=== PATIENT | female | born 1990 | race Caucasian/White ===

== ENCOUNTER 2023-05-23 09:37 | Outpatient (OUT) | payer OTHER, SELFPAY ==
[2023-05-23 10:43] LABS: Basophils Percent Auto 0.4 % (0.2-2.0); Eosinophils Absolute Auto 0.1 10^3/uL (0.0-0.7); Eosinophils Percent Auto 1.8 % (0.9-7.0); Hematocrit 38.7 % (36.0-48.0); Hemoglobin 13.1 g/dL (12.0-16.0); Immature Granulocytes Abs Auto 0.01 10^3/uL (0.00-0.03); Immature Granulocytes Pct Auto 0.1 % (0.0-0.5); Lymphocytes Absolute Auto 1.7 10^3/uL (1.2-3.8); Lymphocytes Percent Auto 25.5 % (20.5-60.0); Mean Corpuscular HGB Conc 33.9 g/dL (29.9-35.2); Mean Corpuscular Hemoglobin 29.6 pg (26.7-34.0); Mean Corpuscular Volume 87.6 fL (81.0-99.0); Mean Platelet Volume 9.3 fL (9.5-13.5); Monocytes Absolute Auto 0.4 10^3/uL (0.3-0.8); Monocytes Percent Auto 6.3 % (1.7-12.0); Neutrophils Absolute Auto 4.5 10^3/uL (1.4-6.5); Neutrophils Percent Auto 65.9 % (43.0-75.0); Platelet Count 283 10^3/uL (150-450); Red Blood Count 4.42 10^6/uL (4.20-5.40); Red Cell Distribution Width 13.4 % (11.0-15.0); White Blood Count 6.8 10^3/uL (4.0-11.0)
[2023-05-23 11:11] LABS: Estimated Average Glucose 97 mg/dL
[2023-05-23 11:22] LABS: Free T4 1.33 ng/dL (0.76-1.46)
[2023-05-23 11:25] LABS: Alanine Aminotransferase 40 U/L (14-59); Albumin Globulin Ratio 1.3; Albumin Level 4.1 g/dL (3.4-5.0); Alkaline Phosphatase 50 U/L (46-116); Anion Gap 11.7; Aspartate Amino Transferase 21 U/L (15-37); BUN Creatinine Ratio 16.5; Bilirubin Total 0.7 mg/dL (0.2-1.0); Calcium 8.5 mg/dL (8.5-10.1); Carbon Dioxide 25.6 mmol/L (21.0-32.0); Chloride 105 mmol/L (98-107); Chol HDL Ratio 3.2; Cholesterol 146 mg/dL (<=200); Estimated GFR (African America >60 (>=60); Estimated GFR (Non-African Ame >60 (>=60); Globulin 3.1 g/dL; Glucose 95 mg/dL (74-106); HDL Cholesterol 45 mg/dL (40-60); LDL Cholesterol Calculated 81.8 mg/dL; Potassium 3.3 mmol/L (3.5-5.1); Sodium 139 mmol/L (136-145); Total Protein 7.2 g/dL (6.4-8.2); Triglycerides 96 mg/dL (<=150); VLDL CHOLESTEROL 19.2 mg/dL
[2023-05-24 08:08] LABS: HIV Ab/p24 Ag Screen Non Reactive (Non Reactive)
[2023-05-24 09:09] LABS: HCV Ab Non Reactive (Non Reactive)
== END 2023-05-23 09:38 | disposition home or self-care (01) ==
PROVIDERS: PCP Nurse Practitioner Primary Care; Visit Provider Nurse Practitioner Primary Care
DX: Z00.00 Encounter for general adult medical examination without abnormal findings (principal); Z11.59 Encounter for screening for other viral diseases; Z13.29 Encounter for screening for other suspected endocrine disorder; Z11.4 Encounter for screening for human immunodeficiency virus [HIV]; Z13.6 Encounter for screening for cardiovascular disorders
CPT/HCPCS: 36415; 80053; 80061; 83036; 84439; 84443; 85025; 86803; 87389

== ENCOUNTER 2023-06-01 21:51 | Outpatient (REF) | payer OTHER, SELFPAY ==
[2023-06-03 15:08] LABS: Candida species Negative (Negative); Gardnerella vaginalis Negative (Negative); Trichomonas vaginalis Negative (Negative)
[2023-06-05 11:12] LABS: Age Gdln ACOG Testing Note (.); HPV Aptima Negative (Negative); IGP, Aptima HPV, rfx 16/18,45 Note (.)
== END 2023-06-01 21:52 | disposition home or self-care (01) ==
LOC: LAB 21:51
PROVIDERS: PCP Nurse Practitioner Primary Care; Visit Provider Nurse Practitioner Primary Care
DX: Z01.419 Encounter for gynecological examination (general) (routine) without abnormal findings (principal)
CPT/HCPCS: 87480; 87491; 87510; 87591; 87624; 87660; G0145

== ENCOUNTER 2023-07-07 11:21 | Outpatient (OUT) | payer OTHER, SELFPAY ==
--- NOTE | 2023-07-07 | XR_ITS ---
The [address] [address] Patient Name: NICK BEAN MRN: [id number] date: 1990 Sex: F Assigned Patient Location: [facility] Current Patient Location: [facility] Accession/Order Number: [id number] Exam Date: 07/07/2023 11:23 Report Date: 07/07/2023 16:21 At the request of: ERINN LEON Procedure: XR ankle LT min 3V EXAM: XR ankle LT min 3V HISTORY: LEFT ANKLE PAIN COMPARISON: None. TECHNIQUE: 3 views left ankle. FINDINGS: Mild diffuse soft tissue edema. No fracture or dislocation. Dorsal calcaneal enthesophyte. XR/XR ankle LT min 3V IMPRESSION: Mild edema left ankle without fracture. Electronically authenticated by: VICKEY IVAN Date: 07/07/2023 16:21
--- NOTE | 2023-07-07 | XR_ITS ---
The [address] [address] Patient Name: NICK BEAN MRN: [id number] date: 1990 Sex: F Assigned Patient Location: [facility] Current Patient Location: [facility] Accession/Order Number: [id number] Exam Date: 07/07/2023 11:17 Report Date: 07/07/2023 16:22 At the request of: ERINN LEON Procedure: XR foot LT min 3V EXAM: XR foot LT min 3V HISTORY: LEFT FOOT PAIN COMPARISON: None. TECHNIQUE: 4 views left foot. FINDINGS: No fracture or dislocation. Diffuse soft tissue edema with swelling most prominent over the dorsal foot. No radiopaque foreign body. Minimal degenerative change of the midfoot and great toe MTP joint. Dorsal calcaneal enthesophyte. XR/XR foot LT min 3V IMPRESSION: Soft tissue changes as noted with no fracture left foot. Electronically authenticated by: VICKEY IVAN Date: 07/07/2023 16:22
== END 2023-07-07 11:22 | disposition home or self-care (01) ==
PROVIDERS: PCP Nurse Practitioner Primary Care; Visit Provider Physician Assistant
DX: M79.672 Pain in left foot (principal); M25.572 Pain in left ankle and joints of left foot
CPT/HCPCS: 73610; 73630

== ENCOUNTER 2023-08-11 13:34 | Outpatient (OUT) | payer OTHER, SELFPAY ==
--- NOTE | 2023-08-11 | XR_ITS ---
The [address] [address] Patient Name: NICK BEAN MRN: [id number] date: 1990 Sex: F Assigned Patient Location: [facility] Current Patient Location: [facility] Accession/Order Number: [id number] Exam Date: 08/11/2023 13:25 Report Date: 08/11/2023 21:38 At the request of: ERINN LEON Procedure: XR foot LT min 3V EXAM: XR foot LT min 3V HISTORY: LEFT FOOT PAIN for the past 2 weeks. COMPARISON: 07/07/2023 TECHNIQUE: 3 views of the left foot were obtained. FINDINGS: There is no evidence of an acute fracture or dislocation. A secondary ossification center is seen along the proximal and medial aspect of the navicular bone. An osteophyte arises from the insertion site of the Achilles tendon. The joint space are otherwise intact. No abnormal soft tissue calcification is identified. Mild soft tissue swelling diffusely about the foot is noted. XR/XR foot LT min 3V IMPRESSION: No acute fracture, dislocation or significant degenerative change. Mild soft tissue swelling is noted. An osteophyte is seen at the insertion site of the Achilles tendon. The overall appearance is unchanged. Electronically authenticated by: DARNELL FLANNERY Date: 08/11/2023 21:38
== END 2023-08-11 13:35 | disposition home or self-care (01) ==
LOC: RAD 13:34
PROVIDERS: PCP Nurse Practitioner Primary Care; Visit Provider Physician Assistant
DX: M79.672 Pain in left foot (principal)
CPT/HCPCS: 73630

== ENCOUNTER 2023-10-05 12:29 | Outpatient (OUT) | payer OTHER, SELFPAY ==
--- NOTE | 2023-10-05 12:32 | MR_ITS ---
The [address] [address] Patient Name: NICK BEAN MRN: [id number] date: 1990 Sex: F Assigned Patient Location: MRI Current Patient Location: MRI Accession/Order Number: [id number] Exam Date: 10/05/2023 12:55 Report Date: 10/05/2023 22:21 At the request of: NON-STAFF PHYSICIAN Procedure: MR ankle LT wo con EXAM: MR ankle LT wo con HISTORY: Burning pain over third and fourth metatarsals COMPARISON: Foot x-rays 08/11/2023 and foot and ankle x-rays 07/07/2023 TECHNIQUE: Multiplanar, multi sequential MRI sequences were performed FINDINGS: No fracture, dislocation, subluxation or osseous lesion. No joint effusion. The visualized articular cartilage exhibits no chondral or osteochondral abnormality. The tarsal tunnel and angela pedis exhibit no edema, hematoma, mass or cyst. The superficial subcutaneous soft tissues are free of edema, hematoma, mass or cyst. Limited evaluation on this study secondary to technique, is a presumed focal split of the peroneus brevis tendon just distal to the lateral malleolus tip (axial 19). Thickening and edema of the tendon beginning approximately 2 cm proximal to the lateral malleolar tip and extending to the peroneal tubercle. Tenosynovial fluid within the peroneus brevis tendon beginning at the myotendinous junction and extending distal to the peroneal tubercle. No avulsion from its insertion. Mild reactive tenosynovial fluid within the peroneus brevis longus tendon sheath. No peroneus longus tendon thickening, tear or edema. The posterior tibial, flexor digitorum longus, flexor hallucis longus and anterior tendons exhibit no thickening, tear, edema or tenosynovial collections. The anterior talofibular, calcaneofibular, posterior talofibular, anterior and posterior inferior tibiofibular, syndesmotic, intermalleolar, deltoid and spring ligamentous complexes exhibit no thickening, tear or edema. The sinus tarsi is fat filled. The interosseous talocalcaneal and cervical ligaments along with the roots of the inferior extensor retinaculum are unremarkable. No thickening or edema of the Achilles tendon. The pre-Achilles bursa, retrocalcaneal bursa and pre-Achilles fat are normal. The plantar aponeurosis exhibits no thickening, tear or edema. No muscle edema, hematoma, atrophy or fatty infiltration. MR/MR ankle LT wo con IMPRESSION: Peroneus brevis tendinopathy and tenosynovitis. Presumed/questionable focal split of the peroneus brevis tendon just distal to the lateral malleolar tip. Mild reactive peroneus longus tenosynovitis Electronically authenticated by: JOEY BAEZA Date: 10/05/2023 22:21
== END 2023-10-05 12:30 | disposition home or self-care (01) ==
LOC: MRI 12:30
PROVIDERS: PCP Nurse Practitioner Primary Care
DX: G57.30 Lesion of lateral popliteal nerve, unspecified lower limb (principal); G57.32 Lesion of lateral popliteal nerve, left lower limb; M79.89 Other specified soft tissue disorders; M67.472 Ganglion, left ankle and foot
CPT/HCPCS: 73721

== ENCOUNTER 2024-03-23 12:21 | Outpatient (OUT) | payer OTHER, SELFPAY ==
[2024-03-23 13:31] LABS: Alanine Aminotransferase 33 U/L (14-59); Albumin Level 3.6 g/dL (3.4-5.0); Alkaline Phosphatase 52 U/L (46-116); Anion Gap 10.1; Aspartate Amino Transferase 21 U/L (15-37); BUN Creatinine Ratio 13.9; Bilirubin Total 0.3 mg/dL (0.2-1.0); Calcium 8.7 mg/dL (8.5-10.1); Carbon Dioxide 28.4 mmol/L (21.0-32.0); Chloride 102 mmol/L (98-107); Estimated GFR (African America >60 (>=60); Estimated GFR (Non-African Ame >60 (>=60); Globulin 3.5 g/dL; Glucose 97 mg/dL (74-106); Potassium 3.5 mmol/L (3.5-5.1); Sodium 137 mmol/L (136-145); Total Protein 7.1 g/dL (6.4-8.2)
== END 2024-03-23 12:22 | disposition home or self-care (01) ==
LOC: LAB 12:24
PROVIDERS: PCP Nurse Practitioner; Visit Provider Nurse Practitioner
DX: E87.6 Hypokalemia (principal)
CPT/HCPCS: 36415; 80053

== ENCOUNTER 2024-04-25 14:49 | Outpatient (OUT) | payer OTHER, SELFPAY ==
[2024-04-25 15:10] LABS: Hematocrit 37.7 % (36.0-48.0); Hemoglobin 12.5 g/dL (12.0-16.0); Mean Corpuscular HGB Conc 33.2 g/dL (29.9-35.2); Mean Corpuscular Hemoglobin 29.9 pg (26.7-34.0); Mean Corpuscular Volume 90.2 fL (81.0-99.0); Mean Platelet Volume 9.4 fL (9.5-13.5); Platelet Count 291 10^3/uL (150-450); Red Blood Count 4.18 10^6/uL (4.20-5.40); Red Cell Distribution Width 12.9 % (11.0-15.0); White Blood Count 9.5 10^3/uL (4.0-11.0)
[2024-04-25 15:59] LABS: TSH W/ REFLEX FT4 1.359 uIU/mL (0.358-3.740)
== END 2024-04-25 14:50 | disposition home or self-care (01) ==
LOC: LAB 14:52
PROVIDERS: PCP Nurse Practitioner; Visit Provider Nurse Practitioner
DX: R53.83 Other fatigue (principal)
CPT/HCPCS: 36415; 82306; 84443; 85027

== ENCOUNTER 2024-06-01 15:48 | Outpatient (RCR) | payer OTHER, SELFPAY | END 2024-06-24 12:48 | disposition home or self-care (01) | LOC: PT 15:48 | PROVIDERS: PCP Student in an Organized Health Care Education/Training Program; Visit Provider Student in an Organized Health Care Education/Training Program | DX: M79.672 Pain in left foot (principal); S46.819D Strain of other muscles, fascia and tendons at shoulder and upper arm level, unspecified arm, subsequent encounter | CPT/HCPCS: 97014; 97110; 97140; 97162 ==

== ENCOUNTER 2024-06-14 08:32 | Outpatient (OUT) | payer OTHER, SELFPAY ==
--- NOTE | 2024-06-14 | XR_ITS ---
The [address] [address] Patient Name: NICK BEAN MRN: [id number] date: 1990 Sex: F Assigned Patient Location: Current Patient Location: Accession/Order Number: [id number] Exam Date: 06/14/2024 08:42 Report Date: 06/15/2024 05:37 At the request of: DARNELL MCKEON Procedure: XR foot LT min 3V PROCEDURE: XR foot LT min 3V, XR ankle LT min 3V HISTORY: LEFT FOOT PAIN COMPARISON: XR left ankle 07/07/2023, XR foot left 08/11/2023 FINDINGS: BONES:Degenerative enthesophyte at Achilles tendon insertion into the calcaneus. No fracture, dislocation, or bone lesion. SOFT TISSUES:No visible soft tissue swelling. EFFUSION:None visible. OTHER: Negative. XR/XR foot LT min 3V IMPRESSION: 1. Stable mild degenerative enthesopathic spurring at Achilles tendon insertion. 2. Otherwise unremarkable ankle and foot. Electronically authenticated by: SAMPSON GUAN Date: 06/15/2024 05:37
--- NOTE | 2024-06-14 | XR_ITS ---
The [address] [address] Patient Name: NICK BEAN MRN: [id number] date: 1990 Sex: F Assigned Patient Location: Current Patient Location: Accession/Order Number: [id number] Exam Date: 06/14/2024 08:44 Report Date: 06/15/2024 05:37 At the request of: DARNELL MCKEON Procedure: XR ankle LT min 3V PROCEDURE: XR foot LT min 3V, XR ankle LT min 3V HISTORY: LEFT FOOT PAIN COMPARISON: XR left ankle 07/07/2023, XR foot left 08/11/2023 FINDINGS: BONES:Degenerative enthesophyte at Achilles tendon insertion into the calcaneus. No fracture, dislocation, or bone lesion. SOFT TISSUES:No visible soft tissue swelling. EFFUSION:None visible. OTHER: Negative. XR/XR ankle LT min 3V IMPRESSION: 1. Stable mild degenerative enthesopathic spurring at Achilles tendon insertion. 2. Otherwise unremarkable ankle and foot. Electronically authenticated by: SAMPSON GUAN Date: 06/15/2024 05:37
--- OUTSIDE RECORDS SUMMARY | 2024-06-14 08:37 | XMS_ITS | CCD ---
Author Organization [facility] Care Team Providers Care Mig Welder Name Role Phone Mikki Brooks Unavailable VijayaAbigail Unavailable VijayaVICTORIA doran Attending Provider Jeromy DPM, Saeid Beth Attending Unavailab le Jeromy DPM, Saeid Beth Attending Unavailab le Jeromy DPM, Saeid Beth Attending Unavailab le Jeromy DPM, Saeid Beth Attending Unavailab le Jeromy DPM, Saeid Beth Attending Unavailab le NON STAFF Primary Care Unavailable Abigail Lilly Attending Unavailable Abigail Lilly M Admitting Unavailable SHAMMO, CAROLINA Primary Care Unavailable SHAMMO, CAROLINA Primary Care Unavailable WALLACE CANAS Attending Unavailable Unavailable Primary Care Provider Unavailjean Black DMD, MD, Karthik Unavailable PROVIDER, UNKNOWN Admitting Unavailable PROVIDER, UNKNOWN Attending Unavailable PROVIDER, UNKNOWN Admitting Unavailable MAK BLACKA Attending Unavailable SOFIA, KARTHIK Admitting Unavailable KARTHIK BLACK Attending Unavailable Allergies Allergy Classification Reported Allergen(s) Allergy Type Date of Onset Reaction(s) Facility (15 sources) Amoxicillin; Translations: [amoxicillin] Drug Allergy 5 hives, Itching, Rash, Other [facility] Repository (13 sources) Ciprofloxacin; Translations: [CIPROFLOXACIN] Drug Allergy 5 Myalgias, Other [employer] Other (1 source) Ciprofloxacin; Translations: [Cipro] Drug Allergy [facility] Repository (1 source) Amoxicillin Drug Allergy 4 [facility] Repository (1 source) Ciprofloxacin Drug Allergy 4 [facility] Repository (1 source) Ciprofloxacin; Translations: [CIPROFLOXACIN HCL] Drug Allergy 2 [facility] Repository Medications Current Medications Medication Drug Class(es) Dates Sig (Normalized) Sig (Original) acetaminophen 325 mg oral tablet (5 sources) Start: 06-07-2024 End: 06-14-2024 take 2 tablets by mouth every four hours as needed for pain acetaminophen (TYLENOL) 325 mg tablet Take 2 Tablets by mouth every 4 hours as needed for Pain for up to 7 days. 56 Tablet 06/07/2024 06/14/2024 Active busPIRone hydrochloride 5 mg oral tablet (12 sources) Start: 12-22-2023 busPIRone (BUSPAR) 5 MG tablet 5 mg. 12/22/2023 Active busPIRone HCl 15 MG Oral for 30 Days Not-Taking/PRN chlorhexidine gluconate 1.2 mg/ml mouthwash (6 sources) Start: 06-07-2024 End: 06-23-2024 chlorhexidine (Peridex) 0.12 % oral solution Swish and spit 15ml twice daily after meals. Rinse for 30 seconds and then gently spit. Do not swallow. 473 mL 06/07/2024 06/23/2024 Active Start: 06-07-2024 15 mL, Swish & Spit, ONCE, 1 dose, On Thu06/07/24 at 1230, Pre-op 1 ml HYDROmorphone hydrochloride 0.2 mg/ml prefilled syringe (2 sources) Opioid Agonist Start: 06-07-2024 End: 06-09-2024 0.2 mg, Intravenous Push, PACU EVERY 15 MIN PRN X 4 DOSES, 4 doses, Starting on Thu06/07/24 at 1220, Until Ivonne 06/09/24 at 1219, Moderate Pain (pain score 4,5,6), PACU Now Start: 06-07-2024 End: 06-08-2024 0.5 mg, Intravenous Push, PA CU EVERY 15 MIN PRN X 4 DOSES, 4 doses, Starting on Thu06/07/24 at 1220, Until 06/08/24 at 2359, Severe Pain (pain score 7,8,9,10), PACU Now hydrOXYzine pamoate 25 mg oral capsule (12 sources) Antihistamine hydrOXYzine pamo ate (VISTARIL) 25 MG capsule 25 mg. Active 3 ml liraglutide 6 mg/ml pen injector (2 sources) GLP-1 Receptor Agonist Victoza 1 8 MG/3ML Subcutaneous for 17 Days Active melatonin 5 mg oral tablet (10 sources) melatonin 5 mg T ABS tablet 5 mg. Active naproxen 375 mg delayed release oral tablet (12 sources) Nonsteroidal Anti-inflammatory Drug naproxen (EC NAPR OSYN) 375 MG tablet Take 500 mg by mouth 2 times daily (with meals). Active Naproxen 500 MG Oral for 30 Days Active nitrofurantoin, macrocrystals 25 mg / nitrofurantoin, monohydrate 75 mg oral capsule (1 source) Nitrofuran Antibacterial Start: 11-12-2023 take 1 capsule by mouth every twelve hours Macrobid 100 MG 1 capsule with food Orally every 12 hrs for 7 day(s) Oct, Active oxyCODONE hydrochloride 5 mg oral tablet (5 sources) Opioid Agonist Start: 06-07-2024 End: 06-10-2024 take 1 tablet by mouth every six hours as needed for pain oxyCODONE 5 MG immediate release tablet Indications: Pain following oral surgery Take 1 Tablet by mouth every 6 hours as needed for Pain for up to 3 days. 12 Tablet 06/07/2024 06/10/2024 Active potassium chloride 20 meq powder for oral solution (2 sources) Potassium Chloride 20 MEQ Oral for 30 Days Active Completed/Discontinued Medications Medication Drug Class(es) Dates Sig (Normalized) Sig (Original) aspirin 325 mg / butalbital 50 mg / caffeine 40 mg oral capsule (2 sources) Platelet Aggregation Inhibitor, Barbiturate, Nonsteroidal Anti-inflammatory Drug, Central Nervous System Stimulant, Methylxanthine Butalbital-Aspiri n-Caffeine 50-325-40 MG Oral for 14 Days Not-Taking/PRN calcium chloride 0.0014 meq/ml / potassium chloride 0.004 meq/ml / sodium chloride 0.103 meq/ml / sodium lactate 0.028 meq/ml injectable solution (2 sources) Start: 06-07-2024 End: 06-07-2024 Intravenous, PRN CONTINUOUS, Starting on Thu06/07/24 at 1306, Until Thu06/07/24 at 1408 Start: 06-07-2024 Intravenous, a t 75 mL/hr, CONTINUOUS, Starting on Thu06/07/24 at 1230, Until Discontinued ceFAZolin 2000 mg injection (1 source) Cephalosporin Antibacterial Start: 06-07-2024 End: 06-07-2024 Intravenous, PRN, Starting on Thu06/07/24 at 1315, Until Thu06/07/24 at 1408 clindamycin 150 mg oral capsule (2 sources) Lincosamide Antibacterial Clindamycin HCl 150 MG Oral for 7 Days Not-Taking/PRN 1 ml dexamethasone phosphate 10 mg/ml injection (1 source) Corticosteroid Start: 06-07-2024 End: 06-07-2024 Intravenous, PRN, Starting on Thu06/07/24 at 1321, Until Thu06/07/24 at 1408, Intra-op 10 ml esmolol hydrochloride 10 mg/ml injection (1 source) beta-Adrenergic Luan Start: 06-07-2024 End: 06-07-2024 Intravenous, PRN, Starting on Thu06/07/24 at 1329, Until Thu06/07/24 at 1408, Intra-op 2 ml fentaNYL 0.05 mg/ml injection (1 source) Opioid Agonist Start: 06-07-2024 End: 06-07-2024 Intravenous, PRN, Starting on Thu06/07/24 at 1308, Until Thu06/07/24 at 1408, Intra-op ibuprofen 200 mg oral capsule (10 sources) Nonsteroidal Anti-inflammatory Drug End: 06-09-2024 take 1 capsule by mouth every six hours Ibuprofen 200 MG CAPS Take 1 Each by mouth every 6 hours. 06/09/2024 Discontinued 1 ml ketorolac tromethamine 30 mg/ml cartridge (1 source) Nonsteroidal Anti-inflammatory Drug, Cyclooxygenase Inhibitor Start: 06-07-2024 End: 06-07-2024 Intravenous Push, PRN, Starting on Thu06/07/24 at 1406, Until Thu06/07/24 at 1411 5 ml lidocaine hydrochloride 20 mg/ml injection (1 source) Antiarrhythmic, Amide Local Anesthetic Start: 06-07-2024 End: 06-07-2024 Intravenous, PRN, Starting on Thu06/07/24 at 1321, Until Thu06/07/24 at 1408, Intra-op midazolam 1 mg/ml injectable solution (1 source) Benzodiazepine Start: 06-07-2024 End: 06-07-2024 Intravenous, PRN, Starting on Thu06/07/24 at 1306, Until Thu06/07/24 at 1408, Intra-op 1 ml naloxone hydrochloride 0.4 mg/ml injection (1 source) Opioid Antagonist Start: 06-07-2024 0.4 mg, Intravenous Push, PRN, Starting on Thu06/07/24 at 1220, Until Discontinued, Respiratory Rate Less Than 8 for adults and less than 12 for Peds or for suspected overdose, PACU Now 2 ml ondansetron 2 mg/ml injection (1 source) Serotonin-3 Receptor Antagonist Start: 06-07-2024 End: 06-07-2024 Intravenous Push, PRN, Starting on Thu06/07/24 at 1340, Until Thu06/07/24 at 1408, Intra-op 100 ml propofol 10 mg/ml injection (1 source) General Anesthetic Start: 06-07-2024 End: 06-07-2024 Intravenous, PRN, Starting on Thu06/07/24 at 1321, Until Thu06/07/24 at 1408 propofol (DIPRIVAN) 10 mg/mL iv bolus from infusion bottle (1 source) Start: 06-07-2024 End: 06-07-2024 IV Bolus, PRN, Starting on Thu06/07/24 at 1345, Until Thu06/07/24 at 1408, Intra-op rocuronium bromide 10 mg/ml injectable solution (1 source) Nondepolarizing Neuromuscular Luan Start: 06-07-2024 End: 06-07-2024 Intravenous Push, PRN, Starting on Thu06/07/24 at 1321, Until Thu06/07/24 at 1408, Intra-op 20 ml sodium chloride 9 mg/ml injection (1 source) Start: 06-07-2024 3 mL, Intravenous Push, PRN, Starting on Thu06/07/24 at 1220, Until Discontinued, For medication administration and blood draw, PACU Now tiZANidine 2 mg oral tablet (2 sources) Central alpha-2 Adrenergic Agonist tiZANidine HCl 2 MG Oral for 14 Days Not-Taking/PRN Problems Active Problems Problem Classification Problem Date Documented Date Episodic/Chronic Conditions associated with dizziness or vertigo (2 sources) Dizziness and giddiness; Translations: [Dizziness] Onset: 12-06-2023 Episodic Disorders of teeth and jaw (14 sources) Dental caries; Translations: [Dental caries, unspecified] Onset: 03-10-2024 Resolved: 06-07-2024 03-10-2024 Episodic Genitourinary symptoms and ill-defined conditions (2 sources) Dysuria; Translations: [Dysuria] Onset: 11-12-2023 Episodic Headache; including migraine (10 sources) Migraine; Translations: [Migraine, unspecified, not intractable, without status migrainosus] Onset: 03-10-2024 03-10-2024 Chronic Other connective tissue disease (1 source) Pain in left foot Episodic Other lower respiratory disease (1 source) Shortness of breath Onset: 12-06-2023 Episodic Other nervous system disorders (1 source) Painful mouth; Translations: [Other acute postprocedural pain] 06-07-2024 Episodic Other nutritional; endocrine; and metabolic disorders (10 sources) Morbid obesity; Translations: [Morbid (severe) obesity due to excess calories] Onset: 11-23-2016 03-10-2024 Chronic Other skin disorders (1 source) Skin problem Onset: 12-31-2023 Episodic Skin and subcutaneous tissue infections (2 sources) Cutaneous abscess, unspecified; Translations: [Cellulitis of chest wall] Onset: 12-31-2023 Episodic Unclassified (1 source) Fever, Abcess Onset: 12-31-2023 Unclassified (1 source) Cold Like Symptoms Onset: 12-06-2023 Viral infection (1 source) Herpesviral vesicular dermatitis; Translations: [Herpesviral vesicular dermatitis] Onset: 12-31-2023 Episodic Past or Other Problems Problem Classification Problem Date Documented Da te Episodic/Chronic Cardiac dysrhythmias (10 sources) Palpitations; Translations: [Palpitations] Onset: 01-08-2017 03-10-2024 Episodic Diabetes or abnormal glucose tolerance complicating ; childbirth; or the puerperium (10 sources) Gestational diabetes mellitus; Translations: [Gestational diabetes mellitus in , controlled by oral hypoglycemic drugs] Onset: 06-08-2019 03-10-2024 Episodic Hypertension complicating ; childbirth and the puerperium (10 sources) -induced hypertension; Translations: [Gestational [-induced] hypertension without significant proteinuria, unspecified trimester] Onset: 02-24-2017 03-10-2024 Episodic Nonspecific chest pain (10 sources) Precordial pain; Translations: [Precordial pain] Onset: 12-10-2016 03-10-2024 Episodic Britta-; endo-; and myocarditis; cardiomyopathy (except that caused by tuberculosis or sexually transmitted disease) (10 sources) Acute myopericarditis; Translations: [Acute pericarditis, unspecified] Onset: 12-10-2016 03-10-2024 Episodic Previous (10 sources) Delivery finding; Translations: [Maternal care for unspecified type scar from previous delivery] Onset: 03-10-2024 03-10-2024 Episodic Residual codes; unclassified (10 sources) Past history of procedure; Translations: [Personal history of other medical treatment] Onset: 05-24-2019 03-10-2024 Episodic Results Test Name Value Interpretation Reference Range Facility Telephone Encounteron 2023 [facility] Authentication Interface Message Text Symptoms - white bumps along the gum line, pt has concerns that she needs a nurse to call and discuss with her Normal [facility] Authentication Interface Message Text Situation: Patient is calling back previously triaged for another issue Background: Patient states she has white bumps along the gum line where the teeth were extracted. Assessment: Pls call pt @ [phone] to discuss AND advise Recommendation: Pls advise Thank you Normal [facility] Anesthesia Postprocedure Tata luationon 06-07-2024 [facility] Authentication Interface Message Text Anesthesia Postoperative Assessment: Vital Signs (most recent): BP 120/82 Pulse 75 Temp 37 ???C (98.6 ???F) (Temporal) Resp 15 LMP 05/16/2024 SpO2 96% Anesthesia Post Evaluation Level of consciousness: awake Post-procedure exam normal. Body temperature, hydration status, PONV and pain evaluated and addressed. Pain management: adequate Hydration status: normal PONV:No nausea/vomiting reported Cardiopulmonary status stable Respiratory status: acceptable Cardiovascular status: acceptable ANESTHESIA NOTABLE EVENTS: No notable events documented. 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 Cardiovascular (+) hypertension, Surgical risk: intermediate; Cardiac condition: no apparent (-) CHF ECG reviewed GI/Hepatic/Renal (+) GERD Heme/Other (-) no DVT, bleeding disorder, anemia and anticoagulation therapy Other ROS: Nick Bean is 34 year old female here for Procedure(s): Extraction of all manibular teeth, alveoplasty Patient Active Problem List: Acute myopericarditis (HCC) [I30.9] Delivery with history of (HCC) [O34.219] Gestational diabetes mellitus (GDM) in third trimester controlled on oral hypoglycemic drug (HCC) [O24.415] Gestational hypertension (HCC) [O13.9] Hx of Doppler echocardiogram [Z92.89] Migraines [G43.909] Morbid obesity (HCC) [E66.01] Palpitations [R00.2] Precordial pain [R07.2] Caries [K02.9] Allergies: -- Amoxicillin -- Hives, Itching, Rash and Other -- Ciprofloxacin -- Myalgias and Other Physical Exam Airway Mallampati: III TM distance: Adequate Micrognathia: Not present Jaw opening: Adequate Neck flexion: Adequate Dental PE (+) intact and chipped teeth Pulmonary - pulmonary exam normal Comment: Chest clear to auscultation bilaterally Cardiovascular - cardiovascular exam normal Comment: RRR with S1S2; no murmurs, gallops, or rubs Neuro - neurological exam normal Comment: Awake, alert, oriented, No motor deficits and sensation grossly intact Plan Anesthesia plan: general; (ETT) Anesthesia risks / alternatives discussed pre-op Questions answered / anesthesia plan accepted Past medical history, surgical history, allergies, and medications reviewed. Pertinent laboratory tests, EKG, imaging, and consults reviewed and I have personally seen and evaluated the patient, repeating witt portions of the history and physical examination. Attestation: Anesthesia options were discussed with the patient and/or legal territory sales representative. The risks, benefits and alternatives were reviewed. Questions regarding anesthesia were answered. Patient and/or legal territory sales representative knows such anesthetics and procedures may be performed by Resident physicians, Certified Anesthesiologist Assistants, or Certified Nurse Anesthetists under the supervision of a physician. The patient /or the patient's legal territory sales representative agree with the plan for anesthesia. MHPATFORM Normal [facility] Anesthesia Transfer Of Careo n 06-07-2024 [facility] Authentication Interface Message Text Patient taken to PACU. Patient was awake, comfortable, and stable on arrival. Anesthesia Transfer of Care Note Past Medical History: No past medical history on file. Sleep Apnea/Positive STOP-BANG: No Problem List: Patient Active Problem List: Acute myopericarditis (HCC) [I30.9] Delivery with history of (HCC) [O34.219] Gestational diabetes mellitus (GDM) in third trimester controlled on oral hypoglycemic drug (HCC) [O24.415] Gestational hypertension (HCC) [O13.9] Hx of Doppler echocardiogram [Z92.89] Migraines [G43.909] Morbid obesity (HCC) [E66.01] Palpitations [R00.2] Precordial pain [R07.2] Past Surgical History: There is no previous surgical history on file. Allergies: Amoxicillin and Ciprofloxacin Basic Operating Room Facts: Surgeon(s): Karthik Black DMD, MD Anesthesiologist: Washington Anderson MD NETWORK SECURITY CONSULTANT: Dariusz Anderson APRN-NETWORK SECURITY CONSULTANT Anesthesia Student: Benton Goddard Extraction of all manibular teeth, alveoplasty (Mouth) Intraoperative Events: No acute event ASA: 3 EBL: Not documented Urine Not documented Lactated Ringers and NaCl 0.9%: Fluid Totals (Filter: LR and NaCl 0.9% Medications Shown) Medication Calculated Total Lactated Ringers 0 mL / 2 bags Cell Saver: Not documented Blood Volume Values: Blood Products None MTP Blood: MTP PRBC: Not documented MTP FFP: Not documented MTP PLT: Not documented MTP Cryo: Not documented MTP Whole Blood: Not documented Current Vasoactive Medications: {Vasoactive Medications: None Lines, Drains, Airways Peripheral IV Access: 06/07/24 1158 20 gauge Posterior;Right Hand (Active) Site Assessment WNL;Dressing intact 06/07/24 1158 Infusion Status Port #1 Positive blood return;Patent 06/07/24 1158 Airway Insertion Details [REMOVED] Advanced Airway: ETT, Oral;Cuffed #7 (Removed) 06/07/24 1324 Pre-Oxygenation/ Induction: Mask Rapid Sequence Induction?: Mask Ventilation: Easy Blade Type: Hyperangulated Blade Size: 3 Visualization: Grade 1 Airway Type: ETT, Oral;Cuffed Airway Size: #7 Post Insertion Assessment: Confirmation: Equal bilateral breath sounds, CO2 confirmed # Attempts >1: Special Equipment: Glidescope Present on Admission?: Previously Removed / Not Present: Removal Reason: Not Removed at Discharge: Removed 06/07/24 1354 Location (cm) 22 06/07/24 1324 Measured from: Lips 06/07/24 1324 Secured via: Taped 06/07/24 1324 Site Assessment WNL 06/07/24 1324 All non-working IVs have been removed: N/A Laboratory Data: CBC (last 3 years, up to 8 values) No lab values to display. BMP (last 3 years, up to 8 values) No lab values to display. Basic Metabolic Panel No lab values to display. No results found for: INR No result for BNP LFT's (last 3 years, up to 8 values) No lab values to display. Arterial Blood Gases None Hand off Completed: Yes 1. The patient was identified. 2. Pertinent medical history was relayed. 3. A brief discussion was had about any pertinent surgical/ procedural issues. 4. Intraoperative/ anesthetic management issue and concerns were discussed. 5. Plans for the early post-operative period relayed. 6. An opportunity for questions and acknowledgment of understanding of the report was received. Dariusz Anderson APRN-JODEE Normal [facility] Blood Attestationon 06-07-20 [facility] Authentication Interface Message Text Blood Attestation: ATTESTATION OF INFORMED CONSENT FOR BLOOD: The transfusion of blood and/or blood components were discussed with the patient and/or legal territory sales representative. The risks, benefits and alternatives were reviewed. Questions regarding blood transfusions were answered. The patient /or the patient's legal territory sales representative agree with the plan for transfusion of blood and/or blood components. [facility] 06-07-2024 [facility] Authentication Interface Message Text [facility] Division of special deputy sheriff [address] [place] [address] [place] [address] OPERATIVE NOTE Name: Nick Bean MR#: [id number] ENC#: Data Unavailable Surgical Case #: Data Unavailable Date of Procedure: 06/07/2024 ? PREOPERATIVE DIAGNOSIS: Caries (Primary Diagnosis) [[id number]] Pain following oral surgery [[id number]] ? POSTOPERATIVE DIAGNOSIS: Caries (Primary Diagnosis) [[id number]] Pain following oral surgery [[id number]] OPERATION: EXTRACTION ERUPTED TOOTH/EXR [D7140] ALVEOPLASTY W/ EXTRACTION [D7310] ? ATTENDING SURGEON: Karthik Black DMD, MD ? FIRST SURGEON: Karthik Black DMD, MD ? SECOND SURGEON: Walt Ortiz DDS ? ANESTHESIA: General anesthesia via oral endotracheal tube intubation supplemented with 1- mL of a 50/50 mixture of 1% lidocaine with 1:100,000 epinephrine and 0.5% Marcaine. ? SPECIMENS: None ? ESTIMATED BLOOD LOSS: 10 mL. ? IV FLUIDS: 700 mL. ? FINDINGS: No significant findings. ? DESCRIPTION OF OPERATION: The patient was taken to the operating room on a cart and transferred onto the operating room table under [employer] power. The patient was then placed in the supine position. A time-out was conducted to confirm correct patient and procedure to be performed. Anesthesia team, Surgical staff and Nursing team all agreed on correct patient and laterality of the procedure. At this time care of the patient was transferred over to the Anesthesia Service for induction of general anesthetic and intubation. The patient was intubated via oral endotracheal tube intubation. The tube was secured and care of the patient was transferred back to the Oral Maxillofacial Surgery service for continuation of the procedure. The patient was then prepped and draped in usual sterile fashion and the oral cavity was suctioned clear and a throat pack was placed deep in theoropharynx. A #15 blade used to make a combined sulcular and midcrestal incision around remaining mandibular teeth. A periosteal elevator used to elevate a full thickness mucoperiosteal flap. A dental elevator used to mobilize teeth #20, 21, 22, 23, 24, 25, 26, 27, 28. They were then extracted with dental forceps. Teeth removed in their entirety. Curettage of extraction sockets performed. Alveoplasty of mandibular right left performed with rongeurs and bone file. Copious irrigation performed of maxilla and mandible. Closure of mucoperiosteal flaps performed with 3-0 chromic gut in running continuous fashion. Sites hemostatic. The oral cavity was suctioned clear and the throat pack was removed. After wound closure was accomplished care of the patient was transferred back to the Anesthesia Service for emergence from the general anesthetic and extubation. The patient was extubated without incidence and transferred back to a cart where he was taken to the Post Anesthesia Care Unit for further monitoring. The patient was stable during the entire procedure. There were no complications. I, Dr. Black, was present for all critical parts of the procedure. ? ? ? Karthik Black DMD, MD Normal [facility] Telephone Encounteron 2023 [facility] Authentication Interface Message Text Situation: Caller states had oral surgery today, had 8 teeth extracted and her bone filed down and states her chin and lower lip are still numb. Background: N/A Assessment: N/A Recommendation: Did discuss that the numbing after tooth extraction can take up to 24 hours to wear off completely. Typically it wears off after a dental procedure after 3 to 5 hours. Caller states some of her numbing has already worn off. Discuss resting and going to sleep and having patience, and to follow up with the Dental Clinic in am, she has the number, caller agreeable and verbalized all understanding. No further questions. Information obtained from, [email or web address]/ Nichole Aguila, MICKIE, RN Normal [facility] URINE HCG-IN OFFICEOrdered B y: William Hooker on 06-07-2024 HCG ( test) Ql (U) Negative Negative [facility] Interpretation and review of laboratory results Normal [facility] Negative Internal Control Negative Negative [facility] Positive Internal Control Positive Positive [facility] PAT Call Historyon [facility] Authentication Interface Message Text Telephone History Nick Bean, [id number] 05/20/2024 Patient was identified by name and date of . Kizzy Maurice RN 34 year old 270 lbs 5' 5 Date of Surgery: 06-07-2024 Surgeon: Karthik Black DMD, MD Type of Surgery: Extraction of all manibular teeth, alveoplasty HISTORY OF PRESENT ILLNESS: PAT telephone evaluation for Extraction of all manibular teeth, alveoplasty STOP-BANG Row Name 05/20/24 1300 History of sleep apnea? No Snoring No Tired/Fatigued Yes Observed Apnea No Pressure: Hypertension No BMI greater than 35 1 Age greater than 50 0 Neck circ greater than 40cm (15.75 ) Unable to Assess Gender male? 0 Score 2 EXERCISE CAPACITY: 4-10 mets ALLERGIES: Amoxicillin and Ciprofloxacin PREVIOUS ANESTHETIC EXPERIENCES AND INTUBATION HISTORY: No previous anesthetic FAMILY HISTORY OF ANESTHETIC COMPLICATIONS: Yes, my sister wakes up 10years in th past, and then takes about 1 hr to fully recover' PAST MEDICAL HISTORY: No past medical history on file. 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 SOCIAL HISTORY: Social History Socioeconomic History Marital status: Unknown Highest education level: 12th grade Tobacco Use Smoking status: Never Smokeless tobacco: Never Vaping Use Vaping status: Every Day Substances: Nicotine, THC Substance and Sexual Activity Alcohol use: Not Currently Drug use: Yes Types: Marijuana/THC Social Determinants of Health Financial Resource Strain: Medium Risk (03/09/2024) Overall Financial Resource Strain (CARDIA) Difficulty of Paying Living Expenses: Somewhat hard Food Insecurity: No Food Insecurity (03/09/2024) Hunger Vital Sign Worried About Running Out of Food in the Last Year: Never true Ran Out of Food in the Last Year: Never true Transportation Needs: No Transportation Needs (03/09/2024) PRAPARE - Transportation Lack of Transportation (Medical): No Lack of Transportation (Non-Medical): No Physical Activity: Sufficiently Active (03/09/2024) Exercise Vital Sign Days of Exercise per Week: 5 days Minutes of Exercise per Session: 60 min Stress: No Stress Concern Present (03/09/2024) [place] [facility] Occupational Health - Occupational Stress Questionnaire Feeling of Stress : Only a little Social Connections: Moderately Isolated (03/09/2024) Social Connection and Isolation Panel [NHANES] Frequency of Communication with Friends and Family: More than three times a week Frequency of Social Gatherings with Friends and Family: Three times a week Attends Sabianist Services: Never Active Member of Clubs or Organizations: No Attends Club or Organization Meetings: Never Marital Status: Intimate Partner Violence: Not At Risk (03/09/2024) Humiliation, Afraid, Rape, and Kick questionnaire Fear of Current or Ex-Partner: No Emotionally Abused: No Physically Abused: No Sexually Abused: No PAIN ASSESSMENT: Severity: 0 Location: N/A LABORATORY DATA: Component 12/06/23 05/17/23 03/17/23 03/17/23 03/17/23 White Blood Cells 7.9 7.5 10.6 -- 8.9 RBC count 4.19 4.30 4.27 -- 4.41 Hemoglobin 12.8 12.6 12.6 Negative 13.1 Hematocrit 37.3 37.8 37.0 -- 38.1 MCV 89 88 87 -- 86 MCH 30.5 29.4 29.5 -- 29.8 MCHC 34.2 33.4 34.1 -- 34.5 RDW 13.7 14.0 14.3 -- 14.5 Platelets 292 322 300 -- 303 MPV 7.2 7.2 7.3 -- 7.3 % neutrophils 75.2 64.3 68.2 -- 69.8 % lymphocytes 18.8 26.2 22.7 -- 22.8 % monocytes 4.6 7.6 7.3 -- 5.7 % eosinophils 1.0 1.5 1.3 -- 1.3 % Basophils 0.4 0.4 0.5 -- 0.4 Neutrophils Absolute (A) 6.0 4.8 7.2 High -- 6.2 Lymphocytes Absolute 1.5 2.0 2.4 -- 2.0 Monocytes Absolute 0.4 0.6 0.8 -- 0.5 Eosinophils Absolute 0.1 0.1 0.1 -- 0.1 Basophils Absolute 0.0 0.0 0.1 -- 0.0 Related to Comprehensive metabolic panel Component 12/06/23 05/17/23 03/17/23 03/17/23 Sodium 136 140 137 137 Potassium, Bld 3.5 3.3 Low 3.2 Low 3.5 Chloride 105 106 106 103 CO2 25 26 22 26 Anion gap 6 8 9 8 BUN 14 12 12 11 Creatinine 0.65 1.08 High 0.76 0.90 Glucose 134 High 91 130 High 98 Calcium 8.6 9.0 9.0 8.9 Total Protein 7.2 (more content not included)... Normal [facility] Progress Noteson 03-10-2024 Lab Courier Authentication Interface Message Text [facility] PATIENT VISIT CHIEF COMPLAINT: Toothache HISTORY OF PRESENT ILLNESS: Patient is a 33yoF with pmhx sig for obesity and severe procedural anxiety who presents to the [facility] clinic as a referral from her general dentist for extraction of all remaining mandibular teeth prior to fabrication of a complete lower denture. She has had waxing and waning pain and swelling associated with her lower teeth over the years and has been on several courses of abx to control the recurrent infections. Patient endorses severe procedural anxiety and knows she will not tolerate the procedure awake. Currently denies fever, chills, n/v, SOB, CP, dysphagia, odynophagia. PAST MEDICAL HISTORY: No past medical history on file. Patient Active Problem List: Acute myopericarditis (HCC) [I30.9] Delivery with history of (HCC) [O34.219] Gestational diabetes mellitus (GDM) in third trimester controlled on oral hypoglycemic drug (HCC) [O24.415] Gestational hypertension (HCC) [O13.9] Hx of Doppler echocardiogram [Z92.89] Migraines [G43.909] Morbid obesity (HCC) [E66.01] Palpitations [R00.2] Precordial pain [R07.2] REVIEW OF SYSTEMS: A 12-point review of systems was completed. Negative unless otherwise stated in HPI. MEDICATIONS: Current Outpatient Medications Medication Sig Dispense Refill busPIRone (BUSPAR) 5 MG tablet 5 mg. hydrOXYzine pamoate (VISTARIL) 25 MG capsule 25 mg. Ibuprofen 200 MG CAPS Take 1 Each by mouth every 6 hours. melatonin 5 mg TABS tablet 5 mg. naproxen (EC NAPROSYN) 375 MG tablet Take 500 mg by mouth 2 times daily (with meals). No current facility-administere d medications for this visit. ALLERGIES: Amoxicillin and Ciprofloxacin SURGICAL HX: No past surgical history on file. SOCIAL HX: Denies CLINICAL EXAMINATION Extraoral examination: No facial asymmetry nor swelling No sign of infection, redness or tenderness to palpation. No appreciable lymphadenopathy No popping, clicking or crepitus of TMJs bilaterally No tenderness to palpation of temporalis and masseter Range of motion within normal limits, LOUIE >30 CN V1, V2, V3, VII intact bilaterally Intraoral examination: Soft tissue pink and moist Oral hygiene good Oral cancer screen - negative findings Edentulous maxilla Remaining mandibular teeth with gross caries and several fractured teeth No vestibular swelling No FOM edema or ecchymosis RADIOGRAPHIC INTERPRETATION: [employer] Film taken on 03/10/2024 Edentulous maxilla Remaining mandibular teeth grossly carious and fractured Condyles seated in fossa bilaterally No bony pathology DIAGNOSIS: Caries ASSESSMENT: 33yoF with pmhx sig for obesity and severe procedural anxiety requiring extraction of all remaining lower teeth and alveoplasty under GA at [facility] in preparation for complete dentures. Patient said she would ideally like to have immediate dentures for time of surgery. I let her know she must have these made by her general dentist prior to the appointment - if she doesn't bring the denture with her, she will not be leaving with any teeth. She voiced understanding and would like to proceed Reviewed procedure and complications associated with extractions ,including treatment options and no treatment. Opportunity given to ask all desired questions. Pertinent and more common complications of extractions discussed with the patient; pain, swelling, bruising, bleeding, infection (that may require further treatment such as hospitalizations), possible permanent numbness of the tongue, gums, teeth, lip, and chin, injury to adjacent structures (tooth, lip, cheek, jaw bone), damage to adjacent teeth, development of permanent TMJ symptoms/dysfunction , jaw fracture at time of surgery or afterwards, decision to leave root tips behind, displacement of tooth (or portion of) into adjacent spaces (such as sinus, floor of mouth, throat) and the development of sinus symptoms. Complications are not limited to the above and may include others that are less common. PLAN: -Extraction of all remaining mandibular teeth and alveoplasty under [facility] at [facility] Karthik Black DMD, MD Normal [facility] Lab Courier Authentication Interface Message Text Normal [facility] CBC AND AUTO DIFFon 12-06-19 24 ABSOLUTE BASOPHIL 0.0 X10E9/L Normal 0.0-0.2 [facility] Comment on above: Performed By: #### C MP, CBCA, , , THYR #### [facility] ([id number]) [address] [place] [address] 39954 ABSOLUTE NEUTROPHIL 6.0 X10E9/L Normal 1.5-6.6 [facility] Comment on above: Performed By: #### C MP, CBCA, , , THYR #### [facility] ([id number]) [address] [place] [address] 06357 Basophils/100 WBC (Bld) 0.4 % Normal [facility] Comment on above: Performed By: #### C MP, CBCA, , , THYR #### [facility] ([id number]) [address] [place] [address] 82826 Eosinophils (Bld) [#/Vol] 0.1 10*3/uL Normal 0.0-0.4 [facility] Comment on above: Performed By: #### C MP, CBCA, , 35011-5, THYR #### [facility] ([id number]) [address] [place] [address] 31591 Eosinophils/100 WBC (Bld) 1.0 % Normal [facility] Comment on above: Performed By: #### C MP, CBCA, , 06221-4, THYR #### [facility] ([id number]) [address] [place] [address] 89483 Erythrocyte distribution width (RBC) [Ratio] 13.7 % Normal 11.5-15.0 [facility] Comment on above: Performed By: #### C MP, CBCA, , , THYR #### [facility] ([id number]) [address] [place] [address] 90730 Hematocrit (Bld) [Volume fraction] 37.3 % Normal 35-47 [facility] Comment on above: Performed By: #### C MP, CBCA, , , THYR #### [facility] ([id number]) [address] [place] [address] 81669 Hemoglobin (Bld) [Mass/Vol] 12.8 g/dL Normal 11.7-15.5 [facility] Comment on above: Performed By: #### C MP, CBCA, , , THYR #### [facility] ([id number]) [address] [place] [address] 77264 Lymphocytes (Bld) [#/Vol] 1.5 10*3/uL Normal 1.0-3.5 [facility] Comment on above: Performed By: #### C MP, CBCA, , , THYR #### [facility] ([id number]) [address] [place] [address] 61411 Lymphocytes/100 WBC (Bld) 18.8 % Normal [facility] Comment on above: Performed By: #### C MP, CBCA, , , THYR #### [facility] ([id number]) [address] [place] [address] 41950 MCH (RBC) [Entitic mass] 30.5 pg Normal 27-34 [facility] Comment on above: Performed By: #### C MP, CBCA, , 24664-4, THYR #### [facility] ([id number]) [address] [place] [address] 48374 MCHC (RBC) [Mass/Vol] 34.2 g/dL Normal 32-36 [facility] Comment on above: Performed By: #### C MP, CBCA, 83905-8, 59145-2, THYR #### [facility] ([id number]) [address] [place] [address] 87513 MCV (RBC) [Entitic vol] 89 fL Normal 80-100 [facility] Comment on above: Performed By: #### C MP, CBCA, , , THYR #### [facility] ([id number]) [address] [place] [address] 59695 Monocytes (Bld) [#/Vol] 0.4 10*3/uL Normal 0-0.9 [facility] Comment on above: Performed By: #### C MP, CBCA, , 67898-7, THYR #### [facility] ([id number]) [address] [place] [address] 14909 Monocytes/100 WBC (Bld) 4.6 % Normal [facility] Comment on above: Performed By: #### C MP, CBCA, , 60386-3, THYR #### [facility] ([id number]) [address] [place] [address] 23913 Neutrophils/100 WBC (Bld) 75.2 % Normal [facility] Comment on above: Performed By: #### C MP, CBCA, , 79660-9, THYR #### [facility] ([id number]) [address] [place] [address] 94292 Platelet mean volume (Bld) [Entitic vol] 7.2 fL Normal 7-12 [facility] Comment on above: Performed By: #### C MP, CBCA, 58009-1, 71116-2, THYR #### [facility] ([id number]) [address] [place] [address] 18822 Platelets (Bld) [#/Vol] 292 10*3/uL Normal 150-450 [facility] Comment on above: Performed By: #### C MP, CBCA, 23752-6, 61462-4, THYR #### [facility] ([id number]) [address] [place] [address] 14239 RBC COUNT 4.19 X10E12/L Normal 3.80-5.20 [facility] Comment on above: Performed By: #### C MP, CBCA, 16492-4, 43687-8, THYR #### [facility] ([id number]) [address] [place] [address] 79998 WBC (Bld) [#/Vol] 7.9 10*3/uL Normal 4.0-11.0 [facility] Comment on above: Performed By: #### C MP, CBCA, 55434-2, 61253-3, THYR #### [facility] ([id number]) [address] [place] [address] 47895 COMPREHENSIVE METABOLIC PANE Balwinder 12-06-2023 Albumin [Mass/Vol] 4.1 g/dL Normal 3.2-5.3 [facility] Comment on above: Performed By: #### C MP, CBCA, 60902-7, 62818-7, THYR #### [facility] ([id number]) [address] [place] [address] 25751 ALP [Catalytic activity/Vol] 49 U/L Normal 39-130 [facility] Comment on above: Performed By: #### C MP, CBCA, 50450-6, 44977-6, THYR #### [facility] ([id number]) [address] [place] [address] 59367 ALT [Catalytic activity/Vol] 27 U/L Normal 0-31 [facility] Comment on above: Performed By: #### C HELADIO, CBCA, 50380-4, 73034-7, THYR #### [facility] ([id number]) [address] [place] [address] 19311 Anion gap [Moles/Vol] 6 mmol/L Normal 5-15 [facility] Comment on above: Performed By: #### C HELADIO, CBCA, , 50819-0, THYR #### [facility] ([id number]) [address] [place] [address] 80324 AST [Catalytic activity/Vol] 28 U/L Normal 0-41 [facility] Comment on above: Performed By: #### C HELADIO, CBCA, , 99436-4, THYR #### [facility] ([id number]) [address] [place] [address] 35036 Bilirubin [Mass/Vol] 0.7 mg/dL Normal 0.3-1.2 [facility] Comment on above: Performed By: #### C HELADIO, CBCA, , 20002-7, THYR #### [facility] ([id number]) [address] [place] [address] 76784 Calcium [Mass/Vol] 8.6 mg/dL Normal 8.5-10.5 [facility] Comment on above: Performed By: #### C HELADIO, CBCA, , 19002-5, THYR #### [facility] ([id number]) [address] [place] [address] 31702 Chloride [Moles/Vol] 105 mmol/L Normal 98-109 [facility] Comment on above: Performed By: #### C HELADIO, CBCA, , 24893-0, THYR #### [facility] ([id number]) [address] [place] [address] 84919 CO2 [Moles/Vol] 25 mmol/L Normal 22-32 [facility] Comment on above: Performed By: #### C HELADIO, ZURI, 23339-9, 92610-3, THYR #### [facility] ([id number]) [address] [place] [address] 09858 Creatinine [Mass/Vol] 0.65 mg/dL Normal 0.40-1.00 [facility] Comment on above: Result Comment: METH OD TRACEABLE TO IDMS STANDARD Performed By: #### C ZURI LEIJA, , , THYR #### [facility] ([id number]) [address] [place] [address] 63935 eGFR (CKD-EPI) NON-RACE DEPENDENT >90 Normal >59 [facility] Comment on above: Result Comment: Reported eGFR is based on the CKD-EPI 2021 equation that does not use a race coefficient. Performed By: #### C HELADIO, ZURI, , , THYR #### [facility] ([id number]) [address] [place] [address] 27044 Glucose [Mass/Vol] 134 mg/dL High 65-99 [facility] Comment on above: Performed By: #### C HELADIO, ZURI, , , THYR #### [facility] ([id number]) [address] [place] [address] 34127 Potassium [Moles/Vol] 3.5 mmol/L Normal 3.5-5.0 [facility] Comment on above: Performed By: #### C HELADIO, ROSANNEA, 23864-8, 78806-2, THYR #### [facility] ([id number]) [address] [place] [address] 14493 Protein [Mass/Vol] 7.2 g/dL Normal 6.0-8.0 [facility] Comment on above: Performed By: #### C MP, CBCA, , 76757-2, THYR #### [facility] ([id number]) [address] [place] [address] 19626 Sodium [Moles/Vol] 136 mmol/L Normal 134-146 [facility] Comment on above: Performed By: #### C MP, CBCA, , , THYR #### [facility] ([id number]) [address] [place] [address] 16863 Urea nitrogen [Mass/Vol] 14 mg/dL Normal 5-23 [facility] Comment on above: Performed By: #### C HELADIO, CBCA, , , THYR #### [facility] ([id number]) [address] [place] [address] 55671 HCG ( test) Ql (U)o n 12-06-2023 Beta HCG ( test) Ql (U) Negative Normal NEG [facility] Comment on above: Performed By: #### 2 106-3 #### [facility] ([id number]) [address] [place] [address] 27247 MAGNESIUMon 12-06-2023 Magnesium [Mass/Vol] 2.2 mg/dL Normal 1.8-2.6 [facility] Comment on above: Performed By: #### C MP, CBCA, , 96686-4, THYR #### [facility] ([id number]) [address] [place] [address] 04853 THYROID PROFILEon 12-06-2023 Free T4 [Mass/Vol] 1.02 ng/dL Normal 0.61-1.60 [facility] Comment on above: Performed By: #### C MP, CBCA, , 93918-4, THYR #### [facility] ([id number]) [address] [place] [address] 09977 TSH 1.19 uIU/mL Normal 0.49-4.67 [facility] Comment on above: Performed By: #### C HELADIO, CBCA, 63498-3, 42618-5, THYR #### [facility] ([id number]) [address] [place] [address] 21634 TROPONIN Ion 12-06-2023 Troponin I.cardiac [Mass/Vol] ng/mL Normal 0.00-0.04 [facility] Comment on above: Performed By: #### C HELADIO, CBCA, 69274-2, 18310-1, THYR #### [facility] ([id number]) [address] [place] [address] 01256 URN MACROSCOPIC NURon 2023 BILIRUBIN [place] Negative Normal NEG [facility] Comment on above: Performed By: #### N UM #### [facility] ([id number]) [address] [place] [address] 10965 BLOOD/HGB [place] Negative Normal NEG [facility] Comment on above: Performed By: #### N UM #### [facility] ([id number]) [address] [place] [address] 62032 GLUCOSE [place] Negative Normal NEG [facility] Comment on above: Performed By: #### N UM #### [facility] ([id number]) [address] [place] [address] [place] [address] KETONES [place]E Negative Normal NEG [facility] Comment on above: Performed By: #### N UM #### [facility] ([id number]) [address] [place] [address] 53607 LEUKOCYTE ESTERASE [place] Negative Normal NEG [facility] Comment on above: Performed By: #### N UM #### [facility] ([id number]) [address] [place] [address] 73200 NITRITE [place] Negative Normal NEG [facility] Comment on above: Performed By: #### N UM #### [facility] ([id number]) [address] [place] [address] 64700 PH [place]E 7.5 Normal 5.0-8.5 [facility] Comment on above: Performed By: #### N UM #### [facility] ([id number]) [address] [place] [address] 47127 PROTEIN [place] Negative Normal NEG [facility] Comment on above: Performed By: #### N UM #### [facility] ([id number]) [address] [place] [address] 97951 SPECIFIC GRAVITY [place]E 1.020 Normal 1.003-1.035 [facility] Comment on above: Performed By: #### N UM #### [facility] ([id number]) [address] [place] [address] 59120 UROBILINOGEN [place] 0.2 eu/dL Normal <1.1 [facility] Comment on above: Performed By: #### N UM #### [facility] ([id number]) [address] [place] [address] 69983 Urinalysis - AUTOMATEDon Appearance (U) clear Float: [place] Other Bilirubin Ql (U) Negative [employer] Other Color (U) yellow [employer] Other Glucose Ql (U) Negative Float: [place] Other Hemoglobin Ql (U) Negative [employer] Other Ketones Ql (U) Negative Float: [place] Other Leukocyte esterase Test strip Ql (U) Negative [employer] Other Nitrite Ql (U) Negative [employer]: [place] Other pH (U) 7.0 [pH] [employer] Other Protein Ql (U) Negative Float: [place] Other Specific gravity (U) [Rel density] 1.025 [employer] Other Urobilinogen (U) [Mass/Vol] 0.2 mg/dL [employer] Other Urinalysis - AUTOMATED [employer] Other Urine Cultureon 11-12-2023 Bacteria identified Cx Nom (U) Reason for Exam Dysuria Urine Reason for Exam: Dysuria : Urine 50,000 colonies/ml mixed bacterial skin contaminants 2 Days PERFORMED BY: [place] [address] PATHOLOGIST TRAFFIC SIGNAL [employer]CH[employer]IC [employer]DER M.D. [facility] Comment on above: Performed By: #### C UU #### [address] Vital Signs Date Time Vital Sign Value Performing Clinician Facility 06-07-2024 15:22-0400 Body temperature 98.01 [degF] Karthik Black DMD, MD Work Phone: [facility] 06-07-2024 15:22-0400 Diastolic blood pressure 68 mm[Hg] Karthik Black DMD, MD Work Phone: [facility] 06-07-2024 15:22-0400 Heart rate 73 /min [facility] DMD, [facility] 06-07-2024 15:22-0400 Respiratory rate 16 /min Karthik Black DMD, MD [facility] 06-07-2024 15:22-0400 SaO2% (BldA) [Mass fraction] 96 % Karthik Black DMD, MD Work Phone: [facility] 06-07-2024 15:22-0400 Systolic blood pressure 126 mm[Hg] Karthik Black DMD, MD Work Phone: [facility] 05-20-2024 12:59-0400 Body height 165.1 cm Kizzy Maurice RN [facility] 05-20-2024 12:59-0400 Body mass index (BMI) [Ratio] 44.93 kg/m2 Kizzy Maurice RN [facility] 05-20-2024 12:59-0400 Body weight 122.47 kg Kizzy Maurice RN [facility] 11-12-2023 18:25-0500 Body height 165.1 cm Abigail Vijaya Other [employer] Other 11-12-2023 18:25-0500 Body mass index (BMI) [Ratio] 44.43 kg/m2 Abigail Vijaya Other [employer] Other 11-12-2023 18:25-0500 Body temperature 98.2 [degF] Abigail Vijaya Other [employer] Other 11-12-2023 18:25-0500 Body weight 121.11 kg Abigail Vijaya Other [employer] Other 11-12-2023 18:25-0500 Respiratory rate 18 /min Abigail Vijaya Other [employer] Other 11-12-2023 18:25-0500 SaO2% (BldA) [Mass fraction] 98 % Abigail Vijaya Other [employer] Other 07-12-2023 13:30-0400 Body height 165.1 cm Mikki Brooks Other [employer] Other 07-12-2023 13:30-0400 Body mass index (BMI) [Ratio] 45.92 kg/m2 Mikki Brooks Other [employer] Other 07-12-2023 13:30-0400 Body temperature 98.6 [degF] Mikki Brooks Other [employer] Other 07-12-2023 13:30-0400 Body weight 125.19 kg Mikki Brooks Other [employer] Other 07-12-2023 13:30-0400 Diastolic blood pressure 85 mm[Hg] Mikki Brooks Other [employer] Other 07-12-2023 13:30-0400 Respiratory rate 18 /min Mikki Brooks Other [employer] Other 07-12-2023 13:30-0400 SaO2% (BldA) [Mass fraction] 99 % Mikki Brooks Other [employer] Other 07-12-2023 13:30-0400 Systolic blood pressure 132 mm[Hg] Mikki Brooks Other [employer] Other Encounters Encounter Date Encounter Type Care Provider Facility Start: 06-07-2024 End: 06-07-2024 Telephone encounter Nichole Aguila RN [facility] Line Comment on above: Advice/health educat ion Start: 06-07-2024 End: 06-07-2024 Anesthesia consultation Washington Anderson MD Work Phone: [facility] Main OR Start: 06-07-2024 End: 06-07-2024 ambulatory KARTHIK BLACK Facility:[facility] Start: 06-07-2024 End: 06-07-2024 Subsequent hospital visit by physician Karthik Black DMD, MD Work Phone: [facility] Main OR Comment on above: Caries (Primary Dx); Pain following oral surgery Start: 05-20-2024 End: 05-20-2024 Nursing evaluation of patient and report Kizzy Maruice RN [facility] Pre-Admission Testing Comment on above: Pre-op evaluation (P rimary Dx) Start: 05-20-2024 End: 05-20-2024 Preprocedural examination done Kizzy Maurice RN [facility] Start: 05-20-2024 ambulatory UNKNOWN PROVIDER Facili ty:[facility] Start: 05-20-2024 Encounter for other preprocedural examination UNKNOWN PROVIDER [facility] Start: 05-09-2024 End: 05-09-2024 Letter encounter Karthik Black DMD, MD Work Phone: [facility] Oral Surgery Start: 04-06-2024 End: 04-06-2024 Letter encounter Karthik Black DMD, MD Work Phone: [facility] Oral Surgery Start: 03-10-2024 End: 03-11-2024 Patient encounter procedure Karthik Black DMD, MD Work Phone: [facility] Oral Surgery Comment on above: Caries (Primary Dx) Start: 03-10-2024 End: 03-11-2024 ambulatory UNKNOWN PROVIDER Facility:[facility] Start: 12-31-2023 End: 12-31-2023 Emergency department patient visit [facility] Start: 12-06-2023 End: 12-06-2023 Emergency department patient visit [facility] Start: 11-23-2023 End: 11-24-2023 ambulatory Saeid Pinzon DPQuinten Facility:[facility] Start: 11-12-2023 End: 11-12-2023 Departed Referred VICTORIA Lilly Work Phone: [facility] [place] Work Phone: Start: 11-12-2023 End: 11-12-2023 ambulatory NON STAFF [employer] Other Start: 11-12-2023 Office outpatient vi sit 15 minutes Abigail Vijaya [facility] Start: 10-22-2023 End: 10-23-2023 ambulatory Saeid Beth Jeromy DPM Facility:[facility] Start: 10-08-2023 ambulatory Saeid costa DPM Facility:[facility] Start: 10-08-2023 End: 10-08-2023 Patient encounter procedure [employer] Abigail Lilly Work Phone: [facility] Work Phone: Start: 09-28-2023 ambulatory Saeid costa DPM Facility:[facility] Start: 09-03-2023 End: 09-04-2023 ambulatory Saeid Kirit Pinzon DPM Facility:[facility] Start: 07-12-2023 End: 07-12-2023 ambulatory Mikki Brooks Other [employer] Other Start: 07-12-2023 Office outpatient ne w 20 minutes Mikki Brooks [facility] Procedures Date Procedure Procedure Detail Performing Clinician Start: 06-07-2024 End: 06-07-2024 EXTRACTION, TOOTH Karthik Black DMD, MD Work Phone: Start: 06-07-2024 Urine test visual color cmprsn meths Karthik Black DMD, MD Work Phone: Start: 03-10-2024 panoramic radiograph ic image Karthik Black DMD, MD Work Phone: Plan of Treatment Date Care Activity Detail Author Start: 2038 Shingles (RZV) Vacci ne (1 of 2) Shingles (RZV) Vaccine (1 of 2) [facility] Start: 05-18-2033 Tetanus vaccination Tetanus (T d or Tdap) Booster [facility] Start: 03-23-2025 Creatinine measurement Basic Metabol ic Panel [facility] Start: 12-06-2024 Creatinine measurement Basic Metabol ic Panel [facility] Start: 07-26-2024 Influenza vaccination Influenza Vacc ine (#1) [facility] Start: 06-14-2024 End: 06-14-2024 Patient encounter procedure [facility] Oral Surgery Start: 06-10-2024 End: 06-10-2024 Patient encounter procedure 06/10/2024 11:20 AM EDT Office Visit [facility] Oral Surgery [address] [place] [id number] Karthik Black DMD, MD [address] [place] [phone] [facility] Oral Surgery Start: 06-07-2024 End: 06-07-2024 Admission to same day surgery center 06/07/2024 2:13 PM EDT - 06/07/2024 3:21 PM EDT Surgery [facility] Ambulatory Surgery [address] [place] [id number] Karthik Black DMD, MD [address] [place] [phone] Extraction of all manibular teeth, alveoplasty [facility] Surgery Comment on above: Extraction of all ma nibular teeth, alveoplasty Start: 06-07-2024 End: 06-07-2024 EXTRACTION, TOOTH EXTRACTION, TOOTH Routine scheduled Caries 06/07/2024 2:13 PM EDT [facility] Start: 06-07-2024 Subsequent hospital visit by physician 06/07/2024 2:13 PM EDT Hospital Encounter [facility] Ambulatory Surgery [address] [place] [id number] Karthik Black DMD, MD [address] [place] [id number] [facility] Ambulatory Surgery Start: 06-07-2024 End: 06-07-2024 EXTRACTION, TOOTH EXTRACTION, TOOTH Routine scheduled Caries 06/07/2024 12:51 PM EDT [facility] Start: 06-03-2024 End: 06-03-2024 Admission to same day surgery center 06/03/2024 10:58 AM EDT - 06/03/2024 12:06 PM EDT Surgery [facility] Ambulatory Surgery [address] [place] [phone] Karthik Black DMD, MD [address] [place] [address] Extraction of all manibular teeth, alveoplasty [facility] Surgery Comment on above: Extraction of all ma nibular teeth, alveoplasty Start: 06-03-2024 End: 06-03-2024 EXTRACTION, TOOTH EXTRACTION, TOOTH Routine scheduled Caries 06/03/2024 10:58 AM EDT [facility] Start: 06-03-2024 Subsequent hospital visit by physician 06/03/2024 10:58 AM EDT Hospital Encounter [facility] Ambulatory Surgery [address] [place] [phone] Karthik Black DMD, MD [address] [place] [id number] [facility] Ambulatory Surgery Start: 05-20-2024 End: 05-20-2024 Nursing evaluation of patient and report 05/20/2024 1:00 PM EDT Nurse Visit [facility] Pre-Admission Testing [address] [place], [place] [id number] Kizzy Maurice RN [address] [place], [place] [id number] [facility] Pre-Admission Testing Start: 11-23-2023 Hemoglobin A1c measurement Hemoglobin A1C [facility] Start: 11-12-2023 Bacteria identified in Urine by Culture [facility] Start: 06-26-2023 COVID-19 Vaccine ( season) COVID-19 Vaccine ( season) [facility] Start: 2015 HPV Vaccine (optiona l start 27-45 years) HPV Vaccine (optional start 27-45 years) [facility] Start: 2009 Screening for malign ant neoplasm of cervix Pap Smear [facility] Start: 2007 Hepatitis A (HAV) Vaccine (optional start 19+ years) Hepatitis A (HAV) Vaccine (optional start 19+ years) [facility] Start: 2007 Hepatitis B vaccination Hepati tis B (HBV) Vaccine (1 of 3 - 19+ 3-dose series) [facility] Start: 2006 Hepatitis C screening Hepatitis C An tibody [facility] Start: 2006 Tetanus + diphtheria + acellular pertussis vaccine (product) Tdap Booster [facility] Start: 1994 Pneumococcal vaccination Pneum ococcal Vaccine(s) (1 of 2 - PCV) [facility] Start: 1988 COVID-19 Vaccine (#1) COVID-19 Vacci ne (#1) [facility] Start: 1988 Glaucoma screening [facility] Start: 1988 Hemoglobin A1c measurement Hemoglobin A1C [facility] Start: 1988 Lipid panel [facility]id Profile [facility] Start: 1988 Urine screening for protein Microalbumin [facility] Start: 1988 Diabetic foot examination Foot Exam [facility] Start: 1988 Hepatitis B vaccination Hepati tis B (HBV) Vaccine (1 of 3 - 3-dose series) [facility] Start: 1988 Screening for malign ant neoplasm of breast Mammography shared decision making (35 through 39 years) [facility] alveoloplasty in conjunction with extractions - four or more teeth or tooth spaces, per quadrant ALVEOPLASTY W/ EXTRACTION Procedures Routine Caries Ordered: 06/07/2024 [facility] Comment on above: Ordered: 06/07/2024 extraction, erupted tooth or exposed root (elevation and/or forceps removal) EXTRACTION ERUPTED TOOTH/EXR Procedures Routine Caries Ordered: 06/07/2024 [facility] Work Phone: Comment on above: Ordered: 06/07/2024 EXTRACTION, TOOTH EXTRACTION, TO OTH Routine scheduled Caries [facility] Immunizations Immunization Date Immunization Notes Care Provider Fa cility 11-26-2023 influenza, injectabl e, quadrivalent, preservative free Karthik Black DMD, MD Work Phone: [facility] 11-26-2023 influenza virus vacc ine, unspecified formulation Karthik Black DMD, MD Work Phone: [facility] 05-23-2023 Hemoglobin A1C Kizzy Maurice RN [facility] 05-18-2023 tetanus toxoid, redu edvin diphtheria toxoid, and acellular pertussis vaccine, adsorbed Karthik Sofia PEREZ MD Work Phone: [facility] Payers Date Payer Category Payer Self-pay 2022 Medicaid [id number] 2022 Unknown 2022 Medicaid [id number] 2. [id number] 1988 Unknown [id number] 2.16. [id number] 1988 Unknown [id number] 2.16. [id number] 1988 Unknown [id number] 2.16. [id number] 1988 Unknown [id number] 2.16. [id number] 1988 Unknown [id number] 2.16. [id number] 1988 Unknown [id number] 2.16.8 [id number] 1988 Unknown [id number] 2.16.8 [id number] 1988 Unknown [id number] 2.16. [id number] 1988 Unknown [id number] 2.16. [id number] 1988 Unknown [id number] 2.16. [id number] Unknown [id number] 2.16.8 [id number] Social History Date Type Detail Facility Unknown if ever smoked [employer] Other Start: 03-09-2024 End: 05-20-2024 Sex Assigned At [facility] Start: 1990 Sex Assigned At Female [facility] consumption unknown [facility] Start: 03-09-2024 End: 05-20-2024 History of Social function [facility] In the past 12 month s has the [employer], gas, oil, or water [employer] threatened to shut off services in your home? No [facility] Within the last year , have you been afraid of your partner or ex-partner? No [facility] Are you now , , , , never or living with a partner? [facility] How hard is it for y ou to pay for the very basics like food, housing, medical care, and heating Somewhat hard [facility] Do you feel stress - tense, restless, nervous, or anxious, or unable to sleep at night because your mind is troubled all the time - these days [OSQ] Only a little [facility] (I/We) worried wheth er (my/our) food would run out before (I/we) got money to buy more. Never true [facility] Start: 03-09-2024 Education 12 [facility] Start: 1988 Sex Assigned At Not on file [facility] Start: 05-20-2024 Tobacco smoking status LAIS Never smoked tobacco [facility] Start: 05-20-2024 Tobacco use and exposure Smokeless tobacco non-user [facility] Start: 05-20-2024 Alcoholic beverage intake Ex-drinker (finding) [facility] Medical Equipment Procedure Code Equipment Code Equipment Original Text Equi pment Identifier Dates Drug [place] [facility] Pentips Plus 32G X 4 MM Clinical Notes 07-12-2023 to 06-09-2024 Telephone Encounter - Dial, 06/09/2024 2:44 PM EDTTelephone Encounter - Dial, 06/09/2024 2:44 PM EDTTelephone Encounter - Dial, 06/09/2024 2:41 PM EDTProcedure Summary Note Date & Type Note Facility 06-09-2024 Telephone encounter Note Symptoms - white bumps along the gum line, pt has concerns that she needs a nurse to call and discuss with her [facility] 06-09-2024 Miscellaneous Notes Symptoms - white bumps along the gum line, pt has concerns that she needs a nurse to call and discuss with her Situation: Patient is calling back previously triaged for another issue Background: Patient states she has white bumps along the gum line where the teeth were extracted. Assessment: Pls call pt @ [phone] to discuss & advise Recommendation: Pls advise Thank you Situation: Caller states had oral surgery today, had 8 teeth extracted and her bone filed down and states her chin and lower lip are still numb. Background: N/A Assessment: N/A Recommendation: Did discuss that the numbing after tooth extraction can take up to 24 hours to wear off completely. Typically it wears off after a dental procedure after 3 to 5 hours. Caller states some of her numbing has already worn off. Discuss resting and going to sleep and having patience, and to follow up with the Dental Clinic in am, she has the number, caller agreeable and verbalized all understanding. No further questions. Information obtained from, [email or web address]-ea-mzl-rid-of-n vscrqcu-idsja-sefipdms-the-den tist/ Nichole Aguila RN, RN documented in this encounter [facility] 06-09-2024 Telephone encounter Note Situation: Patient is calling back previously triaged for another issue Background: Patient states she has white bumps along the gum line where the teeth were extracted. Assessment: Pls call pt @ [phone] to discuss & advise Recommendation: Pls advise Thank you [facility] 06-09-2024 Miscellaneous Notes Situation: Patient is calling back previously triaged for another issue Background: Patient states she has bumps along the gum line where the teeth were extracted Assessment: Pls call pt @ [phone] to discuss & advise Recommendation: Pls advise Thank you Situation: Caller states had oral surgery today, had 8 teeth extracted and her bone filed down and states her chin and lower lip are still numb. Background: N/A Assessment: N/A Recommendation: Did discuss that the numbing after tooth extraction can take up to 24 hours to wear off completely. Typically it wears off after a dental procedure after 3 to 5 hours. Caller states some of her numbing has already worn off. Discuss resting and going to sleep and having patience, and to follow up with the Dental Clinic in am, she has the number, caller agreeable and verbalized all understanding. No further questions. Information obtained from, [email or web address]-al-eni-rid-of-n iqxsynl-cfbna-kujagkab-the-den tist/ Nichole Aguila, RN, RN documented in this encounter [facility] 06-07-2024 Telephone encounter Note Situation: Caller states had oral surgery today, had 8 teeth extracted and her bone filed down and states her chin and lower lip are still numb. Background: N/A Assessment: N/A Recommendation: Did discuss that the numbing after tooth extraction can take up to 24 hours to wear off completely. Typically it wears off after a dental procedure after 3 to 5 hours. Caller states some of her numbing has already worn off. Discuss resting and going to sleep and having patience, and to follow up with the Dental Clinic in am, she has the number, caller agreeable and verbalized all understanding. No further questions. Information obtained from, [email or web address].[email or web address]/ /ydi-ao-men-rid-of-n zcimnsr-ajtdd-qkwyfetg-the-den tist/ Nichole Aguila RN, RN [facility] 06-07-2024 Miscellaneous Notes Situation: Caller states had oral surgery today, had 8 teeth extracted and her bone filed down and states her chin and lower lip are still numb. Background: N/A Assessment: N/A Recommendation: Did discuss that the numbing after tooth extraction can take up to 24 hours to wear off completely. Typically it wears off after a dental procedure after 3 to 5 hours. Caller states some of her numbing has already worn off. Discuss resting and going to sleep and having patience, and to follow up with the Dental Clinic in am, she has the number, caller agreeable and verbalized all understanding. No further questions. Information obtained from, [email or web address]/ /usu-xr-czz-rid-of-n colvnmi-uateo-rsfpyhzk-the-den ismaelt/ Nichole gAuila RN, RN documented in this encounter [facility] 06-07-2024 Note Formatting of this n ote is different from the original. Addendum created 06/07/241530 by Dariusz Anderson APRN-CRNA Flowsheet accepted, Intraprocedure Flowsheets edited [facility] Work Phone: 06-07-2024 Note Addendum created 1530 by Dariusz Anderson APRN-CRNA Flowsheet accepted, Intraprocedure Flowsheets edited [facility] 06-07-2024 Miscellaneous Notes Addendum created 06/07/24 1531 by Dariusz Anderson APRN-CRNA Flowsheet accepted, Intraprocedure Flowsheets edited Patient taken to PACU. Patient was awake, comfortable, and stable on arrival. Anesthesia Transfer of Care Note Past Medical History: No past medical history on file. Sleep Apnea/Positive STOP-BANG: No Problem List: Patient Active Problem List: Acute myopericarditis (HCC) [I30.9] Delivery with history of (HCC) [O34.219] Gestational diabetes mellitus (GDM) in third trimester controlled on oral hypoglycemic drug (HCC) [O24.415] Gestational hypertension (HCC) [O13.9] Hx of Doppler echocardiogram [Z92.89] Migraines [G43.909] Morbid obesity (HCC) [E66.01] Palpitations [R00.2] Precordial pain [R07.2] Past Surgical History: There is no previous surgical history on file. Allergies: Amoxicillin and Ciprofloxacin Basic Operating Room Facts: Surgeon(s): Karthik Black DMD, MD Anesthesiologist: Washington Anderson MD NETWORK SECURITY CONSULTANT: Dariusz Anderson APRN-CRNA Anesthesia Student: Benton Goddard Extraction of all manibular teeth, alveoplasty (Mouth) Intraoperative Events: No acute event ASA: 3 EBL: Not documented Urine Not documented Lactated Ringers and NaCl 0.9%: Fluid Totals (Filter: LR and NaCl 0.9% Medications Shown) Medication Calculated Total Lactated Ringers 0 mL / 2 bags Cell Saver: Not documented Blood Volume Values: Blood Products None MTP Blood: MTP PRBC: Not documented MTP FFP: Not documented MTP PLT: Not documented MTP Cryo: Not documented MTP Whole Blood: Not documented Current Vasoactive Medications: {Vasoactive Medications: None Lines, Drains, Airways Peripheral IV Access: 06/07/24 1158 20 gauge Posterior;Right Hand (Active) Site Assessment WNL;Dressing intact 06/07/24 1158 Infusion Status Port #1 Positive blood return;Patent 06/07/24 1158 Airway Insertion Details [REMOVED] Advanced Airway: ETT, Oral;Cuffed #7 (Removed) 06/07/24 1324 Pre-Oxygenation/ Induction: Mask Rapid Sequence Induction?: Mask Ventilation: Easy Blade Type: Hyperangulated Blade Size: 3 Visualization: Grade 1 Airway Type: ETT, Oral;Cuffed Airway Size: #7 Post Insertion Assessment: Confirmation: Equal bilateral breath sounds, CO2 confirmed # Attempts >1: Special Equipment: Glidescope Present on Admission?: Previously Removed / Not Present: Removal Reason: Not Removed at Discharge: Removed 06/07/24 1354 Location (cm) 22 06/07/24 1324 Measured from: Lips 06/07/24 1324 Secured via: Taped 06/07/24 1324 Site Assessment WNL 06/07/24 1324 All non-working IVs have been removed: N/A Laboratory Data: CBC (last 3 years, up to 8 values) No lab values to display. BMP (last 3 years, up to 8 values) No lab values to display. Basic Metabolic Panel No lab values to display. No results found for: INR No result for BNP LFT's (last 3 years, up to 8 values) No lab values to display. Arterial Blood Gases None Hand off Completed: Yes 1. The patient was identified. 2. Pertinent medical history was relayed. 3. A brief discussion was had about any pertinent surgical/ procedural issues. 4. Intraoperative/ anesthetic management issue and concerns were discussed. 5. Plans for the early post-operative period relayed. 6. An opportunity for questions and acknowledgment of understanding of the report was received. ANDREA Torres documented in this encounter [facility] 06-07-2024 Procedure anesthe catie Narrative Procedure Name Responsible Anesthesiologist Anesthesia Start Time Anesthesia Stop Time Extraction of all manibular teeth, alveoplasty (Mouth) Washington Anderson MD 06/07/24 1306 06/07/24 1408 Events Date Time Event Comment 06/07/2024 1220 1306 An Start Data 1306 An Start 1309 Anesthesia Timeout Member of Anesthesia team and circulating RN verified patient identity, procedure to be performed, and presence of signed surgical consent form prior to induction of anesthesia. 1315 Preinduction Verify The [facility]ia team has reviewed the patient's vital signs immediately prior to induction. ANDREA Torres 1321 An Induction 1324 An Intubation 1328 Throat In 1349 Throat Out 1349 Anesthesia Release 1354 An Extubation Sustained head lift for 5 seconds, extubated awake, pharynx suctioned and clear, patient is maintaining patent airway, and transport to PACU with supplemental O2. 1407 Handoff I completed my SBAR handoff to the receiving nurse in the receiving unit. 1408 AN Stop Meds Name Total Midazolam 1 mg/mL 4 mg fentanyl (SUBLIMAZE) injection 50 mcg/mL 100 mcg Lidocaine (Cardiac) 20 mg/mL IV 100 mg Propofol 10 mg/mL 200 mg Rocuronium 50 mg/5mL 50 mg Dexamethasone (PF) 10 mg/mL 10 mg Cefazolin Sodium-Dextrose 2 g 3,000 mg Esmolol 10 mg/mL 40 mg Ondansetron 4 mg/2mL 4 mg Propofol Bolus 10mg/mL 40 mg Ketorolac 30 mg/mL 30 mg Lactated Ringers 800 mL * Agents Name O2 eN2O Air eSevoflurane N2O iSevoflurane iN2O * Blood No blood administrations on file. Lines, Drains, and Airways Type Details Placement Removal Peripheral IV Line 06/07/24; 1158; 20 gauge; Posterior, Right; Hand 06/07/24 1158 by William Hooker RN Wound 06/07/24; 1335; N/A; Mouth; Surgical - Incision; No dressing needed 06/07/24 1335 by Veronique Medellin RN Advanced Airway 3 (S3); 06/07/24; ; ETT, Oral, Cuffed; #7; Equal bilateral breath sounds, CO2 confirmed; Glidescope; 06/07/24; 1354 06/07/24 1324 by Dariusz Anderson APRN-CRNA 06/07/24 1354 by Dariusz Anderson APRN-CRNA documented in this encounter [id number] Anesthesiology Postoperative evaluation and management note* Anesthesia Postprocedure Evaluation - Washington Anderson MD - 06/07/2024 2:57 PM EDT Anesthesia Postoperative Assessment: Vital Signs (most recent): BP 120/82 Pulse 75 Temp 37 C (98.6 F) (Temporal) Resp 15 LMP 05/16/2024 SpO2 96% Anesthesia Post Evaluation Level of consciousness: awake Post-procedure exam normal. Body temperature, hydration status, PONV and pain evaluated and addressed. Pain management: adequate Hydration status: normal PONV:No nausea/vomiting reported Cardiopulmonary status stable Respiratory status: acceptable Cardiovascular status: acceptable ANESTHESIA NOTABLE EVENTS: No notable events documented. [facility]: [phone]) 456-173708-13-2024 Surgical operation note* Anesthesia Postprocedure Evaluation - Washington Anderson MD - 06/07/2024 2:57 PM EDT Anesthesia Postoperative Assessment: Vital Signs (most recent): BP 120/82 Pulse 75 Temp 37 C (98.6 F) (Temporal) Resp 15 LMP 05/16/2024 SpO2 96% Anesthesia Post Evaluation Level of consciousness: awake Post-procedure exam normal. Body temperature, hydration status, PONV and pain evaluated and addressed. Pain management: adequate Hydration status: normal PONV:No nausea/vomiting reported Cardiopulmonary status stable Respiratory status: acceptable Cardiovascular status: acceptable ANESTHESIA NOTABLE EVENTS: No notable events documented. 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 Cardiovascular (+) hypertension, Surgical risk: intermediate; Cardiac condition: no apparent (-) CHF ECG reviewed GI/Hepatic/Renal (+) GERD Heme/Other (-) no DVT, bleeding disorder, anemia and anticoagulation therapy Other ROS: Nick Bean is 34 year old female here for Procedure(s): Extraction of all manibular teeth, alveoplasty Patient Active Problem List: Acute myopericarditis (HCC) [I30.9] Delivery with history of (HCC) [O34.219] Gestational diabetes mellitus (GDM) in third trimester controlled on oral hypoglycemic drug (HCC) [O24.415] Gestational hypertension (HCC) [O13.9] Hx of Doppler echocardiogram [Z92.89] Migraines [G43.909] Morbid obesity (HCC) [E66.01] Palpitations [R00.2] Precordial pain [R07.2] Caries [K02.9] Allergies: -- Amoxicillin -- Hives, Itching, Rash and Other -- Ciprofloxacin -- Myalgias and Other Physical Exam Airway Mallampati: III TM distance: Adequate Micrognathia: Not present Jaw opening: Adequate Neck flexion: Adequate Dental PE (+) intact and chipped teeth Pulmonary - pulmonary exam normal Comment: Chest clear to auscultation bilaterally Cardiovascular - cardiovascular exam normal Comment: RRR with S1S2; no murmurs, gallops, or rubs Neuro - neurological exam normal Comment: Awake, alert, oriented, No motor deficits and sensation grossly intact Plan Anesthesia plan: general; (ETT) Anesthesia risks / alternatives discussed pre-op Questions answered / anesthesia plan accepted Past medical history, surgical history, allergies, and medications reviewed. Pertinent laboratory tests, EKG, imaging, and consults reviewed and I have personally seen and evaluated the patient, repeating witt portions of the history and physical examination. Attestation: Anesthesia options were discussed with the patient and/or legal territory sales representative. The risks, benefitsand alternatives were reviewed. Questions regarding anesthesia were answered. Patient and/or legal territory sales representative knows such anesthetics and procedures may be performed by Resident physicians, Certified Anesthesiologist Assistants, or Certified Nurse Anesthetists under the supervision of a physician. The patient /or the patient s legal territory sales representative agree with the plan for anesthesia. [employer] documented in this [id number] Anesthesiology Postoperative evaluation and management note* Anesthesia Transfer Of Care - Dariusz Anderson APRN-JODEE - 06/07/2024 2:07 PM EDT Patient taken to PACU. Patient was awake, comfortable, and stable on arrival. Anesthesia Transfer of Care Note Past Medical History: No past medical history on file. Sleep Apnea/Positive STOP-BANG: No Problem List: Patient Active Problem List: Acute myopericarditis (HCC) [I30.9] Delivery with history of (HCC) [O34.219] Gestational diabetes mellitus (GDM) in third trimester controlled on oral hypoglycemic drug (HCC) [O24.415] Gestational hypertension (HCC) [O13.9] Hx of Doppler echocardiogram [Z92.89] Migraines [G43.909] Morbid obesity (HCC) [E66.01] Palpitations [R00.2] Precordial pain [R07.2] Past Surgical History: There is no previous surgical history on file. Allergies: Amoxicillin and Ciprofloxacin Basic Operating Room Facts: Surgeon(s): Karthik Black DMD, MD Anesthesiologist: Washington Anderson MD NETWORK SECURITY CONSULTANT: Dariusz Anderson APRN-JODEE Anesthesia Student: Benton Goddard Extraction of all manibular teeth, alveoplasty (Mouth) Intraoperative Events: No acute event ASA: 3 EBL: Not documented Urine Not documented Lactated Ringers and NaCl 0.9%: Fluid Totals (Filter: LR and NaCl 0.9% Medications Shown) Medication Calculated Total Lactated Ringers 0 mL / 2 bags Cell Saver: Not documented Blood Volume Values: Blood Products None MTP Blood: MTP PRBC: Not documented MTP FFP: Not documented MTP PLT: Not documented MTP Cryo: Not documented MTP Whole Blood: Not documented Current Vasoactive Medications: {Vasoactive Medications: None Lines, Drains, Airways Peripheral IV Access: 06/07/24 1158 20 gauge Posterior;Right Hand (Active) Site Assessment WNL;Dressing intact 06/07/24 1158 Infusion Status Port #1 Positive blood return;Patent 06/07/24 1158 Airway Insertion Details [REMOVED] Advanced Airway: ETT, Oral;Cuffed #7 (Removed) 06/07/24 1324 Pre-Oxygenation/ Induction: Mask Rapid Sequence Induction?: Mask Ventilation: Easy Blade Type: Hyperangulated Blade Size: 3 Visualization: Grade 1 Airway Type: ETT, Oral;Cuffed Airway Size: #7 Post Insertion Assessment: Confirmation: Equal bilateral breath sounds, CO2 confirmed # Attempts >1: Special Equipment: Glidescope Present on Admission?: Previously Removed / Not Present: Removal Reason: Not Removed at Discharge: Removed 06/07/24 1354 Location (cm) 22 06/07/24 1324 Measured from: Lips 06/07/24 1324 Secured via: Taped 06/07/24 1324 Site Assessment WNL 06/07/24 1324 All non-working IVs have been removed: N/A Laboratory Data: CBC (last 3 years, up to 8 values) No lab values to display. BMP (last 3 years, up to 8 values) No lab values to display. Basic Metabolic Panel No lab values to display. No results found for: INR No result for BNP LFT's (last 3 years, up to 8 values) No lab values to display. Arterial Blood Gases None Hand off Completed: Yes 1. The patient was identified. 2. Pertinent medical history was relayed. 3. A brief discussion was had about any pertinent surgical/ procedural issues. 4. Intraoperative/ anesthetic management issue and concerns were discussed. 5. Plans for the early post-operative period relayed. 6. An opportunity for questions and acknowledgment of understanding of the report was received. ANDREA Torres [id number] Surgery Surgical operation note* OP Note - Karthik Black DMD, MD - 06/07/2024 1:28 PM EDT [facility] Division of special deputy sheriff [address] [place] [address] [place] [address] OPERATIVE NOTE Name: Nick Bean MR#: [id number] ENC#: Data Unavailable Surgical Case #: Data Unavailable Date of Procedure: 06/07/2024 ? PREOPERATIVE DIAGNOSIS: Caries (Primary Diagnosis) [[id number]] Pain following oral surgery [[id number]] ? POSTOPERATIVE DIAGNOSIS: Caries (Primary Diagnosis) [[id number]] Pain following oral surgery [[id number]] OPERATION: EXTRACTION ERUPTED TOOTH/EXR [D7140] ALVEOPLASTY W/ EXTRACTION [D7310] ? ATTENDING SURGEON: Karthik Black DMD, MD ? FIRST SURGEON: Karthik Black DMD, MD ? SECOND SURGEON: Walt Ortiz DDS ? ANESTHESIA: General anesthesia via oral endotracheal tube intubation supplemented with 1- mL of a 50/50 mixture of 1% lidocaine with 1:100,000 epinephrine and 0.5% Marcaine. ? SPECIMENS: None ? ESTIMATED BLOOD LOSS: 10 mL. ? IV FLUIDS: 700 mL. ? FINDINGS: No significant findings. ? DESCRIPTION OF OPERATION: The patient was taken to the operating room on a cart and transferred onto the operating room tableunder R[employer] power. The patient was then placed in the supine position. A time-out was conductedto confirm correct patient and procedure to be performed. Anesthesia team, Surgical staff and Nursing team all agreed on correct patient and laterality of the procedure. At this time care of the patient was transferred over to the Anesthesia Service for induction of general anesthetic and intubation. The patient was intubated via oral endotracheal tube intubation. The tube was secured and care ofthe patient was transferred back to the Oral Maxillofacial Surgery service for continuation of the procedure. The patient was then prepped and draped in usual sterile fashion and the oral cavity was suctioned clear and a throat pack was placed deep in the oropharynx. A #15 blade used to make a combined sulcular and midcrestal incision around remaining mandibular teeth. A periosteal elevator used to elevate a full thickness mucoperiosteal flap. A dental elevator used to mobilize teeth #20, 21, 22, 23, 24, 25, 26, 27, 28. They were then extracted with dental forceps. Teeth removed in their entirety. Curettage of extraction sockets performed. Alveoplasty of mandibular right left performed with rongeurs and bone file. Copious irrigation performed of maxilla andmandible. Closure of mucoperiosteal flaps performed with 3-0 chromic gut in running continuous fashion. Sites hemostatic. The oral cavity was suctioned clear and the throat pack was removed. After wound closure was accomplished care of the patient was transferred back to the Anesthesia Service for emergence from the general anesthetic and extubation. The patient was extubated without incidence and transferred back to a cart where he was taken to the Post Anesthesia Care Unit for further monitoring. The patient was stable during the entire procedure. There were no complications. I, Dr. Black, was present for all critical parts of the procedure. ? ? ? Karthik Blcak DMD, MD [id number] Miscellaneous Notes* OP Note - Karthik Black DMD, MD - 06/07/2024 1:28 PM EDT [facility] Division of special deputy sheriff [address] [place] [address] [place] [address] OPERATIVE NOTE Name: Nick Bean MR#: [id number] ENC#: Data Unavailable Surgical Case #: Data Unavailable Date of Procedure: 06/07/2024 ? PREOPERATIVE DIAGNOSIS: Caries (Primary Diagnosis) [[id number]] Pain following oral surgery [[id number]] ? POSTOPERATIVE DIAGNOSIS: Caries (Primary Diagnosis) [[id number]] Pain following oral surgery [[id number]] OPERATION: EXTRACTION ERUPTED TOOTH/EXR [D7140] ALVEOPLASTY W/ EXTRACTION [D7310] ? ATTENDING SURGEON: Karthik Black DMD, MD ? FIRST SURGEON: Karthik Black DMD, MD ? SECOND SURGEON: Walt Ortiz DDS ? ANESTHESIA: General anesthesia via oral endotracheal tube intubation supplemented with 1- mL of a 50/50 mixture of 1% lidocaine with 1:100,000 epinephrine and 0.5% Marcaine. ? SPECIMENS: None ? ESTIMATED BLOOD LOSS: 10 mL. ? IV FLUIDS: 700 mL. ? FINDINGS: No significant findings. ? DESCRIPTION OF OPERATION: The patient was taken to the operating room on a cart and transferred onto the operating room tableunder [employer]parm[employer] power. The patient was then placed in the supine position. A time-out was conductedto confirm correct patient and procedure to be performed. Anesthesia team, Surgical staff and Nursing team all agreed on correct patient and laterality of the procedure. At this time care of the patient was transferred over to the Anesthesia Service for induction of general anesthetic and intubation. The patient was intubated via oral endotracheal tube intubation. The tube was secured and care ofthe patient was transferred back to the Oral Maxillofacial Surgery service for continuation of the procedure. The patient was then prepped and draped in usual sterile fashion and the oral cavity was suctioned clear and a throat pack was placed deep in the oropharynx. A #15 blade used to make a combined sulcular and midcrestal incision around remaining mandibular teeth. A periosteal elevator used to elevate a full thickness mucoperiosteal flap. A dental elevator used to mobilize teeth #20, 21, 22, 23, 24, 25, 26, 27, 28. They were then extracted with dental forceps. Teeth removed in their entirety. Curettage of extraction sockets performed. Alveoplasty of mandibular right left performed with rongeurs and bone file. Copious irrigation performed of maxilla andmandible. Closure of mucoperiosteal flaps performed with 3-0 chromic gut in running continuous fashion. Sites hemostatic. The oral cavity was suctioned clear and the throat pack was removed. After wound closure was accomplished care of the patient was transferred back to the Anesthesia Service for emergence from the general anesthetic and extubation. The patient was extubated without incidence and transferred back to a cart where he was taken to the Post Anesthesia Care Unit for further monitoring. The patient was stable during the entire procedure. There were no complications. I, Dr. Black, was present for all critical parts of the procedure. ? ? ? Karthik Black DMD, MD * Blood Attestation - Washington Anderson MD - 06/07/2024 12:19 PM EDT Blood Attestation: ATTESTATION OF INFORMED CONSENT FOR BLOOD: The transfusion of blood and/or blood components were discussed with the patient and/or legal territory sales representative. The risks, benefits and alternatives were reviewed. Questions regarding blood transfusions were answered. The patient /or the patient s legal territory sales representative agree with the plan for transfusion of blood and/or blood components. documented in this [id number] Hospital Discharge instructions* Discharge Instructions* Rosalba Narayanan RN - 06/07/2024 1:04 PM EDT Images from the original note were not included. Dental extraction Instructions YOUR FOLLOW UP APPOINTMENT IS A TELEHEALTH VISIT. NOT IN PERSON. Biting on Gauze to Control Bleeding Bleeding may occur for some time after you extraction. In most cases this bleeding can be easily controlled by placing a piece of clean gauze DIRECTLY over the empty tooth socket. Then make sure thatyou bite firmly on this gauze for 30 to 60 minutes. Use the gauze we supplied to you in the bag. Wash your hands with soap and water before touching the gauze and placing it in your mouth. Place the used gauze from your mouth in a plastic bag and dispose the bag in a trash container. Make sure to wash your hands again when you are done touching the used gauze and before touching anything else. If a small amount of bleeding continues after 45 minutes then repeat these instructions. Sometimes biting a tea bag may be helpful in controlling minor bleeding. Very light bleeding for 2 days is not uncommon. If heavy bleeding is still persistent during normal clinic hours than call the Clinic where the extraction was done to speak with an oral surgeon. [facility] [phone]. HELPING THE HEALING PROCESS AND STOPPING THE BLEEDING FOR THE NEXT 24 HOURS (1 DAY) AFTER THE EXTRACTION: DO NOT RINSE YOUR MOUTH OR SPIT 2. DO NOT DRINK ANY HOT LIQUIDS SUCH SOUP, COFFEE, TEA, HOT CHOCOLATE AVOID HEAVY LIFTING, BENDING OR OTHER STENUOUS EXERCISES SLEEP WITH 2 PILLOWS OR IN A RECLINER CHAIR. KEEPING HEAD ELEVATED WILL REDUCE SWELLING. SUTURE WILL DISSOLVE IN 7-10 DAYS FOR THE NEXT 72 HOURS (3 DAYS) AFTER THE EXTRACTION: DO NOT SMOKE OR DRINK ALCOHOL DO NOT DRINK OR SUCK FROM A STRAW OR ANYTHING ELSEDO NOT DRINK. Stitches may have been placed to help healing. Your surgeon will advise you if you need to return to have them removed. TOOTH BRUSHING On the day of the extraction it is best to avoid brushing the teeth right next to the extraction site. On the next day you can start brushing ALL your teeth but in a gentle fashion. Remember to not rinse strongly because it may cause you to start bleeding from the extraction site again. SWELLING AND PAIN After the extraction you may feel some pain and experience some swelling. An ice pack of unopened bag of frozen peas of corn applied to the area should keep the swelling down. Put the ice pack on youface for 10 minutes and then leave it off for the next 20 minutes. You can repeat this patter as you feel is necessary for up to 24 hours after the extraction. To avoid injury, make sure that adults or children avoid biting or chewing on their lips of cheeks, which may be numb following an extraction. If your pain or swelling seems to be getting worse or you feel as though something is not right then call your dentist, as directed above. ANTIBIOTICS AND PAIN MEDICATION If antibiotics have been prescribed then you should take them as directed; this includes taking allthe antibiotic (or liquid) pills that were prescribed. If you don't finish them completely a serious infection could result. You may have little of no discomfort after the extraction. If you have minor pain then you may wantto take acetaminophen (Tylenol) or ibuprofen (Motrin). It is very important that before taking any medications that you read and follow the directions and warnings that come with these products so you know whether they are right for you and you situation. If you have any questions on whether these medications are right for you, first talk to your doctor or pharmacist before taking the medication. Your surgeon may have given you a written prescription for pain relief. It is important that if youdecide to take it you read and understand all the precautions, warnings and directions that come with the medication. If you have any questions on whether the medication is right for you, first talk to your doctor or pharmacist before taking the medication. The pain medication prescription that your dentist gave you may contain a narcotic (like codeine). If so, most narcotic pain medications may upset your stomach. If so, then it is best to take them with food. The pain medication prescription that you were given can also make you drowsy or make you act strangely. If so, you should limit or stop activities such as driving a motor vehicle, operate machinery or other activities that require your full attention. EATING AND DRINKING A soft or liquid diet may be best for you after a difficult extraction. For a simpler extraction just make sure you do your chewing with those teeth that are NOT near the extraction site. POSTOPERATIVE INSTRUCTION AFTER SEDATION / GENERAL ANESTHESIA If you had general anesthesia of IV sedation, do not drive or operate machinery for 24 hours. A responsible adult should be with you for the remainder of the day. When starting oral intake, be sure to consume CLEAR LIQUIDS first. Clear liquids consist of water, Sprite, will maisha, Jell-O, and non-pulp containing juices such as cranberry and apple juice. Once tolerating clear-liquids, you may advance your diet. Be sure to follow the specific diet instructions from your doctor according to the type of surgery you have had. It is important that you take any narcotic containing pain medications with food. Patients should not participate in any strenuous activity. Standing and sitting up too quickly following surgery can also result in dizziness and exacerbate these problems. It is also important that patients be supervised for an appropriate amount of time following sedation in order to ensure that they remain safe in the post- operative period. Under NO circumstances should a patient drive the day of surgery or participate in any important decisions. NAUSEA & VOMITING Nausea is not uncommon after surgery. Sometimes pain medications may be the cause. In the event of nausea and/or vomiting following surgery, do not take anything by mouth for at least an hour including the prescribed medicine. You should then sip on Coke, tea, or will maisha. You should sip slowly over a 15- minute period. When the nausea subsides, you can begin taking solid foods and the prescribed medicine. You may take the anti-nausea medication if prescribed. If the above is not helpful, contact your surgeon. Please if you have any questions or concerns please contact us: [facility] . Ask for the resident buyer communications editor (after hours). [employer] Clinic Hours: Mon-Fri 8:30 am to 4:30 pm. PERIOPERATIVE DISCHARGE/HOME-GOING INSTRUCTIONS ANESTHESIA - GENERAL (ADULT) If a problem arises, you may contact your physician by calling [phone] and asking for the resident communications editor for Oral Surgery Service. Special Care Needs: Activity: Rest at home today and tomorrow, then progress to your regular activities as tolerated. Diet: Clear liquids are best tolerated at first. If you are not nauseated, you can progress your diet to solid foods as tolerated. Possible post-operative precautions: Call you doctor or clinic for: 1. Signs of infection such as fever or chills. 2. Severe pain that in not relieved by Tylenol or your pain medicine prescription. 3. You may have a sore throat - it is usually gone in 1 to 2 days. Post-anesthesia safety: Possible side effects include drowsiness, dizziness, or inability to think clearly. For your safety, do not drive, drink alcoholic beverages, take any unprescribed medication or make any important decisions for 24 hours. A responsible adult should be with you for 24 hours. If no urine by 10:00 PM or you become very uncomfortable and can t urinate, call [phone] or cometo the emergency room. The day after surgery, a nurse will call to check on you. However, if there are any questions or concerns, please call us at the number listed in the home going instructions. Falls Prevention Each year, 1 in every 3 adults over the age of 65 are treated for fall-related injuries. The risk of falling increases with each decade of life. The good news is, many falls are preventable. Here are some fall prevention tips: Exercise can increase strength and improve balance, making falls much less likely. For more informati on visit: [email or web address]/ Some medications or combinations of medications can lead to side effects that cause falls. Have a doctor or pharmacist review all medications to help reduce the chance of risky side effects. Poor vision can lead to falls. Have your eyes checked every year. Ensure that your glasses are the correct strength. Eliminate hazards in your home by completing this home safety checklist. Remove things you can trip over from stairs and places you walk Install handrails and lights on all staircases. Remove small throw rugs or use double-sided tape to keep rugs from slipping. Keep items you use often in cabinets you can reach easily without using a step stool. Put grab bars inside and next to the tub or shower and next to your toilet.Use non-slip mats in thebathtub and on shower floors. Improve the lighting in your home. Hang lightweight curtains or shades to reduce glare. Wear shoes both inside and outside the house. Avoid going barefoot or wearing slippers. To lower the risk of hip fractures: Get adequate calcium and vitamin D, from food and/or supplements. Do weight bearing exercise. Get screened for osteoporosis and treated if needed documented in this [id number] NoteSurgical Attestation: I have reviewed the patient's History and Physical Examination. I have personally seen and evaluated the patient, repeating witt portions. There is no significant interval change. Surgery is still indicated. Yes Consent reviewed and signed by patient/family: Yes Operative site verified and marked: Yes Walt Dianabrigido Pedraza DDSThe [place] [id number] Progress note* Blood Attestation - Washington Anderson MD - 06/07/2024 12:19 PM EDT Blood Attestation: ATTESTATION OF INFORMED CONSENT FOR BLOOD: The transfusion of blood and/or blood components were discussed with the patient and/or legal territory sales representative. The risks, benefits and alternatives were reviewed. Questions regarding blood transfusions were answered. The patient /or the patient s legal territory sales representative agree with the plan for transfusion of blood and/or blood components. 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 Cardiovascular (+) hypertension, Surgical risk: intermediate; Cardiac condition: no apparent (-) CHF ECG reviewed GI/Hepatic/Renal (+) GERD Heme/Other (-) no DVT, bleeding disorder, anemia and anticoagulation therapy Other ROS: Nick Bean is 34 year old female here for Procedure(s): Extraction of all manibular teeth, alveoplasty Patient Active Problem List: Acute myopericarditis (HCC) [I30.9] Delivery with history of (HCC) [O34.219] Gestational diabetes mellitus (GDM) in third trimester controlled on oral hypoglycemic drug (HCC) [O24.415] Gestational hypertension (HCC) [O13.9] Hx of Doppler echocardiogram [Z92.89] Migraines [G43.909] Morbid obesity (HCC) [E66.01] Palpitations [R00.2] Precordial pain [R07.2] Caries [K02.9] Allergies: -- Amoxicillin -- Hives, Itching, Rash and Other -- Ciprofloxacin -- Myalgias and Other Physical Exam Airway Mallampati: III TM distance: Adequate Micrognathia: Not present Jaw opening: Adequate Neck flexion: Adequate Dental PE (+) intact and chipped teeth Pulmonary - pulmonary exam normal Comment: Chest clear to auscultation bilaterally Cardiovascular - cardiovascular exam normal Comment: RRR with S1S2; no murmurs, gallops, or rubs Neuro - neurological exam normal Comment: Awake, alert, oriented, No motor deficits and sensation grossly intact Plan Anesthesia plan: general; (ETT) Anesthesia risks / alternatives discussed pre-op Questions answered / anesthesia plan accepted Past medical history, surgical history, allergies, and medications reviewed. Pertinent laboratory tests, EKG, imaging, and consults reviewed and I have personally seen and evaluated the patient, repeating witt portions of the history and physical examination. Attestation: Anesthesia options were discussed with the patient and/or legal territory sales representative. The risks, benefitsand alternatives were reviewed. Questions regarding anesthesia were answered. Patient and/or legal territory sales representative knows such anesthetics and procedures may be performed by Resident physicians, Certified Anesthesiologist Assistants, or Certified Nurse Anesthetists under the supervision of a physician. The patient /or the patient s legal territory sales representative agree with the plan for anesthesia. MHPATFORM [id number] Instructions* Discharge Instructions* Kizzy aMurice RN - 05/20/2024 1:14 PM EDT PATIENT MEDICATION INSTRUCTIONS: On the morning of your surgery, please take only the following medications, with a small sip of water: busPIRone (BUSPAR) 5 MG tablet hydrOXYzine pamoate (VISTARIL) 25 MG capsule Do not take any Aspirin within 7 days of surgery. 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 Post-op Nausea and Vomiting: A risk of anesthesia is nausea and/or vomiting (PONV). Certain patients are at higher risk than others. Talk to your anesthesiologist about the plan to minimize this risk. In general, it is best to start with only ice chips or small sips of water, then progress to clear, non-alcoholic fluids. You do not have to eat if you do not feel like it; fluids are the most important in the first 24 hours after surgery. If you start to eat, try bananas, applesauce, plain toast, saltine crackers, or broth; avoid fried or fatty foods. Make sure to eat something about 15 minutes before taking any pain medications. Seek medical attention for any prolonged PONV and signs of dehydration. INSTRUCTIONS FOR SURGERY * Hospital staff will call you one business day before your surgery to inform you of your surgery arrival time. Please be on time- a late arrival may result in the cancellation or delay of your surgery. * DO NOT smoke after midnight the night before your surgery. * You may have plain water (no additives) up to 2 hours prior to surgery arrival time. Otherwise, no food or any other type of liquids for at least 8 hours prior to surgery arrival time. * If you were specifically directed by your doctor to take certain medication(s) on the day of surgery, you may do so with small sips of water. * DO NOT wear any jewelry including rings, earrings, or mouth, tongue or body piercings. * DO NOT use lotion, cream, deodorant or make-up. * DO NOT bring valuables, credit cards, or large amounts of langley. A small amount of money may be needed for filling prescriptions. * Please bring your photo ID with you on the day of surgery. It will be stored in a secured locker and returned after surgery. * If you are scheduled to go home the same day of surgery, you MUST have a responsible adult to drive you home. A cab, [employer] or other transportation rear load truck driver cannot be responsible for you. A responsible adult should stay with you for 24 hours after surgery. Your surgery will be cancelled if you do not have a ride home. * If you have sleep apnea and are staying overnight in the hospital, please bring your sleep apnea machine and mask. documented in this [id number] Evaluation note* PAT Call History - Kizzy Maurice RN - 05/20/2024 1:01 PM EDT Images from the original note were not included. Telephone History Nick Bean, [id number] 05/20/2024 Patient was identified by name and date of . Kizzy Maurice RN 34 year old 270 lbs 5' 5 Date of Surgery: 06-07-2024 Surgeon: Karthik Black DMD, MD Type of Surgery: Extraction of all manibular teeth, alveoplasty HISTORY OF PRESENT ILLNESS: PAT telephone evaluation for Extraction of all manibular teeth, alveoplasty STOP-BANG Row Name 05/20/24 1300 History of sleep apnea? No Snoring No Tired/Fatigued Yes Observed Apnea No Pressure: Hypertension No BMI greater than 35 1 Age greater than 50 0 Neck circ greater than 40cm (15.75 ) Unable to Assess Gender male? 0 Score 2 EXERCISE CAPACITY: 4-10 mets ALLERGIES: Amoxicillin and Ciprofloxacin PREVIOUS ANESTHETIC EXPERIENCES AND INTUBATION HISTORY: No previous anesthetic FAMILY HISTORY OF ANESTHETIC COMPLICATIONS: Yes, my sister wakes up 10years in th past, and then takes about 1 hr to fully recover' PAST MEDICAL HISTORY: No past medical history on file. 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 SOCIAL HISTORY: Social History Socioeconomic History Marital status: Unknown Highest education level: 12th grade Tobacco Use Smoking status: Never Smokeless tobacco: Never Vaping Use Vaping status: Every Day Substances: Nicotine, THC Substance and Sexual Activity Alcohol use: Not Currently Drug use: Yes Types: Marijuana/THC Social Determinants of Health Financial Resource Strain: Medium Risk (03/09/2024) Overall Financial Resource Strain (CARDIA) Difficulty of Paying Living Expenses: Somewhat hard Food Insecurity: No Food Insecurity (03/09/2024) Hunger Vital Sign Worried About Running Out of Food in the Last Year: Never true Ran Out of Food in the Last Year: Never true Transportation Needs: No Transportation Needs (03/09/2024) PRAPARE - Transportation Lack of Transportation (Medical): No Lack of Transportation (Non-Medical): No Physical Activity: Sufficiently Active (03/09/2024) Exercise Vital Sign Days of Exercise per Week: 5 days Minutes of Exercise per Session: 60 min Stress: No Stress Concern Present (03/09/2024) [place] [employer] - Occupational Stress Questionnaire Feeling of Stress : Only a little Social Connections: Moderately Isolated (03/09/2024) Social Connection and Isolation Panel [NHANES] Frequency of Communication with Friends and Family: More than three times a week Frequency of Social Gatherings with Friends and Family: Three times a week Attends Sabianist Services: Never Active Member of Clubs or Organizations: No Attends Club or Organization Meetings: Never Marital Status: Intimate Partner Violence: Not At Risk (03/09/2024) Humiliation, Afraid, Rape, and Kick questionnaire Fear of Current or Ex-Partner: No Emotionally Abused: No Physically Abused: No Sexually Abused: No PAIN ASSESSMENT: Severity: 0 Location: N/A LABORATORY DATA: Component 12/06/23 05/17/23 03/17/23 03/17/23 03/17/23 White Blood Cells 7.9 7.5 10.6 -- 8.9 RBC count 4.19 4.30 4.27 -- 4.41 Hemoglobin 12.8 12.6 12.6 Negative 13.1 Hematocrit 37.3 37.8 37.0 -- 38.1 MCV 89 88 87 -- 86 MCH 30.5 29.4 29.5 -- 29.8 MCHC 34.2 33.4 34.1 -- 34.5 RDW 13.7 14.0 14.3 -- 14.5 Platelets 292 322 300 -- 303 MPV 7.2 7.2 7.3 -- 7.3 % neutrophils 75.2 64.3 68.2 -- 69.8 % lymphocytes 18.8 26.2 22.7 -- 22.8 % monocytes 4.6 7.6 7.3 -- 5.7 % eosinophils 1.0 1.5 1.3 -- 1.3 % Basophils 0.4 0.4 0.5 -- 0.4 Neutrophils Absolute (A) 6.0 4.8 7.2 High -- 6.2 Lymphocytes Absolute 1.5 2.0 2.4 -- 2.0 Monocytes Absolute 0.4 0.6 0.8 -- 0.5 Eosinophils Absolute 0.1 0.1 0.1 -- 0.1 Basophils Absolute 0.0 0.0 0.1 -- 0.0 Related to Comprehensive metabolic panel Component 12/06/23 05/17/23 03/17/23 03/17/23 Sodium 136 140 137 137 Potassium, Bld 3.5 3.3 Low 3.2 Low 3.5 Chloride 105 106 106 103 CO2 25 26 22 26 Anion gap 6 8 9 8 BUN 14 12 12 11 Creatinine 0.65 1.08 High 0.76 0.90 Glucose 134 High 91 130 High 98 Calcium 8.6 9.0 9.0 8.9 Total Protein 7.2 7.1 -- -- Albumin 4.1 4.5 -- -- Alkaline Phosphatase 49 45 -- -- AST 28 24 -- -- ALT 27 36 High -- -- Total bilirubin 0.7 0.5 -- -- eGFR (CKD-EPI)non-race dependent >90 69 >90 86 TESTS REVIEWED: CXRay: Chest x-ray was last done on 03/17/2023 EKG: Last ECG Date: Not Found unable to pull from care everywhere ECHO: Echocardiogram date: Not Found No results found for this basename: LVEF Stress test date: Last StressTest: none found going back to 06/05/2015 XR CHEST AP OR PA 1 VIEW Order: [id number] Narrative Single view chest History:Dyspnea Difficulty breathing, shortness of breath Comparison: None Findings: Single portable view of the chest. No focal opacity, effusion or pneumothorax. Cardiomediastinal silhouette is within normal limits. Impression: No evidence of acute cardiopulmonary process. CURRENT MEDICATION LIST: Current Outpatient Medications Medication Sig Dispense Refill busPIRone (BUSPAR) 5 MG tablet 5 mg. hydrOXYzine pamoate (VISTARIL) 25 MG capsule 25 mg. Ibuprofen 200 MG CAPS Take 1 Each by mouth every 6 hours. melatonin 5 mg TABS tablet 5 mg. naproxen (EC NAPROSYN) 375 MG tablet Take 500 mg by mouth 2 times daily (with meals). No current facility-administered medications for this visit. CURRENT MEDICATIONS: Aspirin: No NSAIDS: Yes Other Antiplatelet Medication: No Anticoagulants: No Steroids: No PATIENT MEDICATION INSTRUCTIONS: On the morning of your surgery, please take only the following medications, with a small sip of water: busPIRone (BUSPAR) 5 MG tablet hydrOXYzine pamoate (VISTARIL) 25 MG capsule Do not take any Aspirin within 7 days of surgery. 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 Post-op Nausea and Vomiting: A risk of anesthesia is nausea and/or vomiting (PONV). Certain patients are at higher risk than others. Talk to your anesthesiologist about the plan to minimize this risk. In general, it is best to start with only ice chips or small sips of water, then progress to clear, non-alcoholic fluids. You do not have to eat if you do not feel like it; fluids are the most important in the first 24 hours after surgery. If you start to eat, try bananas, applesauce, plain toast, saltine crackers, or broth; avoid fried or fatty foods. Make sure to eat something about 15 minutes before taking any pain medications. Seek medical attention for any prolonged PONV and signs of dehydration. Kizzy Maurice RN Time Spent Performing this Telephone History: 15 mins [id number] Miscellaneous Notes* PAT Call History - Kizzy Maurice RN - 05/20/2024 1:01 PM EDT Images from the original note were not included. Telephone History Nick Bean, [id number] 05/20/2024 Patient was identified by name and date of . Kizzy Maurice RN 34 year old 270 lbs 5' 5 Date of Surgery: 06-07-2024 Surgeon: Karthik Black DMD, MD Type of Surgery: Extraction of all manibular teeth, alveoplasty HISTORY OF PRESENT ILLNESS: PAT telephone evaluation for Extraction of all manibular teeth, alveoplasty STOP-BANG Row Name 05/20/24 1300 History of sleep apnea? No Snoring No Tired/Fatigued Yes Observed Apnea No Pressure: Hypertension No BMI greater than 35 1 Age greater than 50 0 Neck circ greater than 40cm (15.75 ) Unable to Assess Gender male? 0 Score 2 EXERCISE CAPACITY: 4-10 mets ALLERGIES: Amoxicillin and Ciprofloxacin PREVIOUS ANESTHETIC EXPERIENCES AND INTUBATION HISTORY: No previous anesthetic FAMILY HISTORY OF ANESTHETIC COMPLICATIONS: Yes, my sister wakes up 10years in th past, and then takes about 1 hr to fully recover' PAST MEDICAL HISTORY: No past medical history on file. 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 SOCIAL HISTORY: Social History Socioeconomic History Marital status: Unknown Highest education level: 12th grade Tobacco Use Smoking status: Never Smokeless tobacco: Never Vaping Use Vaping status: Every Day Substances: Nicotine, THC Substance and Sexual Activity Alcohol use: Not Currently Drug use: Yes Types: Marijuana/THC Social Determinants of Health Financial Resource Strain: Medium Risk (03/09/2024) Overall Financial Resource Strain (CARDIA) Difficulty of Paying Living Expenses: Somewhat hard Food Insecurity: No Food Insecurity (03/09/2024) Hunger Vital Sign Worried About Running Out of Food in the Last Year: Never true Ran Out of Food in the Last Year: Never true Transportation Needs: No Transportation Needs (03/09/2024) PRAPARE - Transportation Lack of Transportation (Medical): No Lack of Transportation (Non-Medical): No Physical Activity: Sufficiently Active (03/09/2024) Exercise Vital Sign Days of Exercise per Week: 5 days Minutes of Exercise per Session: 60 min Stress: No Stress Concern Present (03/09/2024) [place] [employer] - Occupational Stress Questionnaire Feeling of Stress : Only a little Social Connections: Moderately Isolated (03/09/2024) Social Connection and Isolation Panel [NHANES] Frequency of Communication with Friends and Family: More than three times a week Frequency of Social Gatherings with Friends and Family: Three times a week Attends Sabianist Services: Never Active Member of Clubs or Organizations: No Attends Club or Organization Meetings: Never Marital Status: Intimate Partner Violence: Not At Risk (03/09/2024) Humiliation, Afraid, Rape, and Kick questionnaire Fear of Current or Ex-Partner: No Emotionally Abused: No Physically Abused: No Sexually Abused: No PAIN ASSESSMENT: Severity: 0 Location: N/A LABORATORY DATA: Component 12/06/23 05/17/23 03/17/23 03/17/23 03/17/23 White Blood Cells 7.9 7.5 10.6 -- 8.9 RBC count 4.19 4.30 4.27 -- 4.41 Hemoglobin 12.8 12.6 12.6 Negative 13.1 Hematocrit 37.3 37.8 37.0 -- 38.1 MCV 89 88 87 -- 86 MCH 30.5 29.4 29.5 -- 29.8 MCHC 34.2 33.4 34.1 -- 34.5 RDW 13.7 14.0 14.3 -- 14.5 Platelets 292 322 300 -- 303 MPV 7.2 7.2 7.3 -- 7.3 % neutrophils 75.2 64.3 68.2 -- 69.8 % lymphocytes 18.8 26.2 22.7 -- 22.8 % monocytes 4.6 7.6 7.3 -- 5.7 % eosinophils 1.0 1.5 1.3 -- 1.3 % Basophils 0.4 0.4 0.5 -- 0.4 Neutrophils Absolute (A) 6.0 4.8 7.2 High -- 6.2 Lymphocytes Absolute 1.5 2.0 2.4 -- 2.0 Monocytes Absolute 0.4 0.6 0.8 -- 0.5 Eosinophils Absolute 0.1 0.1 0.1 -- 0.1 Basophils Absolute 0.0 0.0 0.1 -- 0.0 Related to Comprehensive metabolic panel Component 12/06/23 05/17/23 03/17/23 03/17/23 Sodium 136 140 137 137 Potassium, Bld 3.5 3.3 Low 3.2 Low 3.5 Chloride 105 106 106 103 CO2 25 26 22 26 Anion gap 6 8 9 8 BUN 14 12 12 11 Creatinine 0.65 1.08 High 0.76 0.90 Glucose 134 High 91 130 High 98 Calcium 8.6 9.0 9.0 8.9 Total Protein 7.2 7.1 -- -- Albumin 4.1 4.5 -- -- Alkaline Phosphatase 49 45 -- -- AST 28 24 -- -- ALT 27 36 High -- -- Total bilirubin 0.7 0.5 -- -- eGFR (CKD-EPI)non-race dependent >90 69 >90 86 TESTS REVIEWED: CXRay: Chest x-ray was last done on 03/17/2023 EKG: Last ECG Date: Not Found unable to pull from care everywhere ECHO: Echocardiogram date: Not Found No results found for this basename: LVEF Stress test date: Last StressTest: none found going back to 06/05/2015 XR CHEST AP OR PA 1 VIEW Order: [id number] Narrative Single view chest History:Dyspnea Difficulty breathing, shortness of breath Comparison: None Findings: Single portable view of the chest. No focal opacity, effusion or pneumothorax. Cardiomediastinal silhouette is within normal limits. Impression: No evidence of acute cardiopulmonary process. CURRENT MEDICATION LIST: Current Outpatient Medications Medication Sig Dispense Refill busPIRone (BUSPAR) 5 MG tablet 5 mg. hydrOXYzine pamoate (VISTARIL) 25 MG capsule 25 mg. Ibuprofen 200 MG CAPS Take 1 Each by mouth every 6 hours. melatonin 5 mg TABS tablet 5 mg. naproxen (EC NAPROSYN) 375 MG tablet Take 500 mg by mouth 2 times daily (with meals). No current facility-administered medications for this visit. CURRENT MEDICATIONS: Aspirin: No NSAIDS: Yes Other Antiplatelet Medication: No Anticoagulants: No Steroids: No PATIENT MEDICATION INSTRUCTIONS: On the morning of your surgery, please take only the following medications, with a small sip of water: busPIRone (BUSPAR) 5 MG tablet hydrOXYzine pamoate (VISTARIL) 25 MG capsule Do not take any Aspirin within 7 days of surgery. 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 Post-op Nausea and Vomiting: A risk of anesthesia is nausea and/or vomiting (PONV). Certain patients are at higher risk than others. Talk to your anesthesiologist about the plan to minimize this risk. In general, it is best to start with only ice chips or small sips of water, then progress to clear, non-alcoholic fluids. You do not have to eat if you do not feel like it; fluids are the most important in the first 24 hours after surgery. If you start to eat, try bananas, applesauce, plain toast, saltine crackers, or broth; avoid fried or fatty foods. Make sure to eat something about 15 minutes before taking any pain medications. Seek medical attention for any prolonged PONV and signs of dehydration. Kizzy Maurice RN Time Spent Performing this Telephone History: 15 mins documented in this [id number] History of Present illness Narrative* Karthik Black DMD, MD - 03/10/2024 1:[address] [facility] PATIENT VISIT CHIEF COMPLAINT: Toothache HISTORY OF PRESENT ILLNESS: Patient is a 33yoF with pmhx sig for obesity and severe procedural anxiety who presents to the [facility] clinic as a referral from her general dentist for extraction of all remaining mandibular teeth prior to fabrication of a complete lower denture. She has had waxing and waning pain and swelling associated with her lower teeth over the years and has been on several coursesof abx to control the recurrent infections. Patient endorses severe procedural anxiety and knows she will not tolerate the procedure awake. Currently denies fever, chills, n/v, SOB, CP, dysphagia, odynophagia. PAST MEDICAL HISTORY: No past medical history on file. Patient Active Problem List: Acute myopericarditis (HCC) [I30.9] Delivery with history of (HCC) [O34.219] Gestational diabetes mellitus (GDM) in third trimester controlled on oral hypoglycemic drug (HCC) [O24.415] Gestational hypertension (HCC) [O13.9] Hx of Doppler echocardiogram [Z92.89] Migraines [G43.909] Morbid obesity (HCC) [E66.01] Palpitations [R00.2] Precordial pain [R07.2] REVIEW OF SYSTEMS: A 12-point review of systems was completed. Negative unless otherwise stated in HPI. MEDICATIONS: Current Outpatient Medications Medication Sig Dispense Refill busPIRone (BUSPAR) 5 MG tablet 5 mg. hydrOXYzine pamoate (VISTARIL) 25 MG capsule 25 mg. Ibuprofen 200 MG CAPS Take 1 Each by mouth every 6 hours. melatonin 5 mg TABS tablet 5 mg. naproxen (EC NAPROSYN) 375 MG tablet Take 500 mg by mouth 2 times daily (with meals). No current facility-administered medications for this visit. ALLERGIES: Amoxicillin and Ciprofloxacin SURGICAL HX: No past surgical history on file. SOCIAL HX: Denies CLINICAL EXAMINATION Extraoral examination: No facial asymmetry nor swelling No sign of infection, redness or tenderness to palpation. No appreciable lymphadenopathy No popping, clicking or crepitus of TMJs bilaterally No tenderness to palpation of temporalis and masseter Range of motion within normal limits, LOUIE >30 CN V1, V2, V3, VII intact bilaterally Intraoral examination: Soft tissue pink and moist Oral hygiene good Oral cancer screen - negative findings Edentulous maxilla Remaining mandibular teeth with gross caries and several fractured teeth No vestibular swelling No FOM edema or ecchymosis RADIOGRAPHIC INTERPRETATION: [employer] Film taken on 03/10/2024 Edentulous maxilla Remaining mandibular teeth grossly carious and fractured Condyles seated in fossa bilaterally No bony pathology DIAGNOSIS: Caries ASSESSMENT: 33yoF with pmhx sig for obesity and severe procedural anxiety requiring extraction of all remaininglower teeth and alveoplasty under [facility] at [facility] in preparation for complete dentures. Patient said she would ideally like to have immediate dentures for time of surgery. I let her know she must have these made by her general dentist prior to the appointment - if she doesn't bring the denture with her, she will not be leaving with any teeth. She voiced understanding and would like to proceed Reviewed procedure and complications associated with extractions ,including treatment options and no treatment. Opportunity given to ask all desired questions. Pertinent and more common complicationsof extractions discussed with the patient; pain, swelling, bruising, bleeding, infection (that may require further treatment such as hospitalizations), possible permanent numbness of the tongue, gums, teeth, lip, and chin, injury to adjacent structures (tooth, lip, cheek, jaw bone), damage to adjacent teeth, development of permanent TMJ symptoms/dysfunction, jaw fracture at time of surgery or afterwards, decision to leave root tips behind, displacement of tooth (or portion of) into adjacent spaces (such as sinus, floor of mouth, throat) and the development of sinus symptoms. Complications arenot limited to the above and may include others that are less common. PLAN: -Extraction of all remaining mandibular teeth and alveoplasty under GA at [facility] Karthik Black DMD, MD * Maryana Pérez - 03/10/2024 10:25 AM EDT Images from the original note were not included. documented in this [id number] History of Present illness Narrative* Karthik Black DMD, MD - 03/10/2024 1:[address] [facility] PATIENT VISIT CHIEF COMPLAINT: Toothache HISTORY OF PRESENT ILLNESS: Patient is a 33yoF with pmhx sig for obesity and severe procedural anxiety who presents to the [facility] clinic as a referral from her general dentist for extraction of all remaining mandibular teeth prior to fabrication of a complete lower denture. She has had waxing and waning pain and swelling associated with her lower teeth over the years and has been on several coursesof abx to control the recurrent infections. Patient endorses severe procedural anxiety and knows she will not tolerate the procedure awake. Currently denies fever, chills, n/v, SOB, CP, dysphagia, odynophagia. PAST MEDICAL HISTORY: No past medical history on file. Patient Active Problem List: Acute myopericarditis (HCC) [I30.9] Delivery with history of (HCC) [O34.219] Gestational diabetes mellitus (GDM) in third trimester controlled on oral hypoglycemic drug (HCC) [O24.415] Gestational hypertension (HCC) [O13.9] Hx of Doppler echocardiogram [Z92.89] Migraines [G43.909] Morbid obesity (HCC) [E66.01] Palpitations [R00.2] Precordial pain [R07.2] REVIEW OF SYSTEMS: A 12-point review of systems was completed. Negative unless otherwise stated in HPI. MEDICATIONS: Current Outpatient Medications Medication Sig Dispense Refill busPIRone (BUSPAR) 5 MG tablet 5 mg. hydrOXYzine pamoate (VISTARIL) 25 MG capsule 25 mg. Ibuprofen 200 MG CAPS Take 1 Each by mouth every 6 hours. melatonin 5 mg TABS tablet 5 mg. naproxen (EC NAPROSYN) 375 MG tablet Take 500 mg by mouth 2 times daily (with meals). No current facility-administered medications for this visit. ALLERGIES: Amoxicillin and Ciprofloxacin SURGICAL HX: No past surgical history on file. SOCIAL HX: Denies CLINICAL EXAMINATION Extraoral examination: No facial asymmetry nor swelling No sign of infection, redness or tenderness to palpation. No appreciable lymphadenopathy No popping, clicking or crepitus of TMJs bilaterally No tenderness to palpation of temporalis and masseter Range of motion within normal limits, LOUIE >30 CN V1, V2, V3, VII intact bilaterally Intraoral examination: Soft tissue pink and moist Oral hygiene good Oral cancer screen - negative findings Edentulous maxilla Remaining mandibular teeth with gross caries and several fractured teeth No vestibular swelling No FOM edema or ecchymosis RADIOGRAPHIC INTERPRETATION: Panore[employer] Film taken on 03/10/2024 Edentulous maxilla Remaining mandibular teeth grossly carious and fractured Condyles seated in fossa bilaterally No bony pathology DIAGNOSIS: Caries ASSESSMENT: 33yoF with pmhx sig for obesity and severe procedural anxiety requiring extraction of all remaininglower teeth and alveoplasty under GA at [facility] in preparation for complete dentures. Patient said she would ideally like to have immediate dentures for time of surgery. I let her know she must have these made by her general dentist prior to the appointment - if she doesn't bring the denture with her, she will not be leaving with any teeth. She voiced understanding and would like to proceed Reviewed procedure and complications associated with extractions ,including treatment options and no treatment. Opportunity given to ask all desired questions. Pertinent and more common complicationsof extractions discussed with the patient; pain, swelling, bruising, bleeding, infection (that may require further treatment such as hospitalizations), possible permanent numbness of the tongue, gums, teeth, lip, and chin, injury to adjacent structures (tooth, lip, cheek, jaw bone), damage to adjacent teeth, development of permanent TMJ symptoms/dysfunction, jaw fracture at time of surgery or afterwards, decision to leave root tips behind, displacement of tooth (or portion of) into adjacent spaces (such as sinus, floor of mouth, throat) and the development of sinus symptoms. Complications arenot limited to the above and may include others that are less common. PLAN: -Extraction of all remaining mandibular teeth and alveoplasty under GA at [facility] Karthik Black DMD, MD * PérezMaryana william - 03/10/2024 10:25 AM EDT Images from the original note were not included. documented in this [id number] Evaluation note* Encounter Date Diagnosis Assessment Notes Treatment Notes Treatment Clinical Notes Oct, Dysuria (ICD-10 - R30.0) Rest. Drink plenty of fluids. Take the antibiotic Macrobid as directed twice a day for the next 7 days for an acute urinary tract infection. We are sending your urine for culture. If a different antibiotic is needed will be called in at that time. Follow-up with your regular primary care doctor if symptoms persist. Patient is a 33-year-old female who presents to urgent care with complaints of increased urinary frequency, urgency, burning with urination, and incontinence last night. Patient denies any abdominal pain, flank pain, fever, chills, nausea, vomiting. a urine sample was obtained during the visit. Patient is being prescribed macrobid twice a day for seven days for presumed UTI based on symtpoms. Culture is being sent. Patient will be called with results. Patient is to drink plenty of fluids, take the antibiotic macrobid as prescribed and follow up with her PCP is symptoms persist. [employer] Other 12-28-2023 NoteThis is a Telephone Appointment *This visit was conducted by Telephone with real time communicationand interaction. The patient provided written consent for treatment. The patient understands their rights, the HIPAA risks and that they will be charged accordingly for the services rendered. This visit was held via telephone within the [facility] while they were at: At their home in [place]. This telephone visit was conducted due to: Distance/transportation issues. Audio only communication was requested by the patient due to Technical difficulties. Chief Complaint Follow-up MRI and EMG History of Present Illness Patient is a pleasant 33-year-old female who presents for follow-up of left peroneal tendinosis/possible nerve entrapment. She states that she has been in a cam boot since last visit. She feels that this is helping. She feels that the neuritic pain is improved since last visit. She is no longer having burning tingling numbness shooting pain. She still gets pain and soreness on the outside of her foot and ankle. Feels improved in the boot. Has tried walking outside the boot and it is still painful. Would like to discuss further treatment options. Review of Systems Constitutional Head Nose Mouth Throat Cardio/Respiratory Hematologic Chills: No Headache: Yes Shortness of Breath: No History of DVT: No Fever: No Sore Throat: No Chest Pain: No History of Claudication: No Ear Pain: No Palpitation: No History of Aneurysm: No History of Gangrene: No Genitourinary Musculoskeletal Psychiatric Vascular Burning: No Muscle Weakness: No Anxiety: Yes Blood Disorder: No Pain: No Joint Pain: Yes Depression: Yes Numbness: No Gastrointestinal Dermatology Rheumatologic Problems: No Rash: No History of Rheumatic Arthritis: No Pain: No Pruritus: No History of Gout: No History of Lupus: No Physical Exam Vitals & Measurements HT: 165 cm WT: 125.2 kg WT: 125.2 kg (Dosing) BMI: 45.99 General: No audible acute distress. Normal conversant. Alert and oriented x 4. Attentive and appropriate. Asks appropriate questions. No gross deficits in reasoning memory or intellect. Respiratory: No audible labored breathing. No audible wheezing or stridor noted. Additional Vitals No qualifying data available. Assessment/Plan 1. Tear of peroneal tendon of left foot 2. Entrapment neuropathy of superficial peroneal nerve 3. 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 Peroneal tenosynovitis -E/M with of time spent with patient dedicated to discussion of pathogenesis and treatment options for patient's problems including padding, offloading, stretching exercises, protective boot wearing,nerve vitamins, gabapentin, Lyrica, EMG, MRI, diagnostic injections, potential surgical intervention for nerve decompression. MRI reviewed. Discussed longitudinal split tear of the peroneus brevis tendon infra malleolar. Reviewed EMG, no signs of peripheral nerve entrapment, possible early signs of S1 radiculopathy. Her neuritic symptoms are improved. We will continue to monitor her neuritic symptoms and consider diagnostic injection should this worsen again. Recommend activity modification and discussed shoe gear extensively. Discussed diagnostic injection, deferred as her neuritic symptoms are improved Reviewed that the previously noted soft tissue mass is likely tenosynovitis surrounding the peroneal tendons. Discussed conservative or surgical management. Discussed physical therapy. Discussed tentative working diagnosis above. Discussed potential need for surgical decompression of nerve entrapment pending work-up/imaging, discussed potential need for tenosynovectomy and repair of the peroneus brevis tendon. After lengthy discussion today patient would like to proceed with conservative care and attempt camboot immobilization along with physical therapy. Prescription given for physical therapy. We will touch base with patient again in 4 to 6 weeks via telephone or telehealth to see if she is improved. If she is 50% improved or more at next visit we will likely continue conservative care. If worseningor not improved at next visit we will possibly discuss surgical intervention. She lives in [place] and as long as she is not having neuritic symptoms/further concerns for nerve entrapment she could follow-up with myself or Dr. Parviz Lyles for the peroneal tendon tear. Possible ultrasound-guided injection at next visit. Please have ultrasound available and 5 mL of Marcaine at next in person visit. She may need common peroneal nerve injection as well as superficial peroneal nerve injection pending her symptoms No radiographs needed at next visit. Time Spent with the Patient Today's visit was performed via telehealth and utilized an audio only connection. Duration of the visit in conversation with the patient: [6] Problem List/Past Medical History Ongoing Anxiety History of migraine Panic disorder PTSD - (more content not included)...[facility]11-09-2023 NoteChief Complaint New patient left ankle pain and neuritic symptoms, referral from Alisia Gusman Physician ophthalmic medical assistant History of Present Illness Patient presents today complaining of painful left ankle and rearfoot which is aching and throbbingin nature and sometimes stinging and burning in recent months. Patient relates that this is most troublesome in shoe gear wear and when ambulating and weightbearing although sometimes without shoe gear as well. Patient denies recent trauma to the area, but does state a history of ankle sprains in the past. Patient relates that they have tried [id number] pain relievers, padding, and modification of shoe gear as well as modification of activity levels to no avail. Most recently had an inversion type ankle sprain greater than 6 months ago which has resulted in numbness tingling burning pain on the outside of her left ankle which radiates up towards her knee. She has also noticed a ganglion cyst versus soft tissue mass at the top outside of her left foot. She relates this become painfuland feels like it is rubbing on her nerve which causes her pain. She was referred here by the [facility] [place] Alisia Naseem for evaluation of nerve entrapment. She had an EMG performed. Review of Systems Constitutional Head Nose Mouth Throat Cardio/Respiratory Hematologic Chills: No Headache: Yes Shortness of Breath: No History of DVT: No Fever: No Sore Throat: No Chest Pain: No History of Claudication: No Ear Pain: No Palpitation: No History of Aneurysm: No History of Gangrene: No Genitourinary Musculoskeletal Psychiatric Vascular Burning: No Muscle Weakness: No Anxiety: Yes Blood Disorder: No Pain: No Joint Pain: Yes Depression: Yes Numbness: No Gastrointestinal Dermatology Rheumatologic Problems: No Rash: No History of Rheumatic Arthritis: No Pain: No Pruritus: No History of Gout: No History of Lupus: No Physical Exam Vitals & Measurements HR: 76 (Peripheral) BP: 152/97 HT: 165 cm WT: 125.2 kg WT: 125.2 kg (Dosing) BMI: 45.99 Dermatologic: Skin has no open lesions or obvious dermatological findings Negative for overt rashes or irregular pigmented lesions. Skin turgor normal. Neurological: Gross and epicritic sensation intact bilateral. Protective sensation intact as measured with [place] Yady Monofilament Gross motor intact bilateral. Achilles and Patellar reflexes within normal limits 2/4 bilateral, negative babinski, hallux downgoing. Positive Tinel to the left superficial peroneal nerve at the anterior ankle on the left, peroneal nerve at the fibular head. Vascular: Pulses palpable +2/4 Dorsalis Pedis and Posterior Tibial arteries bilateral. Capillary fill time brisk, less than 3 seconds bilateral toes when leg elevated. Negative for significant edema in either lower extremity. Skin temp warm to cool proximal to distal bilateral. Orthopedic: Bony foot structure appears grossly rectus Negative anterior drawer and talar tilt on the left. Pain to palpation lateral ankle gutter and anterior ankle joint on the left. Extrinsic and intrinsic musculature of the foot are grossly normal with strengths of 5/5 all moversof the foot and ankle. Negative pain to passive or active range of motion bilateral and free of overt joint crepitation. Negative pain on tib-fib squeeze test. No pain to palpation left peroneals. No pain to palpation left fifth styloid process. No pain to palpation anterior process calcaneus. No pain to palpation deltoid or the posterior tibial tendon on the left. Otherwise all other joints, ligaments, and tendons bilateral were negative on today's exam. Positive pain to direct palpation of the left dorsal lateral foot mass Mass is nonmobile in nature upon palpation and appears to be firm Positive pain with Range of motion and gait analysis to the area of concern Extrinsic and intrinsic musculature of the foot are grossly normal with strengths of 5/5 all moversof the foot and ankle. Additional Vitals No qualifying data available. Assessment/Plan 1. Entrapment of common peroneal nerve 2. 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 Mass of soft tissue of left lower extremity 4. Ganglion, left ankle and foot -E/M with of time spent with patient dedicated to discussion of pathogenesis and treatment options for patient's problems including padding, offloading, stretching exercises, protective boot wearing,nerve vitamins, gabapentin, Lyrica, EMG, MRI, diagnostic injections, potential surgical intervention for nerve decompression. -Radiographs reviewed as above. Recommend activity modification and discussed shoe gear extensively. Discussed diagnostic injection, deferred until after imaging Reviewed EMG. Discussed S1 radiculopathy. Patient has local symptoms of peripheral nerve entrapmentas well in addition to a soft tissue mass with concern for possible ganglion cyst. (more content not included)...[facility]09-17-2023 Evaluation note* Encounter Date Diagnosis Assessment Notes Treatment Notes Treatment Clinical Notes Jun, Left foot pain (ICD-10 - M79.672) Foot pain home care material was printed Continue home medications as prescribed. Stop wearing the ankle brace and to you follow-up with your patrol man. Call your patrol man tomorrow for an appointment for recheck. Ice and elevate your foot 2-3 times a day. Take your naproxen for pain. No x-rays were done at this visit. The patient had x-rays done by her patrol man 5 days ago. She denies any recent injuries or falls especially since the last x-rays. Patient is instructed to follow-up with her patrol man for evaluation of this foot pain. [employer] Other Evaluation noteNo assessment information available [facility] Work Phone: Evaluation note* Diagnosis Caries- Primary Unspecified dental [facility] Diagnosis Caries- Primary Unspecified dental caries Caries- Primary Unspecified dental caries Caries Unspecified dental caries [facility]* Diagnosis Caries- Primary Unspecified dental caries Pre-op evaluation- Primary Preoperative examination, unspecified Caries Unspecified dental caries [facility]* Diagnosis Caries- Primary Unspecified dental caries Pain following oral surgery Caries Unspecified dental caries [facility] - Reported* Type Description Date Medical History Diabetes Medical History Depression Medical History Anxiety Surgical History C section x2 [employer] Other History general Narrative - Reported* Type Description Date Medical History Diabetes Medical History Depression Medical History Anxiety Surgical History C section x2 Hospitalization History See Above [employer] Other Chief Complaint and Reason for Visit Chief Complaint Abcess Tooth Bottom Right Summary Purpose Family History No Family History Records FoundNo Family History Records FoundNo Family History Records FoundNo Family History Records Found Advance Directives No Advanced Directives Records FoundNo Advanced Directives Records FoundNo Advanced Directives Records FoundNo Advanced Directives Records Found Reason for Referral Specialty Diagnoses / Procedures Referred By Tracie ortega Referred To Contact Diagnoses Caries Procedures ALVEOPLASTY W/ EXTRACTION Karthik Black DMD, MD [facility] [address] [place] [id number] Referral ID Status Reason Start Date Expiration Date V isits Requested Visits Authorized [id number] Pending Review 06/07/2024 06/07/2025 3 3 Specialty Diagnoses / Procedures Referred By Tracie ortega Referred To Contact Diagnoses Caries Procedures EXTRACTION ERUPTED TOOTH/EXR Karthik Black DMD, MD [address] [place] [address] Referral ID Status Reason Start Date Expiration Date V isits Requested Visits Authorized [id number] Pending Review 06/07/2024 06/07/2025 3 3 Specialty Diagnoses / Procedures Referred By Tracie ortega Referred To Contact Oral Surgery Diagnoses Caries Procedures EXTRACTION ERUPTED TOOTH/EXR DEEP ANESTHESIA, 1ST 15 MINS GENERAL ANESTH EA ADDL 15 MIN Karthik Black DMD, MD [address] [place] [address] [facility] [address] [place] [id number] Phone: [phone] Referral ID Status Reason Start Date Expiration Date V isits Requested Visits Authorized [id number] Pending Review 03/10/2024 03/10/2025 1 1 Scheduling Instructions If your in-clinic procedure was not scheduled for you today, please call (option 2) during normal business hours (8 am to 5 pm) on to schedule. Please allow 4 weeks time between the day of your consult to scheduling your procedure to allow the system time to process the order and receive insurance authorization. If your insurance denies all or part of your procedure, you will be contacted with [id number] costs or next steps. All self-pay payments will need to be collected in full prior to having the procedure. Please arrive 30 minutes prior to your procedure. If you are having a local anesthesia procedure: No diet restrictions the day before or day of the procedure. You may take your normal medications as instructed. No covid testing needed. You may drive yourself home afterward. If you are prescribed anxiety reducing medications for the procedure: You also MUST have a screw driver operator/escort >18yrs old present to take you home after. If your provider has proposed an IV sedation procedure: Please refer to the instructions given to you at your consult appointment. You will receive a call from a nurse roughly 1 week prior to your procedure to go over any/all instructions. Question Answer What is the procedure for? Dental Please specify: Extractions, Misc. Procedures Please specify: Routine Extraction Routine Extraction--please list tooth number(s): 20, 21, 22, 23, 24, 25, 26, 27, 28 Please Specify: Alveo W/Ext Alveo w/Ext Tooth-please list tooth number: LR, LL Is Sedation Needed? IV Sedation Desired Length (Minutes): 60 Which area is this procedure for? OR Specialty Diagnoses / Procedures Referred By Tracie ortega Referred To Contact Anesthesiology Diagnoses Caries Karthik Black DMD, MD [address] [place] [address] [facility] PRE ADMISSION TESTING [address] [place] [address] Referral ID Status Reason Start Date Expiration Date V isits Requested Visits Authorized [id number] Authorized 03/10/2024 03/10/2025 1 1 Scheduling Instructions Your surgical team will reach out to you to schedule a pre-admission testing appointment. Question Answer Reason for consult? Recommended PAT Risk Score Additional Source Comments REASON FOR VISIT (unrecogniz ed section and content) Specialty Diagnoses / Procedures Referred By Contac t Referred To Contact Ambulatory Surgery Diagnoses Caries Caries [K02.9] Procedures UNLISTED PROCEDURE, DENTOALVEOLAR STRUCTURES ALVEOLOPLASTY, EACH QUADRANT (SPECIFY) ANESTHESIA, INTRAORAL PROC, W/BX; NOS Extraction of all manibular teeth, alveoplasty Karthik Black DMD, MD [address] [place] [address] [facility] [address] [place] [id number] Phone: [phone] Referral ID Status Reason Start Date Expiration Date Visits Re quested Visits Authorized [id number] 3 3 Reason Onset Date Comments Advice/health education 06/07/2024 Care Teams (unrecognized sec tion and content) Team Status: Inactive Member Role Status Dates Delmis Mccartney APRN Attending Provider Active Start: October 08, 2023 End: October 08, 2023 Team Status: Inactive Member Role Status Dates Abigail Lilly APRN Attending Provider Active S tart: November 12, 2023 End: November 12, 2023 Mig Welder Relationship Specialty Start Date End Date Karthik Black DMD, MD [address] [place] [address] Physician Oral & Maxillofacial Surgery 03/26/24 Mig Welder Relationship Specialty Start Date End Date Karthik Black DMD, MD [address] [place] [address] Physician Oral & Maxillofacial Surgery 03/26/24 Mig Welder Relationship Specialty Start Date End Date Karthik Black DMD, MD [address] [place] [address] Physician Oral & Maxillofacial Surgery 03/26/24 Mig Welder Relationship Specialty Start Date End Date Karthik Black DMD, MD [address] [place] [address] Physician Oral & Maxillofacial Surgery 03/26/24 Mig Welder Relationship Specialty Start Date End Date Karthik Black DMD, MD [address] [place] [address] Physician Oral & Maxillofacial Surgery 03/26/24 Mig Welder Relationship Specialty Start Date End Date Karthik Black DMD, MD [address] [place] [address] Physician Oral & Maxillofacial Surgery 03/26/24 Mig Welder Relationship Specialty Start Date End Date Karthik Black DMD, MD [address] [place] [address] Physician Oral & Maxillofacial Surgery 03/26/24 Mig Welder Relationship Specialty Start Date End Date Karthik Black DMD, MD [address] [place] [id number] Physician Oral & Maxillofacial Surgery 03/26/24 Goals (unrecognized section and content) Goals may be documented in a n alternate section INFORMATION SOURCE (unrecogn ized section and content) DATE CREATED AUTHOR 11/24/2023 [facility] DATE CREATED AUTHOR AUTHOR'S ORGANIZ ATION 12/04/2023 [facility] DATE CREATED AUTHOR AUTHOR'S ORGANIZ ATION 01/02/2024 [facility] DATE CREATED AUTHOR AUTHOR'S ORGANIZ ATION 06/11/2024 [facility] Scheduled Active and Recently Administ ered Medications (unrecognized section and content) Medication Order 06/05/2024 06/06/2024 06/07/2024 chlorhexidine (PERIDEX) 0.12 % oral solution (COMPLETED) 15 mL, Swish & Spit, ONCE, 1 dose, On Thu06/07/24 at 1230, Pre-op 1300 (Given - Provid er: William Hooker RN) Continuous Medication Order 06/05/2024 06/06/2024 06/07/2024 lactated ringers iv infusion Intravenous, at 75 mL/hr, CONTINUOUS, Starting on Thu06/07/24 at 1230, Until Discontinued 1230 (Due) PRN Medication Order 06/05/2024 06/06/2024 06/07/2024 bupivacaine (PF) (MARCAINE) 0.5 % injection (CANCELED) PRN, Starting on Thu06/07/24 at 1328, Until 06/07/24 at 1357, Intra-op 1328 (Given - Provid er: Walt Pedraza, MYNORS - Comment: mouth) chlorhexidine (PERIDEX) 0.12 % oral solution (CANCELED) PRN, Starting on Thu06/07/24 at 1330, Until 06/07/24 at 1357, Intra-op 1330 (Given - Provid er: Walt Pedraza DDS - Comment: 118 ml mixed with 1 l normal saline - irrigation during surgery. Used quantity aproximated.) HYDROmorphone (DILAUDID) 0.2 MG/ML injection 0.2 mg 0.2 mg, Intravenous Push, PACU EVERY 15 MIN PRN X 4 DOSES, 4 doses, Starting on e 06/07/24 at 1220, Until Ivonne 06/09/24 at 1219, Moderate Pain (pain score 4,5,6), PACU Now 1435 (Given - Provid er: Rosalba Bo RN) HYDROmorphone (DILAUDID) 1 mg/mL injection () 0.5 mg, Intravenous Push, PACU EVERY 15 MIN PRN X 4 DOSES, 4 doses, Starting on Thu06/07/24 at 1220, Until Thu06/08/24 at 2359, Severe Pain (pain score 7,8,9,10), PACU Now 1405 (Given - Provid er: Rosalba Bo RN) lidocaine-epinephrine (XYLOCAINE) 1 %[id number] injection SOLN (CANCELED) PRN, Starting on Thu06/07/24 at 1329, Until Thu06/07/24 at 1357, Intra-op 1329 (Given - Provid er: Walt Pedraza, DDS - Comment: mouth) naloxone (NARCAN) 0.4 MG/ML injection 0.4 mg, Intravenous Push, PRN, Starting on Thu06/07/24 at 1220, Until Discontinued, Respiratory Rate Less Than 8 for adults and less than 12 for Peds or for suspected overdose, PACU Now sodium chloride 0.9 % injection 3 mL, Intravenous Push, PRN, Starting on Thu06/07/24 at 1220, Until Discontinued, For medication administration and blood draw, PACU Now FOR RECORDS PERTAINING TO PATIENTS WHO ARE OR HAVE BEEN ENROLLED IN A CHEMICAL DEPENDENCY/SUBSTANCEABUSE PROGRAM, SOME INFORMATION MAY BE OMITTED. This clinical summary was aggregated from multiple sources. Caution should be exercised in using it in the provision of clinical care. This summary normalizes information from multiple sources, and as a consequence, information in this document may materially change the coding, format and clinical context of patient data. In addition, data may be omitted in some cases. CLINICAL DECISIONS SHOULD BE BASED ON THE PRIMARY CLINICAL RECORDS. [email or web address] [email or web address]. provides no warranty or guarantee of the accuracy or completeness of information in this document.
== END 2024-06-14 08:33 | disposition home or self-care (01) ==
LOC: EC 08:32
PROVIDERS: PCP Student in an Organized Health Care Education/Training Program; Visit Provider Podiatrist Foot & Ankle Surgery
DX: M79.672 Pain in left foot (principal); M25.572 Pain in left ankle and joints of left foot
CPT/HCPCS: 73610; 73630

== ENCOUNTER 2024-07-11 10:58 | Outpatient (OUT) | payer OTHER, SELFPAY ==
--- OUTSIDE RECORDS SUMMARY | 2024-07-11 11:18 | XMS_ITS | CCD ---
Author Organization 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 Name Role Phone Mikki Brooks Unavailable VijayaAbigail Unavailable VijayaVICTORIA Attending Provider [phone] Jeromy DPM, Saeid Beth Attending Unavailab le Jeromy DPM, Saeid Beth Attending Unavailab le Jeromy DPM, Saeid Beth Attending Unavailab le Jeromy DPM, Saeid Beth Attending Unavailab le Jeromy DPM, Saeid Beth Attending Unavailab le NON STAFF Primary Care Unavailable Abigail Lilly Attending Unavailable Vijaya, Abigail Shipley Admitting Unavailable SHAMMO, CAROLINA Primary Care Unavailable SHAMMO, CAROLINA Primary Care Unavailable WALLACE CANAS Attending Unavailable Unavailable Primary Care Provider Unavailjean Black DMD, MD, Karthik Unavailable [phone] KARTHIK BLACK Attending Unavailable KARTHIK BLACK Admitting Unavailable PROVIDER, UNKNOWN Attending Unavailable PROVIDER, UNKNOWN Admitting Unavailable PROVIDER, UNKNOWN Admitting Unavailable KARTHIK BLACK Attending Unavailable KARTHIK BLACK Attending Unavailable PROVIDER, UNKNOWN Admitting Unavailable Allergies Allergy Classification Reported Allergen(s) Allergy Type Date of Onset Reaction(s) Facility (18 sources) Amoxicillin; Translations: [amoxicillin] Drug Allergy 5 hives, Itching, Rash, Other [facility] Repository (16 sources) Ciprofloxacin; Translations: [CIPROFLOXACIN] Drug Allergy 5 Myalgias, Other Triptrotting Other (1 source) Ciprofloxacin; Translations: [Cipro] Drug Allergy [facility] Repository (1 source) Amoxicillin Drug Allergy 4 [facility] Repository (1 source) Ciprofloxacin Drug Allergy 4 [facility] Repository (1 source) Ciprofloxacin; Translations: [CIPROFLOXACIN HCL] Drug Allergy 2 [facility] Repository Medications Current Medications Medication Drug Class(es) Dates Sig (Normalized) Sig (Original) Acetaminophen (8 sources) Start: 06-14-2024 Acetaminophen Active MG PO June 14, 2024 12:00am Start: 06-07-2024 End: 06-14-2024 take 2 tablets by mouth every four hours as needed for pain acetaminophen (TYLENOL) 325 mg tablet Take 2 Tablets by mouth every 4 hours as needed for Pain for up to 7 days. 56 Tablet 06/07/2024 06/14/2024 busPIRone (15 sources) Start: 06-14-2024 Buspirone Acti ve MG PO June 14, 2024 12:00am Start: 12-22-2023 busPIRone (BUS PAR) 5 MG tablet 5 mg. 12/22/2023 Active busPIRone HCl 15 MG Oral for 30 Days Not-Taking/PRN chlorhexidine gluconate 1.2 mg/ml mouthwash (9 sources) Start: 06-07-2024 End: 06-23-2024 chlorhexidine (Peridex) 0.12 % oral solution Swish and spit 15ml twice daily after meals. Rinse for 30 seconds and then gently spit. Do not swallow. 473 mL 06/07/2024 Active Start: 06-07-2024 15 mL, Swish & Spit, ONCE, 1 dose, On Thu06/07/24 at 1230, Pre-op clindamycin 300 mg oral capsule (4 sources) Lincosamide Antibacterial Start: 06-14-2024 take 300 mg by mouth every eight hours Clindamycin Hcl Active 300 MG PO Q8H 30 10 June 14, 2024 12:00am Start: 12-30-2023 End: 06-14-2024 Clindamycin Phosphate Discon tinued TOPICAL December 30, 2023 1:00am June 14, 2024 6:00pm Clindamycin HCl 150 MG Oral for 7 Days Not-Taking/PRN fluticasone propionate 0.05 mg/actuat metered dose nasal spray (1 source) Corticosteroid Start: 06-14-2024 take 1 spray(s) nasal route once daily Fluticasone Propionate (Flonase Allergy Relief) 50 mcg/actuation spray,suspension Active 1 SPRAY INTRANASAL Daily June 14, 2024 12:00am administer into each nostril 1 ml HYDROmorphone hydrochloride 0.2 mg/ml prefilled [...] Now hydrOXYzine pamoate 25 mg oral capsule (15 sources) Antihistamine Start: 12-30-2023 Hydroxyzine Pa moate Active MG PO December 30, 2023 1:00am hydrOXYzine pamo ate (VISTARIL) 25 MG capsule 25 mg. Active ketoconazole 20 mg/ml topical cream (1 source) Azole Antifungal Start: 12-30-2023 Ketoconazole Active APPLIC TOPICAL December 30, 2023 1:00am 3 ml liraglutide 6 mg/ml pen injector (2 sources) GLP-1 Receptor Agonist Victoza 1 8 MG/3ML Subcutaneous for 17 Days Active melatonin 5 mg oral tablet (12 sources) melatonin 5 mg T ABS tablet 5 mg. Active naproxen 375 mg delayed release oral tablet (14 sources) Nonsteroidal Anti-inflammatory Drug naproxen (EC NAPROSYN) 375 MG tablet Take [...] Thu06/07/24 at 1315, Until Thu06/07/24 at 1408 1 ml dexamethasone phosphate 10 mg/ml injection [...] at 1308, Until Thu06/07/24 at 1408, Intra-op fluconazole 50 mg oral tablet (1 source) Azole Antifungal Start: 12-30-2023 End: 06-14-2024 Fluconazole Discontinued MG PO December 30, 2023 1:00am June 14, 2024 6:00pm ibuprofen 200 mg oral capsule (10 sources) [...] 12-06-2023 Episodic Disorders of teeth and jaw (16 sources) Dental caries; Translations: [Dental caries, unspecified] Onset: 03-10-2024 Resolved: 06-07-2024 03-10-2024 Episodic Genitourinary symptoms and ill-defined conditions (2 sources) Dysuria; Translations: [Dysuria] Onset: 11-12-2023 Episodic Headache; including migraine (12 sources) Migraine; Translations: [Migraine, unspecified, not intractable, without status migrainosus] Onset: 03-10-2024 03-10-2024 Chronic Other connective tissue disease (1 source) Pain in left foot Episodic Other lower respiratory disease (1 source) Shortness of breath Onset: 12-06-2023 Episodic Other nervous system disorders (1 source) Painful mouth; Translations: [Other acute postprocedural pain] 06-07-2024 Episodic Other nutritional; endocrine; and metabolic disorders (12 sources) Morbid obesity; Translations: [Morbid (severe) obesity due to excess calories] Onset: 11-23-2016 03-10-2024 Chronic Other skin disorders (1 source) Skin problem Onset: 12-31-2023 Episodic Residual codes; unclassified (2 sources) Postoperative state; Translations: [Other specified postprocedural states] 06-14-2024 Episodic Residual codes; unclassified (1 source) Other specified postprocedural states; Translations: [Other specified postprocedural states] Onset: 06-14-2024 Episodic Skin and subcutaneous tissue infections (2 sources) Cutaneous abscess, unspecified; Translations: [Cellulitis of chest wall] Onset: 12-31-2023 Episodic Unclassified (1 source) Fever, Abcess Onset: 12-31-2023 Unclassified (1 source) Cold Like Symptoms Onset: 12-06-2023 Viral infection (1 source) Herpesviral vesicular dermatitis; Translations: [Herpesviral vesicular dermatitis] Onset: 12-31-2023 Episodic Past or Other Problems Problem Classification Problem Date Documented Da te Episodic/Chronic Cardiac dysrhythmias (12 sources) Palpitations; Translations: [Palpitations] Onset: 01-08-2017 03-10-2024 Episodic Diabetes or abnormal glucose tolerance complicating ; childbirth; or the puerperium (12 sources) Gestational diabetes mellitus; Translations: [Gestational diabetes mellitus in , controlled by oral hypoglycemic drugs] Onset: 06-08-2019 03-10-2024 Episodic Hypertension complicating ; childbirth and the puerperium (12 sources) -induced hypertension; Translations: [Gestational [-induced] hypertension without significant proteinuria, unspecified trimester] Onset: 02-24-2017 03-10-2024 Episodic Nonspecific chest pain (12 sources) Precordial pain; Translations: [Precordial pain] Onset: 12-10-2016 03-10-2024 Episodic Britta-; endo-; and myocarditis; cardiomyopathy (except that caused by tuberculosis or sexually transmitted disease) (12 sources) Acute myopericarditis; Translations: [Acute pericarditis, unspecified] Onset: 12-10-2016 03-10-2024 Episodic Previous (12 sources) Delivery finding; Translations: [Maternal care for unspecified type scar from previous delivery] Onset: 03-10-2024 03-10-2024 Episodic Residual codes; unclassified (12 sources) Past history of procedure; Translations: [Personal history of other medical treatment] Onset: 05-24-2019 03-10-2024 Episodic Results Test Name Value Interpretation Reference Range Facility Addendum Noteon 06-28-2024 Budget Coordinator Authentication Interface Message Text Addended by: KARTHIK BLACK on: 06/28/2024 11:10 AM Modules accepted: Level of Service Normal [facility] Progress Noteson 06-14-2024 Budget Coordinator Authentication Interface Message Text [facility] TELEPHONE FOLLOW UP VISIT Chief Complaint: Pt presents for telephone follow up. Reports she has minor pain on LL, no drainage, and no foul taste noted. Review of Systems: no change Physical findings: Pain/swelling at LL surgical sites reported by patient No paresthesia reported by patient Will have her dentist margaritaal, since she stated she lives 1[place]5 hours away from [facility]. Assessment / Diagnosis: Normal postoperative course. Healing as expected. Plan: Follow-Up: PRN Follow up sooner with new or worsening symptoms. Normal [facility] Telephone Encounteron 2023 Budget Coordinator Authentication Interface Message Text PT is awaiting post op f/u call. It is currently 11:40. Is the provider running late? PT is concerned of the start of a possible infection starting. Site is swollen AND red. Telephone Information: Normal [facility] Telephone Encounteron 2023 Budget Coordinator Authentication Interface Message Text Symptoms - white bumps along the gum line, pt has concerns that she needs a nurse to call and discuss with her Normal [facility] Budget Coordinator Authentication Interface Message Text Situation: Patient is calling back previously triaged for another issue Background: Patient states she has white bumps along the gum line where the teeth were extracted. Assessment: Pls call pt @ [phone] to discuss AND advise Recommendation: Pls advise Thank you Normal [facility] Anesthesia Postprocedure Tata luationon 06-07-2024 Budget Coordinator Authentication Interface Message Text Anesthesia Postoperative Assessment: [...] EVENTS: No notable events documented. Normal [facility] Anesthesia Preprocedure Eval uationon 06-07-2024 Budget Coordinator Authentication Interface Message Text ASA: 3 No history of anesthetic complications NPO status: Greater than 8 hours Past Medical History and Review of Systems Pulmonary (-) sleep apnea, asthma, shortness of breath Dental ROS (+) teeth problems Endo (+) obesity pet care assistant (-) not Neuro/Psych Cardiovascular (+) hypertension, Surgical [...] were discussed with the patient and/or legal housing management representative. The risks, benefits and alternatives were reviewed. Questions regarding anesthesia were answered. Patient and/or legal housing management representative knows such anesthetics and procedures may be performed by Resident physicians, Certified Anesthesiologist Assistants, or Certified Nurse Anesthetists under the supervision of a physician. The patient /or the patient's legal housing management representative agree with the plan for anesthesia. MHPATFORM Normal The [facility] Anesthesia Transfer Of Careo n 06-07-2024 Budget Coordinator Authentication Interface Message Text Patient taken to [...] Black DMD, MD Anesthesiologist: Washington Anderson MD ATHLETIC EQUIPMENT MANAGER: Dariusz Anderson APRN-JODEE Anesthesia Student: Benton Goddard [...] of the report was received. ANDREA Torres Normal [facility] Blood Attestationon 06-07-20 Budget Coordinator Authentication Interface Message Text Blood Attestation: ATTESTATION OF INFORMED CONSENT FOR BLOOD: The transfusion of blood and/or blood components were discussed with the patient and/or legal housing management representative. The risks, benefits and alternatives were reviewed. Questions regarding blood transfusions were answered. The patient /or the patient's legal housing management representative agree with the plan for transfusion of blood and/or blood components. [facility] Note[facility] 06-07-2024 Budget Coordinator Authentication Interface Message Text [facility] Division of joiners supervisor [address] [facility] [place] [address] OPERATIVE NOTE Name: Nick Bean MR#: [id number] ENC#: Data Unavailable Surgical Case #: Data Unavailable Date of Procedure: 06/07/2024 ? PREOPERATIVE DIAGNOSIS: Caries (Primary Diagnosis) [303431] Pain following oral surgery [[id number]] ? POSTOPERATIVE DIAGNOSIS: Caries (Primary Diagnosis) [570302] Pain following oral surgery [2305782] OPERATION: EXTRACTION ERUPTED TOOTH/EXR [D7140] ALVEOPLASTY W/ [...] transferred onto the operating room table under thier own power. The patient was then placed in [...] ? Karthik Black DMD, MD Normal [facility] Telephone Encounteron 2023 Budget Coordinator Authentication Interface Message Text Situation: Caller states [...] understanding. No further questions. Information obtained from, [email or web address] Nichole Aguila RN, RN Normal [facility] URINE HCG-IN OFFICEOrdered B y: William Mcguiremicaela on 06-07-2024 HCG ( test) Ql (U) Negative Negative [facility] Interpretation and review of laboratory results Normal [facility] Negative Internal Control Negative Negative [facility] Positive Internal Control Positive Positive [facility] PAT Call Historyon Budget Coordinator Authentication Interface Message Text Telephone History Nick Bean, [id number] 05/20/2024 Patient was identified by name and [...] caries Endo (+) diabetes mellitus gestational, obesity pet care assistant Comment: LMP 05-17-2024 Neuro/Psych (+) depression, anxiety/panic [...] min Stress: No Stress Concern Present (03/09/2024) [employer] [place] [employer] - Occupational Stress Questionnaire Feeling of Stress : Only a little Social Connections: Moderately Isolated (03/09/2024) Social Connection and Isolation Panel [NHANES] Frequency of Communication with Friends and Family: More than three times a week Frequency of Social Gatherings with Friends and Family: Three times a week Attends Worship Services: Never Active Member of Clubs or [...] 7.2 (more content not included)... Normal 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 Patient said [...] mandibular teeth and alveoplasty under GA at [facility] Karthik Black DMD, MD Normal [facility] Budget Coordinator Authentication Interface Message Text Normal [facility] CBC AND AUTO DIFFon 12-06-19 24 ABSOLUTE BASOPHIL 0.0 X10E9/L Normal 0.0-0.2 [facility] Comment on above: Performed By: #### C HELADIO, CBCA, , , THYR #### [facility] ([id number]) [address] [place] [address] 20426 ABSOLUTE NEUTROPHIL 6.0 X10E9/L Normal 1.5-6.6 [facility] Comment on above: Performed By: #### C MP, CBCA, , , THYR #### [facility] ([id number]) [address] [place] [address] 93484 Basophils/100 WBC (Bld) 0.4 % Normal [facility] Comment on above: Performed By: #### C MP, CBCA, , , THYR #### [facility] ([id number]) [address] [place] [address] 11282 Eosinophils (Bld) [#/Vol] 0.1 10*3/uL Normal 0.0-0.4 [facility] Comment on above: Performed By: #### C MP, CBCA, , 25327-9, THYR #### [facility] ([id number]) [address] [place] [address] 10657 Eosinophils/100 WBC (Bld) 1.0 % Normal [facility] Comment on above: Performed By: #### C MP, CBCA, , , THYR #### [facility] ([id number]) [address] [place] [address] 62672 Erythrocyte distribution width (RBC) [Ratio] 13.7 % Normal 11.5-15.0 [facility] Comment on above: Performed By: #### C MP, CBCA, , , THYR #### [facility] ([id number]) [address] [place] [address] 33631 Hematocrit (Bld) [Volume fraction] 37.3 % Normal 35-47 [facility] Comment on above: Performed By: #### C MP, CBCA, , , THYR #### [facility] ([id number]) [address] [place] [address] 47126 Hemoglobin (Bld) [Mass/Vol] 12.8 g/dL Normal 11.7-15.5 [facility] Comment on above: Performed By: #### C MP, CBCA, , 50717-7, THYR #### [facility] ([id number]) [address] [place] [address] 23932 Lymphocytes (Bld) [#/Vol] 1.5 10*3/uL Normal 1.0-3.5 [facility] Comment on above: Performed By: #### C MP, CBCA, , 97430-3, THYR #### [facility] ([id number]) [address] [place] [address] 81072 Lymphocytes/100 WBC (Bld) 18.8 % Normal [facility] Comment on above: Performed By: #### C MP, CBCA, 43378-6, 68920-1, THYR #### [facility] ([id number]) [address] [place] [address] 36329 MCH (RBC) [Entitic mass] 30.5 pg Normal 27-34 [facility] Comment on above: Performed By: #### C MP, CBCA, , 38488-6, THYR #### [facility] ([id number]) [address] [place] [address] 67811 MCHC (RBC) [Mass/Vol] 34.2 g/dL Normal 32-36 [facility] Comment on above: Performed By: #### C MP, CBCA, , 69513-8, THYR #### [facility] ([id number]) [address] [place] [address] 33400 MCV (RBC) [Entitic vol] 89 fL Normal 80-100 [facility] Comment on above: Performed By: #### C MP, CBCA, , 69463-5, THYR #### [facility] ([id number]) [address] [place] [address] 31633 Monocytes (Bld) [#/Vol] 0.4 10*3/uL Normal 0-0.9 [facility] Comment on above: Performed By: #### C MP, CBCA, , 51692-4, THYR #### [facility] ([id number]) [address] [place] [address] 10696 Monocytes/100 WBC (Bld) 4.6 % Normal [facility] Comment on above: Performed By: #### C MP, CBCA, , 37441-3, THYR #### [facility] ([id number]) [address] [place] [address] 10698 Neutrophils/100 WBC (Bld) 75.2 % Normal [facility] Comment on above: Performed By: #### C MP, CBCA, , 75891-9, THYR #### [facility] ([id number]) [address] [place] [address] 99602 Platelet mean volume (Bld) [Entitic vol] 7.2 fL Normal 7-12 [facility] Comment on above: Performed By: #### C MP, CBCA, , 76301-8, THYR #### [facility] ([id number]) [address] [place] [address] 31177 Platelets (Bld) [#/Vol] 292 10*3/uL Normal 150-450 [facility] Comment on above: Performed By: #### C MP, CBCA, , 01657-2, THYR #### [facility] ([id number]) [address] [place] [address] 84329 RBC COUNT 4.19 X10E12/L Normal 3.80-5.20 [facility] Comment on above: Performed By: #### C MP, CBCA, , 48780-6, THYR #### [facility] ([id number]) [address] [place] [address] 99035 WBC (Bld) [#/Vol] 7.9 10*3/uL Normal 4.0-11.0 [facility] Comment on above: Performed By: #### C MP, CBCA, , 76556-1, THYR #### [facility] ([id number]) [address] [place] [address] 61917 COMPREHENSIVE METABOLIC PANE Balwinder 12-06-2023 Albumin [Mass/Vol] 4.1 g/dL Normal 3.2-5.3 [facility] Comment on above: Performed By: #### C HELADIO, CBCA, 06299-3, 94771-4, THYR #### [facility] ([id number]) [address] [place] [address] 40531 ALP [Catalytic activity/Vol] 49 U/L Normal 39-130 [facility] Comment on above: Performed By: #### C HELADIO, CBCA, 26248-9, 00178-0, THYR #### [facility] ([id number]) [address] [place] [address] 85454 ALT [Catalytic activity/Vol] 27 U/L Normal 0-31 [facility] Comment on above: Performed By: #### C HELADIO, CBCA, 40111-7, 90320-6, THYR #### [facility] ([id number]) [address] [place] [address] 84646 Anion gap [Moles/Vol] 6 mmol/L Normal 5-15 [facility] Comment on above: Performed By: #### C HELADIO, CBCA, 23007-3, 38584-6, THYR #### [facility] ([id number]) [address] [place] [address] 72849 AST [Catalytic activity/Vol] 28 U/L Normal 0-41 [facility] Comment on above: Performed By: #### C HELADIO, CBCA, 73186-7, 47870-6, THYR #### [facility] ([id number]) [address] [place] [address] 74690 Bilirubin [Mass/Vol] 0.7 mg/dL Normal 0.3-1.2 [facility] Comment on above: Performed By: #### C HELADIO, CBCA, 35739-5, 58971-5, THYR #### [facility] ([id number]) [address] [place] [address] 61135 Calcium [Mass/Vol] 8.6 mg/dL Normal 8.5-10.5 [facility] Comment on above: Performed By: #### C ZURI LEIJA, , , THYR #### [facility] ([id number]) [address] [place] [address] 46629 Chloride [Moles/Vol] 105 mmol/L Normal 98-109 [facility] Comment on above: Performed By: #### C HELADIO, ZURI, , , THYR #### [facility] ([id number]) [address] [place] [address] 99048 CO2 [Moles/Vol] 25 mmol/L Normal 22-32 [facility] Comment on above: Performed By: #### C ZURI LEIJA, , , THYR #### [facility] ([id number]) [address] [place] [address] 84839 Creatinine [Mass/Vol] 0.65 mg/dL Normal 0.40-1.00 [facility] Comment on above: Result Comment: METH OD TRACEABLE TO IDMS STANDARD Performed By: #### C ZURI LEIJA, , , THYR #### [facility] ([id number]) [address] [place] [address] 05661 eGFR (CKD-EPI) NON-RACE DEPENDENT >90 Normal >59 [facility] Comment on above: Result Comment: Reported eGFR is based on the CKD-EPI 2020 equation that does not use a race coefficient. Performed By: #### C ZURI LEIJA, , , THYR #### [facility] ([id number]) [address] [place] [address] 96769 Glucose [Mass/Vol] 134 mg/dL High 65-99 [facility] Comment on above: Performed By: #### C ZURI LEIJA, , 56566-6, THYR #### [facility] ([id number]) [address] [place] [address] 60266 Potassium [Moles/Vol] 3.5 mmol/L Normal 3.5-5.0 [facility] Comment on above: Performed By: #### C HELADIO, CBCA, , 33799-6, THYR #### [facility] ([id number]) [address] [place] [address] 40583 Protein [Mass/Vol] 7.2 g/dL Normal 6.0-8.0 [facility] Comment on above: Performed By: #### C HELADIO, CBCA, , 77048-1, THYR #### [facility] ([id number]) [address] [place] [address] 35278 Sodium [Moles/Vol] 136 mmol/L Normal 134-146 [facility] Comment on above: Performed By: #### C HELADIO, CBCA, , 91639-1, THYR #### [facility] ([id number]) [address] [place] [address] 19652 Urea nitrogen [Mass/Vol] 14 mg/dL Normal 5-23 [facility] Comment on above: Performed By: #### C HELADIO, CBCA, , 38297-5, THYR #### [facility] ([id number]) [address] [place] [address] 56817 HCG ( test) Ql (U)o n 12-06-2023 Beta HCG ( test) Ql (U) Negative Normal NEG [facility] Comment on above: Performed By: #### 2 106-3 #### [facility] ([id number]) [address] [place] [address] 74801 MAGNESIUMon 12-06-2023 Magnesium [Mass/Vol] 2.2 mg/dL Normal 1.8-2.6 [facility] Comment on above: Performed By: #### C HELADIO, CBCA, , 55633-2, THYR #### [facility] ([id number]) [address] [place] [address] 55419 THYROID PROFILEon 12-06-2023 Free T4 [Mass/Vol] 1.02 ng/dL Normal 0.61-1.60 [facility] Comment on above: Performed By: #### C MP, CBCA, , , THYR #### [facility] ([id number]) [address] [place] [address] 58972 TSH 1.19 uIU/mL Normal 0.49-4.67 [facility] Comment on above: Performed By: #### C HELADIO, CBCA, , , THYR #### [facility] ([id number]) [address] [place] [address] 24379 TROPONIN Ion 12-06-2023 Troponin I.cardiac [Mass/Vol] ng/mL Normal 0.00-0.04 [facility] Comment on above: Performed By: #### C MP, CBCA, , [id number], THYR #### [facility] ([id number]) [address] [place] [address] 24589 URN MACROSCOPIC NURon 2023 BILIRUBIN [place]OR[place] Negative Normal NEG [facility] Comment on above: Performed By: #### N UM #### [facility] ([id number]) [address] [place] [address] 41432 BLOOD/HGB [place] Negative Normal NEG [facility] Comment on above: Performed By: #### N UM #### [facility] ([id number]) [address] [place] [address] 87449 GLUCOSE [place] Negative Normal NEG [facility] Comment on above: Performed By: #### N UM #### [facility] ([id number]) [address] [place] [address] 17740 KETONES [place] Negative Normal NEG [facility] Comment on above: Performed By: #### N UM #### [facility] ([id number]) [address] [place] [address] 02089 LEUKOCYTE ESTERASE [place] Negative Normal NEG [facility] Comment on above: Performed By: #### N UM #### [facility] ([id number]) [address] [place] [address] 17240 NITRITE [place] Negative Normal NEG [facility] Comment on above: Performed By: #### N UM #### [facility] ([id number]) [address] [place] [address] 51040 PH L[place]E 7.5 Normal 5.0-8.5 [facility] Comment on above: Performed By: #### N UM #### [facility] ([id number]) [address] [place] [address] 21166 PROTEIN [place] Negative Normal NEG [facility] Comment on above: Performed By: #### N UM #### [facility] ([id number]) [address] [place] [address] 75745 SPECIFIC GRAVITY [place] 1.020 Normal 1.003-1.035 [facility] Comment on above: Performed By: #### N UM #### [facility] ([id number]) [address] [place] [address] [place] [address] UROBILINOGEN [place]E 0.2 eu/dL Normal <1.1 [facility] Comment on above: Performed By: #### N UM #### [facility] ([id number]) [address] [place] [address] 17415 Urinalysis - AUTOMATEDon Appearance (U) clear [facility] Other Bilirubin Ql (U) Negative [employer] Other Color (U) yellow [facility] Other Glucose Ql (U) Negative [facility] Other Hemoglobin Ql (U) Negative [employer] Other Ketones Ql (U) Negative [facility] Other Leukocyte esterase Test strip Ql (U) Negative [facility] Other Nitrite Ql (U) Negative [facility] Other pH (U) 7.0 [pH] [facility] Other Protein Ql (U) Negative [facility] Other Specific gravity (U) [Rel density] 1.025 [facility] Other Urobilinogen (U) [Mass/Vol] 0.2 mg/dL [facility] Other Urinalysis - AUTOMATED [facility] Other Urine Cultureon 11-12-2023 Bacteria identified Cx Nom (U) Reason for Exam Dysuria Urine Reason for Exam: Dysuria : Urine 50,000 colonies/ml mixed bacterial skin contaminants 2 Days PERFORMED BY: [place] [address] PATHOLOGIST AIX SYSTEM ADMINISTRATOR TREE CROWDER M.D. Normal [facility] Comment on above: Performed By: #### C UU #### [address] Vital Signs Date Time Vital Sign Value Performing Clinician Facility 06-14-2024 17:56-0400 Body height 165.1 cm [facility] 06-14-2024 17:56-0400 Body mass index (BMI) [Ratio] 43.2 kg/m2 [facility] 06-14-2024 17:56-0400 Body temperature 98.8 [degF] [facility] 06-14-2024 17:56-0400 Body weight 117.93 kg [facility] 06-14-2024 17:56-0400 Diastolic blood pressure 86 mm[Hg] [facility] 06-14-2024 17:56-0400 Heart rate 68 /min [facility] 06-14-2024 17:56-0400 SaO2% (BldA) [Mass fraction] 99 % [facility] 06-14-2024 17:56-0400 Systolic blood pressure 127 mm[Hg] [facility] 06-07-2024 15:22-0400 Body temperature 98.01 [degF] Karthik Black DMD, MD Work Phone: [facility] 06-07-2024 15:22-0400 Diastolic blood pressure 68 mm[Hg] Karthik Black DMD, MD Work Phone: [facility] 06-07-2024 15:22-0400 Heart rate 73 /min Karthik Black DMD, MD Work Phone: [facility] 06-07-2024 15:22-0400 Respiratory rate 16 /min Karthik Black DMD, MD Work Phone: [facility] 06-07-2024 15:22-0400 SaO2% (BldA) [Mass fraction] 96 % Krathik Black DMD, MD Work Phone: [facility] 06-07-2024 15:22-0400 Systolic blood pressure 126 mm[Hg] Karthik Black DMD, MD Work Phone: [facility] 05-20-2024 12:59-0400 Body height 165.1 cm Kizzy Maurice RN [facility] 05-20-2024 12:59-0400 Body mass index (BMI) [Ratio] 44.93 kg/m2 Kizzy Maurice RN [facility] 05-20-2024 12:59-0400 Body weight 122.47 kg Kizzy Maurice RN [facility] 11-12-2023 18:25-0500 Body height 165.1 cm Abigail Vijaya Other [facility] Other 11-12-2023 18:25-0500 Body mass index (BMI) [Ratio] 44.43 kg/m2 Abigail Vijaya Other [facility] Other 11-12-2023 18:25-0500 Body temperature 98.2 [degF] Abigail Vijaya Other [facility] Other 11-12-2023 18:25-0500 Body weight 121.11 kg Abigail Vijaya Other [facility] Other 11-12-2023 18:25-0500 Respiratory rate 18 /min Abigail Vijaya Other [facility] Other 11-12-2023 18:25-0500 SaO2% (BldA) [Mass fraction] 98 % Abigail Vijaya Other [facility] Other 07-12-2023 13:30-0400 Body height 165.1 cm Mikki Cecilia Other [facility] Other 07-12-2023 13:30-0400 Body mass index (BMI) [Ratio] 45.92 kg/m2 Mikki Cecilia Other [facility] Other 07-12-2023 13:30-0400 Body temperature 98.6 [degF] Mikki Cecilia Other [facility] Other 07-12-2023 13:30-0400 Body weight 125.19 kg Mikki Cecilia Other [facility] Other 07-12-2023 13:30-0400 Diastolic blood pressure 85 mm[Hg] Mikki Brooks Other [facility] Other 07-12-2023 13:30-0400 Respiratory rate 18 /min Mikki Brooks Other [facility] Other 07-12-2023 13:30-0400 SaO2% (BldA) [Mass fraction] 99 % Mikki Brooks Other [facility] Other 07-12-2023 13:30-0400 Systolic blood pressure 132 mm[Hg] Mikki Mejiamond Other [facility] Other Encounters Encounter Date Encounter Type Care Provider Facility Start: 06-14-2024 End: 06-14-2024 ambulatory [facility] Work Phone: Start: 06-14-2024 End: 06-14-2024 Patient encounter procedure [facility] [place] Work Phone: Start: 06-14-2024 End: 06-14-2024 Patient encounter procedure Karthik Black DMD, MD Work Phone: [facility] Oral Surgery Comment on above: Post-operative state (Primary Dx) Start: 06-14-2024 ambulatory UNKNOWN PROVIDER Facili ty:[facility] Start: 06-07-2024 End: 06-07-2024 Telephone encounter Nichole Aguila RN [facility] Line Comment on above: Advice/health educat ion Start: 06-07-2024 End: 06-07-2024 Anesthesia consultation Washington [facility] Start: 06-07-2024 End: 06-07-2024 ambulatory KARTHIK BLACK Facility:[facility] Start: 06-07-2024 End: 06-07-2024 Subsequent hospital visit by physician Karthik Black DMD, MD Work Phone: [facility] Main OR Comment on above: Caries (Primary Dx); Pain following oral surgery Start: 05-20-2024 End: 05-20-2024 Nursing evaluation of patient and report Kizzy Maurice RN [facility] Pre-Admission Testing Comment on above: Pre-op evaluation (P rimary Dx) Start: 05-20-2024 End: 05-20-2024 Preprocedural examination done Kizzy Maurice RN [facility] Start: 05-20-2024 ambulatory UNKNOWN PROVIDER Facili ty:[facility] Start: 05-20-2024 Encounter for other preprocedural examination UNKNOWN PROVIDER [facility] Start: 05-09-2024 End: 05-09-2024 Letter encounter Karthik Black DMD, MD Work Phone: [facility] Oral Surgery Start: 04-06-2024 End: 04-06-2024 Letter encounter Karthik Black DMD, MD Work Phone: [facility] Oral Surgery Start: 03-10-2024 End: 03-11-2024 Patient encounter procedure Karthik Black DMD, MD Work Phone: [facility] Oral Surgery Comment on above: Caries (Primary Dx) Start: 03-10-2024 End: 03-11-2024 ambulatory KARTHIK BLACK Facility:[facility] Start: 12-31-2023 End: 12-31-2023 Emergency department patient visit [facility] Start: 12-06-2023 End: 12-06-2023 Emergency department patient visit [facility] Start: 11-23-2023 End: 11-24-2023 ambulatory Saeid Pinzon DPQuinten Facility:[facility] Start: 11-12-2023 End: 11-12-2023 Departed Referred VICTORIA Lilly Work Phone: [facility] [place] Work Phone: Start: 11-12-2023 End: 11-12-2023 ambulatory NON STAFF [facility] Other Start: 11-12-2023 Office outpatient vi sit 15 minutes Abigail Lilly [facility] Start: 10-22-2023 End: 10-23-2023 ambulatory Saeid Beth Jeromy DPM Facility:[facility] Start: 10-08-2023 ambulatory Saeid costa DPM Facility:[facility] Start: 10-08-2023 End: 10-08-2023 Patient encounter procedure HANDY MAN Abigail Vijaya Work Phone: [facility] Work Phone: Start: 09-28-2023 ambulatory Saeid costa DPM Facility:[facility] Start: 09-03-2023 End: 09-04-2023 ambulatory Saeid Pinzon DPM Facility:[facility] Start: 07-12-2023 End: 07-12-2023 ambulatory Mikki Brooks Other [facility] Other Start: 07-12-2023 Office outpatient ne w [...] measurement Basic Metabol ic Panel [facility] Start: 02-11-2025 Creatinine measurement Basic Metabol ic Panel [facility] Start: 07-26-2024 Influenza vaccination Influenza Vacc ine (#1) [facility] Start: 06-26-2024 COVID-19 Vaccine ( season) COVID-19 Vaccine ( season) [facility] Start: 06-14-2024 End: 06-14-2024 Patient encounter procedure [facility] Surgery Start: 06-10-2024 End: 06-10-2024 Patient encounter procedure 06/10/2024 11:20 AM EDT Office Visit [facility] Oral Surgery [address] [place], [place] [id number] Karthik Black DMD, MD [address] [place], [place] [id number] [facility] Oral Surgery Start: 06-07-2024 End: 06-07-2024 Admission to same day surgery center 06/07/2024 2:13 PM EDT - 06/07/2024 3:21 PM EDT Surgery [facility] [address] [place] [address] Karthik Black DMD, MD [address] [place], [place] [id number] Extraction of all manibular teeth, alveoplasty [facility] Comment on above: Extraction of all ma nibular teeth, alveoplasty Start: 06-07-2024 End: 06-07-2024 EXTRACTION, TOOTH EXTRACTION, TOOTH Routine scheduled Caries 06/07/2024 2:13 PM EDT [facility] Start: 06-07-2024 Subsequent hospital visit by physician 06/07/2024 2:13 PM EDT Hospital Encounter [facility] Surgery [address] [place], [place] [id number] Karthik Black DMD, MD [address] [place] [address] [facility] Start: 06-07-2024 End: 06-07-2024 EXTRACTION, TOOTH EXTRACTION, TOOTH Routine scheduled Caries 06/07/2024 12:51 PM EDT [facility] Start: 06-03-2024 End: 06-03-2024 Admission to same day surgery center 06/03/2024 10:58 AM EDT - 06/03/2024 12:06 PM EDT Surgery [facility] Ambulatory Surgery [address] [place] [id number] Karthik Black DMD, MD [address] [place] [address] Extraction of all manibular teeth, alveoplasty [facility] Comment on above: Extraction of all ma nibular teeth, alveoplasty Start: 06-03-2024 End: 06-03-2024 EXTRACTION, TOOTH EXTRACTION, TOOTH Routine scheduled Caries 06/03/2024 10:58 AM EDT [facility] Start: 06-03-2024 Subsequent hospital visit by physician 06/03/2024 10:58 AM EDT Hospital Encounter [facility] Ambulatory Surgery [address] [place] [address] Karthik Black DMD, MD [address] [place] [address] [facility] Start: 05-20-2024 End: 05-20-2024 Nursing evaluation of patient and report 05/20/2024 1:00 PM EDT Nurse Visit [facility] Pre-Admission Testing [address] [place] [address] Kizzy Maurice RN [address] [place] [phone] [facility] Pre-Admission Testing Start: 11-23-2023 Hemoglobin A1c measurement Hemoglobin A1C [facility] Start: 11-12-2023 Bacteria identified in Urine by Culture [facility] Start: 06-26-2023 COVID-19 Vaccine ( season) COVID-19 Vaccine () [facility] Start: 2015 HPV Vaccine (optiona l start [...] COVID-19 Vaccine (#1) COVID-19 Vacci ne (#[facility]) [facility] Start: 1988 Glaucoma screening Eye Exam [facility] Start: 1988 Hemoglobin A1c measurement Hemoglobin A1C [facility] Start: 1988 Lipid panel Lipid Profile [facility] Start: 1988 Urine screening for protein [facility] Start: 1988 Diabetic foot examination [facility] Start: 1988 Hepatitis B vaccination Hepati tis B (HBV) Vaccine (1 of 3 - 3-dose series) [facility] Start: 1988 Screening for malign ant neoplasm of breast [facility] alveoloplasty in conjunction with extractions - four or more teeth or tooth spaces, per quadrant ALVEOPLASTY W/ EXTRACTION Procedures Routine Caries Ordered: 06/07/2024 [facility] Comment on above: Ordered: 06/07/2024 extraction, erupted tooth or exposed root (elevation and/or forceps removal) EXTRACTION ERUPTED TOOTH/EXR Procedures Routine Caries Ordered: 06/07/2024 [facility] Work Phone: Comment on above: Ordered: 06/07/2024 EXTRACTION, TOOTH EXTRACTION, TO OTH Routine scheduled Caries [facility] Immunizations Immunization Date Immunization Notes Care Provider Griffin calvin 11-26-2023 influenza, injectabl e, quadrivalent, preservative free Karthik Black DMD, MD Work Phone: [facility] 11-26-2023 influenza virus vacc ine, unspecified formulation Karthik Black DMD, MD Work Phone: [facility] 05-23-2023 Hemoglobin A1C Kizzy Maurice RN [facility] 05-18-2023 tetanus toxoid, redu edvin diphtheria toxoid, and acellular pertussis vaccine, adsorbed Karthik Black DMD, MD Work Phone: [facility] Payers Date Payer Category Payer Self-pay 2022 Medicaid [id number] 2022 Unknown 2022 Medicaid [id number] 2. [id number] 1988 Unknown [id number] 2.16. [id number] 1988 Unknown [id number] 2.16. [id number] 1988 Unknown [id number] 2.16. [id number] 1988 Unknown [id number] 2.16. [id number] 1988 Unknown [id number] 2.16. [id number] 1988 Unknown [id number] 2.16.8 [id number] 1988 Unknown [id number] 2.16.8 [id number] 1988 Unknown [id number] 2.16. [id number] 1988 Unknown [id number] 2.16. 840.1.262610.3.579.2.73 1988 Unknown [id number] 2.16. [id number] 1988 Unknown [id number] 2.16. [id number] Unknown [id number] 2.16.8 [id number] Social History Date Type Detail Facility Unknown if ever smoked [facility] Other Start: 03-09-2024 End: 05-20-2024 Sex Assigned At [facility] Start: 1990 Sex Assigned At Female [facility] Tobacco smoking stat [facility] Tobacco smoking consumption unknown [facility] Start: 03-09-2024 End: 05-20-2024 History of Social function [facility] In the past 12 month s has the electric, gas, oil, or water [employer] threatened to shut off services in your [...] file [facility] Start: 05-20-2024 Tobacco smoking status NHIS Never smoked tobacco [facility] Start: 05-20-2024 Tobacco use and exposure Smokeless tobacco non-user [facility] Start: 05-20-2024 End: 06-08-2024 Alcoholic beverage intake Ex-drinker (finding) [facility] Medical [facility] Procedure Code Equipment Code Equipment Original Text Equi pment Identifier Dates Drug [place] Unifin e Pentips Plus 32G X 4 MM Clinical Notes 07-12-2023 to 06-28-2024 Addendum Note - Karthik Black DMD, MD - 06/28/2024 11:10 AM EDTAddendum Note - Karthik Black DMD, MD - 06/28/2024 11:10 AM Walt Philippe DDS - 06/14/2024 5:07 PM EDT Note Date & Type Note Facility 06-28-2024 Note Addended by: KARTHIK LOWE on: 06/28/2024 11:10 AM Modules accepted: Level of Service [facility] 06-28-2024 Miscellaneous Notes Addended by: KARTHIK BLACK on: 06/28/2024 11:10 AM Modules accepted: Level of Service documented in this encounter [facility] 06-14-2024 History of Presen t illness Narrative [facility] SUR[facility] CLINIC TELEPHONE FOLLOW UP VISIT Chief Complaint: Pt presents for telephone follow up. Reports she has minor pain on LL, no drainage, and no foul taste noted. Review of Systems: no change Physical findings: Pain/swelling at LL surgical sites reported by patient No paresthesia reported by patient Will have her dentist eval, since she stated she [place] hours away from [facility]. Assessment / Diagnosis: Normal postoperative course. Healing as expected. Plan: Follow-Up: PRN Follow up sooner with new or worsening symptoms. documented in this encounter [facility] 06-14-2024 History of Presen t illness Narrative [facility] TELEPHONE FOLLOW UP VISIT Chief Complaint: Pt presents for telephone follow up. Reports she has minor pain on LL, no drainage, and no foul taste noted. Review of Systems: no change Physical findings: Pain/swelling at LL surgical sites reported by patient No paresthesia reported by patient Will have her dentist eval, since she stated she lives 1[place] hours away from [facility]. Assessment / Diagnosis: Normal postoperative course. Healing as expected. Plan: Follow-Up: PRN Follow up sooner with new or worsening symptoms. documented in this encounter [facility] 06-09-2024 Telephone encounter Note Symptoms - white bumps along the gum line, pt has concerns that she needs a nurse to call and discuss with her [facility] 06-09-2024 Miscellaneous Notes Symptoms - white bumps along the gum line, pt has concerns that she needs a nurse to call and discuss with her Situation: Patient is calling back previously triaged for another issue Background: Patient states she has white bumps along the gum line where the teeth were extracted. Assessment: Pls call pt @ [phone] to discuss & advise Recommendation: Pls advise [...] understanding. No further questions. Information obtained from, https://www.[employer].com/ /lpc-jx-lyw-rid-of-n jwncyva-qbbxp-cxypnwte-the-amberly harman/ Nichole Aguila RN, RN documented in this encounter [facility] 06-09-2024 Telephone encounter Note Situation: Patient is calling back previously triaged for another issue Background: Patient states she has white bumps along the gum line where the teeth were extracted. Assessment: Pls call pt @ [phone] to discuss & advise Recommendation: Pls advise Thank you [facility] 06-09-2024 Miscellaneous Notes Situation: Patient is calling back previously triaged for another issue Background: Patient states she has bumps along the gum line where the teeth were extracted Assessment: Pls call pt @ [phone] to discuss & advise Recommendation: Pls advise [...] understanding. No further questions. Information obtained from, https://www.[employer].com/ /qup-cq-gxo-rid-of-n vmvjtwg-nknfw-qedksxkq-the-amberly harman/ Nichole Aguila RN, RN documented in this encounter [facility] 06-07-2024 Telephone encounter Note Situation: Caller states [...] understanding. No further questions. Information obtained from, https://www.[employer]/ /opw-wl-jsy-rid-of-n bkohrei-exrtu-rldihpce-the-amberly harman/ Nichole Aguila RN, RN [facility] 06-07-2024 Miscellaneous Notes Situation: Caller states had [...] understanding. No further questions. Information obtained from, https://www.[employer]/ /zic-qb-onh-rid-of-n hbxyqit-xiiqk-wzuwsoui-the-amberly harman/ Nichole Aguila RN, RN documented in this encounter [facility] 06-07-2024 Note Formatting of this n ote is different from the original. Addendum created 06/07/24 1531 by Dariusz Anderson APRN-ATHLETIC EQUIPMENT MANAGER Flowsheet accepted, Intraprocedure Flowsheets edited [employer] Work Phone: 06-07-2024 Note Addendum created 1530 by Dariusz Anderson APRN-CRNA Flowsheet accepted, Intraprocedure Flowsheets edited [employer] [facility] 06-07-2024 Miscellaneous Notes Addendum created 06/07/241530 by Dariusz Anderson APRN-CRNA [...] Black DMD, MD Anesthesiologist: Washington Anderson MD ATHLETIC EQUIPMENT MANAGER: Dariusz Anderson APRN-CRNA Anesthesia Student: Benton Goddard [...] received. ANDREA Torres documented in this encounter [facility] 06-07-2024 Procedure anesthe catie Narrative Procedure Name [...] induction of anesthesia. 1315 Preinduction Verify The anes thesia team has reviewed the patient's vital signs immediately prior to induction. SHAHNAZ TorresATHLETIC EQUIPMENT MANAGER 1321 An Induction 1324 An Intubation 1328 [...] Dariusz Anderson APRN-CRNA documented in this encounter [id number] Anesthesiology Postoperative evaluation and management note* Anesthesia [...] ANESTHESIA NOTABLE EVENTS: No notable events documented. [facility] Work Phone: [phone]) 877-917808-13-2024 Surgical operation note* Anesthesia Postprocedure Evaluation - [...] ROS (+) teeth problems Endo (+) obesity pet care assistant (-) not Neuro/Psych Cardiovascular (+) hypertension, Surgical [...] were discussed with the patient and/or legal housing management representative. The risks, benefitsand alternatives were reviewed. Questions regarding anesthesia were answered. Patient and/or legal housing management representative knows such anesthetics and procedures may be performed by Resident physicians, Certified Anesthesiologist Assistants, or Certified Nurse Anesthetists under the supervision of a physician. The patient /or the patient s legal housing management representative agree with the plan for anesthesia. [employer] documented in this [id number] Anesthesiology Postoperative evaluation and management note* Anesthesia Transfer Of Care - Dariusz Anderson APRN-CRNA - 06/07/2024 2:07 PM EDT Patient taken [...] Black DMD, MD Anesthesiologist: Washington Anderson MD ATHLETIC EQUIPMENT MANAGER: Dariusz Anderson APRN-CRNA Anesthesia Student: Benton Goddard [...] [REMOVED] Advanced Airway: ETT, Oral;Cuffed #7 (Removed) 08/13/24 1324 Pre-Oxygenation/ Induction: Mask Rapid Sequence Induction?: Mask Ventilation: Easy Blade Type: Hyperangulated Blade Size: 3 Visualization: Grade 1 Airway Type: ETT, Oral;Cuffed Airway Size: #7 Post Insertion Assessment: Confirmation: Equal bilateral breath sounds, CO2 confirmed # Attempts >1: Special Equipment: Glidescope Present on Admission?: Previously Removed / Not Present: Removal Reason: Not Removed at Discharge: Removed 06/07/24 1354 Location (cm) 22 06/07/241323 Measured from: Lips 06/07/241323 Secured via: Taped 06/07/241323 Site Assessment WNL 06/07/241323 All non-working IVs have been removed: N/A [...] of the report was received. ANDREA Torres [id number] Surgery Surgical operation note* OP Note - Karthik Black DMD, MD - 06/07/2024 1:28 PM EDT [facility] Division of joiners supervisor [address] [place] [address] [place] [address] OPERATIVE NOTE Name: Nick Bean MR#: [id number] ENC#: Data Unavailable Surgical Case #: Data Unavailable Date of Procedure: 06/07/2024 ? PREOPERATIVE DIAGNOSIS: Caries (Primary Diagnosis) [444520] Pain following oral surgery [[id number]] ? POSTOPERATIVE DIAGNOSIS: Caries (Primary Diagnosis) [389072] Pain following oral surgery [[id number]] OPERATION: EXTRACTION ERUPTED TOOTH/EXR [D7140] ALVEOPLASTY W/ [...] and transferred onto the operating room tableunder N(i)² power. The patient was then placed in [...] ? ? ? Karthik Black DMD, MD [id number] Miscellaneous Notes* OP Note - Karthik Black DMD, MD - 06/07/2024 1:28 PM EDT [facility] Division of joiners supervisor [address] [place] [address] [place] [place] [address] OPERATIVE NOTE Name: Nick Bean MR#: [id number] ENC#: Data Unavailable Surgical Case #: Data Unavailable Date of Procedure: 06/07/2024 ? PREOPERATIVE DIAGNOSIS: Caries (Primary Diagnosis) [513480] Pain following oral surgery [[id number]] ? POSTOPERATIVE DIAGNOSIS: Caries (Primary Diagnosis) [600329] Pain following oral surgery [[id number]] OPERATION: EXTRACTION ERUPTED TOOTH/EXR [D7140] ALVEOPLASTY W/ [...] and transferred onto the operating room tableunder [employer]. The patient was then placed in the [...] were discussed with the patient and/or legal housing management representative. The risks, benefits and alternatives were reviewed. Questions regarding blood transfusions were answered. The patient /or the patient s legal housing management representative agree with the plan for transfusion of blood and/or blood components. documented in this [id number] Hospital Discharge instructions* Discharge Instructions* Rosalba Narayanan [...] done to speak with an oral surgeon. [facility] [phone]. HELPING THE HEALING PROCESS AND STOPPING THE [...] any questions or concerns please contact us: [facility] . Ask for the floral designer salesperson color television console monitor (after hours). rating clerk Clinic Hours: Mon-Fri 8:30 am to 4:30 pm. PERIOPERATIVE DISCHARGE/HOME-GOING INSTRUCTIONS ANESTHESIA - GENERAL (ADULT) If a problem arises, you may contact your physician by calling [phone] and asking for the resident color television console monitor for Oral Surgery Service. Special Care Needs: [...] very uncomfortable and can t urinate, call [phone] or cometo the emergency room. The day [...] less likely. For more informati on visit: [email or web address] f-hy-jakhcse/ Some medications or combinations of medications can [...] and treated if needed documented in this [id number] NoteSurgical Attestation: I have reviewed the patient's History and Physical Examination. I have personally seen and evaluated the patient, repeating witt portions. There is no significant interval change. Surgery is still indicated. Yes Consent reviewed and signed by patient/family: Yes Operative site verified and marked: Yes Alexis Chow [facility] [id number] Progress note* Blood Attestation - Washington Anderson MD - 06/07/2024 12:19 PM EDT Blood Attestation: ATTESTATION OF INFORMED CONSENT FOR BLOOD: The transfusion of blood and/or blood components were discussed with the patient and/or legal housing management representative. The risks, benefits and alternatives were reviewed. Questions regarding blood transfusions were answered. The patient /or the patient s legal housing management representative agree with the plan for transfusion of blood and/or blood components. [facility] Phone: [phone] Anesthesiology Preoperative evaluation and management note* Anesthesia Preprocedure Evaluation - Washington Anderson MD - 06/07/2024 10:57 AM EDT ASA: 3 No history of anesthetic complications NPO status: Greater than 8 hours Past Medical History and Review of Systems Pulmonary (-) sleep apnea, asthma, shortness of breath Dental ROS (+) teeth problems Endo (+) obesity pet care assistant (-) not Neuro/Psych Cardiovascular (+) hypertension, Surgical [...] were discussed with the patient and/or legal housing management representative. The risks, benefitsand alternatives were reviewed. Questions regarding anesthesia were answered. Patient and/or legal housing management representative knows such anesthetics and procedures may be performed by Resident physicians, Certified Anesthesiologist Assistants, or Certified Nurse Anesthetists under the supervision of a physician. The patient /or the patient s legal housing management representative agree with the plan for anesthesia. [employer] [id number] Instructions* Discharge Instructions* Kizzy Maurice RN - 05/20/2024 1:14 PM EDT PATIENT [...] to surgery arrival time Need to have lifter driver Patients whose assigned sex at was female, [...] adult to drive you home. A cab, Uber[employer] or other transportation route delivery driver cannot be responsible for you. A responsible adult should stay with you for 24 hours after surgery. Your surgery will be cancelled if you do not have a ride home. * If you have sleep apnea and are staying overnight in the hospital, please bring your sleep apnea machine and mask. documented in this [id number] Evaluation note* PAT Call History - Kizzy Maurice RN - 05/20/2024 1:01 PM EDT Images from the original note were not included. 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 Comment: LMP 05-17-2024 Neuro/Psych (+) depression, anxiety/panic [...] min Stress: No Stress Concern Present (03/09/2024) [employer] [place] [employer] - Occupational Stress Questionnaire Feeling of Stress : Only a little Social Connections: Moderately Isolated (03/09/2024) Social Connection and Isolation Panel [NHANES] Frequency of Communication with Friends and Family: More than three times a week Frequency of Social Gatherings with Friends and Family: Three times a week Attends Worship Services: Never Active Member of Clubs or [...] CHEST AP OR PA 1 VIEW Order: [id number] Narrative Single view chest History:Dyspnea Difficulty breathing, [...] to surgery arrival time Need to have lifter driver Patients whose assigned sex at was female, [...] Spent Performing this Telephone History: 15 mins [id number] Miscellaneous Notes* PAT Call History - Kizzy Maurice RN - 05/20/2024 1:01 PM EDT Images from the original note were not included. 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 05-17-2024 Neuro/Psych (+) depression, anxiety/panic [...] min Stress: No Stress Concern Present (03/09/2024) [employer] [place] [employer] [facility] - Occupational Stress Questionnaire Feeling of Stress : Only a little Social Connections: Moderately Isolated (03/09/2024) Social Connection and Isolation Panel [NHANES] Frequency of Communication with Friends and Family: More than three times a week Frequency of Social Gatherings with Friends and Family: Three times a week Attends Worship Services: Never Active Member of Clubs or [...] CHEST AP OR PA 1 VIEW Order: [id number] Narrative Single view chest History:Dyspnea Difficulty breathing, [...] to surgery arrival time Need to have lifter driver Patients whose assigned sex at was female, [...] Telephone History: 15 mins documented in this [id number] History of Present illness Narrative* Karthik Black DMD, MD - 03/10/2024 1:33 PM EDT [facility] PATIENT VISIT CHIEF COMPLAINT: Toothache HISTORY OF PRESENT ILLNESS: Patient is a 33yoF with pmhx sig for obesity and severe procedural anxiety who presents to the [facility] clinic as a referral from her general [...] remaininglower teeth and alveoplasty under GA at [facility] in preparation for complete dentures. Patient said [...] mandibular teeth and alveoplasty under GA at [facility] Karthik Black DMD, MD * Maryana Pérez - 03/10/2024 10:25 AM EDT Images from the original note were not included. documented in this [id number] History of Present illness Narrative* Karthik Black DMD, MD - 03/10/2024 1:33 PM EDT [facility] PATIENT VISIT CHIEF COMPLAINT: Toothache HISTORY OF PRESENT ILLNESS: Patient is a 33yoF with pmhx sig for obesity and severe procedural anxiety who presents to the [facility] clinic as a referral from her general [...] remaininglower teeth and alveoplasty under GA at [facility] in preparation for complete dentures. Patient said [...] mandibular teeth and alveoplasty under GA at [facility] Karthik Black DMD, MD * Maryana Pérez - 03/10/2024 10:25 AM EDT Images from the original note were not included. documented in this [id number] Evaluation note* Encounter Date Diagnosis Assessment Notes [...] up with her PCP is symptoms persist. Triptrotting Other 12-28-2023 NoteThis is a Telephone Appointment *This visit was conducted by Telephone with real time communicationand interaction. The patient provided written consent for treatment. The patient understands their rights, the HIPAA risks and that they will be charged accordingly for the services rendered. This visit was held via telephone within the [facility] while they were at: At their home in [place]. This telephone visit was conducted due to: [...] possibly discuss surgical intervention. She lives in [place] and as long as she is not [...] Panic disorder PTSD - (more content not included)...[facility]11-09-2023 NoteChief Complaint New patient left ankle pain and neuritic symptoms, referral from Alisia Gusman Physician assistant professor of radiology History of Present Illness Patient presents today [...] past. Patient relates that they have tried nbmp-cya-maeuphv pain relievers, padding, and modification of shoe [...] pain. She was referred here by the [facility] reconstruction [place] Alisia Gusman for evaluation of nerve entrapment. She had [...] bilateral. Protective sensation intact as measured with [place] [employer] Gross motor intact bilateral. Achilles [...] for possible ganglion cyst. (more content not included)...[facility]09-17-2023 Evaluation note* Encounter Date Diagnosis Assessment Notes Treatment Notes Treatment Clinical Notes Jun, Left foot pain (ICD-10 - M79.672) Foot pain home care material was printed Continue home medications as prescribed. Stop wearing the ankle brace and to you follow-up with your dental office manager. Call your dental office manager tomorrow for an appointment for recheck. Ice and elevate your foot 2-3 times a day. Take your naproxen for pain. No x-rays were done at this visit. The patient had x-rays done by her dental office manager 5 days ago. She denies any recent injuries or falls especially since the last x-rays. Patient is instructed to follow-up with her dental office manager for evaluation of this foot pain. Triptrotting Other Evaluation noteNo assessment information available [facility] Work Phone: Evaluation note* Diagnosis Caries- Primary [...] [facility] Diagnosis Post-operative state- Primary Other postprocedural status [facility]* Diagnosis Post-operative state- Primary Other postprocedural status [facility] Narrative - Reported* Type Description Date Medical History Diabetes Medical History Depression Medical History Anxiety Surgical History C section x2 Triptrotting Other History general Narrative - Reported* Type Description Date Medical History Diabetes Medical History Depression Medical History Anxiety Surgical History C section x2 Hospitalization History See Above Triptrotting Other Chief Complaint and Reason for Visit Chief Complaint Abcess Tooth Bottom Right Chief Complaint possible infected to oth Summary Purpose Family History No Family History Records FoundNo Family History Records FoundNo Family History Records FoundNo Family History Records Found Advance Directives No Advanced Directives Records Found Advance Directive Response Recorded Date/ Time Advance Directives No December 29 24 2:08pm Reason for Referral Specialty Diagnoses / Procedures Referred By Tracie ortega Referred To Contact Diagnoses Caries Procedures ALVEOPLASTY W/ EXTRACTION Karthik Black DMD, MD [address] [place] [address] Referral ID Status Reason Start Date Expiration Date V isits Requested Visits Authorized [id number] Pending Review 06/07/2024 06/07/2025 3 3 Specialty Diagnoses / Procedures Referred By Contac t Referred To Contact Diagnoses Caries Procedures EXTRACTION ERUPTED TOOTH/EXR Karthik Black DMD, MD [address] [place], [place] [address] Referral ID Status Reason Start Date Expiration Date V isits Requested Visits Authorized [id number] Pending Review 06/07/2024 06/07/2025 3 3 Specialty Diagnoses / Procedures Referred By Contac t Referred To Contact Oral Surgery Diagnoses Caries Procedures EXTRACTION ERUPTED TOOTH/EXR DEEP ANESTHESIA, 1ST 15 MINS GENERAL ANESTH EA ADDL 15 MIN Karthik Black DMD, MD [address] [place] [address] [facility] [address] [address] Phone: [phone] Referral ID Status Reason Start Date Expiration Date V isits Requested Visits Authorized [id number] Pending Review 03/10/2024 03/10/2025 1 1 Scheduling [...] your procedure, you will be contacted with baw-lz-zrjknif costs or next steps. All self-pay payments [...] the procedure: You also MUST have a lifter driver/escort >18yrs old present to take you home [...] Anesthesiology Diagnoses Caries Karthik Black DMD, MD [address] [place] [address] [facility] PRE ADMISSION TESTING [address] [place] [address] Referral ID Status Reason Start Date Expiration Date V isits Requested Visits Authorized [id number] Authorized 03/10/2024 03/10/2025 1 1 Scheduling Instructions Your surgical team will reach out to you to schedule a pre-admission testing appointment. Question Answer Reason for consult? Recommended PAT Risk Score Additional Source Comments REASON FOR VISIT (unrecogniz ed section and content) Specialty Diagnoses / Procedures Referred By Tracie ortega Referred To Contact Ambulatory Surgery Diagnoses Caries Caries [K02.9] Procedures UNLISTED PROCEDURE, DENTOALVEOLAR STRUCTURES ALVEOLOPLASTY, EACH QUADRANT (SPECIFY) ANESTHESIA, INTRAORAL PROC, W/BX; NOS Extraction of all manibular teeth, alveoplasty Karthik Black DMD, MD [address] [place] [address] [facility] [address] [place] [address] Phone: [phone] Referral ID Status Reason Start Date Expiration Date Visits Re quested Visits Authorized [id number] 3 3 Reason Onset Date Comments Advice/health education 06/07/2024 Care Teams (unrecognized sec tion and content) Team Status: Inactive Member Role Status Dates Delmis Mccartney APRN Attending Provider Active Start: October 08, 2023 End: October 08, 2023 Team Status: Inactive Member Role Status Dates Abigail Lilly APRN Attending Provider Active S tart: November 12, 2023 End: November 12, 2023 Tire Builder Operator Relationship Specialty Start Date End Date Karthik Black DMD, MD [address] [place] [address] Physician Oral & Maxillofacial Surgery 03/26/24 Tire Builder Operator Relationship Specialty Start Date End Date Karthik Black DMD, MD [address] [place], [place] [phone] Physician Oral & Maxillofacial Surgery 03/26/24 Tire Builder Operator Relationship Specialty Start Date End Date Karthik Black DMD, MD [address] [place], [place] [phone] Physician Oral & Maxillofacial Surgery 03/26/24 Tire Builder Operator Relationship Specialty Start Date End Date Karthik Black DMD, MD [address] [place] [address] Physician Oral & Maxillofacial Surgery 03/26/24 Tire Builder Operator Relationship Specialty Start Date End Date Karthik Black DMD, MD [address] [place] [address] Physician Oral & Maxillofacial Surgery 03/26/24 Tire Builder Operator Relationship Specialty Start Date End Date Karthik Black DMD, MD [address] [place] [address] Physician Oral & Maxillofacial Surgery 03/26/24 Tire Builder Operator Relationship Specialty Start Date End Date Karthik Black DMD, MD [address] [place] [address] Physician Oral & Maxillofacial Surgery 03/26/24 Tire Builder Operator Relationship Specialty Start Date End Date Karthik Black DMD, MD [address] [place] [address] Physician Oral & Maxillofacial Surgery 03/26/24 Team Status: Active Member Role Status Dates NON STAFF Primary Care Provider Active Team Status: Inactive Member Role Status Dates NON STAFF Primary Care Provider Active Start: June 14, 2024 End: June 14, 2024 Delmis Mccartney APRN Attending Provider Active Start: June 14, 2024 End: June 14, 2024 Tire Builder Operator Relationship Specialty Start Date End Date Karthik Black DMD, MD [address] [place] [address] Physician Oral & Maxillofacial Surgery 03/26/24 Tire Builder Operator Relationship Specialty Start Date End Date Karthik Black DMD, MD [address] [place] [address] Physician Oral & Maxillofacial Surgery 03/26/24 Goals (unrecognized section and content) Goals may be documented in a n alternate section INFORMATION SOURCE (unrecogn ized section and content) DATE CREATED AUTHOR 11/24/2023 [facility] DATE CREATED AUTHOR AUTHOR'S ORGANIZ ATION 12/04/2023 [facility] DATE CREATED AUTHOR AUTHOR'S ORGANIZ ATION 01/02/2024 [facility] DATE CREATED AUTHOR AUTHOR'S ORGANIZ ATION 06/29/2024 [employer] [facility] Scheduled Active and Recently Administ ered [...] PRN, Starting on Thu06/07/24 at 1328, Until Thu06/07/24 at 1357, Intra-op 1328 (Given - Provid er: Walt Pedraza, MYNORS - Comment: mouth) chlorhexidine (PERIDEX) 0.12 % oral solution (CANCELED) PRN, Starting on Thu06/07/24 at 1330, Until Thu06/07/24 at 1357, Intra-op 1330 (Given - Provid [...] er: Rosalba Bo RN) lidocaine-epinephrine (XYLOCAINE) 1 %-1:[id number] injection SOLN (CANCELED) PRN, Starting on Thu06/07/24 at 1329, Until Thu06/07/24 at 1357, Intra-op 1329 (Given - Provid er: Walt Pedraza DDS - Comment: mouth) naloxone (NARCAN) 0.4 [...] BE BASED ON THE PRIMARY CLINICAL RECORDS. [facility]. provides no warranty or guarantee of the accuracy or completeness of information in this document.
--- NOTE | 2024-07-11 11:59 | XR_ITS ---
The [address] [address] Patient Name: NICK BEAN MRN: [id number] date: 1990 Sex: F Assigned Patient Location: [facility] Current Patient Location: Accession/Order Number: [id number] Exam Date: 07/11/2024 12:05 Report Date: 07/12/2024 09:18 At the request of: DARNELL MCKEON Procedure: XR chest 2V EXAMINATION: XR chest 2V HISTORY: Pre surgical testing COMPARISON: No relevant comparison available. TECHNIQUE: PA and lateral FINDINGS: LUNGS: No significant pulmonary parenchymal abnormalities. VASCULATURE: No increased pulmonary vasculature. PLEURA: No pneumothorax, effusion, or pleural thickening. CARDIAC: No cardiomegaly or cardiac silhouette abnormality. MEDIASTINUM: No visible mass or adenopathy. BONES: No fracture or visible bone lesion. OTHER: Negative. XR/XR chest 2V IMPRESSION: Normal examination. Electronically authenticated by: JOEY BASSETT Date: 07/12/2024 09:18
--- NOTE | 2024-07-11 12:02 | PM.PRESUREVA ---
History of Present Illness History of Present Illness Chief complaint: left ankle impingement & instability Narrative: Patient presents for preadmission testing. The patient reports a long history of left ankle pain and instability. The patient states she had an ankle sprain some years ago and has had intermittent pain since, but the pain has worsened over the past 6 months. She did complete physical therapy and wore a brace with no relief of her symptoms. She states her pain is constant, however it is worse after standing for long periods of time. She has tried Motrin, Tylenol, and naproxen with no relief. The patient denies numbness, tingling, weakness, or any other complaints. Review of Systems ROS Narrative REVIEW OF SYSTEMS: Negative except as stated in HPI, ten or more systems reviewed. Constitutional: No fever, chills, weakness ENT: No sore throat or epistaxis Cardiovascular: No edema, chest pain, palpitations, or activity intolerance Respiratory: No shortness of breath, cough, or wheezing Gastrointestinal: No abdominal pain, constipation, diarrhea, or vomiting Genitourinary: No dysuria or hematuria Neurological: No numbness, tingling, weakness, or headache Psychiatric: No mood changes [facility] Medical History (Updated 07/11/24 @ 12:05 by Sofia Bloom NP) Left foot pain ?M79.672 - Pain in left foot (ICD-10) Left ankle pain ?M25.572 - Pain in left ankle and joints of left foot (ICD-10) Impingement of left ankle joint ?M25.872 - Other specified joint disorders, left ankle and foot (ICD-10) Left ankle instability ?M25.372 - Other instability, left ankle (ICD-10) Peroneal tendinitis ?M76.70 - Peroneal tendinitis, unspecified leg (ICD-10) Strain of muscle(s) and tendon(s) of peroneal muscle group at lower leg level, left leg, sequela ?S86.312S - Strain of muscle(s) and tendon(s) of peroneal muscle group at lower leg level, left leg, sequela (ICD-10) Axillary hidradenitis suppurativa ?L73.2 - Hidradenitis suppurativa (ICD-10) Insomnia ?G47.00 - Insomnia, unspecified (ICD-10) PTSD (post-traumatic stress disorder) ?F43.10 - Post-traumatic stress disorder, unspecified (ICD-10) Panic attacks ?F41.0 - Panic disorder [episodic paroxysmal anxiety] (ICD-10) Depression ?F32.A - Depression, unspecified (ICD-10) Anxiety ?F41.9 - Anxiety disorder, unspecified (ICD-10) COVID-19 ?U07.1 - COVID-19 (ICD-10) Migraine ?G43.909 - Migraine, unspecified, not intractable, without status migrainosus (ICD-10) Seasonal allergies ?J30.2 - Other seasonal allergic rhinitis (ICD-10) Heartburn ?R12 - Heartburn (ICD-10) Myocarditis of mother during ?O99.419 - Diseases of the circulatory system complicating , unspecified trimester (ICD-10) ?I51.4 - Myocarditis, unspecified (ICD-10) Leg cramping ?R25.2 - Cramp and spasm (ICD-10) Hypokalemia ?E87.6 - Hypokalemia (ICD-10) Surgical History (Updated 07/11/24 @ 11:34 by Sofia Bloom NP) H/O oral surgery ?Z98.890 - Other specified postprocedural states (ICD-10) History of section ?Z98.891 - History of uterine scar from previous surgery (ICD-10) History of bilateral salpingectomy ?Z90.79 - Acquired absence of other genital organ(s) (ICD-10) Family History (Updated 07/11/24 @ 11:34 by Sofia Bloom NP) Other Cancer Family history of DVT Family history of diabetes mellitus Family history of hypertension Family history of pulmonary embolism Social History (Updated 07/11/24 @ 11:27 by Sofia Bloom NP) Smoking status: Former smoker Do you use any of these nicotine containing products: vaping products Non-prescribed substance use: cannabis (any form) Highest level of school completed/degree received: high school graduate Meds Home Medications and Allergies Home Medications ?Medication ?Instructions ?Recorded ?Confirmed ?Type buspirone 5 mg tablet 5 mg PO BID 07/11/24 07/11/24 History fluticasone propionate 50 1 spray intranasal DAILY PRN 09/16/24 09/16/24 History mcg/actuation nasal allergy symptoms spray,suspension (24 Hour Allergy Relief) hydroxyzine pamoate 25 mg capsule 25 mg PO Q8H PRN anxiety 07/11/24 07/11/24 History naproxen 500 mg tablet 500 mg PO Q12H PRN pain 07/11/24 07/11/24 History Allergies Allergy/AdvReac Type Severity Reaction Status Date / Time amoxicillin Allergy Rash Verified 07/11/24 11:22 ciprofloxacin [From Cipro] Allergy tendon pain Verified 07/11/24 11:22 Exam Narrative Exam Narrative: Constitutional: Awake, alert, comfortable, well-appearing, nontoxic, interactive, vital signs as charted Head: Normocephalic, atraumatic Neck: Supple, normal appearance, normal range of motion, no meningeal signs, no lymphadenopathy Respiratory: No respiratory distress, breath sounds clear Cardiovascular: Regular rate and rhythm, strong and regular heart tones Musculoskeletal: Diffuse left ankle tenderness with palpation, range of motion limited due to pain, good capillary refill, sensation intact Skin: No rashes or induration, no lesions, only visible skin inspected Neuro: No neurological deficits, normal sensation Psychiatric: Oriented ?3, normal affect Assessment and Plan Assessment and Plan (1) Strain of muscle(s) and tendon(s) of peroneal muscle group at lower leg level, left leg, sequela: (2) Peroneal tendinitis: (3) Left ankle instability: (4) Impingement of left ankle joint: (5) Left ankle pain: (6) Left foot pain: Plan Left ankle arthroscopy, peroneal tendon repair versus transfer, stress examination with possible lateral ankle stabilization scheduled with Dr. Lyles July 21, 2024.
[2024-07-11 12:18] LABS: Anion Gap 7.3; BUN Creatinine Ratio 11.6; Calcium 8.6 mg/dL (8.5-10.1); Carbon Dioxide 29.5 mmol/L (21.0-32.0); Chloride 104 mmol/L (98-107); Estimated GFR (African America >60 (>=60); Estimated GFR (Non-African Ame >60 (>=60); Glucose 97 mg/dL (74-106); Potassium 3.8 mmol/L (3.5-5.1); Sodium 137 mmol/L (136-145)
== END 2024-07-11 10:59 | disposition home or self-care (01) ==
LOC: PST 10:59
PROVIDERS: PCP Student in an Organized Health Care Education/Training Program; Visit Provider Podiatrist Foot & Ankle Surgery
DX: Z01.810 Encounter for preprocedural cardiovascular examination (principal); Z01.812 Encounter for preprocedural laboratory examination; Z01.818 Encounter for other preprocedural examination; M25.812 Other specified joint disorders, left shoulder; M25.372 Other instability, left ankle; E87.6 Hypokalemia
CPT/HCPCS: 71046; 80048; G0463

== ENCOUNTER 2024-07-21 07:12 | Day surgery (SDC) | payer OTHER, SELFPAY ==
[2024-07-11 11:58] VITALS: BP 114/89; PULSE 81; TEMP 36.4; O2SAT 98; BMI 47.9
[2024-07-21] VITALS (10 sets, daily range): BP systolic 98–140; BP diastolic 65–98; PULSE 66–91; TEMP 36.3–36.8; O2SAT 95–100; BMI 47.6
--- NOTE | 2024-07-21 | FL_ITS ---
[address] [address] Patient Name: NIKC BEAN MRN: [id number] date: 1990 Sex: F Assigned Patient Location: SURGOUT Current Patient Location: ED.MAIN Accession/Order Number: [id number] Exam Date: 07/21/2024 10:30 Report Date: 07/26/2024 11:17 At the request of: DARNELL MCKEON Procedure: FL fluoroscopy <1hr NON-READ EXAM: FL fluoroscopy <1hr NON-READ HISTORY: TECHNIQUE: FINDINGS: Please see Operative Report. Electronically authenticated by: RADIOLOGIST NO Date: 07/26/2024 11:17
--- OUTSIDE RECORDS SUMMARY | 2024-07-21 07:15 | XMS_ITS | CCD ---
Author Organization [facility] Care Team Providers Care Biophysics Professor Name Role Phone Mikki Brooks Unavailable VijayaAbigail Unavailable VijayaVICTORIA Attending Provider [phone] Jeromy DPM, Saeid Beth Attending Unavailab le [...] Provider Unavailjean Black DMD, MD, Karthik Unavailable KARTHIK BLACK Attending Unavailable KARTHIK BLACK Admitting Unavailable PROVIDER, UNKNOWN Attending Unavailable PROVIDER, UNKNOWN Admitting Unavailable PROVIDER, UNKNOWN Admitting Unavailable KARTHIK BLACK Attending Unavailable KARTHIK BLACK Attending Unavailable PROVIDER, UNKNOWN Admitting Unavailable Allergies Allergy Classification Reported Allergen(s) Allergy Type Date of Onset Reaction(s) Facility (18 sources) Amoxicillin; Translations: [amoxicillin] Drug Allergy 5 hives, Itching, Rash, Other [facility] Repository (16 sources) Ciprofloxacin; Translations: [CIPROFLOXACIN] Drug Allergy 5 Myalgias, Other [facility] Other (1 source) Ciprofloxacin; Translations: [Cipro] Drug Allergy [facility] Repository (1 source) Amoxicillin Drug Allergy 4 [facility] Repository (1 source) Ciprofloxacin Drug Allergy 4 [facility] Repository (1 source) Ciprofloxacin; Translations: [CIPROFLOXACIN HCL] [...] Interpretation Reference Range Facility Addendum Noteon 06-28-2024 [employer] Outreach Specialist Authentication Interface Message Text Addended by: KARTHIK BLACK on: 06/28/2024 11:10 AM Modules accepted: Level of Service Normal [facility] [employer] [facility] Progress Noteson 06-14-2024 [employer] Outreach Specialist Authentication Interface Message Text [facility] [...] stated she lives 1.5 hours away from [facility]. Assessment / Diagnosis: Normal postoperative course. Healing as expected. Plan: Follow-Up: PRN Follow up sooner with new or worsening symptoms. Normal [facility] [facility] Telephone Encounteron 2023 [employer] Outreach Specialist Authentication Interface Message Text PT is awaiting post op f/u call. It is currently 11:40. Is the provider running late? PT is concerned of the start of a possible infection starting. Site is swollen AND red. Telephone Information: Normal [facility] [employer] [facility] Telephone Encounteron 2023 [employer] Outreach Specialist Authentication Interface Message Text Symptoms - white bumps along the gum line, pt has concerns that she needs a nurse to call and discuss with her Normal [facility] [employer] [facility] [employer] Outreach Specialist Authentication Interface Message Text Situation: Patient is calling back previously triaged for another issue Background: Patient states she has white bumps along the gum line where the teeth were extracted. Assessment: Pls call pt @ [phone] to discuss AND advise Recommendation: Pls advise Thank you Normal [facility] [employer] [facility] Anesthesia Postprocedure Tata luationon 06-07-2024 [employer] Outreach Specialist Authentication Interface Message Text Anesthesia Postoperative Assessment: [...] EVENTS: No notable events documented. 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 The risks, benefits and alternatives were reviewed. Questions regarding anesthesia were answered. Patient and/or legal sales and marketing representative knows such anesthetics and procedures may be performed by Resident physicians, Certified Anesthesiologist Assistants, or Certified Nurse Anesthetists under the supervision of a physician. The patient /or the patient's legal sales and marketing representative agree with the plan for anesthesia. MHPATFORM Normal The [facility] Anesthesia Transfer Of Careo n 06-07-2024 [employer] Outreach Specialist Authentication Interface Message Text Patient taken to [...] Black DMD, MD Anesthesiologist: Washington Anderson MD CONTAMINATION CONSULTANT: Dariusz Anderson APRN-JODEE Anesthesia Student: Benton [...] report was received. ANDREA Torres Normal [facility] [employer] [facility] Blood Attestationon 06-07-20 [employer] Outreach Specialist Authentication Interface Message Text Blood Attestation: ATTESTATION OF INFORMED CONSENT FOR BLOOD: The transfusion of blood and/or blood components were discussed with the patient and/or legal sales and marketing representative. The risks, benefits and alternatives were reviewed. Questions regarding blood transfusions were answered. The patient /or the patient's legal sales and marketing representative agree with the plan for transfusion of blood and/or blood components. 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 PREOPERATIVE DIAGNOSIS: Caries (Primary Diagnosis) [791569] Pain following oral surgery [[id number]] ? POSTOPERATIVE DIAGNOSIS: Caries (Primary Diagnosis) [882217] Pain following oral surgery [[id number]] OPERATION: EXTRACTION ERUPTED TOOTH/EXR [D7140] ALVEOPLASTY W/ [...] ? Karthik Black DMD, MD Normal [facility] [employer] [facility] Telephone Encounteron 2023 [employer] Outreach Specialist Authentication Interface Message Text Situation: Caller states [...] understanding. No further questions. Information obtained from, [email or web address]/ Nichole Aguila RN, RN Normal [facility] [employer] [facility] URINE HCG-IN OFFICEOrdered B y: William Mcguiremicaela on 06-07-2024 HCG ( test) Ql (U) Negative Negative [facility] Interpretation and review of laboratory results Normal [facility] Negative Internal Control Negative Negative [facility] Positive Internal Control Positive Positive [facility] PAT Call Historyon [employer] Outreach Specialist Authentication Interface Message Text Telephone History Nick Bean, [id number] 05/20/2024 Patient was identified by name and [...] caries Endo (+) diabetes mellitus gestational, 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 Normal [facility] [employer] [facility] Progress Noteson 03-10-2024 [employer] Outreach Specialist Authentication Interface Message Text [facility] PATIENT VISIT CHIEF COMPLAINT: Toothache HISTORY OF PRESENT ILLNESS: Patient is a 33yoF with pmhx sig for obesity and severe procedural anxiety who presents to the [facility] clinic as a referral from her general [...] lower teeth and alveoplasty under GA at [facility] in preparation for complete dentures. Patient said [...] mandibular teeth and alveoplasty under GA at [facility] Karthik Black DMD, MD Normal [facility] [employer] [facility] [employer] Outreach Specialist Authentication Interface Message Text Normal [facility] [employer] [facility] CBC AND AUTO DIFFon 12-06-19 24 ABSOLUTE BASOPHIL 0.0 X10E9/L Normal 0.0-0.2 [facility] Comment on above: Performed By: #### C HELADIO, CBCA, , , THYR #### [facility] ([id number]) [address] [place] [address] 29504 ABSOLUTE NEUTROPHIL 6.0 X10E9/L Normal 1.5-6.6 [facility] Comment on above: Performed By: #### C MP, CBCA, , , THYR #### [facility] ([id number]) [address] [place] [address] 77732 Basophils/100 WBC (Bld) 0.4 % Normal [facility] Comment on above: Performed By: #### C MP, CBCA, , , THYR #### [facility] ([id number]) [address] [place] [address] 66581 Eosinophils (Bld) [#/Vol] 0.1 10*3/uL Normal 0.0-0.4 [facility] Comment on above: Performed By: #### C MP, CBCA, , 31718-3, THYR #### [facility] ([id number]) [address] [place] [address] 94832 Eosinophils/100 WBC (Bld) 1.0 % Normal [facility] Comment on above: Performed By: #### C MP, CBCA, , , THYR #### [facility] ([id number]) [address] [place] [address] 63922 Erythrocyte distribution width (RBC) [Ratio] 13.7 % Normal 11.5-15.0 [facility] Comment on above: Performed By: #### C MP, CBCA, , , THYR #### [facility] ([id number]) [address] [place] [address] 49658 Hematocrit (Bld) [Volume fraction] 37.3 % Normal 35-47 [facility] Comment on above: Performed By: #### C MP, CBCA, , , THYR #### [facility] ([id number]) [address] [place] [address] 27340 Hemoglobin (Bld) [Mass/Vol] 12.8 g/dL Normal 11.7-15.5 [facility] Comment on above: Performed By: #### C MP, CBCA, , 15046-8, THYR #### [facility] ([id number]) [address] [place] [address] 17240 Lymphocytes (Bld) [#/Vol] 1.5 10*3/uL Normal 1.0-3.5 [facility] Comment on above: Performed By: #### C MP, CBCA, , 28124-1, THYR #### [facility] ([id number]) [address] [place] [address] 17857 Lymphocytes/100 WBC (Bld) 18.8 % Normal [facility] Comment on above: Performed By: #### C MP, CBCA, 09228-7, 54033-1, THYR #### [facility] ([id number]) [address] [place] [address] 45629 MCH (RBC) [Entitic mass] 30.5 pg Normal 27-34 [facility] Comment on above: Performed By: #### C MP, CBCA, , 58843-4, THYR #### [facility] ([id number]) [address] [place] [address] 05533 MCHC (RBC) [Mass/Vol] 34.2 g/dL Normal 32-36 [facility] Comment on above: Performed By: #### C MP, CBCA, , 45295-0, THYR #### [facility] ([id number]) [address] [place] [address] 59506 MCV (RBC) [Entitic vol] 89 fL Normal 80-100 [facility] Comment on above: Performed By: #### C MP, CBCA, , 91059-3, THYR #### [facility] ([id number]) [address] [place] [address] 61069 Monocytes (Bld) [#/Vol] 0.4 10*3/uL Normal 0-0.9 [facility] Comment on above: Performed By: #### C MP, CBCA, , 89913-4, THYR #### [facility] ([id number]) [address] [place] [address] 58276 Monocytes/100 WBC (Bld) 4.6 % Normal [facility] Comment on above: Performed By: #### C MP, CBCA, , 38227-8, THYR #### [facility] ([id number]) [address] [place] [address] 56039 Neutrophils/100 WBC (Bld) 75.2 % Normal [facility] Comment on above: Performed By: #### C MP, CBCA, , 91571-8, THYR #### [facility] ([id number]) [address] [place] [address] 56632 Platelet mean volume (Bld) [Entitic vol] 7.2 fL Normal 7-12 [facility] Comment on above: Performed By: #### C MP, CBCA, , 78783-3, THYR #### [facility] ([id number]) [address] [place] [address] 16093 Platelets (Bld) [#/Vol] 292 10*3/uL Normal 150-450 [facility] Comment on above: Performed By: #### C MP, CBCA, , 18606-9, THYR #### [facility] ([id number]) [address] [place] [address] 91726 RBC COUNT 4.19 X10E12/L Normal 3.80-5.20 [facility] Comment on above: Performed By: #### C MP, CBCA, , 52254-9, THYR #### [facility] ([id number]) [address] [place] [address] 93433 WBC (Bld) [#/Vol] 7.9 10*3/uL Normal 4.0-11.0 [facility] Comment on above: Performed By: #### C MP, CBCA, , 16271-6, THYR #### [facility] ([id number]) [address] [place] [address] 11122 COMPREHENSIVE METABOLIC PANE Balwinder 12-06-2023 Albumin [Mass/Vol] 4.1 g/dL Normal 3.2-5.3 [facility] Comment on above: Performed By: #### C HELADIO, CBCA, 02341-7, 43842-7, THYR #### [facility] ([id number]) [address] [place] [address] 62890 ALP [Catalytic activity/Vol] 49 U/L Normal 39-130 [facility] Comment on above: Performed By: #### C HELADIO, CBCA, 28101-7, 99421-9, THYR #### [facility] ([id number]) [address] [place] [address] 19304 ALT [Catalytic activity/Vol] 27 U/L Normal 0-31 [facility] Comment on above: Performed By: #### C HELADIO, CBCA, 09628-9, 05710-8, THYR #### [facility] ([id number]) [address] [place] [address] 24499 Anion gap [Moles/Vol] 6 mmol/L Normal 5-15 [facility] Comment on above: Performed By: #### C HELADIO, CBCA, 80008-4, 05124-7, THYR #### [facility] ([id number]) [address] [place] [address] 91673 AST [Catalytic activity/Vol] 28 U/L Normal 0-41 [facility] Comment on above: Performed By: #### C HELADIO, CBCA, 79611-5, 21370-2, THYR #### [facility] ([id number]) [address] [place] [address] 71442 Bilirubin [Mass/Vol] 0.7 mg/dL Normal 0.3-1.2 [facility] Comment on above: Performed By: #### C HELADIO, CBCA, 71902-3, 28136-0, THYR #### [facility] ([id number]) [address] [place] [address] 57506 Calcium [Mass/Vol] 8.6 mg/dL Normal 8.5-10.5 [facility] Comment on above: Performed By: #### C ZURI LEIJA, , , THYR #### [facility] ([id number]) [address] [place] [address] 99351 Chloride [Moles/Vol] 105 mmol/L Normal 98-109 [facility] Comment on above: Performed By: #### C HELADIO, ZURI, , , THYR #### [facility] ([id number]) [address] [place] [address] 64452 CO2 [Moles/Vol] 25 mmol/L Normal 22-32 [facility] Comment on above: Performed By: #### C ZURI LEIJA, , , THYR #### [facility] ([id number]) [address] [place] [address] 21998 Creatinine [Mass/Vol] 0.65 mg/dL Normal 0.40-1.00 [facility] Comment on above: Result Comment: METH OD TRACEABLE TO IDMS STANDARD Performed By: #### C ZURI LEIJA, , , THYR #### [facility] ([id number]) [address] [place] [address] 99795 eGFR (CKD-EPI) NON-RACE DEPENDENT >90 Normal >59 [facility] Comment on above: Result Comment: Reported eGFR is based on the CKD-EPI 2020 equation that does not use a race coefficient. Performed By: #### C ZURI LEIJA, , , THYR #### [facility] ([id number]) [address] [place] [address] 36951 Glucose [Mass/Vol] 134 mg/dL High 65-99 [facility] Comment on above: Performed By: #### C ZURI LEIJA, , 92540-0, THYR #### [facility] ([id number]) [address] [place] [address] 13009 Potassium [Moles/Vol] 3.5 mmol/L Normal 3.5-5.0 [facility] Comment on above: Performed By: #### C HELADIO, CBCA, , 47479-5, THYR #### [facility] ([id number]) [address] [place] [address] 85754 Protein [Mass/Vol] 7.2 g/dL Normal 6.0-8.0 [facility] Comment on above: Performed By: #### C HELADIO, CBCA, , 02410-5, THYR #### [facility] ([id number]) [address] [place] [address] 28024 Sodium [Moles/Vol] 136 mmol/L Normal 134-146 [facility] Comment on above: Performed By: #### C HELADIO, CBCA, , 33660-1, THYR #### [facility] ([id number]) [address] [place] [address] 74070 Urea nitrogen [Mass/Vol] 14 mg/dL Normal 5-23 [facility] Comment on above: Performed By: #### C HELADIO, CBCA, , 17878-4, THYR #### [facility] ([id number]) [address] [place] [address] 18417 HCG ( test) Ql (U)o n 12-06-2023 Beta HCG ( test) Ql (U) Negative Normal NEG [facility] Comment on above: Performed By: #### 2 106-3 #### [facility] ([id number]) [address] [place] [address] 29233 MAGNESIUMon 12-06-2023 Magnesium [Mass/Vol] 2.2 mg/dL Normal 1.8-2.6 [facility] Comment on above: Performed By: #### C HELADIO, CBCA, , 42374-8, THYR #### [facility] ([id number]) [address] [place] [address] 37540 THYROID PROFILEon 12-06-2023 Free T4 [Mass/Vol] 1.02 ng/dL Normal 0.61-1.60 [facility] Comment on above: Performed By: #### C MP, CBCA, , , THYR #### [facility] ([id number]) [address] [place] [address] 38192 TSH 1.19 uIU/mL Normal 0.49-4.67 [facility] Comment on above: Performed By: #### C HELADIO, CBCA, , , THYR #### [facility] ([id number]) [address] [place] [address] 22952 TROPONIN Ion 12-06-2023 Troponin I.cardiac [Mass/Vol] ng/mL Normal 0.00-0.04 [facility] Comment on above: Performed By: #### C MP, CBCA, , 82579-4, THYR #### [facility] ([id number]) [address] [place] [address] 19047 URN MACROSCOPIC NURon 2023 BILIRUBIN LORRIE Negative Normal NEG [facility] Comment on above: Performed By: #### N UM #### [facility] ([id number]) [address] [place] [address] 29406 BLOOD/HGB LORRIE Negative Normal NEG [facility] Comment on above: Performed By: #### N UM #### [facility] ([id number]) [address] [place] [address] 35159 GLUCOSE [place]RIE Negative Normal NEG [facility] Comment on above: Performed By: #### N UM #### [facility] ([id number]) [address] [place] [address] 09405 KETONES LORRIE Negative Normal NEG [facility] Comment on above: Performed By: #### N UM #### [facility] ([id number]) [address] [place] [address] 62299 LEUKOCYTE ESTERASE LORRIE Negative Normal NEG [facility] Comment on above: Performed By: #### N UM #### [facility] ([id number]) [address] [place] [address] 79629 NITRITE [place]RIE Negative Normal NEG [facility] Comment on above: Performed By: #### N UM #### [facility] ([id number]) [address] [place] [address] 39967 PH LORRIE 7.5 Normal 5.0-8.5 [facility] Comment on above: Performed By: #### N UM #### [facility] ([id number]) [address] [place] [address] 92874 PROTEIN [place]E Negative Normal NEG [facility] Comment on above: Performed By: #### N UM #### [facility] ([id number]) [address] [place] [address] 18406 SPECIFIC GRAVITY LORRIE 1.020 Normal 1.003-1.035 [facility] Comment on above: Performed By: #### N UM #### [facility] ([id number]) [address] [place] [address] [place] [address] UROBILINOGEN LORRIE 0.2 eu/dL Normal <1.1 [facility] Comment on above: Performed By: #### N UM #### [facility] ([id number]) [address] [place] [address] 54285 Urinalysis - AUTOMATEDon Appearance (U) clear [employer] Other Bilirubin Ql (U) Negative [employer] Other Color (U) yellow [facility] Other Glucose Ql (U) Negative [employer] Other Hemoglobin Ql (U) Negative [employer] Other Ketones Ql (U) Negative [employer] Other Leukocyte esterase Test strip Ql (U) Negative [facility] Other Nitrite Ql (U) Negative [employer] Other pH (U) 7.0 [pH] [facility] Other Protein Ql (U) Negative [employer] Other Specific gravity (U) [Rel density] 1.025 [facility] Other Urobilinogen (U) [Mass/Vol] 0.2 mg/dL [facility] Other Urinalysis - AUTOMATED [facility] Other Urine Cultureon 11-12-2023 Bacteria identified Cx Nom (U) Reason for Exam Dysuria Urine Reason for Exam: Dysuria : Urine 50,000 colonies/ml mixed bacterial skin contaminants 2 Days PERFORMED BY: [place] [address] PATHOLOGIST SWIMMING POOL CLEANER TREE CROWDER M.D. Normal [facility] Comment on above: Performed By: #### C UU #### [address] Vital Signs Date Time Vital Sign Value Performing Clinician Facility 06-14-2024 17:56-0400 Body height 165.1 cm [facility] 06-14-2024 17:56-0400 Body mass index (BMI) [Ratio] 43.2 kg/m2 [facility] 06-14-2024 17:56-0400 Body temperature 98.8 [degF] [facility] 06-14-2024 17:56-0400 Body weight 117.93 kg [facility] 06-14-2024 17:56-0400 Diastolic blood pressure 86 mm[Hg] [facility] 06-14-2024 17:56-0400 Heart rate 68 /min [facility] 06-14-2024 17:56-0400 SaO2% (BldA) [Mass fraction] 99 % [facility] 06-14-2024 17:56-0400 Systolic blood pressure 127 mm[Hg] [facility] 06-07-2024 15:22-0400 Body temperature 98.01 [degF] Karthik Black DMD, MD Work Phone: [facility] 06-07-2024 15:22-0400 Diastolic blood pressure 68 mm[Hg] Karthik Black DMD, MD Work Phone: [facility] 06-07-2024 15:22-0400 Heart rate 73 /min Karthik Black DMD, MD Work Phone: [facility] 06-07-2024 15:22-0400 Respiratory rate 16 /min Karthik Black DMD, MD Work Phone: [facility] 06-07-2024 15:22-0400 SaO2% (BldA) [Mass fraction] 96 % Karthik Black DMD, MD Work Phone: [facility] 06-07-2024 15:22-0400 Systolic blood pressure 126 mm[Hg] Karthik Black DMD, MD Work Phone: [facility] 05-20-2024 12:59-0400 Body height 165.1 cm Kizzy Maurice RN [facility] 05-20-2024 12:59-0400 Body mass index (BMI) [Ratio] 44.93 kg/m2 Kizzy Maurice RN [facility] 05-20-2024 12:59-0400 Body weight 122.47 kg Kizzy Maurice RN [facility] 11-12-2023 18:25-0500 Body height 165.1 cm Abigail Vijaya Other [facility] Other 11-12-2023 18:25-0500 Body mass index (BMI) [Ratio] 44.43 kg/m2 Abigail Vijaya Other [facility] Other 11-12-2023 18:25-0500 Body temperature 98.2 [degF] Abigail Vijaya Other [facility] Other 11-12-2023 18:25-0500 Body weight 121.11 kg Abigail Vijaya Other [facility] Other 11-12-2023 18:25-0500 Respiratory rate 18 /min Abigail Vijaya Other [facility] Other 11-12-2023 18:25-0500 SaO2% (BldA) [Mass fraction] 98 % Abigail Vijaya Other [facility] Other 07-12-2023 13:30-0400 Body height 165.1 cm Mikki Cecilia Other [facility] Other 07-12-2023 13:30-0400 Body mass index (BMI) [Ratio] 45.92 kg/m2 Mikki Cecilia Other [facility] Other 07-12-2023 13:30-0400 Body temperature 98.6 [degF] Mikki Cecilia Other [facility] Other 07-12-2023 13:30-0400 Body weight 125.19 kg Mikki Cecilia Other [facility] Other 07-12-2023 13:30-0400 Diastolic blood pressure 85 mm[Hg] Mikki Brooks Other [facility] Other 07-12-2023 13:30-0400 Respiratory rate 18 /min Mikki Brooks Other [facility] Other 07-12-2023 13:30-0400 SaO2% (BldA) [Mass fraction] 99 % Mikki Brooks Other [facility] Other 07-12-2023 13:30-0400 Systolic blood pressure 132 mm[Hg] Mikki Mejiamond Other [facility] Other Encounters Encounter Date Encounter Type Care Provider Facility Start: 06-14-2024 End: 06-14-2024 [facility] [facility] [place] Work Phone: Start: 06-14-2024 End: 06-14-2024 Patient encounter procedure [facility]ly [facility] [place] Work Phone: Start: 06-14-2024 End: 06-14-2024 Patient encounter procedure Karthik Black DMD, MD Work Phone: [facility] Oral Surgery Comment on above: Post-operative state (Primary Dx) Start: 06-14-2024 ambulatory UNKNOWN PROVIDER Facili ty:[facility] Start: 06-07-2024 End: 06-07-2024 Telephone encounter Nichole Aguila RN [facility] Line Comment on above: Advice/health educat ion Start: 06-07-2024 End: 06-07-2024 Anesthesia consultation Washington Anderson MD Work Phone: [facility] Start: 06-07-2024 End: 06-07-2024 ambulatory KARTHIK BLACK Facility:[facility] Start: 06-07-2024 End: 06-07-2024 Subsequent hospital visit by physician Karthik Black DMD, MD Work Phone: [facility] Main OR Comment on above: Caries (Primary Dx); Pain following oral surgery Start: 05-20-2024 End: 05-20-2024 Nursing evaluation of patient and report Kizzy Maurice RN [facility] Pre-Admission Testing Comment on above: Pre-op evaluation (P rimary Dx) Start: 05-20-2024 End: 05-20-2024 Preprocedural examination done Kizzy Maurice RN [facility] Start: 05-20-2024 ambulatory UNKNOWN PROVIDER Facili ty:[facility] Start: 05-20-2024 Encounter for other preprocedural examination UNKNOWN PROVIDER [facility] Start: 05-09-2024 End: 05-09-2024 Letter encounter Karthik Black DMD, MD Work Phone: [facility] Oral Surgery Start: 04-06-2024 End: 04-06-2024 Letter encounter Karthik Black DMD, MD Work Phone: [facility] Oral Surgery Start: 03-10-2024 End: 03-11-2024 Patient encounter procedure Karthik Black DMD, MD Work Phone: [facility] Oral Surgery Comment on above: Caries (Primary Dx) Start: 03-10-2024 End: 03-11-2024 ambulatory KARTHIK BLACK Facility:[facility] Start: 12-31-2023 End: 12-31-2023 Emergency department patient visit [facility] Start: 12-06-2023 End: 12-06-2023 Emergency department patient visit [facility] Start: 11-23-2023 End: 11-24-2023 ambulatory Saeid Pinzon DPQuinten Facility:[facility] Start: 11-12-2023 End: 11-12-2023 Departed Referred VICTORIA Lilly Work Phone: [facility] [place] Work Phone: Start: 11-12-2023 End: 11-12-2023 ambulatory NON STAFF [facility] Other Start: 11-12-2023 Office outpatient vi sit 15 minutes Abigail Lilly [facility] Start: 10-22-2023 End: 10-23-2023 ambulatory Saeid Beth Jeromy DPM Facility:[facility] Start: 10-08-2023 ambulatory Saeid costa DPM Facility:[facility] Start: 10-08-2023 End: 10-08-2023 Patient encounter procedure MUTUEL TELLER Abigail Vijaya Work Phone: [facility] Work Phone: Start: 09-28-2023 ambulatory Saeid costa DPM Facility:[facility] Start: 09-03-2023 End: 09-04-2023 ambulatory Saeid Pinzon DPM Facility:[facility] Start: 07-12-2023 End: 07-12-2023 ambulatory Mikki Brooks Other [facility] Other Start: 07-12-2023 Office outpatient ne w [...] 07-26-2024 Influenza vaccination Influenza Vacc ine (#1) [facility] Start: 06-26-2024 COVID-19 Vaccine ( season) COVID-19 Vaccine ( season) [facility] Start: 06-14-2024 End: 06-14-2024 Patient encounter procedure [facility] Start: 06-10-2024 End: 06-10-2024 Patient encounter procedure 06/10/2024 11:20 AM EDT Office Visit [facility] Oral Surgery [address] [place], [place] [id number] Karthik Black DMD, MD [address] [place], [place] [id number] [facility] Surgery Start: 06-07-2024 End: 06-07-2024 Admission to same day surgery center 06/07/2024 2:13 PM EDT - 06/07/2024 3:21 PM EDT Surgery [facility] [address] [place] [address] Karthik Black DMD, MD [address] [place], [place] [id number] Extraction of all manibular teeth, alveoplasty [facility] Comment on above: Extraction of all ma nibular teeth, alveoplasty Start: 06-07-2024 End: 06-07-2024 EXTRACTION, TOOTH EXTRACTION, TOOTH Routine scheduled Caries 06/07/2024 2:13 PM EDT [facility] Start: 06-07-2024 Subsequent hospital visit by physician 06/07/2024 2:13 PM EDT Hospital Encounter [facility] [address] [place], [place] [id number] Karthik Black DMD, MD [address] [place] [address] [facility] Start: 06-07-2024 End: 06-07-2024 EXTRACTION, TOOTH EXTRACTION, TOOTH Routine scheduled Caries 06/07/2024 12:51 PM EDT [facility] Start: 06-03-2024 End: 06-03-2024 Admission to same day surgery center 06/03/2024 10:58 AM EDT - 06/03/2024 12:06 PM EDT Surgery [facility] [address] [place] [address] Karthik Black DMD, MD [address] [place] [id number] Extraction of all manibular teeth, alveoplasty [facility] Comment on above: Extraction of all ma nibular teeth, alveoplasty Start: 06-03-2024 End: 06-03-2024 EXTRACTION, TOOTH EXTRACTION, TOOTH Routine scheduled Caries 06/03/2024 10:58 AM EDT [facility] Start: 06-03-2024 Subsequent hospital visit by physician 06/03/2024 10:58 AM EDT Hospital Encounter [facility] [address] [place] [address] Karthik Black DMD, MD [address] [place] [id number] [facility] Start: 05-20-2024 End: 05-20-2024 Nursing evaluation of patient and report 05/20/2024 1:00 PM EDT Nurse Visit [facility] Pre-Admission Testing [address] [place] [address] Kizzy Maurice RN [address] [place] [address] [facility] Pre-Admission Testing Start: 11-23-2023 Hemoglobin A1c measurement Hemoglobin A1C [facility] Start: 11-12-2023 Bacteria identified in Urine by Culture [facility] Start: 06-26-2023 COVID-19 Vaccine ( season) [...] COVID-19 Vaccine (#1) COVID-19 Vacci ne (#1) [facility] Start: 1988 Glaucoma screening Eye Exam [facility] Start: 1988 Hemoglobin A1c measurement Hemoglobin A1C [facility] Start: 1988 Lipid panel Lipid Profile [facility] Start: 1988 Urine screening for protein [facility] Start: 1988 Diabetic foot examination [facility] Start: 1988 Hepatitis B vaccination Hepati tis B (HBV) Vaccine (1 of 3 - 3-dose series) [facility] Start: 1988 Screening for malign ant neoplasm of breast [facility] alveoloplasty in conjunction with extractions - four or more teeth or tooth spaces, per quadrant ALVEOPLASTY W/ EXTRACTION Procedures Routine Caries Ordered: 06/07/2024 [facility] Comment on above: Ordered: 06/07/2024 extraction, erupted tooth or exposed root (elevation and/or forceps removal) EXTRACTION ERUPTED TOOTH/EXR Procedures Routine Caries Ordered: 06/07/2024 [facility] Work Phone: Comment on above: Ordered: 06/07/2024 EXTRACTION, TOOTH EXTRACTION, TO OTH Routine scheduled Caries [facility] Immunizations Immunization Date Immunization Notes Care Provider Griffin calvin 11-26-2023 influenza, injectabl e, quadrivalent, preservative free Karthik Black DMD, MD Work Phone: [facility] 11-26-2023 influenza virus vacc ine, unspecified formulation Karthik Black DMD, MD Work Phone: [facility] 05-23-2023 Hemoglobin A1C Kizzy Maurice RN [facility] 05-18-2023 tetanus toxoid, redu edvin diphtheria toxoid, and acellular pertussis vaccine, adsorbed Karthik Black DMD, MD Work Phone: [facility] Payers Date Payer Category Payer Self-pay 2022 Medicaid [id number] 2022 Unknown 2022 Medicaid [id number] 2. [id number] 1988 Unknown [id number] 2.16. [id number] 1988 Unknown [id number] 2.16. [id number] 1988 Unknown [id number] 2.16. [id number] 1988 Unknown [id number] 2.16. [id number] 1988 Unknown [id number] 2.16. [id number] 1988 Unknown [id number] 2.16.8 40.1.692265.3.579.2.1286 1988 Unknown [id number] 2.16.8 40.1.808326.3.579.2.1286 1988 Unknown [id number] 2.16. [id number] 1988 Unknown [id number] 2.16. 840.1.229504.3.579.2.73 1988 Unknown [id number] 2.16. [id number] 1988 Unknown [id number] 2.16. [id number] Unknown [id number] 2.16.8 [id number] Social History Date Type Detail Facility Unknown if ever smoked [facility] Other Start: 03-09-2024 End: 05-20-2024 Sex Assigned At [facility] Start: 1990 Sex Assigned At Female [facility] Tobacco smoking stat [facility] Tobacco smoking consumption unknown [facility] Start: 03-09-2024 End: 05-20-2024 History of Social function [facility] In the past 12 month s has the electric, gas, oil, or water [employer] threatened to shut off services in your [...] Original Text Equi pment Identifier Dates Drug [employer] Unifin e Pentips Plus 32G X 4 [...] 11:10 AM Modules accepted: Level of Service [facility] 06-28-2024 Miscellaneous Notes Addended by: KARTHIK BLACK on: 06/28/2024 11:10 AM Modules accepted: Level of Service documented in this encounter [facility] 06-14-2024 History of Presen t illness Narrative [...] stated she lives 1.5 hours away from [facility]. Assessment / Diagnosis: Normal postoperative course. Healing as expected. Plan: Follow-Up: PRN Follow up sooner with new or worsening symptoms. documented in this encounter [facility] 06-14-2024 History of Presen t illness Narrative [...] stated she lives 1.5 hours away from [facility]. Assessment / Diagnosis: Normal postoperative course. Healing as expected. Plan: Follow-Up: PRN Follow up sooner with new or worsening symptoms. documented in this encounter [facility] 06-09-2024 Telephone encounter Note Symptoms - white bumps along the gum line, pt has concerns that she needs a nurse to call and discuss with her [facility] 06-09-2024 Miscellaneous Notes Symptoms - white bumps along the gum line, pt has concerns that she needs a nurse to call and discuss with her Situation: Patient is calling back previously triaged for another issue Background: Patient states she has white bumps along the gum line where the teeth were extracted. Assessment: Pls call pt @ [phone] to discuss & advise Recommendation: Pls advise [...] understanding. No further questions. Information obtained from, https://www.[employer]com/ /ysb-no-tvj-rid-of-n jczjxwd-ytaif-qxqtwpzt-the-amberly harman/ Nichole Aguila RN, RN documented in this encounter [facility] 06-09-2024 Telephone encounter Note Situation: Patient is calling back previously triaged for another issue Background: Patient states she has white bumps along the gum line where the teeth were extracted. Assessment: Pls call pt @ [phone] to discuss & advise Recommendation: Pls advise Thank you [facility] 06-09-2024 Miscellaneous Notes Situation: Patient is calling back previously triaged for another issue Background: Patient states she has bumps along the gum line where the teeth were extracted Assessment: Pls call pt @ [phone] to discuss & advise Recommendation: Pls advise [...] understanding. No further questions. Information obtained from, https://www.[employer]com/ /cef-np-dwo-rid-of-n ttlinwi-wvcdd-iflzzsod-the-amberly harman/ Nichole Aguila RN, RN documented in this encounter [facility] 06-07-2024 Telephone encounter Note Situation: Caller [...] understanding. No further questions. Information obtained from, https://www.[employer]/ /gzt-ps-jty-rid-of-n etcgdll-wryvp-xrfrtvqz-the-amberly harman/ Nichole Aguila RN, RN [facility] 06-07-2024 Miscellaneous Notes Situation: Caller states [...] understanding. No further questions. Information obtained from, https://www.[employer]/ /mia-gl-gal-rid-of-n dtslhgg-kgamc-ymwznrgl-the-amberly harman/ Nichole Aguila RN, RN documented in this encounter [facility] 06-07-2024 Note Formatting of this n ote is different from the original. Addendum created 06/07/24 1531 by Dariusz Anderson APRN-CONTAMINATION CONSULTANT Flowsheet accepted, Intraprocedure Flowsheets edited [employer] Work Phone: 06-07-2024 Note Addendum created 1530 by Dariusz Anderson APRN-CRNA Flowsheet accepted, Intraprocedure Flowsheets edited [employer] 06-07-2024 Miscellaneous Notes Addendum created 06/07/241530 [...] Black DMD, MD Anesthesiologist: Washington Anderson MD CONTAMINATION CONSULTANT: Dariusz Anderson APRN-CRNA Anesthesia Student: Benton [...] received. ANDREA Torres documented in this encounter [facility] 06-07-2024 Procedure anesthe catie Narrative Procedure [...] vital signs immediately prior to induction. SHAHNAZ TorresCONTAMINATION CONSULTANT 1321 An Induction 1324 An Intubation 1328 [...] Dariusz Anderson APRN-CRNA documented in this encounter [id number] Anesthesiology Postoperative evaluation and management note* Anesthesia [...] ANESTHESIA NOTABLE EVENTS: No notable events documented. 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 The risks, benefitsand alternatives were reviewed. Questions regarding anesthesia were answered. Patient and/or legal sales and marketing representative knows such anesthetics and procedures may be performed by Resident physicians, Certified Anesthesiologist Assistants, or Certified Nurse Anesthetists under the supervision of a physician. The patient /or the patient s legal sales and marketing representative agree with the plan for anesthesia. [employer] documented in this [id number] Anesthesiology Postoperative evaluation and management note* Anesthesia [...] Black DMD, MD Anesthesiologist: Washington Anderson MD CONTAMINATION CONSULTANT: Dariusz Anderson APRN-CRNA Anesthesia Student: Benton [...] of the report was received. 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 PREOPERATIVE DIAGNOSIS: Caries (Primary Diagnosis) [804620] Pain following oral surgery [[id number]] ? POSTOPERATIVE DIAGNOSIS: Caries (Primary Diagnosis) [[id number]] Pain following oral surgery [[id number]] OPERATION: EXTRACTION ERUPTED TOOTH/EXR [D7140] ALVEOPLASTY W/ [...] and transferred onto the operating room tableunder [employer]. The patient was then placed in [...] of the procedure. ? ? ? 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 [address] OPERATIVE NOTE Name: Nick Bean MR#: [id number] ENC#: Data Unavailable Surgical Case #: Data Unavailable Date of Procedure: 06/07/2024 ? PREOPERATIVE DIAGNOSIS: Caries (Primary Diagnosis) [[id number]] Pain following oral surgery [[id number]] ? POSTOPERATIVE DIAGNOSIS: Caries (Primary Diagnosis) [306497] Pain following oral surgery [[id number]] OPERATION: EXTRACTION ERUPTED TOOTH/EXR [D7140] ALVEOPLASTY W/ [...] and transferred onto the operating room tableunder [employer]. The patient was then placed in the [...] were discussed with the patient and/or legal sales and marketing representative. The risks, benefits and alternatives were reviewed. Questions regarding blood transfusions were answered. The patient /or the patient s legal sales and marketing representative agree with the plan for transfusion of blood and/or blood components. documented in this [id number] Hospital Discharge instructions* Discharge Instructions* Rosalba Narayanan [...] done to speak with an oral surgeon. [facility] [phone]. HELPING THE HEALING PROCESS AND STOPPING THE [...] any questions or concerns please contact us: [facility] . Ask for the behavioral health care coordinator patient relations representative (after hours). assistant professor of surgery Clinic Hours: Mon-Fri 8:30 am to 4:30 pm. PERIOPERATIVE DISCHARGE/HOME-GOING INSTRUCTIONS ANESTHESIA - GENERAL (ADULT) If a problem arises, you may contact your physician by calling [phone] and asking for the resident patient relations representative for Oral Surgery Service. Special Care Needs: [...] very uncomfortable and can t urinate, call [phone] or cometo the emergency room. The day [...] less likely. For more informati on visit: http://[facility].org/services/mmoh-fiwkzm-ev-your-health/a-matte n-dx-usppjwj/ Some medications or combinations of medications can [...] and treated if needed documented in this [id number] NoteSurgical Attestation: I have reviewed the patient's History and Physical Examination. I have personally seen and evaluated the patient, repeating witt portions. There is no significant interval change. Surgery is still indicated. Yes Consent reviewed and signed by patient/family: Yes Operative site verified and marked: Yes Alexis Chow [facility] [id number] Progress note* Blood Attestation - Washington Anderson MD - 06/07/2024 12:19 PM EDT Blood Attestation: ATTESTATION OF INFORMED CONSENT FOR BLOOD: The transfusion of blood and/or blood components were discussed with the patient and/or legal sales and marketing representative. The risks, benefits and alternatives were reviewed. Questions regarding blood transfusions were answered. The patient /or the patient s legal sales and marketing representative agree with the plan for transfusion of blood and/or blood components. 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 The risks, benefitsand alternatives were reviewed. Questions regarding anesthesia were answered. Patient and/or legal sales and marketing representative knows such anesthetics and procedures may be performed by Resident physicians, Certified Anesthesiologist Assistants, or Certified Nurse Anesthetists under the supervision of a physician. The patient /or the patient s legal sales and marketing representative agree with the plan for anesthesia. MHPATFORM [id number] Instructions* Discharge Instructions* Kizzy Maurice RN - [...] to surgery arrival time Need to have pick up and delivery driver Patients whose assigned sex at was [...] adult to drive you home. A cab, [employer] or other transportation motor bus driver cannot be responsible for you. A responsible adult should stay with you for 24 hours after surgery. Your surgery will be cancelled if you do not have a ride home. * If you have sleep apnea and are staying overnight in the hospital, please bring your sleep apnea machine and mask. documented in this [id number] Evaluation note* PAT Call History - Kizzy Maurice RN - 05/20/2024 1:01 PM EDT Images from the original note were not included. 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 05-17-2024 Neuro/Psych (+) depression, anxiety/panic [...] min Stress: No Stress Concern Present (03/09/2024) [employer]ational Health - Occupational Stress Questionnaire Feeling of Stress : Only a little Social Connections: Moderately Isolated (03/09/2024) Social Connection and Isolation Panel [NHANES] Frequency of Communication with Friends and Family: More than three times a week Frequency of Social Gatherings with Friends and Family: Three times a week Attends Adventism Services: Never Active Member of Clubs or [...] CHEST AP OR PA 1 VIEW Order: [id number] Narrative Single view chest History:Dyspnea Difficulty breathing, [...] to surgery arrival time Need to have pick up and delivery driver Patients whose assigned sex at was [...] Spent Performing this Telephone History: 15 mins [id number] Miscellaneous Notes* PAT Call History - Kizzy Maurice RN - 05/20/2024 1:01 PM EDT Images from the original note were not included. 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 Neuro/Psych (+) depression, anxiety/panic [...] min Stress: No Stress Concern Present (03/09/2024) [employer] Occupational Health - Occupational Stress Questionnaire Feeling of Stress : Only a little Social Connections: Moderately Isolated (03/09/2024) Social Connection and Isolation Panel [NHANES] Frequency of Communication with Friends and Family: More than three times a week Frequency of Social Gatherings with Friends and Family: Three times a week Attends Adventism Services: Never Active Member of Clubs or [...] CHEST AP OR PA 1 VIEW Order: [id number] Narrative Single view chest History:Dyspnea Difficulty breathing, [...] to surgery arrival time Need to have pick up and delivery driver Patients whose assigned sex at was [...] Telephone History: 15 mins documented in this [id number] History of Present illness Narrative* Karthik Black DMD, MD - 03/10/2024 1:33 PM EDT [facility] PATIENT VISIT CHIEF COMPLAINT: Toothache HISTORY OF PRESENT ILLNESS: Patient is a 33yoF with pmhx sig for obesity and severe procedural anxiety who presents to the [facility] clinic as a referral from her general [...] remaininglower teeth and alveoplasty under GA at [facility] in preparation for complete dentures. Patient said [...] mandibular teeth and alveoplasty under GA at [facility] Karthik Black DMD, MD * Maryana Pérez - 03/10/2024 10:25 AM EDT Images from the original note were not included. documented in this [id number] History of Present illness Narrative* Karthik Black DMD, MD - 03/10/2024 1:33 PM EDT [facility] PATIENT VISIT CHIEF COMPLAINT: Toothache HISTORY OF PRESENT ILLNESS: Patient is a 33yoF with pmhx sig for obesity and severe procedural anxiety who [facility] [facility] as a referral from her general [...] remaininglower teeth and alveoplasty under GA at [facility] in preparation for complete dentures. Patient said [...] mandibular teeth and alveoplasty under GA at [facility] Karthik Black DMD, MD * Maryana Pérez - 03/10/2024 10:25 AM EDT Images from the original note were not included. documented in this [id number] Evaluation note* Encounter Date Diagnosis Assessment Notes [...] up with her PCP is symptoms persist. [facility] Other 12-28-2023 NoteThis is a Telephone Appointment *This visit was conducted by Telephone with real time communicationand interaction. The patient provided written consent for treatment. The patient understands their rights, the HIPAA risks and that they will be charged accordingly for the services rendered. This visit was held via telephone within the [facility] while they were at: At their home in [place]. This telephone visit was conducted due to: [...] possibly discuss surgical intervention. She lives in [place] and as long as she is not [...] Panic disorder PTSD - (more content not included)...[facility]11-09-2023 NoteChief Complaint New patient left ankle pain and neuritic symptoms, referral from Alisia Gusman Physician assistant family teacher History of Present Illness Patient presents today [...] past. Patient relates that they have tried [id number] pain relievers, padding, and modification of shoe [...] pain. She was referred here by the [facility] reconstruction Bruni Alisia Gusman for evaluation of nerve entrapment. [...] bilateral. Protective sensation intact as measured with [place] Yady Monofilament Gross motor intact bilateral. Achilles [...] for possible ganglion cyst. (more content not included)...[facility]09-17-2023 Evaluation note* Encounter Date Diagnosis Assessment Notes Treatment Notes Treatment Clinical Notes Jun, Left foot pain (ICD-10 - M79.672) Foot pain home care material was printed Continue home medications as prescribed. Stop wearing the ankle brace and to you follow-up with your oracle iam consultant. Call your oracle iam consultant tomorrow for an appointment for recheck. Ice and elevate your foot 2-3 times a day. Take your naproxen for pain. No x-rays were done at this visit. The patient had x-rays done by her oracle iam consultant 5 days ago. She denies any recent injuries or falls especially since the last x-rays. Patient is instructed to follow-up with her oracle iam consultant for evaluation of this foot pain. [facility] Other Evaluation noteNo assessment information available [facility] Work Phone: Evaluation note* Diagnosis Caries- Primary [...] History Anxiety Surgical History C section x2 [facility] Other History general Narrative - Reported* Type Description Date Medical History Diabetes Medical History Depression Medical History Anxiety Surgical History C section x2 Hospitalization History See Above [facility] Other Chief Complaint and Reason for Visit [...] W/ EXTRACTION Karthik Black DMD, MD [address] [place] [address] Referral ID Status Reason Start Date Expiration Date V isits Requested Visits Authorized [id number] Pending Review 06/07/2024 06/07/2025 3 3 Specialty Diagnoses / Procedures Referred By Contac t Referred To Contact Diagnoses Caries Procedures EXTRACTION ERUPTED TOOTH/EXR Karthik Black DMD, MD [address] [place], [place] [id number] Referral ID Status Reason Start Date Expiration Date V isits Requested Visits Authorized [id number] Pending Review 06/07/2024 06/07/2025 3 3 Specialty Diagnoses / Procedures Referred By Contac t Referred To Contact Oral Surgery Diagnoses Caries Procedures EXTRACTION ERUPTED TOOTH/EXR DEEP ANESTHESIA, 1ST 15 MINS GENERAL ANESTH EA ADDL 15 MIN Karthik Black DMD, MD [address] [place] [address] [facility] [address] [id number] Phone: [phone] Referral ID Status Reason Start Date Expiration Date V isits Requested Visits Authorized [id number] Pending Review 03/10/2024 03/10/2025 1 1 Scheduling [...] your procedure, you will be contacted with [id number] costs or next steps. All self-pay payments [...] the procedure: You also MUST have a pick up and delivery driver/escort >18yrs old present to take you [...] Anesthesiology Diagnoses Caries Karthik Black DMD, MD [address] [place] [address] [facility] PRE ADMISSION TESTING [address] [place] [address] Referral ID Status Reason Start Date Expiration Date V isits Requested Visits Authorized [id number] Authorized 03/10/2024 03/10/2025 1 1 Scheduling Instructions [...] manibular teeth, alveoplasty Karthik Black DMD, MD [address] [place] [address] [facility] [address] [place] [id number] Phone: [phone] Referral ID Status Reason Start Date Expiration Date Visits Re quested Visits Authorized [id number] 3 3 Reason Onset Date Comments Advice/health education 06/07/2024 Care Teams (unrecognized sec tion and content) Team Status: Inactive Member Role Status Dates Delmis Mccartney APRN Attending Provider Active Start: October 08, 2023 End: October 08, 2023 Team Status: Inactive Member Role Status Dates Abigail Lilly APRN Attending Provider Active S tart: November 12, 2023 End: November 12, 2023 Biophysics Professor Relationship Specialty Start Date End Date Karthik Black DMD, MD [address] [place] [id number] Physician Oral & Maxillofacial Surgery 03/26/24 Biophysics Professor Relationship Specialty Start Date End Date Karthik Black DMD, MD [address] [place], [place] [id number] Physician Oral & Maxillofacial Surgery 03/26/24 Biophysics Professor Relationship Specialty Start Date End Date Karthik Black DMD, MD [address] [place], [place] [id number] Physician Oral & Maxillofacial Surgery 03/26/24 Biophysics Professor Relationship Specialty Start Date End Date Karthik Black DMD, MD [address] [place] [address] Physician Oral & Maxillofacial Surgery 03/26/24 Biophysics Professor Relationship Specialty Start Date End Date Karthik Black DMD, MD [address] [place] [address] Physician Oral & Maxillofacial Surgery 03/26/24 Biophysics Professor Relationship Specialty Start Date End Date Karthik Black DMD, MD [address] [place] [address] Physician Oral & Maxillofacial Surgery 03/26/24 Biophysics Professor Relationship Specialty Start Date End Date Karthik Black DMD, MD [address] [place] [id number] Physician Oral & Maxillofacial Surgery 03/26/24 Biophysics Professor Relationship Specialty Start Date End Date Karthik Black DMD, MD [address] [place] [address] Physician Oral & Maxillofacial Surgery 03/26/24 Team Status: Active Member Role Status Dates NON STAFF Primary Care Provider Active Team Status: Inactive Member Role Status Dates NON STAFF Primary Care Provider Active Start: June 14, 2024 End: June 14, 2024 Delmis Mccartney APRN Attending Provider Active Start: June 14, 2024 End: June 14, 2024 Biophysics Professor Relationship Specialty Start Date End Date Karthik Black DMD, MD [address] [place] [address] Physician Oral & Maxillofacial Surgery 03/26/24 Biophysics Professor Relationship Specialty Start Date End Date Karthik Black DMD, MD [address] [place] [address] Physician Oral & Maxillofacial Surgery 03/26/24 Goals (unrecognized section and content) Goals may be documented in a n alternate section INFORMATION SOURCE (unrecogn ized section and content) DATE CREATED AUTHOR 11/24/2023 [facility] DATE CREATED AUTHOR AUTHOR'S ORGANIZ ATION 12/04/2023 [facility] DATE CREATED AUTHOR AUTHOR'S ORGANIZ ATION 01/02/2024 [facility] DATE CREATED AUTHOR AUTHOR'S ORGANIZ ATION 06/29/2024 [employer] [facility] Scheduled Active and Recently Administ ered [...] er: Rosalba Bo RN) lidocaine-epinephrine (XYLOCAINE) 1 %-1:[id number] injection SOLN (CANCELED) PRN, Starting on Thu06/07/24 [...] BE BASED ON THE PRIMARY CLINICAL RECORDS. [facility]. provides no warranty or guarantee of the accuracy or completeness of information in this document.
[2024-07-21 07:23] LABS: Basophils Absolute Auto 0.1 10^3/uL (0.0-0.1); Basophils Percent Auto 0.7 % (0.2-2.0); Eosinophils Absolute Auto 0.1 10^3/uL (0.0-0.7); Eosinophils Percent Auto 1.6 % (0.9-7.0); Hematocrit 37.1 % (36.0-48.0); Hemoglobin 12.4 g/dL (12.0-16.0); Immature Granulocytes Abs Auto 0.01 10^3/uL (0.00-0.03); Immature Granulocytes Pct Auto 0.1 % (0.0-0.5); Lymphocytes Absolute Auto 2.1 10^3/uL (1.2-3.8); Lymphocytes Percent Auto 27.8 % (20.5-60.0); Mean Corpuscular HGB Conc 33.4 g/dL (29.9-35.2); Mean Corpuscular Hemoglobin 30.2 pg (26.7-34.0); Mean Corpuscular Volume 90.5 fL (81.0-99.0); Mean Platelet Volume 9.3 fL (9.5-13.5); Monocytes Absolute Auto 0.5 10^3/uL (0.3-0.8); Monocytes Percent Auto 6.4 % (1.7-12.0); Neutrophils Absolute Auto 4.7 10^3/uL (1.4-6.5); Neutrophils Percent Auto 63.4 % (43.0-75.0); Platelet Count 292 10^3/uL (150-450); Red Cell Distribution Width 13.2 % (11.0-15.0); White Blood Count 7.4 10^3/uL (4.0-11.0)
[2024-07-21 07:36] LABS: HCG Qualitative NEGATIVE (NEGATIVE); Internal Control Within Normal Limits
[2024-07-21] MEDS: LACTATED RINGER'S SOLUTION 1,000 ML 50 ML IV ×2 (07:40→11:05)
[2024-07-21 07:58] LABS: Glucometer 109 mg/dL (74-106)
[2024-07-21] MEDS: CLINDAMYCIN PHOS 900 MG/50 ML D5W PREMIX 100 MG IV (10:19)
--- NOTE | 2024-07-21 10:53 | XR_ITS ---
The [address] [address] Patient Name: NICK BEAN MRN: [id number] date: 1990 Sex: F Assigned Patient Location: [facility] Current Patient Location: Accession/Order Number: [id number] Exam Date: 07/21/2024 12:52 Report Date: 07/22/2024 10:10 At the request of: DARNELL MCKEON Procedure: XR ankle LT min 3V PROCEDURE: XR ankle LT min 3V HISTORY: ankle instability peroneal tear COMPARISON: XR ankle left 06/14/2024 FINDINGS: BONES:No fracture, acute abnormality, or significant arthropathy. Degenerative enthesophyte at Achilles tendon insertion into the calcaneus. SOFT TISSUES:No visible soft tissue swelling. EFFUSION:None visible. OTHER: Negative. XR/XR ankle LT min 3V IMPRESSION: 1. Stable appearance of left ankle. Images were obtained through cast material which slightly limits evaluation. Electronically authenticated by: SAMPSON GUAN Date: 07/22/2024 10:10
--- NOTE | 2024-07-21 10:55 | P.ORON_ITS ---
Brief Operative Note Date of procedure: 07/21/24 Pre-op diagnosis general: Left ankle impingement, peroneal tendon tear, possible ankle instability Post-op diagnosis: other (Left ankle impingement, peroneal tendon tear and ankle instability) Procedure: Procedures performed: Left ankle arthroscopy, peroneal tendon transfer, modified Brostr?m?Carson lateral ankle stabilization, stress examination under intraoperative fluoroscopy and application of short leg splint Indications for procedure: Patient is a 34-year-old female who has had persistent ankle pain and dysfunction for over a year. She initially was treated with physical therapy, ankle bracing and NSAIDs without help. There was concern that she had nerve entrapment and was sent to Dr. Saeid Pinzon who evaluated her as well as an MRI and EMG. Fortunately, Dr. Pinzon did not believe her symptoms or findings were consistent with nerve entrapment and believed her pain to be purely orthopedic in nature. She did feel unstable especially with uneven surfaces however the MRI did show an intact ATFL ligament. Her MRI did confirm peroneal brevis tear without osteochondral defect however this MRI was obtained in September 2023. Due to her failure to respond to nonsurgical care she wished undergo operative intervention and I recommended the above procedure. Intraoperative findings: Stress examination of bilateral ankle collateral ligaments revealed positive anterior drawer on the left compared to the right. Arthroscopy revealed chronic synovitis and anterior ankle impingement without osteochondral defect. Split tear of the peroneus brevis with surrounding synovitis and low-lying muscle belly was noted. After the brevis was debrided of all nonviable tendon less than 50% of normal tendon size was noted therefore indicating tendon transfer to be indicated. ATFL was thickened and lax. Procedure in detail: Patient was identified in preoperative holding by myself which time correct side and site were marked and consent was obtained. Patient was brought back in the operating theater placed on table in supine position. Formal timeout was performed. Under live fluoroscopy bilateral ankles were tested in varus, valgus stress as well as anterior drawer. Anterior drawer was positive and significantly more lax on the left compared to the right. Preoperative antibiotics were started and the left lower extremity was prepped and draped in the usual sterile fashion. Left lower extremity was exsanguinated and tourniquet was inflated. A 15 blade was used to create anterior medial ankle portal followed by use of hemostat and trochar then the arthroscopic camera was inserted. Anterior lateral portal was similarly created in standard safe location after identifying intermediate dorsal cutaneous nerve. A significant amount of chronic synovitic tissue was removed using a 3.5 mm aggressive shaver. All impingement tissue was likewise excised. No cartilage defect was noted. Arthroscopic instrumention was then removed. The portals were then closed with nylon suture. Incision was created over the peroneal tendons extending from 4 cm proximal to the ankle joint and 3 cm past the distal fibular tip. Combination of sharp and blunt dissection with all bleeders being coagulated gained access to the peroneal tendon sheath which was incised and carefully reflected. The peroneal tendons were inspected noting a significant amount of surrounding synovitis and a 5 cm split tear of the brevis. Significant amount of low-lying muscle belly was excised. The tendon was debrided of all nonviable tendon and surrounding synovitis. Following excision of all nonviable tendon less than 50% of normal tendon girth was noted therefore decision was made to perform peroneal tendon transfer. The longus was intact but did have surrounding synovitis therefore was debrided then the tendons were sewn together with absorbable suture. The peroneal groove was of adequate depth and the tendons were relocated and placed through range of motion noting smooth gliding and excursion. Attention was then drawn to the anterior talofibular ligament which was carefully dissected out noting slight thickening and significant laxity. The ligament was incised near its fibular attachment. Periosteum from the distal anterior lateral malleolus was carefully raised then a rongeur was used to create a trough within the lateral malleolus. Two 3.3 mm suture anchors were then placed into the trough created. 4 sutures from each anchor were then passed through the anterior talofibular ligament and the extensor retinaculum. The ankle was maximally dorsiflexed and everted and the sutures were then tied. Then 6 of the 8 sutures were placed through the periosteum and associated soft tissue then were tied and all sutures were cut. Anterior drawer was negative and the ankle had good range of motion. Surgical site was irrigated with copious saline. The tendon sheath was then meticulously closed with observable suture. The peroneal retinaculum was then closed with observable suture utili zing a pants over vest technique. The incision was then closed in layers and the tourniquet was deflated with a prompt hyperemic response. A dry sterile dressing and multilayer modified Giles posterior splint was applied. Patient tolerated the procedure and anesthesia well and was transferred to the recovery room with vital signs stable and brisk capillary refill to left toes. Postoperative plan: Discharge home under 's care Nonweightbearing left ankle Prescriptions were sent to the pharmacy using my office EMR Elevate above the level of the heart Follow-up in 1 week to be transition to a cam boot and partial protected weightbearing at that time Implants: Medline 3.3 mm suture anchors x 2 Anesthesia: regional and General-LMA Surgeon: Parviz Lyles Estimated blood loss (mL): 10 Tourniquet time (min): 51 Pathology: other (peroneal tendon) Condition: stable Disposition: PACU
[2024-07-21 12:50] LABS: Glucometer 112 mg/dL (74-106)
--- NOTE | 2024-07-21 13:46 | PC.NURSE ---
1334: pts toes warm and pink with good capillary refill. pt unable to wiggle toes at this time,pt had nerve block done pre-op.
== END 2024-07-21 13:44 | disposition home or self-care (01) ==
PROVIDERS: Anesthesiology; PCP Student in an Organized Health Care Education/Training Program; Visit Provider Podiatrist Foot & Ankle Surgery
PROC: (CPT 1464; principal; 2024-07-21 09:00)
DX: M25.872 Other specified joint disorders, left ankle and foot (principal); M25.372 Other instability, left ankle; S86.312A Strain of muscle(s) and tendon(s) of peroneal muscle group at lower leg level, left leg, initial encounter; E66.01 Morbid (severe) obesity due to excess calories; Z68.41 Body mass index [BMI] 40.0-44.9, adult; F17.290 Nicotine dependence, other tobacco product, uncomplicated; K21.9 Gastro-esophageal reflux disease without esophagitis
CPT/HCPCS: 27691; 27698; 29898; 36415; 64445; 73610; 76000; 82948; 84703; 85025; 88304; C1713; J0131; J0736; J1100; J1885; J2250; J2371; J2405; J2704; J2795; J3010

== ENCOUNTER 2024-07-23 07:27 | Emergency (ER) | payer OTHER, SELFPAY ==
[2024-07-23 07:30] VITALS: BP 142/99; PULSE 78; TEMP 37.1; O2SAT 98; BMI 46.6
--- OUTSIDE RECORDS SUMMARY | 2024-07-23 07:35 | XMS_ITS | CCD ---
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 Name Role Phone Mikki Brooks Unavailable VijayaAbigail Unavailable VijayaVICTORIA Attending Provider Jeromy DPM, Saeid Beth Attending [...] Primary Care Provider Unavailjean Black DMD, MD, Krathik Unavailable [phone] KARTHIK BLACK Attending Unavailable KARTHIK BLACK Admitting Unavailable PROVIDER, UNKNOWN Attending Unavailable PROVIDER, UNKNOWN Admitting Unavailable PROVIDER, UNKNOWN Admitting Unavailable KARTHIK BLACK Attending Unavailable KARTHIK BLACK Attending Unavailable PROVIDER, UNKNOWN Admitting Unavailable Allergies Allergy Classification Reported Allergen(s) Allergy Type Date of Onset Reaction(s) Facility (18 sources) Amoxicillin; Translations: [amoxicillin] Drug Allergy 5 hives, Itching, Rash, Other [facility] Repository (16 sources) Ciprofloxacin; Translations: [CIPROFLOXACIN] Drug Allergy 5 Myalgias, Other Snaps Other (1 source) Ciprofloxacin; Translations: [Cipro] Drug Allergy [facility] Repository (1 source) Amoxicillin Drug Allergy 4 [facility] Repository (1 source) Ciprofloxacin Drug Allergy 4 [facility] Repository (1 source) Ciprofloxacin; Translations: [CIPROFLOXACIN [...] Interpretation Reference Range Facility Addendum Noteon 06-28-2024 [employer] Consultant Authentication Interface Message Text Addended by: KARTHIK BLACK on: 06/28/2024 11:10 AM Modules accepted: Level of Service Normal [facility] [employer] [facility] Progress Noteson 06-14-2024 [employer] Consultant Authentication Interface Message Text [facility] [...] stated she lives 1.5 hours away from [facility]. Assessment / Diagnosis: Normal postoperative course. Healing as expected. Plan: Follow-Up: PRN Follow up sooner with new or worsening symptoms. Normal [facility] [employer] [facility] Telephone Encounteron 2023 [employer] Consultant Authentication Interface Message Text PT is awaiting post op f/u call. It is currently 11:40. Is the provider running late? PT is concerned of the start of a possible infection starting. Site is swollen AND red. Telephone Information: Normal [facility] [employer] [facility] Telephone Encounteron 2023 [employer] Consultant Authentication Interface Message Text Symptoms - white bumps along the gum line, pt has concerns that she needs a nurse to call and discuss with her Normal [facility] [employer] [facility] [employer] Portal Consultant Authentication Interface Message Text Situation: Patient is calling back previously triaged for another issue Background: Patient states she has white bumps along the gum line where the teeth were extracted. Assessment: Pls call pt @ [phone] to discuss AND advise Recommendation: Pls advise Thank you Normal [facility] [employer] [facility] Anesthesia Postprocedure Tata luationon 06-07-2024 [employer] Consultant Authentication Interface Message Text Anesthesia Postoperative Assessment: [...] EVENTS: No notable events documented. 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 The risks, benefits and alternatives were reviewed. Questions regarding anesthesia were answered. Patient and/or legal account development representative knows such anesthetics and procedures may be performed by Resident physicians, Certified Anesthesiologist Assistants, or Certified Nurse Anesthetists under the supervision of a physician. The patient /or the patient's legal account development representative agree with the plan for anesthesia. [employer] Normal The [facility] Anesthesia Transfer Of Careo n 06-07-2024 [employer] Portal Consultant Authentication Interface Message Text Patient taken to [...] Black DMD, MD Anesthesiologist: Washington Anderson MD INFECTIOUS DISEASES PHYSICIAN: Dariusz Anderson APRN-JODEE Anesthesia Student: Benton Goddard [...] report was received. ANDREA Torres Normal [facility] [employer] [facility] Blood Attestationon 06-07-20 [employer] Consultant Authentication Interface Message Text Blood Attestation: ATTESTATION OF INFORMED CONSENT FOR BLOOD: The transfusion of blood and/or blood components were discussed with the patient and/or legal account development representative. The risks, benefits and alternatives were reviewed. Questions regarding blood transfusions were answered. The patient /or the patient's legal account development representative agree with the plan for transfusion of blood and/or blood components. [facility] Noteon 06-07-2024 [employer] Portal Consultant Authentication Interface Message Text [facility] Division of ground worker [address] [facility] [place] [address] OPERATIVE NOTE Name: Nick Bean MR#: [id number] ENC#: Data Unavailable Surgical Case #: Data Unavailable Date of Procedure: 06/07/2024 ? PREOPERATIVE DIAGNOSIS: Caries (Primary Diagnosis) [789724] Pain following oral surgery [[id number]] ? POSTOPERATIVE DIAGNOSIS: Caries (Primary Diagnosis) [249330] Pain following oral surgery [[id number]] OPERATION: EXTRACTION ERUPTED TOOTH/EXR [D7140] ALVEOPLASTY W/ [...] ? Karthik Black DMD, MD Normal [facility] [employer] [facility] Telephone Encounteron 2023 [employer] Consultant Authentication Interface Message Text Situation: Caller states [...] understanding. No further questions. Information obtained from, [email or web address]-wldao-hmffgg lu-ort-xvyheql/ Nichole Aguila RN, RN Normal [facility] [employer] [facility] URINE HCG-IN OFFICEOrdered B y: William Mcguiremicaela on 06-07-2024 HCG ( test) Ql (U) Negative Negative [facility] Interpretation and review of laboratory results Normal [facility] Negative Internal Control Negative Negative [facility] Positive Internal Control Positive Positive [facility] PAT Call Historyon [employer] Consultant Authentication Interface Message Text Telephone History Nick Bean, [id number] 05/20/2024 Patient was identified by name and date of . 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 [...] mandibular teeth and alveoplasty under GA at [facility] Karthik Black DMD, MD Normal [facility] [employer] [facility] [employer] Consultant Authentication Interface Message Text Normal [facility] [employer] [facility] CBC AND AUTO DIFFon 12-06-19 24 ABSOLUTE BASOPHIL 0.0 X10E9/L Normal 0.0-0.2 [facility] Comment on above: Performed By: #### C HELADIO, CBCA, , , THYR #### [facility] ([id number]) [address] [place] [address] 72911 ABSOLUTE NEUTROPHIL 6.0 X10E9/L Normal 1.5-6.6 [facility] Comment on above: Performed By: #### C MP, CBCA, , , THYR #### [facility] ([id number]) [address] [place] [address] 16698 Basophils/100 WBC (Bld) 0.4 % Normal [facility] Comment on above: Performed By: #### C MP, CBCA, , , THYR #### [facility] ([id number]) [address] [place] [address] 55408 Eosinophils (Bld) [#/Vol] 0.1 10*3/uL Normal 0.0-0.4 [facility] Comment on above: Performed By: #### C MP, CBCA, , 45677-3, THYR #### [facility] ([id number]) [address] [place] [address] 13961 Eosinophils/100 WBC (Bld) 1.0 % Normal [facility] Comment on above: Performed By: #### C MP, CBCA, , , THYR #### [facility] ([id number]) [address] [place] [address] 36167 Erythrocyte distribution width (RBC) [Ratio] 13.7 % Normal 11.5-15.0 [facility] Comment on above: Performed By: #### C MP, CBCA, , , THYR #### [facility] ([id number]) [address] [place] [address] 19481 Hematocrit (Bld) [Volume fraction] 37.3 % Normal 35-47 [facility] Comment on above: Performed By: #### C MP, CBCA, , , THYR #### [facility] ([id number]) [address] [place] [address] 88092 Hemoglobin (Bld) [Mass/Vol] 12.8 g/dL Normal 11.7-15.5 [facility] Comment on above: Performed By: #### C MP, CBCA, , 41555-6, THYR #### [facility] ([id number]) [address] [place] [address] 26338 Lymphocytes (Bld) [#/Vol] 1.5 10*3/uL Normal 1.0-3.5 [facility] Comment on above: Performed By: #### C MP, CBCA, , 80123-2, THYR #### [facility] ([id number]) [address] [place] [address] 84113 Lymphocytes/100 WBC (Bld) 18.8 % Normal [facility] Comment on above: Performed By: #### C MP, CBCA, 47828-9, 01420-4, THYR #### [facility] ([id number]) [address] [place] [address] 59124 MCH (RBC) [Entitic mass] 30.5 pg Normal 27-34 [facility] Comment on above: Performed By: #### C MP, CBCA, , 98185-9, THYR #### [facility] ([id number]) [address] [place] [address] 97936 MCHC (RBC) [Mass/Vol] 34.2 g/dL Normal 32-36 [facility] Comment on above: Performed By: #### C MP, CBCA, , 71968-3, THYR #### [facility] ([id number]) [address] [place] [address] 93859 MCV (RBC) [Entitic vol] 89 fL Normal 80-100 [facility] Comment on above: Performed By: #### C MP, CBCA, , 26354-7, THYR #### [facility] ([id number]) [address] [place] [address] 23732 Monocytes (Bld) [#/Vol] 0.4 10*3/uL Normal 0-0.9 [facility] Comment on above: Performed By: #### C MP, CBCA, , 75585-9, THYR #### [facility] ([id number]) [address] [place] [address] 01897 Monocytes/100 WBC (Bld) 4.6 % Normal [facility] Comment on above: Performed By: #### C MP, CBCA, , 09767-5, THYR #### [facility] ([id number]) [address] [place] [address] 15399 Neutrophils/100 WBC (Bld) 75.2 % Normal [facility] Comment on above: Performed By: #### C MP, CBCA, , 68137-2, THYR #### [facility] ([id number]) [address] [place] [address] 95906 Platelet mean volume (Bld) [Entitic vol] 7.2 fL Normal 7-12 [facility] Comment on above: Performed By: #### C MP, CBCA, , 61512-9, THYR #### [facility] ([id number]) [address] [place] [address] 89156 Platelets (Bld) [#/Vol] 292 10*3/uL Normal 150-450 [facility] Comment on above: Performed By: #### C MP, CBCA, , 11102-1, THYR #### [facility] ([id number]) [address] [place] [address] 91836 RBC COUNT 4.19 X10E12/L Normal 3.80-5.20 [facility] Comment on above: Performed By: #### C MP, CBCA, , 99473-7, THYR #### [facility] ([id number]) [address] [place] [address] 51565 WBC (Bld) [#/Vol] 7.9 10*3/uL Normal 4.0-11.0 [facility] Comment on above: Performed By: #### C MP, CBCA, , 63966-4, THYR #### [facility] ([id number]) [address] [place] [address] 87613 COMPREHENSIVE METABOLIC PANE Balwinder 12-06-2023 Albumin [Mass/Vol] 4.1 g/dL Normal 3.2-5.3 [facility] Comment on above: Performed By: #### C HELADOI, CBCA, 08236-2, 96915-3, THYR #### [facility] ([id number]) [address] [place] [address] 01887 ALP [Catalytic activity/Vol] 49 U/L Normal 39-130 [facility] Comment on above: Performed By: #### C HELADIO, CBCA, 76264-1, 01014-2, THYR #### [facility] ([id number]) [address] [place] [address] 49816 ALT [Catalytic activity/Vol] 27 U/L Normal 0-31 [facility] Comment on above: Performed By: #### C HELADIO, CBCA, 58982-5, 00773-0, THYR #### [facility] ([id number]) [address] [place] [address] 17975 Anion gap [Moles/Vol] 6 mmol/L Normal 5-15 [facility] Comment on above: Performed By: #### C HELADIO, CBCA, 86941-1, 46279-4, THYR #### [facility] ([id number]) [address] [place] [address] 31229 AST [Catalytic activity/Vol] 28 U/L Normal 0-41 [facility] Comment on above: Performed By: #### C HELADIO, CBCA, 00647-2, 37721-3, THYR #### [facility] ([id number]) [address] [place] [address] 13704 Bilirubin [Mass/Vol] 0.7 mg/dL Normal 0.3-1.2 [facility] Comment on above: Performed By: #### C HELADIO, CBCA, 54246-1, 89635-6, THYR #### [facility] ([id number]) [address] [place] [address] 11888 Calcium [Mass/Vol] 8.6 mg/dL Normal 8.5-10.5 [facility] Comment on above: Performed By: #### C ZURI LEIJA, , , THYR #### [facility] ([id number]) [address] [place] [address] 99012 Chloride [Moles/Vol] 105 mmol/L Normal 98-109 [facility] Comment on above: Performed By: #### C HELADIO, ZURI, , , THYR #### [facility] ([id number]) [address] [place] [address] 22477 CO2 [Moles/Vol] 25 mmol/L Normal 22-32 [facility] Comment on above: Performed By: #### C ZURI LEIJA, , , THYR #### [facility] ([id number]) [address] [place] [address] 23416 Creatinine [Mass/Vol] 0.65 mg/dL Normal 0.40-1.00 [facility] Comment on above: Result Comment: METH OD TRACEABLE TO IDMS STANDARD Performed By: #### C ZURI LEIJA, , , THYR #### [facility] ([id number]) [address] [place] [address] 33853 eGFR (CKD-EPI) NON-RACE DEPENDENT >90 Normal >59 [facility] Comment on above: Result Comment: Reported eGFR is based on the CKD-EPI 2020 equation that does not use a race coefficient. Performed By: #### C ZURI LEIJA, , , THYR #### [facility] ([id number]) [address] [place] [address] 92045 Glucose [Mass/Vol] 134 mg/dL High 65-99 [facility] Comment on above: Performed By: #### C ZURI LEIJA, , 52815-1, THYR #### [facility] ([id number]) [address] [place] [address] 06591 Potassium [Moles/Vol] 3.5 mmol/L Normal 3.5-5.0 [facility] Comment on above: Performed By: #### C HELADIO, CBCA, , 02551-3, THYR #### [facility] ([id number]) [address] [place] [address] 05716 Protein [Mass/Vol] 7.2 g/dL Normal 6.0-8.0 [facility] Comment on above: Performed By: #### C HELADIO, CBCA, , 76990-8, THYR #### [facility] ([id number]) [address] [place] [address] 63837 Sodium [Moles/Vol] 136 mmol/L Normal 134-146 [facility] Comment on above: Performed By: #### C HELADIO, CBCA, , 71168-3, THYR #### [facility] ([id number]) [address] [place] [address] 30512 Urea nitrogen [Mass/Vol] 14 mg/dL Normal 5-23 [facility] Comment on above: Performed By: #### C HELADIO, CBCA, , 79111-2, THYR #### [facility] ([id number]) [address] [place] [address] 31116 HCG ( test) Ql (U)o n 12-06-2023 Beta HCG ( test) Ql (U) Negative Normal NEG [facility] Comment on above: Performed By: #### 2 106-3 #### [facility] ([id number]) [address] [place] [address] 03317 MAGNESIUMon 12-06-2023 Magnesium [Mass/Vol] 2.2 mg/dL Normal 1.8-2.6 [facility] Comment on above: Performed By: #### C HELADIO, CBCA, , 29865-4, THYR #### [facility] ([id number]) [address] [place] [address] 12769 THYROID PROFILEon 12-06-2023 Free T4 [Mass/Vol] 1.02 ng/dL Normal 0.61-1.60 [facility] Comment on above: Performed By: #### C MP, CBCA, , , THYR #### [facility] ([id number]) [address] [place] [address] 64806 TSH 1.19 uIU/mL Normal 0.49-4.67 [facility] Comment on above: Performed By: #### C HELADIO, CBCA, , , THYR #### [facility] ([id number]) [address] [place] [address] 30641 TROPONIN Ion 12-06-2023 Troponin I.cardiac [Mass/Vol] ng/mL Normal 0.00-0.04 [facility] Comment on above: Performed By: #### C MP, CBCA, , 88971-2, THYR #### [facility] ([id number]) [address] [place] [address] 60971 URN MACROSCOPIC NURon 2023 BILIRUBIN LORRIE Negative Normal NEG [facility] Comment on above: Performed By: #### N UM #### [facility] ([id number]) [address] [place] [address] 57127 BLOOD/HGB LORRIE Negative Normal NEG [facility] Comment on above: Performed By: #### N UM #### [facility] ([id number]) [address] [place] [address] 72183 GLUCOSE LORRIE Negative Normal NEG [facility] Comment on above: Performed By: #### N UM #### [facility] ([id number]) [address] [place] [address] 74089 KETONES LORRIE Negative Normal NEG [facility] Comment on above: Performed By: #### N UM #### [facility] ([id number]) [address] [place] [address] 40126 LEUKOCYTE ESTERASE LORRIE Negative Normal NEG [facility] Comment on above: Performed By: #### N UM #### [facility] ([id number]) [address] [place] [address] 31627 NITRITE LORRIE Negative Normal NEG [facility] Comment on above: Performed By: #### N UM #### [facility] ([id number]) [address] [place] [address] 01106 PH LORRIE 7.5 Normal 5.0-8.5 [facility] Comment on above: Performed By: #### N UM #### [facility] ([id number]) [address] [place] [address] 76701 PROTEIN LORRIE Negative Normal NEG [facility] Comment on above: Performed By: #### N UM #### [facility] ([id number]) [address] [place] [address] 99967 SPECIFIC GRAVITY LORRIE 1.020 Normal 1.003-1.035 [facility] Comment on above: Performed By: #### N UM #### [facility] ([id number]) [address] [place] [address] [place] [address] UROBILINOGEN LORRIE 0.2 eu/dL Normal <1.1 [facility] Comment on above: Performed By: #### N UM #### [facility] ([id number]) [address] [place] [address] 51844 Urinalysis - AUTOMATEDon Appearance (U) clear [employer] Other Bilirubin Ql (U) Negative [employer] Other Color (U) yellow [employer] Other Glucose Ql (U) Negative [employer] Other Hemoglobin Ql (U) Negative [employer] Other Ketones Ql (U) Negative [employer] Other Leukocyte esterase Test strip Ql (U) Negative [employer] Other Nitrite Ql (U) Negative [employer] Other pH (U) 7.0 [pH] [employer] Other Protein Ql (U) Negative [employer] Other Specific gravity (U) [Rel density] 1.025 [employer] Other Urobilinogen (U) [Mass/Vol] 0.2 mg/dL [employer] Other Urinalysis - AUTOMATED [employer] Other Urine Cultureon 11-12-2023 Bacteria identified Cx Nom (U) Reason for Exam Dysuria Urine Reason for Exam: Dysuria : Urine 50,000 colonies/ml mixed bacterial skin contaminants 2 Days PERFORMED BY: [place] [address] PATHOLOGIST CORRECTIONAL OFFICER CAPTAIN TREE CROWDER M.D. Normal [facility] Comment on above: Performed By: #### C UU #### [address] Vital Signs Date Time Vital Sign Value Performing Clinician Facility 06-14-2024 17:56-0400 Body height 165.1 cm [facility] 06-14-2024 17:56-0400 Body mass index (BMI) [Ratio] 43.2 kg/m2 [facility] 06-14-2024 17:56-0400 Body temperature 98.8 [degF] [facility] 06-14-2024 17:56-0400 Body weight 117.93 kg [facility] 06-14-2024 17:56-0400 Diastolic blood pressure 86 mm[Hg] [facility] 06-14-2024 17:56-0400 Heart rate 68 /min [facility] 06-14-2024 17:56-0400 SaO2% (BldA) [Mass fraction] 99 % [facility] 06-14-2024 17:56-0400 Systolic blood pressure 127 mm[Hg] [facility] 06-07-2024 15:22-0400 Body temperature 98.01 [degF] Karthik Black DMD, MD Work Phone: [facility] 06-07-2024 15:22-0400 Diastolic blood pressure 68 mm[Hg] Karthik Black DMD, MD Work Phone: [facility] 06-07-2024 15:22-0400 Heart rate 73 /min Karthik Black DMD, MD Work Phone: [facility] 06-07-2024 15:22-0400 Respiratory rate 16 /min Karthik Black DMD, MD Work Phone: [facility] 06-07-2024 15:22-0400 SaO2% (BldA) [Mass fraction] 96 % Karthik Black DMD, MD Work Phone: [facility] 06-07-2024 15:22-0400 Systolic blood pressure 126 mm[Hg] Karthik Black DMD, MD Work Phone: [facility] 05-20-2024 12:59-0400 Body height 165.1 cm Kizzy Maurice RN [facility] 05-20-2024 12:59-0400 Body mass index (BMI) [Ratio] 44.93 kg/m2 Kizzy Maurice RN [facility] 05-20-2024 12:59-0400 Body weight 122.47 [address] Maurice RN [facility] 11-12-2023 18:25-0500 Body height 165.1 cm Abigail Vijaya Other [employer] Other 11-12-2023 18:25-0500 Body mass index (BMI) [Ratio] 44.43 kg/m2 Abigail Vijaya Other [employer] Other 11-12-2023 18:25-0500 Body temperature 98.2 [degF] Abigail Vijaya Other [employer] Other 11-12-2023 18:25-0500 Body weight 121.11 kg Abigail Vijaya Other [employer] Other 11-12-2023 18:25-0500 Respiratory rate 18 /min Abigail Vijaya Other [employer] Other 11-12-2023 18:25-0500 SaO2% (BldA) [Mass fraction] 98 % Abigail Vijaya Other [employer] Other 07-12-2023 13:30-0400 Body height 165.1 cm Mikki Cecilia Other [employer] Other 07-12-2023 13:30-0400 Body mass index (BMI) [Ratio] 45.92 kg/m2 Mikki Cecilia Other [employer] Other 07-12-2023 13:30-0400 Body temperature 98.6 [degF] Mikki Cecilia Other [employer] Other 07-12-2023 13:30-0400 Body weight 125.19 kg Mikki Cecilia Other [employer] Other 07-12-2023 13:30-0400 Diastolic blood pressure 85 mm[Hg] Mikki Brooks Other [employer] Other 07-12-2023 13:30-0400 Respiratory rate 18 /min Mikki Brooks Other [employer] Other 07-12-2023 13:30-0400 SaO2% (BldA) [Mass fraction] 99 % Mikki Brooks Other [employer] Other 07-12-2023 13:30-0400 Systolic blood pressure 132 mm[Hg] Mikki Mejiamond Other [employer] Other Encounters Encounter Date Encounter Type Care Provider Facility Start: 06-14-2024 End: 06-14-2024 [facility]ulatory [facility] Work Phone: Start: 06-14-2024 End: 06-14-2024 Patient encounter procedure [facility] [place] Work Phone: Start: 06-14-2024 End: 06-14-2024 Patient encounter procedure Karthik Black DMD, MD Work Phone: [facility] Surgery Comment on above: Post-operative state (Primary Dx) Start: 06-14-2024 ambulatory UNKNOWN PROVIDER Facili ty:[facility] Start: 06-07-2024 End: 06-07-2024 Telephone encounter Nichole Aguila RN [facility] Line Comment on above: Advice/health educat ion Start: 06-07-2024 End: 06-07-2024 Anesthesia consultation [facility] Anderson [facility] Start: 06-07-2024 End: 06-07-2024 ambulatory KARTHIK BLACK Facility:[facility] Start: 06-07-2024 End: 06-07-2024 Subsequent hospital visit by physician Karthik Black DMD, MD Work Phone: [facility] Main OR Comment on above: Caries (Primary Dx); Pain following oral surgery Start: 05-20-2024 End: 05-20-2024 Nursing evaluation of patient and report Kizzy Maurice RN [facility] Pre-Admission Testing Comment on above: Pre-op evaluation (P rimary Dx) Start: 05-20-2024 End: 05-20-2024 Preprocedural examination done Kizzy Maurice RN [facility] Start: 05-20-2024 ambulatory UNKNOWN PROVIDER Facili ty:[facility] Start: 05-20-2024 Encounter for other preprocedural examination UNKNOWN PROVIDER [facility] Start: 05-09-2024 End: 05-09-2024 Letter encounter Karthik Black DMD, MD Work Phone: [facility] Oral Surgery Start: 04-06-2024 End: 04-06-2024 Letter encounter Karthik Black DMD, MD Work Phone: [facility] Oral Surgery Start: 03-10-2024 End: 03-11-2024 Patient encounter procedure Karthik Black DMD, MD Work Phone: [facility] Oral Surgery Comment on above: Caries (Primary Dx) Start: 03-10-2024 End: 03-11-2024 ambulatory KARTHIK BLACK Facility:[facility] Start: 12-31-2023 End: 12-31-2023 Emergency department patient visit [facility] Start: 12-06-2023 End: 12-06-2023 Emergency department patient visit [facility] Start: 11-23-2023 End: 11-24-2023 ambulatory Saeid Pinzon DPQuitnen Facility:[facility] Start: 11-12-2023 End: 11-12-2023 Departed Referred VICTORIA Lilly Work Phone: [facility] Main [place] Work Phone: Start: 11-12-2023 End: 11-12-2023 ambulatory NON STAFF Snaps Other Start: 11-12-2023 Office outpatient vi sit 15 minutes Abigail Lilly [facility] Start: 10-22-2023 End: 10-23-2023 ambulatory Saeid Beth Jeromy DPM Facility:[facility] Start: 10-08-2023 ambulatory Saeid costa DPM Facility:[facility] Start: 10-08-2023 End: 10-08-2023 Patient encounter procedure ABSORPTION OPERATOR Abigail Vijaya Work Phone: [facility] Work Phone: Start: 09-28-2023 ambulatory Saeid costa DPM Facility:[facility] Start: 09-03-2023 End: 09-04-2023 ambulatory Saeid Pinzon DPM Facility:[facility] Start: 07-12-2023 End: 07-12-2023 ambulatory Mikki Brooks Other Snaps Other Start: 07-12-2023 Office outpatient ne w 20 minutes Mikki Brooks [facility] Procedures Date Procedure Procedure Detail Performing Clinician Start: 06-07-2024 End: 06-07-2024 EXTRACTION, TOOTH Karthik Blcak DMD, MD Work Phone: Start: 06-07-2024 Urine [...] 07-26-2024 Influenza vaccination Influenza Vacc ine (#1) [facility] Start: 06-26-2024 COVID-19 Vaccine ( season) COVID-19 Vaccine ( season) [facility] Start: 06-14-2024 End: 06-14-[address] [facility] Oral Surgery Start: 06-10-2024 End: 06-10-2024 Patient encounter procedure 06/10/2024 11:20 AM EDT Office Visit [facility] Oral Surgery [address] [place], [place] [id number] Karthik Black DMD, MD [address] [place], [place] [id number] [facility] Oral Surgery Start: 06-07-2024 End: 06-07-2024 Admission to same day surgery center 06/07/2024 2:13 PM EDT - 06/07/2024 3:21 PM EDT Surgery [facility] Ambulatory Surgery [address] [place] [address] Karthik Black DMD, MD [address] [place], [place] [id number] Extraction of all manibular teeth, alveoplasty [facility] Surgery Comment on above: Extraction of all ma nibular teeth, alveoplasty Start: 06-07-2024 End: 06-07-2024 EXTRACTION, TOOTH EXTRACTION, TOOTH Routine scheduled Caries 06/07/2024 2:[address] [facility] Start: 06-07-2024 Subsequent hospital visit by physician 06/07/2024 2:13 PM EDT Hospital Encounter [facility] Ambulatory Surgery [address] [place], [place] [id number] Karthik Black DMD, MD [address] [place] [id number] [facility] Ambulatory Surgery Start: 06-07-2024 End: 06-07-2024 EXTRACTION, TOOTH EXTRACTION, TOOTH Routine scheduled Caries 06/07/2024 12:[address] [facility] Start: 06-03-2024 End: 06-03-2024 Admission to same day surgery center 06/03/2024 10:58 AM EDT - 06/03/2024 12:06 PM EDT Surgery [facility] Ambulatory Surgery [address] [place] [address] Karthik Black DMD, MD [address] [place] [id number] Extraction of all manibular teeth, alveoplasty [facility] Surgery Comment on above: Extraction of all ma nibular teeth, alveoplasty Start: 06-03-2024 End: 06-03-2024 EXTRACTION, TOOTH EXTRACTION, TOOTH Routine scheduled Caries 06/03/2024 10:[address] [facility] Start: 06-03-2024 Subsequent hospital visit by physician 06/03/2024 10:58 AM EDT Hospital Encounter [facility] Ambulatory Surgery [address] [place] [address] Karthik Black DMD, MD [address] [place] [id number] [facility] Ambulatory Surgery Start: 05-20-2024 End: 05-20-2024 Nursing evaluation of patient and report 05/20/2024 1:00 PM EDT Nurse Visit [facility] Pre-Admission Testing [address] [place] [id number] Kizzy Maurice RN [address] [place] [address] [id number] [facility] Pre-Admission Testing Start: 11-23-2023 Hemoglobin A1c measurement Hemoglobin A1C [facility] Start: 11-12-2023 Bacteria identified in Urine by Culture [facility] Start: 06-26-2023 COVID-19 Vaccine ( season) [...] COVID-19 Vaccine (#1) COVID-19 Vacci ne (#[facility]) [facility] Start: 1988 Glaucoma screening Eye Exam [facility] Start: 1988 Hemoglobin A1c measurement Hemoglobin A1C [facility] Start: 1988 Lipid panel Lipid Profile [facility] Start: 1988 Urine screening for protein [facility] Start: 1988 Diabetic foot [facility] Start: 1988 Hepatitis B vaccination Hepati tis B (HBV) Vaccine (1 of 3 - 3-dose series) [facility] Start: 1988 Screening for malign ant neoplasm of breast [facility] alveoloplasty in conjunction with extractions - four or more teeth or tooth spaces, per quadrant ALVEOPLASTY W/ EXTRACTION Procedures Routine Caries Ordered: 06/07/2024 [facility] Comment on above: Ordered: 06/07/2024 extraction, erupted tooth or exposed root (elevation and/or forceps removal) EXTRACTION ERUPTED TOOTH/EXR Procedures Routine Caries Ordered: 06/07/2024 [facility] Work Phone: Comment on above: Ordered: 06/07/2024 EXTRACTION, TOOTH EXTRACTION, TO OTH Routine scheduled Caries [facility] Immunizations Immunization Date Immunization Notes Care Provider Griffin calvin 11-26-2023 influenza, injectabl e, quadrivalent, preservative free Karthik Black DMD, MD Work Phone: [facility] 11-26-2023 influenza virus vacc ine, unspecified formulation Karthik Black DMD, MD Work Phone: [facility] 05-23-2023 Hemoglobin A1C Kizzy Maurice RN [facility] 05-18-2023 tetanus toxoid, redu edvin diphtheria toxoid, and acellular pertussis vaccine, adsorbed Karthik Black DMD, MD Work Phone: [facility] Payers Date Payer Category Payer Self-pay 2022 Medicaid [id number] 2022 Unknown 2022 Medicaid [id number] 2. [id number] 1988 Unknown [id number] 2.16. [id number] 1988 Unknown [id number] 2.16. [id number] 1988 Unknown [id number] 2.16. [id number] 1988 Unknown [id number] 2.16. 840.1.386306.3.579.2.196 1988 Unknown [id number] 2.16. 840.1.658288.3.579.2.196 1988 Unknown [id number] 2.16.8 40.1.417987.3.579.2.1286 1988 Unknown [id number] 2.16.8 40.1.469708.3.579.2.1286 1988 Unknown [id number] 2.16. [id number] 1988 Unknown [id number] 2.16. 840.1.411861.3.579.2.73 1988 Unknown [id number] 2.16. [id number] 1988 Unknown [id number] 2.16. [id number] Unknown [id number] 2.16.8 [id number] Social History Date Type Detail Facility Unknown if ever smoked Snaps Other Start: 03-09-2024 End: 05-20-2024 Sex Assigned At [facility] Start: 1990 Sex Assigned At Female [facility] Tobacco smoking stat [facility] Tobacco smoking consumption unknown [facility] Start: 03-09-2024 End: 05-20-2024 History of Social function [facility] In the past 12 month s has the electric, gas, oil, or water [employer] threatened to shut off services in your [...] Original Text Equi pment Identifier Dates Drug [employer] Pentips Plus 32G X 4 [...] 11:10 AM Modules accepted: Level of Service [facility] 06-28-2024 Miscellaneous Notes Addended by: KARTHIK BLACK on: 06/28/2024 11:10 AM Modules accepted: Level of Service documented in this encounter [facility] 06-14-2024 History of Presen t [...] stated she lives 1[place]5 hours away from [facility]. Assessment / Diagnosis: Normal postoperative course. Healing as expected. Plan: Follow-Up: PRN Follow up sooner with new or worsening symptoms. documented in this encounter [facility] 06-14-2024 History of Presen t [...] stated she lives 1.5 hours away from [facility]. Assessment / Diagnosis: Normal postoperative course. Healing as expected. Plan: Follow-Up: PRN Follow up sooner with new or worsening symptoms. documented in this encounter [facility] 06-09-2024 Telephone encounter Note Symptoms - white bumps along the gum line, pt has concerns that she needs a nurse to call and discuss with her [facility] 06-09-2024 Miscellaneous Notes Symptoms - white bumps along the gum line, pt has concerns that she needs a nurse to call and discuss with her Situation: Patient is calling back previously triaged for another issue Background: Patient states she has white bumps along the gum line where the teeth were extracted. Assessment: Pls call pt @ [phone] to discuss & advise Recommendation: Pls advise [...] understanding. No further questions. Information obtained from, https://www.mo9 ([employer]).com/ /lxc-ql-taa-rid-of-n aannjyz-elhjm-jepilnwj-the-amberly harman/ Nichole Aguila RN, RN documented in this encounter [facility] 06-09-2024 Telephone encounter Note Situation: Patient is calling back previously triaged for another issue Background: Patient states she has white bumps along the gum line where the teeth were extracted. Assessment: Pls call pt @ [phone] to discuss & advise Recommendation: Pls advise Thank you [facility] 06-09-2024 Miscellaneous Notes Situation: Patient is calling back previously triaged for another issue Background: Patient states she has bumps along the gum line where the teeth were extracted Assessment: Pls call pt @ [phone] to discuss & advise Recommendation: Pls advise [...] understanding. No further questions. Information obtained from, https://www.mo9 ([employer]).com/ /mbi-le-klw-rid-of-n robinuf-tcpnr-wvtohmzp-the-amberly harman/ Nichole Aguila RN, RN documented in this encounter [facility] 06-07-2024 Telephone encounter Note Situation: [...] understanding. No further questions. Information obtained from, https://www.Carrot.mx/ /ahg-br-qif-rid-of-n uongegq-nuptw-vhejityr-the-amberly harman/ Nichole Aguila RN, RN [facility] 06-07-2024 Miscellaneous Notes Situation: Caller [...] understanding. No further questions. Information obtained from, https://www.mo9 (mo[employer]).[employer]/ /rlf-ik-wyv-rid-of-n xrsdvpu-xkaio-ypkbdibi-the-amberly harman/ Nichole Aguila RN, RN documented in this encounter [facility] 06-07-2024 Note Formatting of this n ote is different from the original. Addendum created 06/07/24 1531 by Dariusz Anderson APRN-INFECTIOUS DISEASES PHYSICIAN Flowsheet accepted, Intraprocedure Flowsheets edited [employer] Work Phone: 06-07-2024 Note Addendum created 1530 by Dariusz Anderson APRN-CRNA Flowsheet accepted, Intraprocedure Flowsheets edited [employer] [facility] 06-07-2024 Miscellaneous Notes Addendum created [...] Black DMD, MD Anesthesiologist: Washington Anderson MD INFECTIOUS DISEASES PHYSICIAN: Dariusz Anderson APRN-CRNA Anesthesia Student: Benton Goddard [...] received. ANDREA Torres documented in this encounter [facility] 06-07-2024 Procedure anesthe catie Narrative [...] vital signs immediately prior to induction. SHAHNAZ TorresINFECTIOUS DISEASES PHYSICIAN 1321 An Induction 1324 An Intubation 1328 [...] Dariusz Anderson APRN-CRNA documented in this encounter [id number] Anesthesiology Postoperative evaluation and management note* Anesthesia [...] ANESTHESIA NOTABLE EVENTS: No notable events documented. 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 The risks, benefitsand alternatives were reviewed. Questions regarding anesthesia were answered. Patient and/or legal account development representative knows such anesthetics and procedures may be performed by Resident physicians, Certified Anesthesiologist Assistants, or Certified Nurse Anesthetists under the supervision of a physician. The patient /or the patient s legal account development representative agree with the plan for anesthesia. [employer] documented in this [id number] Anesthesiology Postoperative evaluation and management note* Anesthesia [...] Black DMD, MD Anesthesiologist: Washington Anderson MD INFECTIOUS DISEASES PHYSICIAN: Dariusz Anderson APRN-CRNA Anesthesia Student: Benton Goddard [...] of the report was received. ANDREA Torres [id number] Surgery Surgical operation note* OP Note - Karthik Black DMD, MD - 06/07/2024 1:28 PM EDT [facility] Division of ground worker [address] [place] [address] [place] [address] OPERATIVE NOTE Name: Nick Bean MR#: [id number] ENC#: Data Unavailable Surgical Case #: Data Unavailable Date of Procedure: 06/07/2024 ? PREOPERATIVE DIAGNOSIS: Caries (Primary Diagnosis) [[id number]] Pain following oral surgery [[id number]] ? POSTOPERATIVE DIAGNOSIS: Caries (Primary Diagnosis) [[id number]] Pain following oral surgery [[id number]] OPERATION: EXTRACTION ERUPTED TOOTH/EXR [D7140] ALVEOPLASTY W/ [...] and transferred onto the operating room tableunder [employer] power. The patient was then placed in [...] ? ? ? Karthik Black DMD, MD [id number] Miscellaneous Notes* OP Note - Karthik Black DMD, MD - 06/07/2024 1:28 PM EDT [facility] Division of ground worker [address] [place] [address] [place] [address] OPERATIVE NOTE Name: Nick Bean MR#: [id number] ENC#: Data Unavailable Surgical Case #: Data Unavailable Date of Procedure: 06/07/2024 ? PREOPERATIVE DIAGNOSIS: Caries (Primary Diagnosis) [[id number]] Pain following oral surgery [[id number]] ? POSTOPERATIVE DIAGNOSIS: Caries (Primary Diagnosis) [[id number]] Pain following oral surgery [[id number]] OPERATION: EXTRACTION ERUPTED TOOTH/EXR [D7140] ALVEOPLASTY W/ [...] and transferred onto the operating room tableunder [employer]. The patient was then placed in the [...] were discussed with the patient and/or legal account development representative. The risks, benefits and alternatives were reviewed. Questions regarding blood transfusions were answered. The patient /or the patient s legal account development representative agree with the plan for transfusion of blood and/or blood components. documented in this [id number] Hospital Discharge instructions* Discharge Instructions* Rosalba Narayanan [...] done to speak with an oral surgeon. [facility] [phone]. HELPING THE HEALING PROCESS AND STOPPING THE [...] any questions or concerns please contact us: [facility] . Ask for the oral health therapist stationary fireman (after hours). surgery specialist Clinic Hours: Mon-Fri 8:30 am to 4:30 pm. PERIOPERATIVE DISCHARGE/HOME-GOING INSTRUCTIONS ANESTHESIA - GENERAL (ADULT) If a problem arises, you may contact your physician by calling [phone] and asking for the resident stationary fireman for Oral Surgery Service. Special Care Needs: [...] very uncomfortable and can t urinate, call [phone] or cometo the emergency room. The day [...] less likely. For more informati on visit: http://[facility] anson.org/services/bfuz-cflgtu-wz-your-health/a-matte s-ly-qmjyhiz/ Some medications or combinations of medications can [...] and treated if needed documented in this [id number] NoteSurgical Attestation: I have reviewed the patient's History and Physical Examination. I have personally seen and evaluated the patient, repeating witt portions. There is no significant interval change. Surgery is still indicated. Yes Consent reviewed and signed by patient/family: Yes Operative site verified and marked: Yes Alexis Chow [facility] [id number] Progress note* Blood Attestation - Washington Anderson MD - 06/07/2024 12:19 PM EDT Blood Attestation: ATTESTATION OF INFORMED CONSENT FOR BLOOD: The transfusion of blood and/or blood components were discussed with the patient and/or legal account development representative. The risks, benefits and alternatives were reviewed. Questions regarding blood transfusions were answered. The patient /or the patient s legal account development representative agree with the plan for transfusion of blood and/or blood components. 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 The risks, benefitsand alternatives were reviewed. Questions regarding anesthesia were answered. Patient and/or legal account development representative knows such anesthetics and procedures may be performed by Resident physicians, Certified Anesthesiologist Assistants, or Certified Nurse Anesthetists under the supervision of a physician. The patient /or the patient s legal account development representative agree with the plan for anesthesia. MHPATFORM [id number] Instructions* Discharge Instructions* Kizzy Maurice RN - [...] to surgery arrival time Need to have lokie driver Patients whose assigned sex at was [...] adult to drive you home. A cab, [employer] or other transportation front load trash truck driver cannot be responsible for you. A responsible adult should stay with you for 24 hours after surgery. Your surgery will be cancelled if you do not have a ride home. * If you have sleep apnea and are staying overnight in the hospital, please bring your sleep apnea machine and mask. documented in this [id number] Evaluation note* PAT Call History - Kizzy Maurice RN - 05/20/2024 1:01 PM EDT Images from the original note were not included. 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 Comment: LMP 05-17-2024 Neuro/Psych (+) depression, anxiety/panic [...] min Stress: No Stress Concern Present (03/09/2024) [place] [facility] Occupational [facility] - Occupational Stress Questionnaire Feeling of Stress : Only a little Social Connections: Moderately Isolated (03/09/2024) Social Connection and Isolation Panel [NHANES] Frequency of Communication with Friends and Family: More than three times a week Frequency of Social Gatherings with Friends and Family: Three times a week Attends Buddhism Services: Never Active Member of Clubs or [...] CHEST AP OR PA 1 VIEW Order: [id number] Narrative Single view chest History:Dyspnea Difficulty breathing, [...] to surgery arrival time Need to have lokie driver Patients whose assigned sex at was [...] Spent Performing this Telephone History: 15 mins [id number] Miscellaneous Notes* PAT Call History - Kizzy Maurice RN - 05/20/2024 1:01 PM EDT Images from the original note were not included. 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 05-17-2024 Neuro/Psych (+) depression, anxiety/panic [...] min Stress: No Stress Concern Present (03/09/2024) [place] [employer]ational Health - Occupational Stress Questionnaire Feeling of Stress : Only a little Social Connections: Moderately Isolated (03/09/2024) Social Connection and Isolation Panel [NHANES] Frequency of Communication with Friends and Family: More than three times a week Frequency of Social Gatherings with Friends and Family: Three times a week Attends Buddhism Services: Never Active Member of Clubs or [...] CHEST AP OR PA 1 VIEW Order: [id number] Narrative Single view chest History:Dyspnea Difficulty breathing, [...] to surgery arrival time Need to have lokie driver Patients whose assigned sex at was [...] Telephone History: 15 mins documented in this [id number] History of Present illness Narrative* Karthik Black DMD, MD - 03/10/2024 1:33 PM EDT [facility] PATIENT VISIT CHIEF COMPLAINT: Toothache HISTORY OF PRESENT ILLNESS: Patient is a 33yoF with pmhx sig for obesity and severe procedural anxiety who presents to the [facility] clinic as a referral from her general [...] remaininglower teeth and alveoplasty under GA at [facility] in preparation for complete dentures. [...] mandibular teeth and alveoplasty under GA at [facility] Karthik Black DMD, MD * Maryana Pérez - 03/10/2024 10:25 AM EDT Images from the original note were not included. documented in this [id number] History of Present illness Narrative* Karthik Black DMD, MD - 03/10/2024 1:33 PM EDT [facility] PATIENT VISIT CHIEF COMPLAINT: Toothache HISTORY OF PRESENT ILLNESS: Patient is a 33yoF with pmhx sig for obesity and severe procedural anxiety who presents to the [facility] clinic as a referral from her general [...] remaininglower teeth and alveoplasty under GA at [facility] in preparation for complete dentures. [...] mandibular teeth and alveoplasty under GA at [facility] Karthik Black DMD, MD * Maryana Pérez - 03/10/2024 10:25 AM EDT Images from the original note were not included. documented in this [id number] Evaluation note* Encounter Date Diagnosis Assessment Notes [...] up with her PCP is symptoms persist. Snaps Other 12-28-2023 NoteThis is a Telephone Appointment *This visit was conducted by Telephone with real time communicationand interaction. The patient provided written consent for treatment. The patient understands their rights, the HIPAA risks and that they will be charged accordingly for the services rendered. This visit was held via telephone within the [facility] while they were at: At their home in [place]. This telephone visit was conducted due to: [...] possibly discuss surgical intervention. She lives in [place] and as long as she is not [...] Panic disorder PTSD - (more content not included)...[facility]11-09-2023 NoteChief Complaint New patient left ankle pain and neuritic symptoms, referral from Alisia Gusman Physician histology assistant History of Present Illness Patient presents [...] past. Patient relates that they have tried [id number] pain relievers, padding, and modification of shoe [...] pain. She was referred here by the [facility] [place] Alisia Gusman for evaluation of nerve entrapment. [...] bilateral. Protective sensation intact as measured with [place] Gross motor intact bilateral. Achilles [...] for possible ganglion cyst. (more content not included)...[facility]09-17-2023 Evaluation note* Encounter Date Diagnosis Assessment Notes Treatment Notes Treatment Clinical Notes Jun, Left foot pain (ICD-10 - M79.672) Foot pain home care material was printed Continue home medications as prescribed. Stop wearing the ankle brace and to you follow-up with your wheel filler. Call your wheel filler tomorrow for an appointment for recheck. Ice and elevate your foot 2-3 times a day. Take your naproxen for pain. No x-rays were done at this visit. The patient had x-rays done by her wheel filler 5 days ago. She denies any recent injuries or falls especially since the last x-rays. Patient is instructed to follow-up with her wheel filler for evaluation of this foot pain. Snaps Other Evaluation noteNo assessment information available [facility] Work Phone: Evaluation note* Diagnosis Caries- Primary [...] History Anxiety Surgical History C section x2 Snaps Other History general Narrative - Reported* Type Description Date Medical History Diabetes Medical History Depression Medical History Anxiety Surgical History C section x2 Hospitalization History See Above Snaps Other Chief Complaint and Reason for Visit [...] W/ EXTRACTION Karthik Black DMD, MD [address] [place] [address] Referral ID Status Reason Start Date Expiration Date V isits Requested Visits Authorized [id number] Pending Review 06/07/2024 06/07/2025 3 3 Specialty Diagnoses / Procedures Referred By Contac t Referred To Contact Diagnoses Caries Procedures EXTRACTION ERUPTED TOOTH/EXR Karthik Black DMD, MD [address] [place], [place] [id number] Referral ID Status Reason Start Date Expiration Date V isits Requested Visits Authorized [id number] Pending Review 06/07/2024 06/07/2025 3 3 Specialty Diagnoses / Procedures Referred By Contac t Referred To Contact Oral Surgery Diagnoses Caries Procedures EXTRACTION ERUPTED TOOTH/EXR DEEP ANESTHESIA, 1ST 15 MINS GENERAL ANESTH EA ADDL 15 MIN Karthik Black DMD, MD [address] [place] [address] [facility] [address] [id number] Phone: [phone] Referral ID Status Reason Start Date Expiration Date V isits Requested Visits Authorized [id number] Pending Review 03/10/2024 03/10/2025 1 1 Scheduling [...] your procedure, you will be contacted with [id number] costs or next steps. All self-pay payments [...] the procedure: You also MUST have a lokie driver/escort >18yrs old present to take you [...] Anesthesiology Diagnoses Caries Karthik Black DMD, MD [address] [place] [address] [facility] PRE ADMISSION TESTING [address] [place] [address] Referral ID Status Reason Start Date Expiration Date V isits Requested Visits Authorized [id number] Authorized 03/10/2024 03/10/2025 1 1 Scheduling Instructions [...] manibular teeth, alveoplasty Karthik Black DMD, MD [address] [place] [address] [facility] [address] [place] [id number] Phone: [phone] Referral ID Status Reason Start Date Expiration Date Visits Re quested Visits Authorized [id number] 3 3 Reason Onset Date Comments Advice/health education 06/07/2024 Care Teams (unrecognized sec tion and content) Team Status: Inactive Member Role Status Dates Delmis Mccartney APRN Attending Provider Active Start: October 08, 2023 End: October 08, 2023 Team Status: Inactive Member Role Status Dates Abigail Lilly APRN Attending Provider Active S tart: November 12, 2023 End: November 12, 2023 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 Relationship Specialty Start Date End Date Karthik Black DMD, MD [address] [place] [id number] Physician Oral & Maxillofacial Surgery 03/26/24 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 Relationship Specialty Start Date End Date Karthik Black DMD, MD [address] [place], [place] [id number] Physician Oral & Maxillofacial Surgery 03/26/24 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 Relationship Specialty Start Date End Date Karthik Black DMD, MD [address] [place], [place] [id number] Physician Oral & Maxillofacial Surgery 03/26/24 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 Relationship Specialty Start Date End Date Karthik Black DMD, MD [address] [place] [address] Physician Oral & Maxillofacial Surgery 03/26/24 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 Relationship Specialty Start Date End Date Karthik Black DMD, MD [address] [place] [id number] Physician Oral & Maxillofacial Surgery 03/26/24 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 Relationship Specialty Start Date End Date Karthik Black DMD, MD [address] [place] [address] Physician Oral & Maxillofacial Surgery 03/26/24 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 Relationship Specialty Start Date End Date Karthik Black DMD, MD [address] [place] [address] Physician Oral & Maxillofacial Surgery 03/26/24 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 Relationship Specialty Start Date End Date Karthik Black DMD, MD [address] [place] [address] Physician Oral & Maxillofacial Surgery 03/26/24 Team Status: Active Member Role Status Dates NON STAFF Primary Care Provider Active Team Status: Inactive Member Role Status Dates NON STAFF Primary Care Provider Active Start: June 14, 2024 End: June 14, 2024 Delmis Mccartney APRN Attending Provider Active Start: June 14, 2024 End: June 14, 2024 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 Relationship Specialty Start Date End Date Karthik Black DMD, MD [address] [place] [address] Physician Oral & Maxillofacial Surgery 03/26/24 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 Relationship Specialty Start Date End Date Karthik Black DMD, MD [address] [place] [address] Physician Oral & Maxillofacial Surgery 03/26/24 Goals (unrecognized section and content) Goals may be documented in a n alternate section INFORMATION SOURCE (unrecogn ized section and content) DATE CREATED AUTHOR 11/24/2023 [facility] DATE CREATED AUTHOR AUTHOR'S ORGANIZ ATION 12/04/2023 [facility] DATE CREATED AUTHOR AUTHOR'S ORGANIZ ATION 01/02/2024 [facility] DATE CREATED AUTHOR AUTHOR'S ORGANIZ ATION 06/29/2024 [employer] [facility] Scheduled Active and Recently Administ [...] er: Rosalba Bo RN) lidocaine-epinephrine (XYLOCAINE) 1 %-1:[id number] injection SOLN (CANCELED) PRN, Starting on Thu06/07/24 [...] BE BASED ON THE PRIMARY CLINICAL RECORDS. [facility] [employer] [facility]. provides no warranty or guarantee of the accuracy or completeness of information in this document.
--- NOTE | 2024-07-23 07:37 | PC.NURSE ---
Complains of pain to left calf area. Patient has soft splint in place to left lower extremity, splint was placed by surgeon two days ago. Able to visualize first second and third toe through cast, skin is pink and warm, no redness, bruising or swelling noted, able to move toes.
[2024-07-23] MEDS: KETOROLAC TROMETHAMINE 60 MG/2 ML VIAL IM (08:58)
[2024-07-23] MEDS: ORPHENADRINE 60 MG/ 2 ML VIAL IM (08:58)
--- NOTE | 2024-07-23 09:48 | ED.EXTPRO1 ---
HPI - Extremity Problem General Chief complaint: Extremity Problem, Nontraumatic Stated complaint: LOWER EXTREMETY PAIN POST SURGERY Time Seen by Provider: 07/23/24 07:35 Source: patient Mode of arrival: Wheelchair History of Present Illness HPI Narrative: The patient presented to us 2 days after she had the ankle surgery after she started having some pain in her left ankle mostly just proximal to that she has been feeling some more pain, she mentioned that she started feeling the fading of the anesthesia earlier yesterday but at night she felt like she was having some jerking movement with her ankle at night and she is worried that this made her ligament surgery worse Patient denies any other complaints Related Data Home Medications ?Medication ?Instructions ?Recorded ?Confirmed buspirone 5 mg tablet 5 mg PO BID 07/11/24 07/21/24 fluticasone propionate 50 1 spray intranasal DAILY PRN 07/11/24 07/21/24 mcg/actuation nasal allergy symptoms spray,suspension (24 Hour Allergy Relief) hydroxyzine pamoate 25 mg capsule 25 mg PO Q8H PRN anxiety 07/11/24 07/21/24 naproxen 500 mg tablet 500 mg PO Q12H PRN pain 07/11/24 07/21/24 aspirin 325 mg tablet mg 07/23/24 hydrocodone 5 mg-acetaminophen 325 tab 07/23/24 mg tablet ondansetron HCl 4 mg tablet mg 07/23/24 sulfamethoxazole 800 tab 07/23/24 mg-trimethoprim 160 mg tablet Previous Rx's ?Medication ?Instructions ?Recorded orphenadrine citrate 100 mg 100 mg PO BID PRN muscle spasm #10 07/23/24 tablet,extended release tabs Allergies Allergy/AdvReac Type Severity Reaction Status Date / Time amoxicillin Allergy Rash Verified 07/21/24 07:44 ciprofloxacin [From Cipro] Allergy tendon pain Verified 07/21/24 07:44 Review of Systems ROS Status of ROS 10 or more systems reviewed and unremarkable except as noted in history and below [facility] Medical History (Updated 07/23/24 @ 09:47 by Tete Brown MD) Left foot pain ?M79.672 - Pain in left foot (ICD-10) Left ankle pain ?M25.572 - Pain in left ankle and joints of left foot (ICD-10) Impingement of left ankle joint ?M25.872 - Other specified joint disorders, left ankle and foot (ICD-10) Left ankle instability ?M25.372 - Other instability, left ankle (ICD-10) Peroneal tendinitis ?M76.70 - Peroneal tendinitis, unspecified leg (ICD-10) Strain of muscle(s) and tendon(s) of peroneal muscle group at lower leg level, left leg, sequela ?S86.312S - Strain of muscle(s) and tendon(s) of peroneal muscle group at lower leg level, left leg, sequela (ICD-10) Axillary hidradenitis suppurativa ?L73.2 - Hidradenitis suppurativa (ICD-10) Insomnia ?G47.00 - Insomnia, unspecified (ICD-10) PTSD (post-traumatic stress disorder) ?F43.10 - Post-traumatic stress disorder, unspecified (ICD-10) Panic attacks ?F41.0 - Panic disorder [episodic paroxysmal anxiety] (ICD-10) Depression ?F32.A - Depression, unspecified (ICD-10) Anxiety ?F41.9 - Anxiety disorder, unspecified (ICD-10) COVID-19 ?U07.1 - COVID-19 (ICD-10) Migraine ?G43.909 - Migraine, unspecified, not intractable, without status migrainosus (ICD-10) Seasonal allergies ?J30.2 - Other seasonal allergic rhinitis (ICD-10) Heartburn ?R12 - Heartburn (ICD-10) Myocarditis of mother during ?O99.419 - Diseases of the circulatory system complicating , unspecified trimester (ICD-10) ?I51.4 - Myocarditis, unspecified (ICD-10) Leg cramping ?R25.2 - Cramp and spasm (ICD-10) Hypokalemia ?E87.6 - Hypokalemia (ICD-10) Surgical History H/O oral surgery ?Z98.890 - Other specified postprocedural states (ICD-10) History of section ?Z98.891 - History of uterine scar from previous surgery (ICD-10) History of bilateral salpingectomy ?Z90.79 - Acquired absence of other genital organ(s) (ICD-10) Family History (Updated 07/21/24 @ 07:47 by Conchita Paredes RN) Other Cancer Family history of DVT Family history of cancer Family history of diabetes mellitus Family history of hypertension Family history of pulmonary embolism Social History (Updated 07/21/24 @ 07:46 by Conchita Paredes RN) Within the past year, how often did you have a drink containing alcohol: never Score interpretation: A score less than 3 is consistent with normal alcohol consumption. Smoking status: Former smoker Do you use any of these nicotine containing products: vaping products Non-prescribed substance use: cannabis (any form) Highest level of school completed/degree received: high school graduate Little interest or pleasure in doing things: not at all Feeling down, depressed, or hopeless: not at all Exam Narrative Exam Narrative: Nurses notes and vital signs reviewed and patient is not hypoxic. Left lower extremity: Clean dressing and posterior long splint applied----removing the dressing the patient had a clean wound and there is a 2 wounds of the operation are clean and no hematoma, patient have no tenderness on palpation Anterior tibial pulse is normal and patient have no vascular injury detected with normal capillary refill in the toes and no pain on palpation of the foot General: Well-appearing and in no apparent distress. Skin: Warm, dry, no pallor noted. No rash. Head: Normocephalic, atraumatic. Neck: Supple, non-tender. Eye: Pupils are equal, round and EOMI. No scleral icterus. Ears, Nose, Mouth, and Throat: TM are clear, no nasal mucosal hypertrophy. Oral mucosa is moist, no posterior oropharynx erythema, uvula is mid-line Cardiovascular: Regular Rate and Rhythm without murmur, gallop or rub. Respiratory: No accessory muscle use or respiratory distress. Lungs are clear to auscultation, no wheezing, rales or rhonchi Chest Wall: no tenderness Back: No midline thoracic or lumbar vertebral tenderness. No CVA tenderness GI: Abdomen is soft, non-distended. Normal bowel sounds. No masses appreciated. No tenderness to palpation. No rebound, guarding, or rigidity noted. Neurological: A&O x4. No cranial nerve dysfunction observed. No truncal ataxia. Moves all extremities. Sensation intact. Psychiatric: Cooperative and interactive. Normal mood and affect. Constitutional Vital Signs, click to edit/add: Last Vital Signs Temp 98.8 F 07/23/24 07:30 Pulse 78 07/23/24 07:30 Resp 20 07/23/24 07:30 BP 142/99 H 07/23/24 07:30 Pulse Ox 98 07/23/24 07:30 Course Vital Signs Vital signs: Vital Signs Temperature 98.8 F 07/23/24 07:30 Pulse Rate 78 07/23/24 07:30 Respiratory Rate 20 07/23/24 07:30 Blood Pressure 142/99 H 07/23/24 07:30 Pulse Oximetry 98 07/23/24 07:30 Temperature 98.8 F 07/23/24 07:30 Pulse Rate 78 07/23/24 07:30 Respiratory Rate 20 07/23/24 07:30 Blood Pressure 142/99 H 07/23/24 07:30 Pulse Oximetry 98 07/23/24 07:30 MDM - Extremity (Nontraumatic) MDM Narrative Medical decision making narrative: The patient dressing was reapplied she is to continue none weightbearing Her presentation right now is mostly secondary to feeding of the anesthesia she was instructed to use naproxen in addition to adding Norflex The patient also was treated in the ER with Toradol after which she was feeling better She had her case discussed with Dr. Lyles and he agreed with above-mentioned plan The patient is to follow up with primary care physician in next 2-3 days or to return to the emergency department should any of the signs or symptoms worsen or new symptoms develop. The patient agrees with the following Diagnosis and Treatment plan and the patient will be discharged home. Discharge Plan Discharge Chief Complaint: Extremity Problem, Nontraumatic Clinical Impression: Post-operative pain Patient Disposition: Home, Self-Care Time of Disposition Decision: 09:46 Condition: Good Prescriptions / Home Meds: New orphenadrine citrate 100 mg tablet extended release 100 mg PO BID PRN (Reason: muscle spasm) Qty: 10 0RF No Action aspirin 325 mg tablet hydrocodone-acetaminophen 5-325 mg tablet ondansetron HCl 4 mg tablet sulfamethoxazole-trimethoprim 800-160 mg tablet buspirone 5 mg tablet 5 mg PO BID hydroxyzine pamoate 25 mg capsule 25 mg PO Q8H PRN (Reason: anxiety) naproxen 500 mg tablet 500 mg PO Q12H PRN (Reason: pain) fluticasone propionate [24 Hour Allergy Relief] 50 mcg/actuation spray,suspension 1 spray intranasal DAILY PRN (Reason: allergy symptoms) Rx Instructions: administer into each nostril Print Language: [place] Instructions: Narcotic Safety (ED) Referrals: Nitin Rock DO [Primary Care Provider] - 1 week Parviz Lyles DPM [Physician] - 1 week
== END 2024-07-23 10:13 | disposition home or self-care (01) ==
PROVIDERS: Emergency Provider Emergency Medicine; PCP Student in an Organized Health Care Education/Training Program
DX: G89.18 Other acute postprocedural pain (principal); M25.572 Pain in left ankle and joints of left foot; Z87.891 Personal history of nicotine dependence
CPT/HCPCS: 96372; 99284; J1885; J2360

== ENCOUNTER 2024-07-28 15:40 | Outpatient (OUT) | payer OTHER, SELFPAY ==
--- NOTE | 2024-07-28 | XR_ITS ---
The [address] [address] Patient Name: NICK BEAN MRN: [id number] date: 1990 Sex: F Assigned Patient Location: Current Patient Location: Accession/Order Number: [id number] Exam Date: 07/28/2024 15:42 Report Date: 07/29/2024 06:43 At the request of: ERINN LEON Procedure: XR foot LT min 3V PROCEDURE: XR foot LT min 3V HISTORY: LEFT FOOT PAIN ; left forefoot pain after hyperextension COMPARISON: XR foot left 06/14/2024 FINDINGS: BONES:No fracture, acute abnormality, or significant arthropathy. Degenerative enthesophyte at Achilles tendon insertion into the calcaneus. SOFT TISSUES:Distal dorsal soft tissue swelling. EFFUSION:None visible. OTHER: Negative. XR/XR foot LT min 3V IMPRESSION: 1. No appreciable acute bone abnormality. 2. Dorsal soft tissue swelling. Electronically authenticated by: SAMPSON GUAN Date: 07/29/2024 06:43
--- OUTSIDE RECORDS SUMMARY | 2024-07-28 16:03 | XMS_ITS | CCD ---
Author Organization [facility] Care Team Providers Care Auditor Appraiser Name Role Phone CeciliaMikki pike Unavailable Vijaya, Abigail Unavailable Vijaya, BILLING ASSOCIATE Abigail Shipley Attending Provider Jeromy DPM, Saeid Beth Attending Unavailab le Jeromy DPM, Saeid Beth Attending Unavailab le Jeromy DPM, Saeid Beth Attending Unavailab le Jeromy DPM, Saeid Beth Attending Unavailab le Jeromy DPM, Saeid Beth Attending Unavailab le Unavailable Primary Care Provider Unavailjean Black DMD, MD, Karthik Unavailable KARTHIK BLACK Attending Unavailable KARTHIK BLACK Admitting Unavailable PROVIDER, UNKNOWN Attending Unavailable PROVIDER, UNKNOWN Admitting Unavailable PROVIDER, UNKNOWN Admitting Unavailable KARTHIK BLACK Attending Unavailable KARTHIK BLACK Attending Unavailable PROVIDER, UNKNOWN Admitting Unavailable Parviz Lyles Admitting Unavailable Parviz Lyles Attending Unavailable VijayaAbigail doran Admitting Unavailable Vijaya, Abigail M Attending Unavailable NON STAFF Primary Care Unavailable SHAMALIRIO, CAR[place]INA Primary Care Unavailable ANTOINE WILSON Attending Unavailable CHARLOTTE SARGENT Primary Care Unavailable SHAMALIRIO, CAROLINA Primary Care Unavailable WALLACE CANAS Attending Unavailable Allergies Allergy Classification Reported Allergen(s) Allergy Type Date of Onset Reaction(s) Facility (18 sources) Amoxicillin; Translations: [amoxicillin] Drug Allergy 5 hives, Itching, Rash, Other [facility] Repository (16 sources) Ciprofloxacin; Translations: [CIPROFLOXACIN] Drug Allergy 5 Myalgias, Other Dr. Scribbles Other (1 source) Ciprofloxacin; Translations: [Cipro] Drug Allergy [facility] Repository (1 source) Amoxicillin Drug Allergy 4 [facility] Repository (1 source) Ciprofloxacin Drug Allergy 4 [facility] Repository (1 source) Ciprofloxacin; Translations: [CIPROFLOXACIN [...] Active Problems Problem Classification Problem Date Documented Da te Episodic/Chronic Disorders of teeth and jaw (16 sources) Dental caries; Translations: [Dental caries, unspecified] Onset: 03-10-2024 Resolved: 06-07-2024 03-10-2024 Episodic Headache; including migraine (12 sources) Migraine; Translations: [Migraine, unspecified, not intractable, without status migrainosus] Onset: 03-10-2024 03-10-2024 Chronic Nonspecific chest pain (14 sources) Precordial pain; Translations: [Precordial pain] Onset: 12-10-2016 03-10-2024 Episodic Other connective tissue disease (1 source) Pain in left foot Episodic Other gastrointestinal disorders (1 source) Heartburn Onset: 07-26-2024 Episodic Other nervous system disorders (1 source) Painful mouth; Translations: [Other acute postprocedural pain] 06-07-2024 Episodic Other nutritional; endocrine; and metabolic disorders (12 sources) Morbid obesity; Translations: [Morbid (severe) obesity due to excess calories] Onset: 11-23-2016 03-10-2024 Chronic Residual codes; unclassified (2 sources) Postoperative state; Translations: [Other specified postprocedural states] 06-14-2024 Episodic Residual codes; unclassified (1 source) Other specified postprocedural states; Translations: [Other specified postprocedural states] Onset: 06-14-2024 Episodic Unclassified (1 source) Fever, Abcess Onset: 12-31-2023 Unclassified (1 source) Cold Like Symptoms Onset: 12-06-2023 Past or Other Problems Problem Classification Problem Date Documented Da te Episodic/Chronic Cardiac dysrhythmias (12 sources) Palpitations; Translations: [Palpitations] Onset: 01-08-2017 03-10-2024 Episodic Conditions associated with dizziness or vertigo (2 sources) Dizziness and giddiness; Translations: [Dizziness] Onset: 12-06-2023 Episodic Diabetes or abnormal glucose tolerance complicating ; childbirth; or the puerperium (12 sources) Gestational diabetes mellitus; Translations: [Gestational diabetes mellitus in , controlled by oral hypoglycemic drugs] Onset: 06-08-2019 03-10-2024 Episodic Genitourinary symptoms and ill-defined conditions (2 sources) Dysuria; Translations: [Dysuria] Onset: 11-12-2023 Episodic Hypertension complicating ; childbirth and the puerperium (12 sources) -induced hypertension; Translations: [Gestational [-induced] hypertension without significant proteinuria, unspecified trimester] Onset: 02-24-2017 03-10-2024 Episodic Other lower respiratory disease (1 source) Shortness of breath Onset: 12-06-2023 Episodic Other skin disorders (1 source) Skin problem Onset: 12-31-2023 Episodic Britta-; endo-; and myocarditis; cardiomyopathy (except [...] other medical treatment] Onset: 05-24-2019 03-10-2024 Episodic Skin and subcutaneous tissue infections (2 sources) Cutaneous abscess, unspecified; Translations: [Cellulitis of chest wall] Onset: 12-31-2023 Episodic Viral infection (1 source) Herpesviral vesicular dermatitis; Translations: [Herpesviral vesicular dermatitis] Onset: 12-31-2023 Episodic Results Test Name Value Interpretation Reference Range Facility BASIC METABOLIC PANLon 07-26 Anion gap [Moles/Vol] 8 mmol/L Normal 5-15 [facility] Comment on above: Performed By: #### C VON BEE, , 75121-2 #### [facility] ([id number]) [address] [place] [address] 14980 Calcium [Mass/Vol] 8.8 mg/dL Normal 8.5-10.5 [facility] Comment on above: Performed By: #### VON Spencer BCA, , 69326-5 #### [facility] ([id number]) [address] [place] [address] 22956 Chloride [Moles/Vol] 101 mmol/L Normal 98-109 [facility] Comment on above: Performed By: #### C VON BEE, , 28710-2 #### [facility] ([id number]) [address] [place] [address] 75228 CO2 [Moles/Vol] 24 mmol/L Normal 22-32 [facility] Comment on above: Performed By: #### Tj BEE BMP, , 79690-6 #### [facility] ([id number]) [address] [place] [address] 45104 Creatinine [Mass/Vol] 0.82 mg/dL Normal 0.40-1.00 [facility] Comment on above: Result Comment: METH OD TRACEABLE TO IDMS STANDARD Performed By: #### C CRISTAL BMP, , 30945-1 #### [facility] ([id number]) [address] [place] [address] 96374 eGFR (CKD-EPI) NON-RACE DEPENDENT >90 Normal >59 [facility] Comment on above: Result Comment: Reported eGFR is based on the CKD-EPI 2020 equation that does not use a race coefficient. Performed By: #### C CRISTAL, BMP, , 61901-8 #### [facility] ([id number]) [address] [place] [address] 16106 Glucose [Mass/Vol] 113 mg/dL High 65-99 [facility] Comment on above: Performed By: #### C CRISTAL, BMP, , 58900-0 #### [facility] ([id number]) [address] [place] [address] 58789 Potassium [Moles/Vol] 4.1 mmol/L Normal 3.5-5.0 [facility] Comment on above: Performed By: #### C CRISTAL, BMP, , 97786-7 #### [facility] ([id number]) [address] [place] [address] 52767 Sodium [Moles/Vol] 133 mmol/L Low 134-146 [facility] Comment on above: Performed By: #### C CRISTAL, BMP, , 39465-4 #### [facility] ([id number]) [address] [place] [address] 96151 Urea nitrogen [Mass/Vol] 12 mg/dL Normal 5-23 [facility] Comment on above: Performed By: #### C CRISTAL, BMP, , 57685-4 #### [facility] ([id number]) [address] [place] [address] 86416 CBC AND AUTO DIFFon 07-26-20 ABSOLUTE BASOPHIL 0.1 X10E9/L Normal 0.0-0.2 [facility] Comment on above: Performed By: #### C CRISTAL, BMP, , 07449-5 #### [facility] ([id number]) [address] [place] [address] 05895 ABSOLUTE NEUTROPHIL 6.3 X10E9/L Normal 1.5-6.6 [facility] Comment on above: Performed By: #### C CRISTAL, BMP, , 97867-9 #### [facility] ([id number]) [address] [place] [address] 79253 Basophils/100 WBC (Bld) 1.2 % Normal [facility] Comment on above: Performed By: #### Tj BEE, BMP, , 56602-6 #### [facility] ([id number]) [address] [place] [address] 02707 Eosinophils (Bld) [#/Vol] 0.2 10*3/uL Normal 0.0-0.4 [facility] Comment on above: Performed By: #### C CRISTAL, BMP, , 72080-2 #### [facility] ([id number]) [address] [place] [address] 92072 Eosinophils/100 WBC (Bld) 2.4 % Normal [facility] Comment on above: Performed By: #### C CRISTAL, BMP, , 64954-8 #### [facility] ([id number]) [address] [place] [address] 91063 Erythrocyte distribution width (RBC) [Ratio] 13.7 % Normal 11.5-15.0 [facility] Comment on above: Performed By: #### C BCA, BMP, , 15435-3 #### [facility] ([id number]) [address] [place] [address] 15146 Hematocrit (Bld) [Volume fraction] 37.7 % Normal 35-47 [facility] Comment on above: Performed By: #### C BCA, BMP, , 67720-3 #### [facility] ([id number]) [address] [place] [address] 23686 Hemoglobin (Bld) [Mass/Vol] 12.8 g/dL Normal 11.7-15.5 [facility] Comment on above: Performed By: #### C BCA, BMP, , 97136-6 #### [facility] ([id number]) [address] [place] [address] 10525 Lymphocytes (Bld) [#/Vol] 2.2 10*3/uL Normal 1.0-3.5 [facility] Comment on above: Performed By: #### C CRISTAL, BMP, , 70761-2 #### [facility] ([id number]) [address] [place] [address] 52355 Lymphocytes/100 WBC (Bld) 23.2 % Normal [facility] Comment on above: Performed By: #### C CRISTAL, BMP, , 46925-6 #### [facility] ([id number]) [address] [place] [address] 72805 MCH (RBC) [Entitic mass] 30.4 pg Normal 27-34 [facility] Comment on above: Performed By: #### C BCA, BMP, , 15252-7 #### [facility] ([id number]) [address] [place] [address] 63620 MCHC (RBC) [Mass/Vol] 33.8 g/dL Normal 32-36 [facility] Comment on above: Performed By: #### C CRISTAL, VON, , 93052-6 #### [facility] ([id number]) [address] [place] [address] 79890 MCV (RBC) [Entitic vol] 90 fL Normal 80-100 [facility] Comment on above: Performed By: #### Tj BEE, BMP, , 54137-6 #### [facility] ([id number]) [address] [place] [address] 28724 Monocytes (Bld) [#/Vol] 0.6 10*3/uL Normal 0-0.9 [facility] Comment on above: Performed By: #### Tj BEE, BMP, , 58259-2 #### [facility] ([id number]) [address] [place] [address] 42313 Monocytes/100 WBC (Bld) 6.5 % Normal [facility] Comment on above: Performed By: #### Tj BEE, BMP, , 90600-8 #### [facility] ([id number]) [address] [place] [address] 06008 Neutrophils/100 WBC (Bld) 66.7 % Normal [facility] Comment on above: Performed By: #### Tj BEE, BMP, , 01059-8 #### [facility] ([id number]) [address] [place] [address] 59831 Platelet mean volume (Bld) [Entitic vol] 7.2 fL Normal 7-12 [facility] Comment on above: Performed By: #### Tj BEE, BMP, , 64513-4 #### [facility] ([id number]) [address] [place] [address] 62853 Platelets (Bld) [#/Vol] 366 10*3/uL Normal 150-450 [facility] Comment on above: Performed By: #### C CRISTAL, VON, , 84909-2 #### [facility] ([id number]) [address] [place] [address] 40916 RBC COUNT 4.21 X10E12/L Normal 3.80-5.20 [facility] Comment on above: Performed By: #### C CRISTAL, VON, , 42362-3 #### [facility] ([id number]) [address] [place] [address] 69600 WBC (Bld) [#/Vol] 9.4 10*3/uL Normal 4.0-11.0 [facility] Comment on above: Performed By: #### C CRISTAL, VON, , 15266-2 #### [facility] ([id number]) [address] [place] [address] 24787 MAGNESIUMon 07-26-2024 Magnesium [Mass/Vol] 2.3 mg/dL Normal 1.8-2.6 [facility] Comment on above: Performed By: #### C VON BEE, , 00789-1 #### [facility] ([id number]) [address] [place] [address] 04478 Troponin I.cardiac High sens itivity method [Mass/Vol]on 07-26-2024 1 HOUR TROP I, HIGH SENSITIVITY <2 Normal <16 [facility] Comment on above: Performed By: #### C MP, CBCA, , 81874-6, THYR #### [facility] ([id number]) [address] [place] [address] 66032 TROPONIN I, HIGH SENSITIVITY <2 Normal <16 [facility] Comment on above: Performed By: #### C MP, CBCA, 23714-1, 38333-3, THYR #### [facility] ([id number]) [address] [place] [address] [place] [address] XR CHEST 1 VWon 07-26-2024 XR CHEST 1 VW XR CHEST 1 VW CHEST 1 VIEW HISTORY: Chest pain COMPARISON: 03/17/2023 FINDINGS: No focal airspace disease, pulmonary edema, pleural effusions, or pneumothorax. Normal cardiomediastinal silhouette. IMPRESSION: No acute cardiopulmonary disease. Finalized by Adarsh Almanza MD on 07/26/2024 5:25 AM Normal [facility] Balwinder 07-21-2024 L Specimen: [id number] Received: 07/22/24 Status: LEOBARDO Ashley Num: [id number] Spec Type: Surgical Subm Dr: Parviz Lyles DPM, MS Tissues: A Tendon/Sheath (LEFT PERONEAL TENDON) Procedures: HE, Gross/Micro L3 Age/ Patient Sex Location Account Attending Physician Nick Bean 34/F LABELL [id number] Parviz Lyles DPM, MS SPEC NUM: [id number] RECD: 07/22/24 STATUS: LEOBARDO ASHLEY NUM: [id number] LUDWIN: 07/21/[address]: Parviz Lyles DPM, MS ENTERED: 07/22/[address] [facility] [address]: Lefty Rodriguez SPEC TYPE: Surgical DEPT: JOAQUIN BRICE ENTERED BY: [id number] RECV BY: [id number] ORDERED: HE, Gross/Micro L3 ORDERED: HE, Gross/Micro L3 Pathological Diagnosis Soft tissue, left peroneal tendon, excision: -An elongated and focally slightly irregularly thickened tenosynovial tendinous segment with patchy sclerotic or myxoid degeneration, consistent with features of effect of chronic impingement or stretching injury of the unstable ankle joint without tumor, obvious inflammation, or secondary infection identified Clinical Information Left ankle impingement, left ankle instability Gross Description The specimen is received in formalin with the patient's name and left peroneal tendon and consists of a elongated white portion of fibrous tissue measuring 7.5 x 0.5 x 0.4 cm. The specimen is bisected and entirely submitted in cassette A1. Microscopic Description Microscopic examinations are performed supporting the above interpretation ---- Specimen: [id number] Received: 07/22/24 Status: LEOBARDO Ashley Num: [id number] Spec Type: Surgical Subm Dr: Parviz Llyes,DPQuinten, MS Tissues: A Tendon/Sheath (LEFT PERONEAL TENDON) Procedures: Elida MICHAEL/Faina L3 ---- Patient: Nick Bean [id number] (Continued) ---- Specimen: [id number] Received: 07/22/24 (Continued) Signed (signature on file) Karissa Carrasco MD 07/25/241711 ---- Specimen: [id number] Received: 07/22/24 Status: LEOBARDO Ashley Num: [id number] Spec Type: Surgical Subm Dr: Parviz Lyles DPM, MS Tissues: A Tendon/Sheath (LEFT PERONEAL TENDON) Procedures: ALEC, Gross/Micro L3 ---- Patient: EdgarNick Selam [id number] (Continued) ---- Specimen: [id number] Received: 07/22/24 (Continued) CPT Codes 78507 ---- ---- Specimen: [id number] Received: 07/22/24 Status: LEOBARDO Ashley Num: [id number] Spec Type: Surgical Subm Dr: Parviz Lyles DPM, MS Tissues: A Tendon/Sheath (LEFT PERONEAL TENDON) Procedures: HE, Elida/Faina L3 ---- Patient: EdgarNick Selam [id number] (Continued) ---- Signed (signature on file) Karissa Carrasco MD 07/25/24 1713 Normal [facility] Addendum Noteon 06-28-2024 [employer] Machine Operator Authentication Interface Message Text Addended by: KARTHIK BLACK on: 06/28/2024 11:10 AM Modules accepted: Level of Service Normal [facility] Progress Noteson 06-14-2024 [employer] Operator Authentication Interface Message Text [facility] TELEPHONE FOLLOW UP VISIT Chief Complaint: Pt presents for telephone follow up. Reports she has minor pain on LL, no drainage, and no foul taste noted. Review of Systems: no change Physical findings: Pain/swelling at LL surgical sites reported by patient No paresthesia reported by patient Will have her dentist claudia, since she stated she lives 1[place]5 hours away from [facility]. Assessment / Diagnosis: Normal postoperative course. Healing as expected. Plan: Follow-Up: PRN Follow up sooner with new or worsening symptoms. Normal [facility] Telephone Encounteron 2023 [employer] Operator Authentication Interface Message Text PT is awaiting post op f/u call. It is currently 11:40. Is the provider running late? PT is concerned of the start of a possible infection starting. Site is swollen AND red. Telephone Information: Normal [facility] Telephone Encounteron 2023 [employer] Operator Authentication Interface Message Text Symptoms - white bumps along the gum line, pt has concerns that she needs a nurse to call and discuss with her Normal [facility] [employer] Operator Authentication Interface Message Text Situation: Patient is calling back previously triaged for another issue Background: Patient states she has white bumps along the gum line where the teeth were extracted. Assessment: Pls call pt @ [phone] to discuss AND advise Recommendation: Pls advise Thank you Normal [facility] Anesthesia Postprocedure Tata luationon 06-07-2024 [employer] Operator Authentication Interface Message Text Anesthesia Postoperative Assessment: [...] EVENTS: No notable events documented. 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 The risks, benefits and alternatives were reviewed. Questions regarding anesthesia were answered. Patient and/or legal district representative knows such anesthetics and procedures may be performed by Resident physicians, Certified Anesthesiologist Assistants, or Certified Nurse Anesthetists under the supervision of a physician. The patient /or the patient's legal district representative agree with the plan for anesthesia. MHPATFORM Normal [facility] Anesthesia Transfer Of Careo n 06-07-2024 [employer] Operator Authentication Interface Message Text Patient taken to [...] Black DMD, MD Anesthesiologist: Washington Anderson MD IN PROCESSING INSTRUCTOR: Dariusz Anderson APRN-JODEE Anesthesia Student: Benton Goddard [...] was received. Dariusz Anderson APRN-JODEE Normal [facility] Blood Attestationon 06-07-20 [employer] Machine Operator Authentication Interface Message Text Blood Attestation: ATTESTATION OF INFORMED CONSENT FOR BLOOD: The transfusion of blood and/or blood components were discussed with the patient and/or legal district representative. The risks, benefits and alternatives were reviewed. Questions regarding blood transfusions were answered. The patient /or the patient's legal district representative agree with the plan for transfusion of blood and/or blood components. Normal [facility] OP Noteon 06-07-2024 [employer] Machine Operator Authentication Interface Message Text [facility] Division of spoilage worker [address] [place] [address] [place] [address] OPERATIVE NOTE Name: Nick Bean MR#: [id number] ENC#: Data Unavailable Surgical Case #: Data Unavailable Date of Procedure: 06/07/2024 ? PREOPERATIVE DIAGNOSIS: Caries (Primary Diagnosis) [705800] Pain following oral surgery [7614765] ? POSTOPERATIVE DIAGNOSIS: Caries (Primary Diagnosis) [484794] Pain following oral surgery [9666285] OPERATION: EXTRACTION ERUPTED TOOTH/EXR [D7140] ALVEOPLASTY W/ [...] ? Karthik Black DMD, MD Normal [facility] Telephone Encounteron 2023 [employer] Machine Operator Authentication Interface Message Text Situation: Caller states [...] understanding. No further questions. Information obtained from, [email or web address] Nichole Aguila RN, RN Normal [facility] URINE HCG-IN OFFICEOrdered B y: William Hooker on 06-07-2024 HCG ( test) Ql (U) Negative Negative [facility] Interpretation and review of laboratory results Normal [facility] Negative Internal Control Negative Negative [facility] Positive Internal Control Positive Positive [facility] PAT Call Historyon [employer] Machine Operator Authentication Interface Message Text Telephone History Nick Bean, [id number] 05/20/2024 Patient was identified by name and [...] caries Endo (+) diabetes mellitus gestational, obesity college administrator Comment: LMP 05-17-2024 Neuro/Psych (+) depression, anxiety/panic [...] min Stress: No Stress Concern Present (03/09/2024) [employer] [place] [employer] - Occupational Stress Questionnaire [...] 7.2 (more content not included)... Normal [facility] Progress Noteson 03-10-2024 [employer] Machine Operator Authentication Interface Message Text OM[facility] PATIENT VISIT CHIEF COMPLAINT: Toothache HISTORY OF PRESENT ILLNESS: Patient is a 33yoF with pmhx sig for obesity and severe procedural anxiety who presents to [facility] as a referral from her general [...] lower teeth and alveoplasty under GA at [facility] in preparation for complete dentures. Patient said [...] mandibular teeth and alveoplasty under GA at [facility] Karthik Black DMD, MD Normal [facility] [employer] Machine Operator Authentication Interface Message Text Normal [facility] CBC AND AUTO DIFFon 12-06-19 24 ABSOLUTE BASOPHIL 0.0 X10E9/L Normal 0.0-0.2 [facility] Comment on above: Performed By: #### C ZURI LEIJA, 05429-2, 94011-2, THYR #### [facility] ([id number]) [address] [place] [address], [place] [address] ABSOLUTE NEUTROPHIL 6.0 X10E9/L Normal 1.5-6.6 [facility] Comment on above: Performed By: #### C ZURI LEIJA, , 87663-7, THYR #### [facility] ([id number]) [address] [place] [address] 14036 Basophils/100 WBC (Bld) 0.4 % Normal [facility] Comment on above: Performed By: #### C MP, CBCA, , 91982-0, THYR #### [facility] ([id number]) [address] [place] [address] 98533 Eosinophils (Bld) [#/Vol] 0.1 10*3/uL Normal 0.0-0.4 [facility] Comment on above: Performed By: #### C MP, CBCA, , , THYR #### [facility] ([id number]) [address] [place] [address] 49030 Eosinophils/100 WBC (Bld) 1.0 % Normal [facility] Comment on above: Performed By: #### C MP, CBCA, , , THYR #### [facility] ([id number]) [address] [place] [address] 08103 Erythrocyte distribution width (RBC) [Ratio] 13.7 % Normal 11.5-15.0 [facility] Comment on above: Performed By: #### C MP, CBCA, , , THYR #### [facility] ([id number]) [address] [place] [address] 22728 Hematocrit (Bld) [Volume fraction] 37.3 % Normal 35-47 [facility] Comment on above: Performed By: #### C MP, CBCA, , 23591-4, THYR #### [facility] ([id number]) [address] [place] [address] 35092 Hemoglobin (Bld) [Mass/Vol] 12.8 g/dL Normal 11.7-15.5 [facility] Comment on above: Performed By: #### C MP, CBCA, 89597-9, 93906-2, THYR #### [facility] ([id number]) [address] [place] [address] 45762 Lymphocytes (Bld) [#/Vol] 1.5 10*3/uL Normal 1.0-3.5 [facility] Comment on above: Performed By: #### C MP, CBCA, , 47461-6, THYR #### [facility] ([id number]) [address] [place] [address] 17267 Lymphocytes/100 WBC (Bld) 18.8 % Normal [facility] Comment on above: Performed By: #### C MP, CBCA, , 08590-5, THYR #### [facility] ([id number]) [address] [place] [address] 25803 MCH (RBC) [Entitic mass] 30.5 pg Normal 27-34 [facility] Comment on above: Performed By: #### C MP, CBCA, , 23192-2, THYR #### [facility] ([id number]) [address] [place] [address] 65524 MCHC (RBC) [Mass/Vol] 34.2 g/dL Normal 32-36 [facility] Comment on above: Performed By: #### C MP, CBCA, 59830-5, 41520-8, THYR #### [facility] ([id number]) [address] [place] [address] 87115 MCV (RBC) [Entitic vol] 89 fL Normal 80-100 [facility] Comment on above: Performed By: #### C MP, CBCA, 73703-0, 18166-5, THYR #### [facility] ([id number]) [address] [place] [address] 65384 Monocytes (Bld) [#/Vol] 0.4 10*3/uL Normal 0-0.9 [facility] Comment on above: Performed By: #### C MP, CBCA, 46868-0, 66964-3, THYR #### [facility] ([id number]) [address] [place] [address] 24391 Monocytes/100 WBC (Bld) 4.6 % Normal [facility] Comment on above: Performed By: #### C MP, CBCA, 41203-0, 48606-6, THYR #### [facility] ([id number]) [address] [place] [address] 50744 Neutrophils/100 WBC (Bld) 75.2 % Normal [facility] Comment on above: Performed By: #### C MP, CBCA, 20270-0, 49810-8, THYR #### [facility] ([id number]) [address] [place] [address] 19381 Platelet mean volume (Bld) [Entitic vol] 7.2 fL Normal 7-12 [facility] Comment on above: Performed By: #### C MP, CBCA, 28540-8, 98115-3, THYR #### [facility] ([id number]) [address] [place] [address] 14132 Platelets (Bld) [#/Vol] 292 10*3/uL Normal 150-450 [facility] Comment on above: Performed By: #### C MP, CBCA, 22059-1, 08996-9, THYR #### [facility] ([id number]) [address] [place] [address] 40742 RBC COUNT 4.19 X10E12/L Normal 3.80-5.20 [facility] Comment on above: Performed By: #### C MP, CBCA, 70393-6, 06443-8, THYR #### [facility] ([id number]) [address] [place] [address] 11684 WBC (Bld) [#/Vol] 7.9 10*3/uL Normal 4.0-11.0 [facility] Comment on above: Performed By: #### C HELADIO, CBCA, 87052-1, 28128-2, THYR #### [facility] ([id number]) [address] [place] [address] 48637 COMPREHENSIVE METABOLIC PANE Balwinder 12-06-2023 Albumin [Mass/Vol] 4.1 g/dL Normal 3.2-5.3 [facility] Comment on above: Performed By: #### C HELADIO, CBCA, , 92662-0, THYR #### [facility] ([id number]) [address] [place] [address] 21426 ALP [Catalytic activity/Vol] 49 U/L Normal 39-130 [facility] Comment on above: Performed By: #### C HELADIO, CBCA, , 00974-7, THYR #### [facility] ([id number]) [address] [place] [address] 51564 ALT [Catalytic activity/Vol] 27 U/L Normal 0-31 [facility] Comment on above: Performed By: #### C HELADIO, CBCA, 17921-8, 85788-6, THYR #### [facility] ([id number]) [address] [place] [address] 97320 Anion gap [Moles/Vol] 6 mmol/L Normal 5-15 [facility] Comment on above: Performed By: #### C MP, CBCA, 09569-7, 28376-9, THYR #### [facility] ([id number]) [address] [place] [address] 30528 AST [Catalytic activity/Vol] 28 U/L Normal 0-41 [facility] Comment on above: Performed By: #### C HELADIO, CBCA, 22746-3, 70373-1, THYR #### [facility] ([id number]) [address] [place] [address] 90048 Bilirubin [Mass/Vol] 0.7 mg/dL Normal 0.3-1.2 [facility] Comment on above: Performed By: #### C HELADIO, CBCA, , 47378-6, THYR #### [facility] ([id number]) [address] [place] [address] 34607 Calcium [Mass/Vol] 8.6 mg/dL Normal 8.5-10.5 [facility] Comment on above: Performed By: #### C HELADIO, CBCA, , 38528-2, THYR #### [facility] ([id number]) [address] [place] [address] 86979 Chloride [Moles/Vol] 105 mmol/L Normal 98-109 [facility] Comment on above: Performed By: #### C HELADIO, CBCA, , 41132-2, THYR #### [facility] ([id number]) [address] [place] [address] 75162 CO2 [Moles/Vol] 25 mmol/L Normal 22-32 [facility] Comment on above: Performed By: #### C HELADIO, CBCA, , 80062-2, THYR #### [facility] ([id number]) [address] [place] [address] 60707 Creatinine [Mass/Vol] 0.65 mg/dL Normal 0.40-1.00 [facility] Comment on above: Result Comment: METH OD TRACEABLE TO IDMS STANDARD Performed By: #### C HELADIO, CBCA, , 09190-0, THYR #### [facility] ([id number]) [address] [place] [address] 91911 eGFR (CKD-EPI) NON-RACE DEPENDENT >90 Normal >59 [facility] Comment on above: Result Comment: Reported eGFR is based on the CKD-EPI 2020 equation that does not use a race coefficient. Performed By: #### C HELADIO, CBCA, 95019-6, 35653-4, THYR #### [facility] ([id number]) [address] [place] [address] 05302 Glucose [Mass/Vol] 134 mg/dL High 65-99 [facility] Comment on above: Performed By: #### C HELADIO, CBCA, 55026-7, 68417-4, THYR #### [facility] ([id number]) [address] [place] [address] 62218 Potassium [Moles/Vol] 3.5 mmol/L Normal 3.5-5.0 [facility] Comment on above: Performed By: #### C HELADIO, CBCA, 79809-7, 67272-5, THYR #### [facility] ([id number]) [address] [place] [address] 90994 Protein [Mass/Vol] 7.2 g/dL Normal 6.0-8.0 [facility] Comment on above: Performed By: #### C HELADIO, CBCA, 54860-9, 52765-0, THYR #### [facility] ([id number]) [address] [place] [address] 25965 Sodium [Moles/Vol] 136 mmol/L Normal 134-146 [facility] Comment on above: Performed By: #### C HELADIO, CBCA, 59053-5, 29290-7, THYR #### [facility] ([id number]) [address] [place] [address] 86609 Urea nitrogen [Mass/Vol] 14 mg/dL Normal 5-23 [facility] Comment on above: Performed By: #### C HELADIO, CBCA, 72700-5, 40363-4, THYR #### [facility] ([id number]) [address] [place] [address] 94558 HCG ( test) Ql (U)o n 12-06-2023 Beta HCG ( test) Ql (U) Negative Normal NEG [facility] Comment on above: Performed By: #### 2 106-3 #### [facility] ([id number]) [address] [place] [address] 97552 MAGNESIUMon 12-06-2023 Magnesium [Mass/Vol] 2.2 mg/dL Normal 1.8-2.6 [facility] Comment on above: Performed By: #### C HELADIO, CBCA, , 98716-2, THYR #### [facility] ([id number]) [address] [place] [address] 41214 THYROID PROFILEon 12-06-2023 Free T4 [Mass/Vol] 1.02 ng/dL Normal 0.61-1.60 [facility] Comment on above: Performed By: #### C HELADIO, CBCA, , 77106-5, THYR #### [facility] ([id number]) [address] [place] [address] 42923 TSH 1.19 uIU/mL Normal 0.49-4.67 [facility] Comment on above: Performed By: #### C HELADIO, CBCA, , 31709-9, THYR #### [facility] ([id number]) [address] [place] [address] 66805 TROPONIN Ion 12-06-2023 Troponin I.cardiac [Mass/Vol] ng/mL Normal 0.00-0.04 [facility] Comment on above: Performed By: #### C HELADIO, CBCA, , 25354-3, THYR #### [facility] ([id number]) [address] [place] [address] [place] [address] URN MACROSCOPIC NURon 2023 BILIRUBIN [place]OR[place]E Negative Normal NEG [facility] Comment on above: Performed By: #### N UM #### [facility] ([id number]) [address] [place] [address] [place] [address] BLOOD/HGB LORRIE Negative Normal NEG [facility] Comment on above: Performed By: #### N UM #### [facility] ([id number]) [address] [place] [address] [place] [address] GLUCOSE [place]E Negative Normal NEG [facility] Comment on above: Performed By: #### N UM #### [facility] ([id number]) [address] [place] [address] [place] [address] KETONES LORRIE Negative Normal NEG [facility] Comment on above: Performed By: #### N UM #### [facility] ([id number]) [address] [place] [address] [place] [address] LEUKOCYTE ESTERASE [place]OR[place]E Negative Normal NEG [facility] Comment on above: Performed By: #### N UM #### [facility] ([id number]) [address] [place] [address] [place] [address] NITRITE [place]E Negative Normal NEG [facility] Comment on above: Performed By: #### N UM #### [facility] ([id number]) [address] [place] [address] [place] [address] PH LORRIE 7.5 Normal 5.0-8.5 [facility] Comment on above: Performed By: #### N UM #### [facility] ([id number]) [address] [place] [address] [place] [address] PROTEIN [place] Negative Normal NEG [facility] Comment on above: Performed By: #### N UM #### [facility] ([id number]) [address] [place] [address], [place] [address] SPECIFIC GRAVITY LOR[place]E 1.020 Normal 1.003-1.035 [facility] Comment on above: Performed By: #### N UM #### [facility] ([id number]) [address] [place] [address] 33646 UROBILINOGEN LORRIE 0.2 eu/dL Normal <1.1 [facility] Comment on above: Performed By: #### N UM #### [facility] ([id number]) [address] [place] [address], [place] [address] Urinalysis - AUTOMATEDon Appearance (U) clear [employer] Other Bilirubin Ql (U) Negative [employer] Other Color (U) yellow Dr. Scribbles Other Glucose Ql (U) Negative [employer] Other Hemoglobin Ql (U) Negative [employer] Other Ketones Ql (U) Negative [employer] Other Leukocyte esterase Test strip Ql (U) Negative Dr. Scribbles Other Nitrite Ql (U) Negative [employer] Other pH (U) 7.0 [pH] Dr. Scribbles Other Protein Ql (U) Negative [employer] Other Specific gravity (U) [Rel density] 1.025 Dr. Scribbles Other Urobilinogen (U) [Mass/Vol] 0.2 mg/dL Dr. Scribbles Other Urinalysis - AUTOMATED Dr. Scribbles Other Urine Cultureon 11-12-2023 Bacteria identified Cx Nom (U) Reason for Exam Dysuria Urine Reason for Exam: Dysuria : Urine 50,000 colonies/ml mixed bacterial skin contaminants 2 Days PERFORMED BY: [facility] [address] [place] [address] PATHOLOGIST SUSTAIN ENGINEER TREE CROWDER M.D. Normal [facility] Comment on above: Performed By: #### C UU #### [place] [id number] [facility] Vital Signs Date Time Vital Sign Value Performing Clinician Facility 06-14-2024 17:56-0400 Body height 165.1 cm [facility] 06-14-2024 17:56-0400 Body mass index (BMI) [Ratio] 43.2 kg/m2 [facility] 06-14-2024 17:56-0400 Body temperature 98.8 [degF] [facility] 06-14-2024 17:56-0400 Body weight 117.93 kg [facility] 06-14-2024 17:56-0400 Diastolic blood pressure 86 mm[Hg] [facility] 06-14-2024 17:56-0400 Heart rate 68 /min [facility] 06-14-2024 17:56-0400 SaO2% (BldA) [Mass fraction] 99 % [facility] 06-14-2024 17:56-0400 Systolic blood pressure 127 mm[Hg] [facility] 06-07-2024 15:22-0400 Body temperature 98.01 [degF] Karthik Black DMD, MD Work Phone: [facility] 06-07-2024 15:22-0400 Diastolic blood pressure 68 mm[Hg] Karthik Black DMD, MD Work Phone: [facility] 06-07-2024 15:22-0400 Heart rate 73 /min Karthik Black DMD, MD Work Phone: [facility] 06-07-2024 15:22-0400 Respiratory rate 16 /min Karthik Black DMD, MD Work Phone: [facility] 06-07-2024 15:22-0400 SaO2% (BldA) [Mass fraction] 96 % [facility] 06-07-2024 15:22-0400 Systolic blood pressure 126 mm[Hg] Karthik Black DMD, MD Work Phone: [facility] 05-20-2024 12:59-0400 Body height 165.1 cm Kizzy Maurice RN [facility] 05-20-2024 12:59-0400 Body mass index (BMI) [Ratio] 44.93 kg/m2 Kizzy Maurice RN [facility] 05-20-2024 12:59-0400 Body weight 122.47 kg [facility] 11-12-2023 18:25-0500 Body height 165.1 cm Abigail Vijaya Other Dr. Scribbles Other 11-12-2023 18:25-0500 Body mass index (BMI) [Ratio] 44.43 kg/m2 Abigail Vijaya Other Dr. Scribbles Other 11-12-2023 18:25-0500 Body temperature 98.2 [degF] Abigail Vijaya Other Dr. Scribbles Other 11-12-2023 18:25-0500 Body weight 121.11 kg Abigail Vijaya Other Dr. Scribbles Other 11-12-2023 18:25-0500 Respiratory rate 18 /min Abigail Vijaya Other Dr. Scribbles Other 11-12-2023 18:25-0500 SaO2% (BldA) [Mass fraction] 98 % Abigail Vijaya Other Dr. Scribbles Other 07-12-2023 13:30-0400 Body height 165.1 cm Mikki Brooks Other Dr. Scribbles Other 07-12-2023 13:30-0400 Body mass index (BMI) [Ratio] 45.92 kg/m2 Mikki Brooks Other Dr. Scribbles Other 07-12-2023 13:30-0400 Body temperature 98.6 [degF] Mikki Mejiamond Other Dr. Scribbles Other 07-12-2023 13:30-0400 Body weight 125.19 kg Mikki Brooks Other Dr. Scribbles Other 07-12-2023 13:30-0400 Diastolic blood pressure 85 mm[Hg] Mikki Brooks Other Dr. Scribbles Other 07-12-2023 13:30-0400 Respiratory rate 18 /min Mikki Brooks Other Dr. Scribbles Other 07-12-2023 13:30-0400 SaO2% (BldA) [Mass fraction] 99 % Mikki Brooks Other Dr. Scribbles Other 07-12-2023 13:30-0400 Systolic blood pressure 132 mm[Hg] Mikki Cecilia Other Dr. Scribbles Other Encounters Encounter Date Encounter Type Care Provider Facility Start: 07-26-2024 End: 07-26-2024 Emergency department patient visit ANTOINE Hill KATIE [facility] Start: 07-21-2024 End: 07-21-2024 ambulatory Cro[facility] Facility:[facility] Start: 06-14-2024 End: 06-14-2024 ambulatory [facility] Work Phone: Start: 06-14-2024 End: 06-14-2024 Patient encounter procedure [facility] Work Phone: Start: 06-14-2024 End: 06-14-2024 Patient encounter procedure Karthik Black DMD, MD Work Phone: [facility] Surgery Comment on above: Post-operative state (Primary Dx) Start: 06-14-2024 ambulatory UNKNOWN PROVIDER Facili ty:[facility] Start: 06-07-2024 End: 06-07-2024 Telephone encounter Nichole Aguila RN [facility] Line Comment on above: Advice/health educat ion Start: 06-07-2024 End: 06-07-2024 Anesthesia consultation Washington Anderson MD Work Phone: [facility] Main OR Start: 06-07-2024 End: 06-07-2024 ambulatory KARTHIK DARIEL Facility:[facility] Start: 06-07-2024 End: 06-07-2024 Subsequent hospital visit by physician Karthik Black DMD, MD Work Phone: [facility] Main OR Comment on above: Caries (Primary Dx); Pain following oral surgery Start: 05-20-2024 End: 05-20-2024 Nursing evaluation of patient and report Kizzy Maurice RN [facility] Pre-Admission Testing Comment on above: Pre-op evaluation (P rimary Dx) Start: 05-20-2024 End: 05-20-2024 Preprocedural examination done Kizzy Maurice RN [facility] Start: 05-20-2024 ambulatory UNKNOWN PROVIDER Facili ty:[facility] Start: 05-20-2024 Encounter for other preprocedural examination UNKNOWN PROVIDER [facility] Start: 05-09-2024 End: 05-09-2024 Letter encounter Karthik Black DMD, MD Work Phone: [facility] Start: 04-06-2024 End: 04-06-2024 Letter encounter Karthik Black DMD, MD Work Phone: [facility] Start: 03-10-2024 End: 03-11-2024 Patient encounter procedure Karthik Black DMD, MD Work Phone: [facility] Surgery Comment on above: Caries (Primary Dx) Start: 03-10-2024 End: 03-11-2024 ambulatory KARTHIK MAURICEI Facility:[facility] Start: 12-31-2023 End: 12-31-2023 Emergency department patient visit [facility] Start: 12-06-2023 End: 12-06-2023 Emergency department patient visit [facility] Start: 11-23-2023 End: 11-24-2023 ambulatory Saeid Pinzon DPM Facility:[facility] Start: 11-12-2023 End: 11-12-2023 Departed Referred VICTORIA Lilly Work Phone: [facility] [place] Work Phone: Start: 11-12-2023 End: 11-12-[address] Scribbles Other Start: 11-12-2023 Office outpatient vi sit 15 minutes Abigail Lilly [facility] Start: 10-22-2023 End: 10-23-2023 ambulatory Saeid Pinzon DPM Facility:[facility] Start: 10-08-2023 ambulatory Saeid Pinzon DPM F acility:[facility] Start: 10-08-2023 End: 10-08-2023 Patient encounter procedure BILLING ASSOCIATEChar Lilly Work Phone: [facility] Work Phone: Start: 09-28-2023 ambulatory Saeid Pinzon DPM F acility:[facility] Start: 09-03-2023 End: 09-04-2023 ambulatory Saeid Pinzon DPM Facility:[facility] Start: 07-12-2023 End: 07-12-2023 ambulatory Mikki Brooks Other Dr[facility] Scribbles Other Start: 07-12-2023 Office outpatient ne w [...] 07-26-2024 Influenza vaccination Influenza Vacc ine (#1) [facility] Start: 06-26-2024 COVID-19 Vaccine ( season) COVID-19 Vaccine ( season) [facility] Start: 06-14-2024 End: 06-14-2024 Patient encounter procedure [facility] Start: 06-10-2024 End: 06-10-2024 Patient encounter procedure 06/10/2024 11:20 AM EDT Office Visit [facility] [address] [place] [address] Karthik Black DMD, MD [address] [place] [address] [facility] Start: 06-07-2024 End: 06-07-2024 Admission to same day surgery center 06/07/2024 2:13 PM EDT - 06/07/2024 3:21 PM EDT Surgery [facility] [address] [place] [address] Karthik Black DMD, MD [address] [place] [address] Extraction of all manibular teeth, alveoplasty [facility] Comment on above: Extraction of all ma nibular teeth, alveoplasty Start: 06-07-2024 End: 06-07-2024 EXTRACTION, TOOTH EXTRACTION, TOOTH Routine scheduled Caries 06/07/2024 2:13 PM EDT [facility] Start: 06-07-2024 Subsequent hospital visit by physician 06/07/2024 2:13 PM EDT Hospital Encounter [facility] Ambulatory Surgery [address] [place] [address] Karthik Black DMD, MD [address] [place], [place] [id number] [facility] Start: 06-07-2024 End: 06-07-2024 EXTRACTION, TOOTH EXTRACTION, TOOTH Routine scheduled Caries 06/07/2024 12:51 PM EDT [facility] Start: 06-03-2024 End: 06-03-2024 Admission to same day surgery center 06/03/2024 10:58 AM EDT - 06/03/2024 12:06 PM EDT Surgery [facility] Surgery [address] [place] [address] Karthik Black DMD, MD [address] [place] [address] Extraction of all manibular teeth, alveoplasty [facility] Comment on above: Extraction of all ma nibular teeth, alveoplasty Start: 06-03-2024 End: 06-03-2024 EXTRACTION, TOOTH EXTRACTION, TOOTH Routine scheduled Caries 06/03/2024 10:58 AM EDT [facility] Start: 06-03-2024 Subsequent hospital visit by physician 06/03/2024 10:58 AM EDT Hospital Encounter [facility] Ambulatory Surgery [address] [place] [address] Karthik Black DMD, MD [address] [place] [address] [facility] Start: 05-20-2024 End: 05-20-2024 Nursing evaluation of patient and report 05/20/2024 1:00 PM EDT Nurse Visit [facility] Pre-Admission Testing [address] [place] [address] Kizzy Maurice, MICKIE [address] Pre-Admission Testing Start: 11-23-2023 Hemoglobin A1c measurement Hemoglobin A1C [facility] Start: 11-12-2023 Bacteria identified in Urine by Culture [facility] Start: 06-26-2023 COVID-19 Vaccine ( season) COVID-19 Vaccine ( season) [facility] Start: 2015 HPV Vaccine (optiona l [...] COVID-19 Vaccine (#1) COVID-19 Vacci ne (#1) [facility] Start: 1988 Glaucoma screening [facility] Start: 1988 Hemoglobin A1c measurement Hemoglobin A1C [facility] Start: 1988 Lipid [facility] Start: 1988 Urine screening for protein [facility] Start: 1988 Diabetic foot examination Foot Exam [facility] Start: 1988 Hepatitis B vaccination Hepati tis B (HBV) Vaccine (1 of 3 - 3-dose series) [facility] Start: 1988 Screening for malign ant neoplasm of breast [facility] alveoloplasty in conjunction with extractions - four or more teeth or tooth spaces, per quadrant ALVEOPLASTY W/ EXTRACTION Procedures Routine Caries Ordered: 06/07/2024 [facility] Comment on above: Ordered: 06/07/2024 extraction, erupted tooth or exposed root (elevation and/or forceps removal) EXTRACTION ERUPTED TOOTH/EXR Procedures Routine Caries Ordered: 06/07/2024 [facility] Work Phone: Comment on above: Ordered: 06/07/2024 EXTRACTION, TOOTH EXTRACTION, TO OTH Routine scheduled Caries [facility] Immunizations Immunization Date Immunization Notes Care Provider [facility] 11-26-2023 influenza, injectabl e, quadrivalent, preservative free Karthik Black DMD, MD Work Phone: [facility] 11-26-2023 influenza virus vacc ine, unspecified formulation Karthik Black DMD, MD Work Phone: [facility] 05-23-2023 Hemoglobin A1C Kizzy Maurice RN [facility] 05-18-2023 tetanus toxoid, redu edvin diphtheria toxoid, and acellular pertussis vaccine, adsorbed Karthik Black DMD, MD Work Phone: [facility] Payers Date Payer Category Payer Self-pay 2022 Medicaid [id number] 2022 Unknown 2022 Medicaid [id number] 2. [id number] 1988 Unknown [id number] 2.16. [id number] 1988 Unknown [id number] 2.16. 840.1.373459.3.579.2.196 1988 Unknown [id number] 2.16. 840.1.844032.3.579.2.196 1988 Unknown [id number] 2.16. 840.1.948023.3.579.2.196 1988 Unknown [id number] 2.16. 840.1.022213.3.579.2.196 1988 Unknown [id number] 2.16. 840.1.398051.3.579.2.732 1988 Unknown [id number] 2.16. 840.1.209396.3.579.2.73 1988 Unknown [id number] 2.16. 840.1.309369.3.579.2.732 1988 Unknown [id number] 2.16. 840.1.748204.3.579.2.732 1988 Unknown [id number] 2.16.8 40.1.105798.3.579.2.1286 1988 Unknown [id number] 2.16.8 40.1.832647.3.579.2.1286 1988 Unknown [id number] 2.16.8 40.1.281890.3.579.2.1286 Unknown [id number] 2.16.8 40.1.089919.3.579.2.531 Unknown [id number] 2.16.8 40.1.821147.3.579.2.531 Social History Date Type Detail Facility Unknown if ever smoked Dr. Scribbles Other Start: 03-09-2024 End: 05-20-2024 Sex Assigned At [facility] Start: 1990 Sex Assigned At Female [facility] Start: 03-09-2024 End: 05-20-2024 History of Social function [facility] In the past 12 month s has the electric, gas, oil, or water company threatened to shut off services in your [...] Original Text Equi pment Identifier Dates [facility] [place] [facility] Pentips Plus 32G X 4 [...] 11:10 AM Modules accepted: Level of Service [facility] 06-28-2024 Miscellaneous Notes Addended by: KARTHIK BLACK on: 06/28/2024 11:10 AM Modules accepted: Level of Service documented in this encounter [facility] 06-14-2024 History of Presen t illness [...] stated she [place] 1[place]5 hours away from [facility] [place]. Assessment / Diagnosis: Normal postoperative course. Healing as expected. Plan: Follow-Up: PRN Follow up sooner with new or worsening symptoms. documented in this encounter [facility] 06-14-2024 History of Presen t illness [...] stated she lives 1.5 hours away from [facility]. Assessment / Diagnosis: Normal postoperative course. Healing as expected. Plan: Follow-Up: PRN Follow up sooner with new or worsening symptoms. documented in this encounter [facility] 06-09-2024 Telephone encounter Note Symptoms - white bumps along the gum line, pt has concerns that she needs a nurse to call and discuss with her [facility] 06-09-2024 Miscellaneous Notes Symptoms - white bumps along the gum line, pt has concerns that she needs a nurse to call and discuss with her Situation: Patient is calling back previously triaged for another issue Background: Patient states she has white bumps along the gum line where the teeth were extracted. Assessment: Pls call pt @ [phone] to discuss & advise Recommendation: Pls advise [...] understanding. No further questions. Information obtained from, https://www.[employer]/ /mdq-ey-jjb-rid-of-n qimfvsn-nvukj-jfclriur-the-den tist/ Nichole Aguila, RN, RN documented in this encounter [facility] 06-09-2024 Telephone encounter Note Situation: Patient is calling back previously triaged for another issue Background: Patient states she has white bumps along the gum line where the teeth were extracted. Assessment: Pls call pt @ [phone] to discuss & advise Recommendation: Pls advise Thank you [facility] 06-09-2024 Miscellaneous Notes Situation: Patient is calling back previously triaged for another issue Background: Patient states she has bumps along the gum line where the teeth were extracted Assessment: Pls call pt @ [phone] to discuss & advise Recommendation: Pls advise [...] understanding. No further questions. Information obtained from, https://www.[employer]/ /pxh-dn-ixa-rid-of-n iowinrj-elgfx-sifcupfy-the-amberly harman/ Nichole Aguila RN, RN documented in this encounter [facility] 06-07-2024 Telephone encounter Note Situation: Caller [...] understanding. No further questions. Information obtained from, https://www.[employer]/ /zva-sh-pep-rid-of-n bnvcuwj-wqmry-jthuabvv-the-amberly harman/ Nichole Aguila RN, RN [facility] 06-07-2024 Miscellaneous Notes Situation: Caller states [...] understanding. No further questions. Information obtained from, https://www.[employer]/ /umh-fd-ljl-rid-of-n wjdwdby-spncx-avgabbpo-the-den tist/ Nichole Aguila RN, RN documented in this encounter [facility] 06-07-2024 Note Formatting of this n ote is different from the original. Addendum created 06/07/241530 by Draiusz Anderson APRN-CRNA Flowsheet accepted, Intraprocedure Flowsheets edited [facility] 06-07-2024 Note Addendum created 153 by Dariusz Anderson APRN-CRNA Flowsheet accepted, Intraprocedure Flowsheets edited [employer] 06-07-2024 Miscellaneous Notes Addendum created 06/07/241530 [...] Black DMD, MD Anesthesiologist: Washington Anderson MD IN PROCESSING INSTRUCTOR: Dariusz Anderson APRN-JODEE Anesthesia Student: Benton Goddard [...] received. ANDREA Torres documented in this encounter [facility] 06-07-2024 Procedure anesthe catie Narrative Procedure [...] Dariusz Anderson APRN-CRNA documented in this encounter [id number] Anesthesiology Postoperative evaluation and management note* Anesthesia [...] ANESTHESIA NOTABLE EVENTS: No notable events documented. 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 The risks, benefitsand alternatives were reviewed. Questions regarding anesthesia were answered. Patient and/or legal district representative knows such anesthetics and procedures may be performed by Resident physicians, Certified Anesthesiologist Assistants, or Certified Nurse Anesthetists under the supervision of a physician. The patient /or the patient s legal district representative agree with the plan for anesthesia. [employer] documented in this [id number] Anesthesiology Postoperative evaluation and management note* Anesthesia Transfer Of Care - Dariusz Anderson APRN-IN PROCESSING INSTRUCTOR - 06/07/2024 2:07 PM EDT Patient taken [...] Black DMD, MD Anesthesiologist: Washington Anderson MD IN PROCESSING INSTRUCTOR: Dariusz Anderson APRN-JODEE Anesthesia Student: Benton Goddard [...] of the report was received. ANDREA Torres [id number] Surgery Surgical operation note* OP Note - Karthik Balck DMD, MD - 06/07/2024 1:28 PM EDT [facility] Division of spoilage worker [address] [place] [address] Dr. [place] [address] OPERATIVE NOTE Name: Nick Bean MR#: [id number] ENC#: Data Unavailable Surgical Case #: Data Unavailable Date of Procedure: 06/07/2024 ? PREOPERATIVE DIAGNOSIS: Caries (Primary Diagnosis) [[id number]] Pain following oral surgery [[id number]] ? POSTOPERATIVE DIAGNOSIS: Caries (Primary Diagnosis) [[id number]] Pain following oral surgery [[id number]] OPERATION: EXTRACTION ERUPTED TOOTH/EXR [D7140] ALVEOPLASTY W/ [...] and transferred onto the operating room tableunder [employer] power. The patient was then placed in [...] ? ? ? Karthik Black DMD, MD [id number] Miscellaneous Notes* OP Note - Karthik Black DMD, MD - 06/07/2024 1:28 PM EDT [facility] Division of spoilage worker [address] [place] [address] Dr. [place], [place] [address] OPERATIVE NOTE Name: Nick Bean MR#: [id number] ENC#: Data Unavailable Surgical Case #: Data Unavailable Date of Procedure: 06/07/2024 ? PREOPERATIVE DIAGNOSIS: Caries (Primary Diagnosis) [[id number]] Pain following oral surgery [[id number]] ? POSTOPERATIVE DIAGNOSIS: Caries (Primary Diagnosis) [[id number]] Pain following oral surgery [[id number]] OPERATION: EXTRACTION ERUPTED TOOTH/EXR [D7140] ALVEOPLASTY W/ [...] and transferred onto the operating room tableunder [employer] power. The patient was then placed in [...] were discussed with the patient and/or legal district representative. The risks, benefits and alternatives were reviewed. Questions regarding blood transfusions were answered. The patient /or the patient s legal district representative agree with the plan for transfusion of blood and/or blood components. documented in this [id number] Hospital Discharge instructions* Discharge Instructions* Rosalba Narayanan [...] done to speak with an oral surgeon. [facility] [phone]. HELPING THE HEALING PROCESS AND STOPPING THE [...] [facility] . Ask for the behavioral scientist pets and pet supplies salesperson (after hours). director of surgery Clinic Hours: Mon-Fri 8:30 am to 4:30 pm. PERIOPERATIVE DISCHARGE/HOME-GOING INSTRUCTIONS ANESTHESIA - GENERAL (ADULT) If a problem arises, you may contact your physician by calling [phone] and asking for the resident pets and pet supplies salesperson for Oral Surgery Service. Special Care Needs: [...] very uncomfortable and can t urinate, call [phone] or cometo the emergency room. The day [...] less likely. For more informati on visit: [email or web address].org/services/bhye-nyuqep-oh-your-health/a-matte y-el-xmoypwv/ Some medications or combinations of medications can [...] and treated if needed documented in this [id number] NoteSurgical Attestation: I have reviewed the patient's History and Physical Examination. I have personally seen and evaluated the patient, repeating witt portions. There is no significant interval change. Surgery is still indicated. Yes Consent reviewed and signed by patient/family: Yes Operative site verified and marked: Yes Alexis Chow [facility] [id number] Progress note* Blood Attestation - Washington Anderson MD - 06/07/2024 12:19 PM EDT Blood Attestation: ATTESTATION OF INFORMED CONSENT FOR BLOOD: The transfusion of blood and/or blood components were discussed with the patient and/or legal district representative. The risks, benefits and alternatives were reviewed. Questions regarding blood transfusions were answered. The patient /or the patient s legal district representative agree with the plan for transfusion of blood and/or blood components. 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 The risks, benefitsand alternatives were reviewed. Questions regarding anesthesia were answered. Patient and/or legal district representative knows such anesthetics and procedures may be performed by Resident physicians, Certified Anesthesiologist Assistants, or Certified Nurse Anesthetists under the supervision of a physician. The patient /or the patient s legal district representative agree with the plan for anesthesia. MHPATFORM [id number] Instructions* Discharge Instructions* Kizzy Maurice RN - [...] to surgery arrival time Need to have bulk driver Patients whose assigned sex at was [...] responsible adult to drive you home. A [employer], [employer] or other transportation company tanker truck driver cannot be responsible for you. A responsible adult should stay with you for 24 hours after surgery. Your surgery will be cancelled if you do not have a ride home. * If you have sleep apnea and are staying overnight in the hospital, please bring your sleep apnea machine and mask. documented in this [id number] Evaluation note* PAT Call History - Kizzy Maurice RN - 05/20/2024 1:01 PM EDT Images from the original note were not included. Telephone History Nick Bean, [id number] 05/20/2024 Patient was identified by name and [...] caries Endo (+) diabetes mellitus gestational, obesity college administrator Comment: LMP 05-17-2024 Neuro/Psych (+) depression, anxiety/panic [...] min Stress: No Stress Concern Present (03/09/2024) [employer] [place] [employer] - Occupational Stress Questionnaire [...] CHEST AP OR PA 1 VIEW Order: [id number] Narrative Single view chest History:Dyspnea Difficulty breathing, [...] to surgery arrival time Need to have bulk driver Patients whose assigned sex at was [...] Spent Performing this Telephone History: 15 mins [id number] Miscellaneous Notes* PAT Call History - Kizzy Maurice RN - 05/20/2024 1:01 PM EDT Images from the original note were not included. Telephone History Nick Bean, [id number] 05/20/2024 Patient was identified by name and date of . 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 Comment: LMP 05-17-2024 Neuro/Psych (+) depression, anxiety/panic [...] min Stress: No Stress Concern Present (03/09/2024) [employer] [place] [employer] - Occupational Stress Questionnaire [...] CHEST AP OR PA 1 VIEW Order: [id number] Narrative Single view chest History:Dyspnea Difficulty breathing, [...] to surgery arrival time Need to have bulk driver Patients whose assigned sex at was [...] Telephone History: 15 mins documented in this [id number] History of Present illness Narrative* Karthik Black DMD, MD - 03/10/2024 1:33 PM EDT [facility] [place]IENT VISIT CHIEF COMPLAINT: Toothache HISTORY OF PRESENT ILLNESS: Patient is a 33yoF with pmhx sig for obesity and severe procedural anxiety who presents to the [facility] as a referral from her general [...] remaininglower teeth and alveoplasty under GA at [facility] in preparation for complete dentures. Patient said [...] mandibular teeth and alveoplasty under GA at [facility] Karthik Black DMD, MD * Maryana Pérez - 03/10/2024 10:25 AM EDT Images from the original note were not included. documented in this [id number] History of Present illness Narrative* Karthik Black DMD, MD - 03/10/2024 1:33 PM EDT [facility] PATIENT VISIT CHIEF COMPLAINT: Toothache HISTORY OF PRESENT ILLNESS: Patient is a 33yoF with pmhx sig for obesity and severe procedural anxiety who presents to the [facility] as a referral from her general [...] remaininglower teeth and alveoplasty under GA at [facility] in preparation for complete dentures. Patient said [...] mandibular teeth and alveoplasty under GA at [facility] Karthik Black DMD, MD * Maryana Pérez - 03/10/2024 10:25 AM EDT Images from the original note were not included. documented in this [id number] Evaluation note* Encounter Date Diagnosis Assessment Notes [...] up with her PCP is symptoms persist. Dr. Scribbles Other 12-28-2023 NoteThis is a Telephone Appointment *This visit was conducted by Telephone with real time communicationand interaction. The patient provided written consent for treatment. The patient understands their rights, the HIPAA risks and that they will be charged accordingly for the services rendered. This visit was held via telephone within the [facility] while they were at: At their home in [place]. This telephone visit was conducted due to: [...] possibly discuss surgical intervention. She lives in [place] and as long as she is not [...] Panic disorder PTSD - (more content not included)...[facility]11-09-2023 NoteChief Complaint New patient left ankle pain and neuritic symptoms, referral from Alisia Gusman Physician corporate legal assistant History of Present Illness Patient presents [...] past. Patient relates that they have tried sitb-rfd-abanjim pain relievers, padding, and modification of shoe [...] pain. She was referred here by the [facility] reconstruction [place] Alisia Gusman for evaluation of nerve entrapment. [...] bilateral. Protective sensation intact as measured with Shoup Yady Monofilament Gross motor intact bilateral. Achilles [...] for possible ganglion cyst. (more content not included)...[facility]09-17-2023 Evaluation note* Encounter Date Diagnosis Assessment Notes Treatment Notes Treatment Clinical Notes Jun, Left foot pain (ICD-10 - M79.672) Foot pain home care material was printed Continue home medications as prescribed. Stop wearing the ankle brace and to you follow-up with your mri tech. Call your mri tech tomorrow for an appointment for recheck. Ice and elevate your foot 2-3 times a day. Take your naproxen for pain. No x-rays were done at this visit. The patient had x-rays done by her mri tech 5 days ago. She denies any recent injuries or falls especially since the last x-rays. Patient is instructed to follow-up with her mri tech for evaluation of this foot pain. Dr. Scribbles Other Evaluation noteNo assessment information available [facility] Work Phone: Evaluation note* Diagnosis Caries- [...] History Anxiety Surgical History C section x2 Dr. Scribbles Other History general Narrative - Reported* Type Description Date Medical History Diabetes Medical History Depression Medical History Anxiety Surgical History C section x2 Hospitalization History See Above Dr. Scribbles Other Chief Complaint and Reason for Visit Chief Complaint Abcess Tooth Bottom Right Chief Complaint possible infected to oth Summary Purpose Family History No Family History Records FoundNo Family History Records FoundNo Family History Records FoundNo Family History Records Found Advance Directives No Advanced Directives Records Found Advance Directive Response Recorded Date/ Time Advance Directives No December 29 2:08pm Reason for Referral Specialty Diagnoses / Procedures Referred By Tracie ortega Referred To Contact Diagnoses Caries Procedures ALVEOPLASTY W/ EXTRACTION Karthik Black DMD, MD [address] [place] [address] Referral ID Status Reason Start Date Expiration Date V isits Requested Visits Authorized [id number] Pending Review 06/07/2024 06/07/2025 3 3 Specialty Diagnoses / Procedures Referred By Tracie ortega Referred To Contact Diagnoses Caries Procedures EXTRACTION ERUPTED TOOTH/EXR Karthik Black DMD, MD [address] [place] [address] Referral ID Status Reason Start Date Expiration Date V isits Requested Visits Authorized [id number] Pending Review 06/07/2024 06/07/2025 3 3 Specialty Diagnoses / Procedures Referred By Tracie ortega Referred To Contact Oral Surgery Diagnoses Caries Procedures EXTRACTION ERUPTED TOOTH/EXR DEEP ANESTHESIA, 1ST 15 MINS GENERAL ANESTH EA ADDL 15 MIN Karthik Black DMD, MD [address] [place] [address] [facility] [address] [address] Phone: [phone] Referral ID Status Reason Start Date Expiration Date V isits Requested Visits Authorized [id number] Pending Review 03/10/2024 03/10/2025 1 1 Scheduling [...] your procedure, you will be contacted with esu-xk-lbysrnr costs or next steps. All self-pay payments [...] the procedure: You also MUST have a bulk driver/escort >18yrs old present to take you [...] Anesthesiology Diagnoses Caries Karthik Black DMD, MD [address] [place], [place] [id number] [facility] [address] [place] [address] Referral ID Status Reason Start Date Expiration Date V isits Requested Visits Authorized [id number] Authorized 03/10/2024 03/10/2025 1 1 Scheduling Instructions [...] manibular teeth, alveoplasty Karthik Black DMD, MD [address] [place] [address] [employer] [address] [place] [id number] Phone: [phone] Referral ID Status Reason Start Date Expiration Date Visits Re quested Visits Authorized [id number] 3 3 Reason Onset Date Comments Advice/health education 06/07/2024 Care Teams (unrecognized sec tion and content) Team Status: Inactive Member Role Status Dates Delmis Mccartney APRN Attending Provider Active Start: October 08, 2023 End: October 08, 2023 Team Status: Inactive Member Role Status Dates Abigail Lilly APRN Attending Provider Active S tart: November 12, 2023 End: November 12, 2023 Auditor Appraiser Relationship Specialty Start Date End Date Karthik Black DMD, MD [address] [place] [address] Physician Oral & Maxillofacial Surgery 03/26/24 Auditor Appraiser Relationship Specialty Start Date End Date Karthik Black DMD, MD [address] [place], [place] [id number] Physician Oral & Maxillofacial Surgery 03/26/24 Auditor Appraiser Relationship Specialty Start Date End Date Karthik Black DMD, MD [address] [place] [address] Physician Oral & Maxillofacial Surgery 03/26/24 Auditor Appraiser Relationship Specialty Start Date End Date Karthik Black DMD, MD [address] [place] [address] Physician Oral & Maxillofacial Surgery 03/26/24 Auditor Appraiser Relationship Specialty Start Date End Date Karthik Black DMD, MD [address] [place] [address] Physician Oral & Maxillofacial Surgery 03/26/24 Auditor Appraiser Relationship Specialty Start Date End Date Karthik Black DMD, MD [address] [place] [address] Physician Oral & Maxillofacial Surgery 03/26/24 Auditor Appraiser Relationship Specialty Start Date End Date Karthik Black DMD, MD [address] [place] [address] Physician Oral & Maxillofacial Surgery 03/26/24 Auditor Appraiser Relationship Specialty Start Date End Date Karthik Black DMD, MD [address] [place] [address] Physician Oral & Maxillofacial Surgery 03/26/24 Team Status: Active Member Role Status Dates NON STAFF Primary Care Provider Active Team Status: Inactive Member Role Status Dates NON STAFF Primary Care Provider Active Start: June 14, 2024 End: June 14, 2024 Delmis Mccartney APRN Attending Provider Active Start: June 14, 2024 End: June 14, 2024 Auditor Appraiser Relationship Specialty Start Date End Date Karthik Black DMD, MD [address] [place], [place] [id number] Physician Oral & Maxillofacial Surgery 03/26/24 Auditor Appraiser Relationship Specialty Start Date End Date Karthik Black DMD, MD [address] [place] [address] Physician Oral & Maxillofacial Surgery 03/26/24 Goals (unrecognized section and content) Goals may be documented in a n alternate section INFORMATION SOURCE (unrecogn ized section and content) DATE CREATED AUTHOR 11/24/2023 [facility] DATE CREATED AUTHOR AUTHOR'S ORGANIZ ATION 06/29/2024 [facility] DATE CREATED AUTHOR AUTHOR'S ORGANIZ ATION 07/26/2024 [facility] DATE CREATED AUTHOR AUTHOR'S ORGANIZ ATION 07/27/2024 [facility] Scheduled Active and Recently Administ ered Medications [...] Intra-op 1328 (Given - Provid er: Walt Pedraza DDS - Comment: mouth) chlorhexidine (PERIDEX) 0.12 % [...] er: Rosalba Bo RN) lidocaine-epinephrine (XYLOCAINE) 1 %-1:041730 injection SOLN (CANCELED) PRN, Starting on Thu06/07/24 [...] BE BASED ON THE PRIMARY CLINICAL RECORDS. [facility]. provides no warranty or guarantee of the accuracy or completeness of information in this document.
== END 2024-07-28 15:41 | disposition home or self-care (01) ==
LOC: EC 15:41
PROVIDERS: PCP Student in an Organized Health Care Education/Training Program; Visit Provider Physician Assistant
DX: M79.672 Pain in left foot (principal)
CPT/HCPCS: 73630

== ENCOUNTER 2024-08-29 15:00 | Outpatient (RCR) | payer OTHER, SELFPAY | END 2024-09-22 07:00 | disposition home or self-care (01) | LOC: PT 15:00 | PROVIDERS: PCP Student in an Organized Health Care Education/Training Program; Visit Provider Physician Assistant | DX: M25.372 Other instability, left ankle (principal) | CPT/HCPCS: 97035; 97110; 97112; 97161; 97530 ==

== ENCOUNTER 2025-09-05 09:00 | Outpatient (OUT) | payer MEDICAID, SELFPAY ==
--- OUTSIDE RECORDS SUMMARY | 2025-09-04 08:59 | XMS_ITS | Continuity of Care Document ---
Author Organization [facility] Address [address] [place] [address] Phone Care Team Providers Care Underwear Hemmer Name Role Phone NON STAFF Primary Care Provider Unavailabl e Milady Phelps DO Attending Provider Care Teams Patient Care Team Team Status: Active Member Role/Relationship Status Dates NON STAFF Primary Care Provider Active Patient Care Team Team Status: Inactive Member Role/Relationship Status Dates NON STAFF Primary Care Provider Active Start: September 04, 2025 End: September 04, 2025Jesierra Phelps DOAttending ProviderActiveStart: September 04, 2025 End: September 04, 2025 Chief Complaint and Reason for Visit Chief Complaint Admit Date new patient September 04, 2025 12:59pm Reason for Visit Admit Date Anxiety September 04, 2025 12:59pm Depression September 04, 2025 12:59pm Obesity September 04, 2025 12:59pm Allergies, Adverse Reactions, Alerts Allergen Type Severity Reaction Last Updated Verified Status amoxicillin Allergy Unknown hives September 04, 2025 1:02pm Y es Active ciprofloxacin Allergy Unknown joint pain September 04, 2025 1:0 2pm Yes Active Social History Smoking Status Unknown if ever smoked Observation Status Observation Response Date of Response Legal Sex Female (finding) Sex Assigned At BirthFemaleJuly 1989 Family History Relationship Condition Age at Onset Recorded Date/T pushpa father Diabetes mellitus Unknown HypertensionUnknownHigh blood cholesterolUnknownmotherHypertensionUnknown paternal grandfatherMyocardial infarctionUnknownCerebrovascular accident (CVA) Unknownpaternal grandmotherCerebrovascular accident (CVA)Unknown Problems Active Problems Problem Diagnosis/Recorded Date Onset Date Stat us Acute conjunctivitis, left eye September 19, 2024 5:1 8pm Unknown Active Acute maxillary sinusitis September 19, 2024 5:17pm U nknown Active Anxiety December 30, 2023 1:14pm Unknown Activ e Depression December 30, 2023 1:14pm Unknown Activ e Wellness examination September 04, 2025 1:56pm Unknow n Active Migraines September 04, 2025 1:05pm Unknown A ctive Neuropathy September 19, 2024 4:11pm Unknown A ctive Obesity September 04, 2025 1:15pm Unknown A ctive Medications Medication Status Dose Units Route Directions Qty Days Refills S tart Date Stop Date End Date Reason(s) Instructions Adherence Ketoconazole 2 % cream Discontinued APPLICTOPICALMarch 2023 12:00am[facility] 2023 4:09pmFluconazole 50 mg tabletDiscontinuedMGPOMarch 2023 12:00[place]2023 5:00pmClindamycin Phosphate 1 % gelDiscontinuedTOPICALZanesville City Hospital 2023 12:00[facility]2023 5:00pmHydroxyzine Pamoate 25 mg capsuleDiscontinuedMGPOMarch 2023 12:00am September 19, 2024 4:09pmBuspirone 5 mg tabletDiscontinuedMGPOAucrownpoint healthcare facilityt 2023 11:[facility]2023 4:09pmFluticasone Propionate (Flonase Allergy Relief) 50 mcg/actuation spray,hkyknxwzudNamukzpnqvlz2ZNZVIVUPJFPOEXDHvqkrIcflhz 2023 11:2023 4:09pmadminister into each nostrilAcetaminophen 325 mg tabletDiscontinuedMGPOAugust 2023 11:2023 4:09pm Chlorhexidine Gluconate 0.12 % mouthwashDiscontinuedPOAucrownpoint healthcare facilityt 2023 11:00pm September 19, 2024 4:09pmClindamycin Hcl 300 mg cbdvipiFdkjljycwqzg266GKJUR5P45 100August 2023 11:pmSeptember 19, 2024 4:09pmBuspirone 5 mg tablet Qtubla9MDBAKjzrn dailyApr2024 11:00pmComplies with drug therapy Hydroxyzine Hcl 25 mg sexpjlNrbnkm32GNSVDmrli at bedtime as neededApr2024 11:00pmComplies with drug therapyCetirizine-Pseudoephedrine (Zyrtec-D) 5- 120 mg tablet extended release 12 pxMigpxebcfxrz4HYQKHSmhfi 12 xnzdv7867Lkkcm2024 11:00pmSeptember 04, 2025 1:03pmFluticasone Propionate (Flonase Allergy Relief) 50 mcg/actuation spray,joyglseroyAmnivtshheoo4CTIGIYMRYKTCVLW Twice rpjtc60107Wlygu 9th, 2025 11:00pmSeptember 04, 2025 1:03pmadminister 1 spray into each nostrilPregabalin 50 mg khohimhBgmrxxwkdkue77TNDKVecieYzmnetyx 25th, 2024 12:00amApr2024 1:59pmAzithromycin 250 mg tabletDiscontinued0 PO.USTWWVH96DasegdveSeptember 19, 2024 12:00amApril 2024 1:53pmFor 250 mg dose pack: take 500 mg today (day 1), then 250 mg for 4 days (days 2-5) POPolymyxin B Sulf-Trimethoprim 10,000 unit- 1 mg/mL evtssOcfkkldanhyc0MDNSZWNAGRNJVBPMjtvb three zjjjt7987OjczmflmSeptember 19, 2024 12:00amApr2024 1:53pmdo not exceed 6 doses in a 24 hr period Vital Signs Vital Reading Result Reference Range Collection Date/Time Height 65 [in_i] September 04, 2025 1:83quSobfsb895.42 kgSeptember 04, 2025 1:02pmHeart Rate86 /ejs96-893YwkgebihSeptember 04, 2025 1:02pmRespiratory rate20 /vxf52-64XjipoabuSeptember 04, 2025 1:02pmOxygen saturation by Pulse xbbkidzo63 %95-100September 04, 2025 1:02pmBP Fydeswbu352 mm[Hg]100-140September 04, 2025 1:02pmBP Tspvkdlcl21 mm[Hg]60-100September 04, 2025 1:02pmBMI (Body Mass Index)52.2 kg/f2KmusnhbeSeptember 04, 2025 1:02pm Advance Directives Advance Directive Response Recorded Date/ Time Advance Directives No December 29 1:08pm Insurance Providers Guarantor Kristine Selam Edgar Address [address] [place] [address]Yajskkp Info.Home Phone: Coverage Status Update:2025 Payer Group Member ID Coverage Type Subscriber Relationship to Subscriber Effective Date Expiration Date Medicaid [id number] L Clark Id: [id number] [address] [place] [address] Home Phone: Self Encounters Encounter Location(s) Arrival/Admit Date Discharge/Departure Date Discharge/Departure Disposition Provider(s) Departed Physician/ Provider Office Visit -[facility] [place] September 04, 2025 12:59pm September 04, 2025 1:58pm Discharged to home care or self care (routine discharge) Milady Phelps DO Recent Diagnosis Onset Date Admit Date Anxiety Unknown September 04, 025 12:59pm Depression Unknown September 04, 025 12:59pm Obesity Unknown September 04 12:59pm Assessments Diagnosis Onset Date Resolution Status Admit Date Anxiety acuteSeptember 04, 2025 12:59pmDepressionacuteSeptember 04, 2025 12:59pm ObesityacuteSeptember 04, 2025 12:59pm Plan of Treatment Future Tests Future scheduled test information is unavailable Pending Tests Test Name Ordered Date Scheduled Date Estradiol September 04, 2025 1:54pm Luteinizing HormoneSeptember 04, 2025 1:54pm Future Visits Future appointment information is unavailable Future Procedures Procedure Name Ordered Date Scheduled Date Complete Blood Count Auto Diff September 04 1:54pm CMP with reflex to Q2WCpeqmxrvSeptember 04, 2025 1:54pmFollicle Stimulating Hormone September 04, 2025 1:54pmLipid PanelSeptember 04, 2025 1:54pmFree T4 (Free Thyroxine)September 04, 2025 1:54pmThyroid Stimulating HormoneSeptember 04, 2025 1:54pm Future Medications Future medication information is unavailable Patient Instructions Patient instructions are unavailable
--- OUTSIDE RECORDS SUMMARY | 2025-09-05 09:05 | XMS_ITS | Clinical Summary ---
Author Organization [facility] Address [id number] [address] [place] [address] Care Team Providers Care Decontamination Technician Name Role Phone Nitin Rock MD Primary Care Provider [phone] Allergies Active AllergyReactionsCriticalityNoted OtkzTrvlbxydXmmbdywaxof65/01/2022 Ciprofloxacin Hcl02/23/2022 Medications MedicationSigDispense QuantityRefillsLast FilledStart DateEnd DateStatus clindamycin (CLEOCIN) 150 mg capsule Take 150 mg by mouth in the morning and 150 mg at noon and 150 mg before bedtime.Active busPIRone (BUSPAR) 15 mg tablet Take 1 tablet (15 mg total) by mouth in the morning and at bedtime.Active hydrOXYzine (VISTARIL) 50 mg capsule Take 25 mg by mouth 3 (three) times a day as needed for itching.Active naproxen (EC NAPROSYN) 375 MG tablet,delayed release (DR/EC) EC tablet Take 500 mg by mouth in the morning and 500 mg in the evening. Take with meals. Active acyclovir (ZOVIRAX) 5 % cream Apply 1 Application topically every 4 (four) hours as needed (cold sores). 15 g 12/31/2023ctive fluticasone propionate (FLONASE) 50 mcg/actuation nasal spray Administer 2 sprays into each nostril in the morning.4Active cyclobenzaprine (FLEXERIL) 10 mg tablet Take 1 tablet (10 mg total) by mouth 2 (two) times a day as needed for muscle spasms. 10 tablet 5Active Encounters DateTypeDepartmentCare BhmtCahnvwxoaqo92/28/2025 12:57 PM EDT - 06/22/2025 2:50 PM EDTEmergency [facility] [address] [place] [address] Leg numbness (Primary Dx) Discharge Disposition: Homefrom Last 3 Months Social History Tobacco UseTypesPacks/DayYears UsedDateSmoking Tobacco: Every Day Vaping/E-cigarettesSmokeless Tobacco: Never Tobacco Cessation:Ready to Q uit: Not Asked; Counseling Given: Not Answered Alcohol UseStandard Drinks/WeekCommentsNot Currently0 (1 standard drink = 0.6 oz pure alcohol)Hunger ScreeningAnswerDate RecordedWithin the past 12 months we worried whether our food would run out before we got money to buy more.Never True06/22/2025Within the past 12 months the food we bought just didn't last and we didn't have money to get more.Never True06/22/2025CommentsNoSex and Gender InformationValueDate RecordedSex Assigned at BirthNot on fileLegal Sex Eldzmv9802/23/2022 9:39 PM EDTGender IdentityNot on fileSexual OrientationNot on file Last Filed Vital Signs Vital SignReadingTime TakenCommentsBlood Vbfkcgqo204/0283306/22/2025 2:45 PM EDT Xjugr932106/22/2025 2:45 PM THFVnujtevidjq52.7 ??C (98.1 ??F)06/22/2025 1:02 PM EDTRespiratory Grfo880106/22/2025 2:45 PM EDTOxygen Wofqrjskea31%06/22/2025 2:45 PM EDTInhaled Oxygen Concentration--Fpimjz812 kg (280 lb)06/22/2025 1:02 PM EDT Rodrre092.1 cm (5' 5 )06/22/2025 1:02 PM EDTBody Mass Index46.59006/22/2025 1:02 PM EDT Plan of Treatment Health MaintenanceDue DateLast DoneCommentsTobacco Bcovxqqwwf1988 Depression Xygyxoynf95/20/2000Adult BMI Follow Up Plan2006Influenza Yuwivcd66dult BMI Rbjdjtptl88Tobacco Tnieahhon56DTaP,Tdap and Td Vaccines (2 - Td or Tdap) Medical Devices Not on file Procedures Procedure NamePriorityDate/TimeAssociated DiagnosisCommentsVASC VENOUS DUPLEX LOWER NXFIJSUR28/28/2025 2:12 PM EDT from Last 3 Months Results * Vas venous duplex lwr single left (06/22/2025 2:12 PM EDT)Anatomical Region LateralityModalityVascularLeftUltrasoundSpecimen (Source)Anatomical Location / LateralityCollection Method / VolumeCollection TimeReceived Time06/22/2025 2:28 PM EDT Narrative 06/22/2025 4:21 PM EDT Right: Common femoral vein is compressible with spontaneous phasic spectral Doppler waveforms. Left: Lower extremity deep veins are compressible with spontaneous phasic spectral Doppler waveforms; superficial veins are compressible without intraluminal content. Conclusions: NO EVIDENCE of deep or superficial vein thrombosis of the left lower extremity. ??No evidence of deep vein thrombosis (DVT) of the right common femoral vein. ?? Procedure Note Lazaro Bhagat MD - 06/22/2025 Right: Common femoral vein is compressible with spontaneous phasicspectral Doppler waveforms. Left: Lower extremity deep veins are compressible with spontaneous phasic spectral Doppler waveforms; superficial veins are compressible without intraluminal content. Conclusions: NO EVIDENCE of deep or superficial vein thrombosis of theleft lower extremity. No evidence of deep vein thrombosis (DVT) of theright common femoral vein. Authorizing ProviderResult TypeResult StatusAmber Palencia WEIGHER PACKING-CNPCV VASCULAR ORDERABLESFinal Result from Last 3 Months Care Teams Team MemberRelationshipSpecialtyStart DateEnd Date Nitin Rock MD [address] [place] [address] PCP - GeneralFamily Xupsmmep72/1/24
--- OUTSIDE RECORDS SUMMARY | 2025-09-05 09:06 | XMS_ITS | Clinical Summary ---
Author Organization [facility] Address [address] [facility] [place] [address] Care Team Providers Care Administrative Fellow Name Role Phone Kailey Black DMD, MD Unavailable [phone] Source Comments The following information is NOT included in Care Everywhere downloads:Psychiatric notes, ECG results, Cardiac Rehab notes, Pulmonary Function notes, data from SmartForms (includes but not limited toPregnancy data,audiograms, eye exams, pre-surgical evaluation notes, well-child exam data).[facility] Allergies Active AllergyReactionsCriticalityNoted DateCommentsAmoxicillinHives,Itching, Rash,Other05/19/2015CiprofloxacinMyalgias,Other05/19/2015 Medications MedicationSigDispense QuantityRefillsLast FilledStart DateEnd DateStatus busPIRone (BUSPAR) 5 MG tablet 5 mg.12/22/2023ctive hydrOXYzine pamoate (VISTARIL) 25 MG capsule 25 mg.Active melatonin 5 mg TABS tablet 5 mg.Active naproxen (EC NAPROSYN) 375 MG tablet Take 500 mg by mouth 2 times daily (with meals).Active chlorhexidine (Peridex) 0.12 % oral solution Swish and spit 15ml twice daily after meals. Rinse for 30 seconds and then gently spit. Do not swallow. 473 mL 06/07/2024 1:39 PM EDT06/07/2024ctive Active Problems ProblemNoted DateDiagnosed DateDelivery with history of C-yrlmast3103/10/2024 Flroysgyg88/16/2024Gestational diabetes mellitus (GDM) in third trimester controlled on oral hypoglycemic drug06/08/2019Hx of Doppler echocardiogram 05/24/2019 Overview (03/10/2024): Echo (02/2019): EF: 60%, Trace-Mild PI, no pericardial effusion Gestational yqdakhvsqrve86/02/2448Zzhpzbhiqbem77/16/2017Acute myopericarditis 12/10/2016 Overview (03/10/2024): 12/10/16: Hospitalized. Several recent sick contacts at home and Pt with recent mild URI Sx. Trop peak 2.5 ESR 33, CRP 8.6 CTA chest normal 12/10/16: Normal mildly technically difficult transthoracic echocardiogram. ER visit 12/30/16: Mild chest pain with associated palpitations/rapid heart rate and transient shortness of breath; negative ER workup Precordial pain12/10/2016 Overview (03/10/2024): Left sided chest pain. Detectable troponin, 28 week . Hx spontaneous and family hx of DVT and PE. Morbid zcqgyps6211/23/2016 Resolved Problems ProblemNoted DateDiagnosed DateResolved HxhxSzskmf57 Immunizations ImmunizationAdministration DatesNext DueInfluenza, injectable, quadrivalent, preservative free (ZAF=885)11/26/2023Tdap (JDW=262)05/18/2023 Social History Tobacco UseTypesPacks/DayYears UsedDateSmoking Tobacco: NeverSmokeless Tobacco: Never Tobacco Cessation:Counseling Given: Not Answered Alcohol UseStandard Drinks/WeekCommentsNot Currently0 (1 standard drink = 0.6 oz pure alcohol)[facility] UtilitiesAnswerDate RecordedIn the past 12 months has the Actual Experience, [employer], oil, or water [employer] threatened to shut off services in your home?No03/09/2024Humiliation, Afraid, Rape, and Kick questionnaireAnswerDate RecordedWithin the last year, have you been afraid of your partner or ex-partner?No03/09/2024Within the last year, have you been humiliated or emotionally abused in other ways by your partner or ex-partner?No03/09/2024 Within the last year, have you been kicked, hit, slapped, or otherwise physically hurt by your partner or ex-partner?No03/09/2024Within the last year, have you been raped or forced to have any kind of sexual activity by your part ner or ex-partner?No03/09/2024Social Connection and Isolation Panel [NHANES] AnswerDate RecordedIn a typical week, how many times do you talk on the phone with family, friends, or neighbors?More than three times a week03/09/2024How often do you get together with friends or relatives?Three times a week03/09/2024 How often do you attend christian or catholic services?Never03/09/2024o you belong to any clubs or organizations such as christian groups, unions, fraternal or athletic groups, or school groups?No03/09/2024How often do you attend meetings of the clubs or organizations you belong to?Never03/09/2024re you , , , , never , or living with a partner? 03/09/2024Overall Financial Resource Strain (CARDIA)AnswerDate RecordedHow hard is it for you to pay for the very basics like food, housing, medical care, and heating?Somewhat hard03/09/2024[facility] [place] [facility] Occup[facility] - Occupational Stress QuestionnaireAnswerDate RecordedDo you feel stress - tense, restless, nervous, or anxious, or unable to sleep at night because yourmind is troubled all the time - these days?Only a eshsep3803/09/2024Exercise Vital Sign AnswerDate RecordedOn average, how many days per week do you engage in moderate to strenuous exercise (like a brisk walk)?5 days03/09/2024On average, how many minutes do you engage in exercise at this level?60 min03/09/2024Hunger Vital SignAnswerDate RecordedWithin the past 12 months, you worried that your food would run out before you got the money to buymore.Never true03/09/2024Within the past 12 months, the food you bought just didn't last and you didn't have money to get more.Never true03/09/2024RAPARE - TransportationAnswerDate RecordedIn the past 12 months, has lack of transportation kept you from medical appointments or from getting medications?No03/09/2024In the past 12 months, has lack of transportation kept you from meetings, work, or from getting things needed for daily living?No03/09/2024Housing Stability Vital SignAnswerDate RecordedIn the last 12 months, was there a time when you were not able to pay the mortgage or rent on time?No03/09/2024In the last 12 months, how many places have you lived?In the last 12 months, was there a time when you did not have a steady place to sleep or slept in ashelter (including now)?No 03/09/2024Utilities - HistoricalAnswerDate RecordedIn the past 12 months has the electric, gas, oil, or water company threatened to shut off services in your home?No03/09/2024EducationAnswerDate RecordedWhat is the highest level of school you have completed or the highest degree you have received?12th grade03/09/2024 Substance UseTypesUse/WeekCommentsYesMarijuana/THCCommentsUnknownSex and Gender InformationValueDate RecordedSex Assigned at BirthNot on fileLegal Sex Ghapwe2704/23/2023 4:32 PM EDTGender IdentityNot on fileSexual OrientationNot on file Last Filed Vital Signs Vital SignReadingTime TakenCommentsBlood Ikqnlvle680/6808 3:22 PM EDT Cwfxz6075 3:22 PM ZAIBgrcdhobgzc14.7 ??C (98 ??F)06/07/2024 3:22 PM EDT Respiratory Ernl1023 3:22 PM EDTOxygen Xaqjljdmhx14%06/07/2024 3:22 PM EDTInhaled Oxygen Concentration--Slamtj569.5 kg (270 lb)05/20/2024 12:59 PM EDT Hhhift614.1 cm (5' 5 )05/20/2024 12:59 PM EDTBody Mass Index44.9305/20/2024 12:59 PM EDT Plan of Treatment Health MaintenanceDue DateLast DoneCommentsFoot Exam1988Mammography (shared decision-making, age 35-39)1988Eye Exam1988Lipid Profile 1988Urine Protein (microalbumin)1988Hepatitis C Cihjjjtk23/20/2006 Hepatitis A (HAV) Vaccine (optional start 19+ years)2007Hepatitis B (HBV) Vaccine (1 of 3 - 19+ 3-dose series)2007Pneumococcal Vaccine(s) (1 of 2 - PCV)2007Pap Smear2009HPV Vaccine (optional start 27-45 years) 2015Hemoglobin A1C11/23//asic Metabolic Panel03/23/2025 03/23/2024, 12/06/2023, 05/17/2023, Additional history existsCOVID-19 Vaccine (1 - 2024- season)2025Influenza Vaccine (#1)502/10/2023Tetanus (Td or Tdap) Wibkzpi45/Shingles (RZV) Vaccine (1 of 2) 2038Tdap SprucrkVenczwgyw87/24/2023HIV JwuiDneowjuyo60/29/2023Mammography Discontinued Insurance * Guarantor: John Paul Hernández TypeRelation to PatientDate of BirthPhone Billing VqazjjxVubltfydudoweMbml1990 [address] [place] [address] Care Teams Team MemberRelationshipSpecialtyStart DateEnd Date Kailey Black DMD, MD [address] [place] [id number] PhysicianOral & Maxillofacial Surgery03/26/24
[2025-09-05 10:20] LABS: Alanine Aminotransferase 41 U/L (14-59); Albumin Globulin Ratio 1.0; Albumin Level 3.7 g/dL (3.4-5.0); Alkaline Phosphatase 61 U/L (46-116); Anion Gap 14.5; Aspartate Amino Transferase 24 U/L (15-37); Blood Urea Nitrogen 14.0 mg/dL (7.0-18.0); Calcium 8.9 mg/dL (8.5-10.1); Carbon Dioxide 24.3 mmol/L (21.0-32.0); Chloride 104 mmol/L (98-107); Cholesterol 164 mg/dL (<=200); Estimated GFR (African America >60 (>=60 mL/min/1.73m^2); Estimated GFR (Non-African Ame >60 (>=60 mL/min/1.73m^2); Globulin 3.6 g/dL; Glucose 113 mg/dL (74-106); HDL Cholesterol 41 mg/dL (40-60); Potassium 3.8 mmol/L (3.5-5.1); Sodium 139 mmol/L (136-145); Thyroid Stimulating Hormone 2.519 uIU/mL (0.358-3.740); Total Protein 7.3 g/dL (6.4-8.2); Triglycerides 115 mg/dL (<=150); VLDL CHOLESTEROL 23.0 mg/dL
[2025-09-05 11:53] LABS: Hematocrit 39.0 % (36.0-48.0); Hemoglobin 13.0 g/dL (12.0-16.0); Immature Granulocytes Abs Auto 0.02 10^3/uL (0.00-0.03); Immature Granulocytes Pct Auto 0.3 % (0.0-0.5); Lymphocytes Absolute Auto 1.8 10^3/uL (1.2-3.8); Mean Corpuscular HGB Conc 33.3 g/dL (29.9-35.2); Mean Corpuscular Hemoglobin 29.9 pg (26.7-34.0); Mean Corpuscular Volume 89.7 fL (81.0-99.0); Platelet Count 372 10^3/uL (150-450); Red Blood Count 4.35 10^6/uL (4.20-5.40); White Blood Count 7.8 10^3/uL (4.0-11.0)
[2025-09-06 04:07] LABS: FSH 4.4 mIU/mL (.)
== END 2025-09-05 09:01 | disposition home or self-care (01) ==
PROVIDERS: PCP Family Medicine; Visit Provider Family Medicine
DX: Z00.00 Encounter for general adult medical examination without abnormal findings (principal); F41.9 Anxiety disorder, unspecified; G43.909 Migraine, unspecified, not intractable, without status migrainosus; E66.813 Obesity, class 3; Z68.43 Body mass index [BMI] 50.0-59.9, adult
CPT/HCPCS: 36415; 80053; 80061; 82670; 83001; 83002; 83036; 84439; 84443; 85025

== ENCOUNTER 2025-10-10 22:21 | Emergency (ER) | payer OTHER, SELFPAY ==
--- OUTSIDE RECORDS SUMMARY | 2025-09-30 23:42 | XMS_ITS | Encounter Summary ---
Author Organization [facility] [employer] Formerly [facility] tem Address [id number] [address] [place] [address] Care Team Providers Care Manager Assisted Living Name Role Phone Nitin Rock MD Primary Care Provider [phone] Reason for Referral * Consultation (Routine) - Pending ReviewSpecialtyDiagnoses / ProceduresReferred By ContactReferred To ContactOtolaryngology Diagnoses Jaw pain Gillian Dickens MD [address] [place] [address] Phone: tel: fax: [facility] - ENT [address] [place] [address], [address] [place] [address] Phone: tel: fax: Referral IDStatusReasonStart DateExpiration DateVisits RequestedVisits [id number] Review Specialty Services Required Reason for Visit * ReasonCommentsFacial SwellingPt presents to ED C/O jaw edema o7zswyp. Pt states facial swelling started around Sep.02 and was seen by PCP stating it was the start of ear infection. Pt states 6/10 pain at this time. Pt states marcie ha has taken advil/tylenol for pain, last dose was around 5 tonight. Pt states she had her bottomteeth pulled about a year ago. Encounter Details DateTypeDepartmentCare Team (Latest Contact Info)Vfkdvhbxplc39/06/2025 11:42 PM EST - 10/01/2025 2:04 AM [facility] - Emergency [address] [place] [address] Gillian Dickens MD [address] [place] [address] Jaw pain (Primary Dx) Discharge Disposition: Home Social History Tobacco UseTypesPacks/DayYears UsedDateSmoking Tobacco: Every Day Vaping/E-cigarettesSmokeless Tobacco: NeverAlcohol UseStandard Drinks/Week CommentsNot Currently0 (1 standard drink = 0.6 oz pure alcohol)Hunger Screening AnswerDate RecordedWithin the past 12 months we worried whether our food would run out before we got money to buy more.Never True09/30/2025Within the past 12 months the food we bought just didn't last and we didn't have money to get more. Never True09/30/2025CommentsNoSex and Gender InformationValueDate RecordedSex Assigned at BirthNot on fileLegal VhjBgvbni98/01/2022 9:39 PM EDT Gender IdentityNot on fileSexual OrientationNot on filedocumented as of this encounter Last Filed Vital Signs Vital SignReadingTime TakenCommentsBlood Alwvdjgb920/9210/01/2025 1:58 AM EST Xargi718610/01/2025 1:58 AM KRULeimlxwtfjf35.1 ??C (98.7 ??F)09/30/2025 11:54 PM ESTRespiratory Ofsd257812/02/2024 1:58 AM ESTOxygen Rzboeixdlv996%10/01/2025 1:58 AM ESTInhaled Oxygen Concentration--Rcvqaj983.2 kg (318 lb)09/30/2025 11:54 PM EVAPwvqzs468.1 cm (5' 5 )09/30/2025 11:54 PM ESTBody Mass Index52.9209/30/2025 11:54 PM ESTdocumented in this encounter Discharge Instructions * Discharge Instructions* Gillian Dickens MD - 10/01/2025 1:56 AM EST You were seen here for left-sided jaw pain. CT imaging was unremarkable. You were given a referral for ENT. Call and schedule follow-up appointment with ENT (otolaryngology) for a soon as possible ifyou are having persistent symptoms. You also need to call and schedule follow-up appointment with the primary care provider for a soon as possible. Return to the emergency department immediately if you experience worsening symptoms including but not limited to worsening pain, facial swelling, changes in your voice, drooling, difficulty swallowing, fevers, headache, or if you develop any other symptoms or have any other concerns. documented in this encounter Medications at Time of Discharge MedicationSigDispense QuantityRefillsLast FilledStart DateEnd Date acyclovir (ZOVIRAX) 5 % cream Apply 1 Application topically every 4 (four) hours as needed (cold sores). 15 g 12/31/2023 buPROPion SR (WELLBUTRIN SR) 100 mg 12 hr tablet 1 tablet (100 mg total) in the morning and at bedtime.09/04/2025 busPIRone (BUSPAR) 15 mg tablet Take 1 tablet (15 mg total) by mouth in the morning and at bedtime. clindamycin (CLEOCIN) 150 mg capsule Take 150 mg by mouth in the morning and 150 mg at noon and 150 mg before bedtime. cyclobenzaprine (FLEXERIL) 10 mg tablet Take 1 tablet (10 mg total) by mouth 2 (two) times a day as needed for muscle spasms. 10 tablet 06/22/2025 fluticasone propionate (FLONASE) 50 mcg/actuation nasal spray Administer 2 sprays into each nostril in the morning.06/14/2024 hydrOXYzine (VISTARIL) 50 mg capsule Take 25 mg by mouth 3 (three) times a day as needed for itching. naproxen (EC NAPROSYN) 375 MG tablet,delayed release (DR/EC) EC tablet Take 500 mg by mouth in the morning and 500 mg in the evening. Take with meals. documented as of this encounter ED Notes * Gillian Dickens MD - 10/01/2025 12:23 AM EST Images from the original note were not included. [facility] - EMERGENCY Pt Name: Kristine Hernández Birthdate: 1990 Chief Complaint: Chief Complaint Patient presents with Facial Swelling Pt presents to ED C/O jaw edema d5atsrp. Pt states facial swelling started around Sep.02 and was seen by PCP stating it was the start of ear infection. Pt states 6/10 pain at this time. Pt states she has taken advil/tylenol for pain, last dose was around 1944 tonight. Pt states she had her bottomteeth pulled about a year ago. History of Present Illness: 35-year-old female, presents to the emergency department due to left-sided jaw pain. Patient statedon 09/04/2025 she had left ear pain and saw her PCP but was told she did not have an ear infection.Patient stated that couple of days later she noticed the pain extending down into her jaw. Patient stated that the pain has not gone away, she originally thought it was her TMJ. Patient states that th e pain is now going down her jaw more and starting to go into her neck. Patient states that the left side of her face also appears to be more swollen. Patient denies any dental pain, had hurt her bottom teeth removed. Denies any fevers, chest pain, shortness of breath, abdominal pain, vomiting. Denies any chance of . Patient stated that she took Tylenol and ibuprofen prior to arrival forher pain. Past Medical History: Past Medical History: Diagnosis Date Anxiety Depression Migraine Obesity PTSD (post-traumatic stress disorder) Past Surgical History: History reviewed. No pertinent surgical history. Family History: History reviewed. No pertinent family history. Social History: Social History Socioeconomic History Marital status: Tobacco Use Smoking status: Every Day Types: Vaping/E-cigarettes Smokeless tobacco: Never Vaping Use Vaping status: Every Day Substances: Nicotine Substance and Sexual Activity Alcohol use: Not Currently Drug use: Yes Types: Marijuana Sexual activity: Defer Social Drivers of Health Financial Resource Strain: Medium Risk (03/09/2024) Received from [facility] Overall Financial Resource Strain (CARDIA) Difficulty of Paying Living Expenses: Somewhat hard Food Insecurity: No Food Insecurity (09/30/2025) Hunger Screening Food Insecurity - Worry: Never True Food Insecurity - Inability: Never True Transportation Needs: No Transportation Needs (03/09/2024) Received from [facility] PRAPARE - Transportation Lack of Transportation (Medical): No Lack of Transportation (Non-Medical): No Physical Activity: Sufficiently Active (03/09/2024) Received from [facility] Exercise Vital Sign On average, how many days per week do you engage in moderate to strenuous exercise (like a brisk walk)?: 5 days On average, how many minutes do you engage in exercise at this level?: 60 min Stress: No Stress Concern Present (03/09/2024) Received from [facility] [place] [employer] [facility] - Occupational Stress Questionnaire Feeling of Stress : Only a little Social Connections: Moderately Isolated (03/09/2024) Received from [facility] Social Connection and Isolation Panel In a typical week, how many times do you talk on the phone with family, friends, or neighbors?: More than three times a week How often do you get together with friends or relatives?: Three times a week How often do you attend moravian or methodist services?: Never Do you belong to any clubs or organizations such as moravian groups, unions, fraternal or athletic groups, or school groups?: No How often do you attend meetings of the clubs or organizations you belong to?: Never Are you , , , , never , or living with a partner?: Interpersonal Safety: Not At Risk (03/09/2024) Received from [facility] Humiliation, Afraid, Rape, and Kick questionnaire Within the last year, have you been afraid of your partner or ex-partner?: No Within the last year, have you been humiliated or emotionally abused in other ways by your partner or ex-partner?: No Within the last year, have you been kicked, hit, slapped, or otherwise physically hurt by your partner or ex-partner?: No Within the last year, have you been raped or forced to have any kind of sexual activity by your partner or ex-partner?: No Housing Instability: Low Risk (03/09/2024) Received from [facility] Housing Stability Vital Sign Unable to Pay for Housing in the Last Year: No Number of Places Lived in the Last Year: 1 Unstable Housing in the Last Year: No Review of Systems: Review of Systems Physical Exam: ED Triage Vitals [09/30/25 2354] Temp Heart Rate Resp BP SpO2 37.1 ??C (98.7 ??F) 91 18 (!) 152/97 98 % Temp src Heart Rate Source Patient Position BP Location FiO2 (%) -- -- -- -- -- Vitals: 09/30/25 2354 10/01/25 0158 BP: (!) 152/97 (!) 142/92 Temp: 37.1 ??C (98.7 ??F) Pulse: 91 72 Resp: 18 18 SpO2: 98% 100% Height: 165.1 cm (5' 5 ) Weight: (!) 144.2 kg (318 lb) 100 Physical Exam HENT: Right Ear: Tympanic membrane and ear canal normal. Left Ear: Tympanic membrane and ear canal normal. Mouth/Throat: Comments: Upper teeth are normal appearance. There are no bottom teeth present. There is sublingualedema present but no tenderness to palpation. No obvious facial swelling present. No induration or fluctuance palpated on the sides of her jaw, neck, or submandibular area Cardiovascular: Rate and Rhythm: Normal rate and regular rhythm. Pulses: Normal pulses. Pulmonary: Effort: Pulmonary effort is normal. Breath sounds: Normal breath sounds. Abdominal: General: There is no distension. Palpations: Abdomen is soft. Tenderness: There is no abdominal tenderness. There is no guarding or rebound. Skin: General: Skin is warm. Neurological: Mental Status: She is alert and oriented to person, place, and time. Psychiatric: Mood and Affect: Mood normal. Procedure: Procedures Re-evaluation: Re-Evaluation Medical Decision Making 35-year-old female, HPI and physical exam documented above. Differentials include sialadenitis, Abelardo's angina. Discussed with patient that given her jaw pain and sublingual edema we will obtain CT soft tissue neck to further evaluate for underlying infection/abscess. We will obtain basic labs including CBC, CMP. Patient agreeable with plan. Amount and/or Complexity of Data Reviewed Labs: ordered. Radiology: ordered. Decision-making details documented in ED Course. Risk Prescription drug management. ED Course: ED Course as of 10/01/25 0627 Sun Oct 01, 2025 0101 Patient complaining of anxiety and dizziness after CT scan with contrast. We will give a L of fluid and Atarax to help her symptoms. Patient takes Atarax at home. [SD] 0148 CT neck soft tissue with contrast IMPRESSION: Grossly unremarkable exam [SD] [address] scan, do not feel antibiotics are indicated at this time. We will give patient referral for ENT for her persistent symptoms. [SD] 0150 Reassess patient, discussed imaging with her. Patient was given ENT referral. Patient was alsoadvised to follow up with her primary care provider. Return precautions were discussed with patient. Patient medically stable for discharge. [SD] ED Course User Index [SD] Gillian Dickens MD Clinical Impressions as of 10/01/25 0627 Jaw pain . ED Disposition ED Disposition Discharge Date/Time Sun Oct 01, 2025 1:53 AM Comment At the time of discharge, the plan has been discussed with the patient regarding the diagnosis and prognosis. All questions have been answered. Verbal discharge instructions were discussed with the patient. The patient has been advised to follow up w ith their Primary Care Provider and Specialist within 1-2 days. The patient was also instructed to return to the ED if their symptoms change, worsen, new symptoms arise or if they have any additional concerns. . Please note that portions of this note were completed with a voice recognition program. Efforts were made to edit the dictations but occasionally words are mis-transcribed. Gillian Dickens MD 10/01/25 0030 Gillian Dickens MD 10/01/25 0135 iGllian Dickens MD 10/01/25 0628 documented in this encounter Plan of Treatment DateTypeDepartmentCare Team (Latest Contact Info)Kgsphxgwcad73/09/2026 9:45 AM ESTAppointment [facility] [address] [place] [address] 11/07/2025 9:10 AM ESTTelemedicine [facility] [address] [facility], [address] [id number] Micheal Mcclendon MD [address] [address] NameTypePriorityAssociated DiagnosesOrder ScheduleProMedica Physicians [facility] - [place], [facility] ReferralRoutine Jaw pain 1 Occurrences starting 10/01/2025 until 10/01/2026documented as of this encounter Procedures Procedure NamePriorityDate/TimeAssociated DiagnosisCommentsCT NECK SOFT TISSUE W QUKANKFV64/07/2025 1:03 AM EST CBC WITH AUTO CXYZZYHTSXAHDDXA83/07/2025 12:33 AM EST COMPREHENSIVE METABOLIC HBALZVXNB88/07/2025 12:33 AM EST EXTRA TUBES BLUE WLVJvgntcy14/07/2025 12:27 AM EST EXTRA UAKOVGnlgqxl10/07/2025 12:27 AM EST documented in this encounter Results * CT neck soft tissue with contrast (10/01/2025 1:03 AM EST)Anatomical Region LateralityModalityNeuro, Neck, Neuro CoveraN/AComputed TomographySpecimen (Source)Anatomical Location / LateralityCollection Method / VolumeCollection TimeReceived Time10/01/2025 1:29 AM EST Narrative 10/01/2025 1:35 AM EST History: Sublingual edema and left-sided jaw pain, concern for Abelardo's angina Exam/Technique: CT images of neck soft tissue were obtained following intravenous contrast injection. ??CT does automated exposure control was utilized. All CT scans at this facility use dose modulation, iterative reconstruction, and/or weight based dosing when appropriate to reduce radiation dose to as low as reasonably achievable. Comparison: No relevant prior studies available. Findings: Pharyngeal mucosa is grossly unremarkable. There is no localized pocket of fluid collection or significant soft tissue thickening. Submandibular and sublingual are salivary glands are symmetric and grossly unremarkable. Parotid glands are symmetric and grossly unremarkable. There are few nonspecific bilateral cervical lymph nodes. None of which is grossly pathological by radiographic criteria. Paravertebral soft tissues unremarkable. Upper airway is grossly intact. Epiglottis and aryepiglottic folds are grossly unremarkable. IMPRESSION: Grossly unremarkable exam Finalized by Maria Guadalupe Torres MD on 10/01/2025 1:35 AM Procedure Note Maria Guadalupe Torres MD - 10/01/2025 History: Sublingual edema and left-sided jaw pain, concern for Abelardo's angina Exam/Technique: CT images of neck soft tissue were obtained following intravenous contrast injection. CT does automated exposure control was utilized. All CT scansat this facility use dose modulation, iterative reconstruction, and/orweight based dosing when appropriate to reduce radiation dose to as low as reasonably achievable. Comparison: No relevant prior studies available. Findings: Pharyngeal mucosa is grossly unremarkable. There is no localized pocketof fluid collection or significant soft tissue thickening. Submandibularand sublingual are salivary glands are symmetric and grossly unremarkable.Parotid glands are symmetric and grossly unremarkable. There are few nonspecific bilateral cervical lymph nodes. None of which is grosslypathological by radiographic criteria. Paravertebral soft tissues unremarkable. Upper airway is grossly intact. Epiglottis and aryepiglottic folds are grossly unremarkable. IMPRESSION: Grossly unremarkable exam Finalized by Maria Guadalupe Torres MD on 10/01/2025 1:35 AM Authorizing ProviderResult TypeResult StatusStacy Dybas MDIMG CT ORDERABLESFinal Result * (ABNORMAL) Comprehensive metabolic panel (10/01/2025 12:33 AM EST)Component ValueRef RangeTest MethodAnalysis TimePerformed AtPathologist SignatureSODIUM [id number] - 146 mmol/L112/02/2024 12:[address] [facility] POTASSIUM3.4(L)3.5 - 5.0 mmol/L112/02/2024 12:53 AM ESTPROMEDIVICTOR VALLEY HOSPITALCHLORIDE10498 - 109 mmol/L112/02/2024 12:53 AM ESTPROBELLWOOD GENERAL HOSPITALCARBON ACCZQMA0999 - 32 mmol/L112/02/2024 12:53 AM EST [facility]CHIATRIC PAVILIONANION GAP95 - 15 mmol/L112/02/2024 12:53 AM ESTPROMEDIVICTOR VALLEY HOSPITALBLOOD UREA RSLLKGIK503 - 23 mg/dL 10/01/2025 12:53 AM ESTPROBELLWOOD GENERAL HOSPITALCREATININE0.880.40 - 1.00 mg/dL10/01/2025 12:53 AM [facility] INCComment: METHOD TRACEABLE TO IDMS JCZZONNUHESBVZT241(H)65 - 99 mg/dL10/01/2025 12:53 AM [facility], INCCALCIUM8.68.5 - 10.5 mg/dL10/01/2025 12:53 AM [facility], INCTOTAL PROTEIN7.56.0 - 8.0 g/dL 10/01/2025 12:53 AM [facility], INCALBUMIN3.93.2 - 5.3 g/dL10/01/2025 12:53 AM [facility], INCALKALINE XQBYYCTNFLH0230 - 130 U/L112/02/2024 12:53 AM [facility] INCAST20<=41 U/L112/02/2024 12:53 AM [facility] INCALT26<=31 U/L112/02/2024 12:53 AM [facility], INCBILIRUBIN,TOTAL0.30.3 - 1.2 mg/dL10/01/2025 12:53 AM [facility] INCEGFR Non-Race Dynqqpzsu47>=60 ml/min/1.73sq.m 10/01/2025 12:53 AM [facility], INCComment: eGFR not reported due to non-numeric value for Creatinine. Reported eGFR is based on the CKD-EPI 2020 equation that does not use a race coefficient. Specimen (Source)Anatomical Location / LateralityCollection Method / Volume Collection TimeReceived TimeBloodVenous blood / UnknownVenipuncture / Unknown 10/01/2025 12:33 AM EST10/01/2025 12:34 AM EST Narrative Authorizing ProviderResult TypeResult StatusStacy Chrissie MEDINA BLOOD ORDERABLES Final ResultPerforming OrganizationAddressCity/State/ZIP CodePhone Number [facility] [address] [place] [address], * (ABNORMAL) CBC auto differential (10/01/2025 12:33 AM EST)ComponentValueRef RangeTest MethodAnalysis TimePerformed AtPathologist SignatureWBC9.14 - 11 10^10/01/2025 12:39 AM ESTPROMEDIVICTOR VALLEY HOSPITALRBC Count4.43 3.8 - 5.2 10^10/01/2025 12:39 AM [facility] Hkufdtzoyj16.311.7 - 15.5 g/dL10/01/2025 12:39 AM ESTPROBELLWOOD GENERAL HOSPITALHematocrit38.835 - 47 %10/01/2025 12:39 AM ESTUNIVERSITY HOSPITALS SAMARITAN MEDICAL CENTERV8880 - 100 fL10/01/2025 12:39 AM ESTUNIVERSITY HOSPITALS SAMARITAN MEDICAL CENTERH29.927 - 34 pg10/01/2025 12:39 AM ESTPROHARBOR-UCLA MEDICAL CENTERHC34.232 - 36 g/dL10/01/2025 12:[address] MARY HOSPITALRDW13.811.5 - 15 %10/01/2025 12:[address] MARY HOSPITALPlatelet Jgxge407046 - 450 10^10/01/2025 12:[address] MARY HOSPITALMPV7.27 - 12 fL10/01/2025 12:39 AM EST [facility] HOSPITALNeutrophils %74.0%10/01/2025 12:39 AM EST PROMCOTTAGE CHILDREN'S HOSPITALLymphocytes %16.6%10/01/2025 12:39 AM EST PROM[facility]ICMER[facility] HOSPITALMonocytes %7.1%10/01/2025 12:39 AM EST PROMLOMA [facility] HOSPITALEosinophils %2.0%10/01/2025 12:39 AM EST [facility] HOSPITALBasophils %0.3%10/01/2025 12:39 AM EST PROMCOTTAGE CHILDREN'S HOSPITALNeutrophils Absolute (A)6.8(H)1.5 - 6.6 10^9/L112/02/2024 12:39 AM ESTPROMEDIVICTOR VALLEY HOSPITALLymphocytes Absolute1.51.0 - 3.5 10^9/04/2025 12:39 AM [facility], INCMonocytes Absolute0.60.0 - 0.9 10^10/01/2025 12:39 AM [facility] INCEosinophils Absolute0.20.0 - 0.4 10^10/01/2025 12:39 AM [facility], INCBasophils Absolute0.00.0 - 0.2 10^10/01/2025 12:39 AM [facility], INCDifferential TypeAUTOMATED HFNBDANZKUCE99/07/2025 12:39 AM [facility] (Source)Anatomical Location / LateralityCollection Method / VolumeCollection TimeReceived TimeBloodVenous blood / UnknownVenipuncture / Hixrgjd3410/01/2025 12:33 AM EST10/01/2025 12:34 AM EST Narrative Authorizing ProviderResult TypeResult StatusStacy Chrissie SIMPSONLAB BLOOD ORDERABLES Final ResultPerforming OrganizationAddressCity/State/[facility] CodePhone Number [address] [address], * Light Blue Top (10/01/2025 12:27 AM EST)ComponentValueRef RangeTest Method Analysis TimePerformed AtPathologist SignatureExtra TubeAuto Resulted 10/01/2025 2:02 AM [facility] (Source) Anatomical Location / LateralityCollection Method / VolumeCollection Time Received TimeBloodVenous blood / Msaxezn2710/01/2025 12:27 AM EST10/01/2025 12:35 AM EST Narrative Authorizing ProviderResult TypeResult StatusStayaan Dickens MDLAB BLOOD ORDERABLES Final ResultPerforming OrganizationAddressty/State/[facility] CodePhone Number [address] [address], documented in this encounter Visit Diagnoses Diagnosis Jaw pain- Primary documented in this encounter Administered Medications Medication OrderMAR ActionAction DateDoseRateSite hydrOXYzine (ATARAX) tablet 25 mg 25 mg, oral, Once, On 10/01/25 at 0102, For 1 dose, Look-alike/sound-alike medication - verify indication for use. Given10/01/2025 1:09 AM EST25 mg iohexoL (OMNIPAQUE) 300 mg iodine/mL 100 mL 100 mL, intravenous, Once in imaging, contrast, Starting on 10/01/25 at 0103, For 1 dose, VESICANT (RED) Given10/01/2025 1:04 AM HKV015 mL sodium chloride 0.9 % bolus 1,000 mL, intravenous, at 984 mL/hr, Administer over 61 Minutes, Once, On 10/01/25 at 0102, For 1 dose New Bag10/01/2025 1:11 AM EST1,000 mL984 mL/hr sodium chloride 0.9 % flush 10 mL 10 mL, intravenous, As needed, line care, Starting on 10/01/25 at 0103 Given10/01/2025 1:04 AM EST10 mL sodium chloride 0.9 % radiology injection 80 mL, intravenous, Once in imaging, pre/post contrast, Starting on 10/01/25 at 0103, For 1 dose Given10/01/2025 1:03 AM EST80 mLdocumented in this encounter Active and Recently Administered Medications Times are shown in EST.Medication Order/ hydrOXYzine (ATARAX) tablet 25 mg (COMPLETED) 25 mg, oral, Once, On 10/01/25 at 0102, For 1 dose, Look-alike/sound-alike medication - verify indication for use. * 0109 (Given - Provider: Db Rincon RN) sodium chloride 0.9 % bolus 1,000 mL, intravenous, at 984 mL/hr, Administer over 61 Minutes, Once, On 10/01/25 at 0102, For 1 dose * 0111 (New Bag - Provider: Db Rincon, MICKIE) * 0212 (Stop Bag - Provider: Db Rincon, RN) Medication Order// iohexoL (OMNIPAQUE) 300 mg iodine/mL 100 mL (COMPLETED) 100 mL, intravenous, Once in imaging, contrast, Starting on 10/01/25 at 0103, For 1 dose, VESICANT (RED) * 0104 (Given - Provider: MADIE Barrientos - Comment: [id number]) sodium chloride 0.9 % flush 10 mL 10 mL, intravenous, As needed, line care, Starting on 10/01/25 at 0103 * 0104 (Given - Provider: MADIE Barrientos) sodium chloride 0.9 % radiology injection (COMPLETED) 80 mL, intravenous, Once in imaging, pre/post contrast, Starting on 10/01/25 at 0103, For 1 dose * 0103 (Given - Provider: MADIE Barrientos) documented in this encounter Care Teams Team MemberRelationshipSpecialtyStart DateEnd Nitin Rock MD [address] [place] [address] PCP - GeneralFamily Okyjkomb25/1/24documented as of this encounter
--- OUTSIDE RECORDS SUMMARY | 2025-10-09 06:36 | XMS_ITS | Continuity of Care Document ---
Author Organization [facility] Address [address] [place] [address] Phone Care Team Providers Care Vocational Guidance Counselor Name Role Phone NON STAFF Primary Care Provider Unavailabl e Mattie, Milady DO Attending Provider [phone] Mattie, Milady DO Primary Care Provider Mattie, Milady Attending Provider Elayne Augustine Attending Provider Unavailable Care Teams Patient Care Team Team Status: Active Member Role/Relationship Status Dates Milady Mattie , DO Primary Care Provider Active Visit Care Team Team Status: Inactive Member Role/Relationship Status Dates NON STAFF Primary Care Provider Active Start: September 04, 2025 End: September 04, 2025Jessica Mattie , DOAttending ProviderActiveStart: September 04, 2025 End: September 04, 2025 Visit Care Team Team Status: Active Member Role/Relationship Status Dates Milady Mattie , DO Primary Care Provider Active S tart: September 05, 2025 Milady RappAttending ProviderActiveStart: September 05, 2025 Visit Care Team Team Status: Inactive Member Role/Relationship Status Dates Milady Mattie , DO Primary Care Provider Active S tart: September 18, 2025 End: September 18, 2025Jessica Mattie , DOAttending ProviderActiveStart: September 18, 2025 End: September 18, 2025 Visit Care Team Team Status: Active Member Role/Relationship Status Dates Milady Mattie , DO Primary Care Provider Active S tart: October 03, 2025 Saebel RoblesAttending ProviderActiveStart: October 03, 2025 Visit Care Team Team Status: Inactive Member Role/Relationship Status Dates Milady Phelps DO Primary Care Provider Active S tart: October 09, 2025 End: October 09, 2025Milady Phelps DOAttjulian ProviderActiveStart: October 09, 2025 End: October 09, 2025 Chief Complaint and Reason for Visit Chief Complaint Admit Date new patient September 04, 2025 12:59pm ER follow-up [place]/Panic Attack Novemb er 2024 10:00am Amb Documentation October 03, 2025 9 :41am Hospital FollowUp October 09, 2025 10:51am Reason for Visit Admit Date Anxiety September 04, 2025 12:59pm Depression September 04, 2025 12:59pm Migraines September 04, 2025 12:59pm Obesity September 04, 2025 12:59pm Smoker September 04, 2025 12:59pm Anxiety September 18, 2025 10:00am Depression September 18, 2025 10:00am Left-sided temporomandibular joint pain-dysfunction syndrome September 18, 2025 10:00am Obesity September 18, 2025 10:00am Smoker September 18, 2025 10:00am Daytime somnolence September 18, 2025 10:00am Anxiety October 09, 2025 10:51am Left ankle instability October 09 10:51am Left-sided temporomandibular joint pain-dysfunction syndrome October 09, 2025 10:51am Migraines October 09, 2025 10:51am Smoker October 09, 2025 10:51am Submandibular gland swelling October 092024 10:51am Reason for Referral Type Reason(s) Provider Provider Contact Information P rovider Address Start Date Left ankle instability M25.372 - Other instability, left ghmscD92.372 - Other instability, left ankle Determined by PatientDecember 2024 Allergies, Adverse Reactions, Alerts Allergen Type Severity Reaction Last Updated Verified Status amoxicillin Allergy Unknown hives October 09, 2025 10:54am Yes Active ciprofloxacin Allergy Unknown joint pain October 09, 2025 10: 54am Yes Active Social History Smoking Status Unknown if ever smoked Observation Status Observation Response Date of Response Legal Sex Female (finding) Sex Assigned At BirthFemaleJuly 1989 Family History Relationship Condition Age at Onset Recorded Date/T pushpa father Diabetes mellitus Unknown HypertensionUnknownHigh blood cholesterolUnknownmotherHypertensionUnknown paternal grandfatherMyocardial infarctionUnknownCerebrovascular accident (CVA) Unknownpaternal grandmotherCerebrovascular accident (CVA)Unknown Problems Active Problems Problem Diagnosis/Recorded Date Onset Date Stat us Submandibular gland swelling October 09, 2025 11:17 am Unknown Active Left-sided temporomandibular joint pain-dysfunction syndrome September 18, 2025 10:56am Unknown Active Acute conjunctivitis, left eye September 19, 2024 5:1 8pm Unknown Active Acute maxillary sinusitis September 19, 2024 5:17pm U nknown Active Anxiety December 30, 2023 1:14pm Unknown Activ e Depression December 30, 2023 1:14pm Unknown Activ e Wellness examination September 04, 2025 1:56pm Unknow n Active Migraines September 04, 2025 1:05pm Unknown A ctive Neuropathy September 19, 2024 4:11pm Unknown A ctive Left ankle instability October 09, 2025 11:26am Unk nown Active Obesity September 04, 2025 1:15pm Unknown A ctive Smoker September 04, 2025 2:08pm Unknown A ctive Inactive/Resolved Problems Problem Diagnosis/Recorded Date Onset Date Stat Daytime somnolence September 18, 2025 10:51am Unknown Resolved Medications Medication Status Dose Units Route Directions Qty Days Refills S tart Date Stop Date End Date Reason(s) Instructions Adherence Ketoconazole 2 % cream Discontinued APPLICTOPICALMarch 2023 12:00amNovember 2023 4:09pmFluconazole 50 mg tabletDiscontinuedMGPOMarch 2023 12:00amAugu2023 5:00pmClindamycin Phosphate 1 % gelDiscontinuedTOPICALMarch 2023 12:00amA2023 5:00pmHydroxyzine Pamoate 25 mg capsuleDiscontinuedMGPOMarch 2023 12:00am September 19, 2024 4:09pmBuspirone 5 mg tabletDiscontinuedMGPOAugust 2023 11:00pmSeptember 19, 2024 4:09pmFluticasone Propionate (Flonase Allergy Relief) 50 mcg/actuation spray,hqeytmvvslRgcebxunepjg1KMZHXPTITQGIKKYTykwpCsocwv 2023 11:00September 19, 2024 4:09pmadminister into each nostrilAcetaminophen 325 mg tabletDiscontinuedMGPOAuthree [facility] hospital [[email or web address]]t 2023 11:00September 19, 2024 4:09pm Chlorhexidine Gluconate 0.12 % mouthwashDiscontinuedPOKarnak 2023 11:00pm September 19, 2024 4:09pmClindamycin Hcl 300 mg tzlsklwChpaapawfhhd373OADOC7F64 100Auth[facility] [[email or web address]]t 2023 11:00September 19, 2024 4:09pmBuspirone 5 mg tablet Icqhuhbnjlna7PMWCOqthi dailyAprpa 2024 11:00[facility]2024 2:00pm Hydroxyzine Hcl 25 mg gldravVzrpwmmvdokx29LRFGYyynw at bedtime as neededAprpa 2024 11:00[facility]2024 1:59pmCetirizine-Pseudoephedrine (Zyrtec-D) 5-120 mg tablet extended release 12 gzXevfkqzeuhpx4KIDIWJfckf 12 dzkom3155Vllbo 9th, 2025 11:00[facility]2024 1:03pmFluticasone Propionate (Flonase Allergy Relief) 50 mcg/actuation spray,pyymjayiquOkcbihxbezvq0XZLBEFPTDVQEKJN Twice vppil17449Yqasl 2024 11:00September 04, 2025 1:03pmadminister 1 spray into each nostrilHydroxyzine Hcl 25 mg jjjmptQopeje19OPTCUxxyp times daily as needed for vbruilq62321Jgjepkwp2024 12:00amComplies with drug therapy Bupropion Hcl (Wellbutrin Sr) 100 mg tablet sustained-release 12 leZbwdih423OWJJ Twice yjfbx94724YmsfoqmaSeptember 04, 2025 12:00amtake one tablet qAM for 1 week, then 1 tablet PO BIDComplies with drug therapyPregabalin 50 mg wjzqeefRkhmtbvqwigd63 MGPODailySeptember 19, 2024 12:00amApril 2024 1:59pmAzithromycin 250 mg khpzxwDubtruqxjaus8YK.TCIDYKP64LcdvuvfnSeptember 19, 2024 12:00amApril 2024 1:53pmFor 250 mg dose pack: take 500 mg today (day 1), then 250 mg for 4 days (days 2-5) POPolymyxin B Sulf-Trimethoprim 10,000 unit- 1 mg/mL drops Lfofcvlqybfo4AGEAJOKFRJUXZLQOrjzs three rgdzc6451XvdxqqpiSeptember 19, 2024 12:00am February 02, 2025 1:53pmdo not exceed 6 doses in a 24 hr periodBuspirone 5 mg khsamjEtuwfggtwvdu4ROBSJaxln042Dhbrwrne 24th, 2025 12:00amDece2024 11:33amNystatin 100,000 unit/gram djgqgyYcuyyw7RUFAGSGWQVWCHTizfe times pkloz263 October 09, 2025 12:00amComplies with drug therapyCephalexin 500 mg capsule Xfoujr922VYSZTzwra rmera7225Nzstwrbl2024 12:00amComplies with drug therapyBuspirone 5 mg mawghpJejpau3LTIACqgee wbufk077RojmdfwaOctober 09, 2025 11:33am Complies with drug therapy Relevant Diagnostic Tests and/or Laboratory Data Laboratory Results Test Collection Date/Time Result Date/Time Result Interpretation Reference Range Result Comment Performing Site Estradiol (E2) Level September 05, 2025 9:14am September 05, 2025 9:14am 52.1 pg/mL .Adult Female Range Follicular phase 12.5 - 166.0 Ovulation phase 85.8 - 498.0 Luteal phase 43.8 - 211.0 Postmenopausal <6.0 - 54.7 1st trimester 215.0 - >4300.0Roche ECLIA methodologyPerformed at: - [facility] [id number] Director: Jeremiah Uriarte PhD, Phone: [phone] Stimulating HormoneSeptember 05, 2025 9:14amNove2024 9:14am4.4 mIU/mL.Adult Female Range Follicular phase 3.5 - 12.5 Ovulation phase 4.7 - 21.5 Luteal phase 1.7 - 7.7 Postmenopausal 25.8 - 134.8Luteinizing HormoneAt[facility] Health [facility]2024 9:14amNoveer 2024 9:14am4.6 mIU/mL.Adult Female Range Follicular phase 2.4 - 12.6 Ovulation phase 14.0 - 95.6 Luteal phase 1.0 - 11.4Postmenopausal 7.7 - 58.5Estimated Average GlucoseAtrium Health [facility]2024 9:14amNovember 2024 9:42bc072 mg/dLBasophils # (Auto)September 05, 2025 9:14amNovember 2024 9:14am0.0 10 3/uL0.0-0.1Free ThyroxineAtrium Health [facility]2024 9:14amNove2024 9:14am1.18 ng/dL0.76-1.46Thyroid Stimulating Hormone 3rd GenAtrium Health [facility]2024 9:14amNovereunion rehabilitation [facility] 2024 9:14am 2.519 u[iU]/mL0.358-3.740Cholesterol/HDL RatioNbanner 2024 9:14amNoveer 2024 9:14am4.03.3 - 4.4 LOW RISK4.4 - 7.1 AVERAGE RISK7.1 - 11.0 MODERATE RISK>11.0 HIGH RISKAnion GapBaptist Health [facility] 2024 9:14amNovereunion rehabilitation hospital [facility] 2024 9:14am14.5Hemoglobin C1xIfozsvoi2024 9:14amNovereunion rehabilitation hospital [facility] 2024 9:14am5.4 %4.5-6.2ADA RECOMMENDED LIMIT 4.0 - 6.0ADA THERAPEUTIC TARGET < 7.0ACTION SUGGESTED> 7.0Basophils (%) (Auto)September 05, 2025 9:14amNovember 2024 9:14am0.5 %0.2-2.0Cholesterol LevelBaptist Health [facility] 2024 9:14amNovember 2024 9:53wl765 mg/dL<=200Albumin/Globulin RatioNbanner 2024 9:14amNovember 2024 9:14am1.0Eosinophils # (Auto)September 05, 2025 9:14amNove2024 9:14am0.1 10 3/uL0.0-0.7HDL CholesterolAtrium Health [facility]2024 9:14amNove2024 9:14am41 mg/dL40-60> or =60 mg/dl - LOW CARDIOVASCULAR RISK<40 mg/dl - HIGH CARDIOVASCULAR RISKAlbuminSeptember 05, 2025 9:14amNove2024 9:14am3.7 g/dL3.4-5.0Eosinophils (%) (Auto)September 05, 2025 9:14amNove2024 9:14am1.7 %0.9-7.0LDL Cholesterol, CalculatedSeptember 05, 2025 9:14amNove2024 9:99kd108.0 mg/dL<100 mg/dl HXFMCWE951-233 mg/dl NEAR OR ABOVE VDPZOQF389-417 mg/dl BORDERLINE VZRV962-756 mg/dl HIGH>190 mg/dl VERY HIGHAlkaline PhosphataseSeptember 05, 2025 9:142024 9:14am61 U/E25-544SttvytpflzHjwkfrbb 2024 9:14amNove2024 9:14am39.0 % 36.0-48.0Triglycerides LevelSeptember 05, 2025 9:14amNove2024 9:14am 115 mg/dL<=150Alanine Aminotransferase (ALT/SGPT)September 05, 2025 9:14am September 05, 2025 9:14am41 U/T58-91IhclzwnamcQsmkqfvk 2024 9:14am September 05, 2025 9:14am13.0 g/dL12.0-16.0VLDL CholesterolAtrium Health [facility]2024 9:14amNove2024 9:14am23.0 mg/dLAspartate Amino Transf (AST/SGOT) September 05, 2025 9:14ove2024 9:14am24 U/S99-63Tteufrso Granulocyte # (Auto)September 05, 2025 9:14amNovember 2024 9:14am0.02 10 3/uL0.00-0.03BUN/Creatinine RatioNovemb2024 9:14amNovember 2024 9:14am13.6Immature Granulocyte % (Auto)September 05, 2025 9:14amNovember 2024 9:14am0.3 %0.0-0.5Blood Urea NitrogenNovember 2024 9:14amNovember 2024 9:14am14.0 mg/dL7.0-18.0Lymphocytes # (Auto)September 05, 2025 9:14amNovember 2024 9:14am1.8 10 3/uL1.2-3.8Calcium LevelNovember 2024 9:14amNovember 2024 9:14am8.9 mg/dL8.5-10.1Lymphocytes (%) (Auto) September 05, 2025 9:14amNovember 2024 9:14am23.3 %20.5-60.0Chloride LevelNovember 2024 9:14amNovember 2024 9:24fn523 mmol/T36-417Mrlr Corpuscular HemoglobinNovember 2024 9:14amNovember 2024 9:14am29.9 pg26.7-34.0Carbon Dioxide LevelNovember 2024 9:14amNovember 2024 9:14am24.3 mmol/L21.0-32.0Mean Corpuscular Hemoglobin ConcentNovember 2024 9:14amNovember 2024 9:14am33.3 g/dL29.9-35.2CreatinineNovember 2024 9:14amNovember 2024 9:14am1.03 mg/dLAbove high normal0.55-1.02Mean Corpuscular VolumeNovember 2024 9:14amNovember 2024 9:14am89.7 fL 81.0-99.0Estimated GFR ()September 05, 2025 9:14amNovember 2024 9:14am>60>=60 mL/min/1.73m 2Monocytes # (Auto)September 05, 2025 9:14amNovember 2024 9:14am0.4 10 3/uL0.3-0.8Estimated GFR (Non- AmericanNov2024 9:14amNovember 2024 9:14am>60>=60 mL/min/1.73m 2Monocytes (%) (Auto)September 05, 2025 9:14amNovember 2024 9:14am5.5 % 1.7-12.0GlobulinNovember 2024 9:14amNovember 2024 9:14am3.6 g/dLMean Platelet VolumeNovember 2024 9:14amNovember 2024 9:14am9.6 fL 9.5-13.5Glucose LevelNovember 2024 9:14amNovember 2024 9:58mz915 mg/dLAbove high npzudh02-652Hkvlofnysln # (Auto)September 05, 2025 9:14am September 05, 2025 9:14am5.4 10 3/uL1.4-6.5Potassium LevelNovember 2024 9:14amNovember 2024 9:14am3.8 mmol/L3.5-5.1Neutrophils (%) (Auto)September 05, 2025 9:14amNovember 2024 9:14am68.7 %43.0-75.0Sodium LevelNovember 2024 9:14amNovember 2024 9:69jj207 mmol/P225-085Fwquciyj Count September 05, 2025 9:14amNovember 2024 9:84ty221 10 3/jD147-596Rledn BilirubinNovember 2024 9:14amNoveer 2024 9:14am0.5 mg/dL0.2-1.0Red Blood CountAtrium Health [facility]2024 9:14amNovember 2024 9:14am4.35 10 6/uL 4.20-5.40Total ProteinSeptember 05, 2025 9:14amNoveer 2024 9:14am7.3 g/dL6.4-8.2Red Cell Distribution WidthSeptember 05, 2025 9:14amNove2024 9:14am13.2 %11.0-15.0Corrected White Blood CountAtrium Health [facility]2024 9:14am September 05, 2025 9:14am7.8 10 3/uL4.0-11.0 Vital Signs Vital Reading Result Reference Range Collection Date/Time Height 65 [in_i] September 04, 2025 1:17coVbwhsr211.42 kgAtrium Health [facility]2024 1:02pmHeart Rate86 /wby32-295HysyhhjrSeptember 04, 2025 1:02pmRespiratory rate20 /uek49-54NrebxholSeptember 04, 2025 1:02pmOxygen saturation by Pulse xaotqyok01 %95-100September 04, 2025 1:02pmBP Covhfigg734 mm[Hg]100-140September 04, 2025 1:02pmBP Ikrsdlukc72 mm[Hg]60-100September 04, 2025 1:02pmBMI (Body Mass Index)52.2 kg/l1OxrguphwSeptember 04, 2025 1:03lbYupvme86 [in_i]September 18, 2025 10:80ynLpwbfv796.33 kg September 18, 2025 10:04amHeart Rate75 /gkx36-156EkrqoecySeptember 18, 2025 10:04am Respiratory rate20 /iyk76-11NiamrotzSeptember 18, 2025 10:04amOxygen saturation by Pulse ekddwvxv40 %95-100[facility]2024 10:04amBP Ivksmbzs353 mm[Hg]100-140 September 18, 2025 10:04amBP Hnakhckrc28 mm[Hg]60-100September 18, 2025 10:04amBMI (Body Mass Index)52.5 kg/d6Bizbvrkd 2024 10:04ktIlgayk54 [in_i] October 09, 2025 10:95cwSexlai367.97 kgDeceer 2024 10:53amHeart Rate 92 /ihc04-770ZljrcupjOctober 09, 2025 10:53amRespiratory rate20 /kno08-21Jfxuwnih 15th, 2025 10:53amOxygen saturation by Pulse xsxhtaot80 %95-100October 09, 2025 10:53amBP Szxdcikm005 mm[Hg]100-140Dece2024 10:53amBP Diastolic 86 mm[Hg]60-100Decemb2024 10:53amBMI (Body Mass Index)52.0 kg/m2 October 09, 2025 10:53am Advance Directives Advance Directive Response Recorded Date/ Time Advance Directives No December 29 1:08pm Insurance Providers Guarantor Kristine Hernández Address [address] [address] Info.Home Phone: Coverage Status Update:2025 Payer Group Member ID Coverage Type Subscriber Relationship to Subscriber Effective Date Expiration Date Medicaid [id number] L Clark Id: [id number] [address] [facility] [address] Home Phone: Self Encounters Encounter Location(s) Arrival/Admit Date Discharge/Departure Date Discharge/Departure Disposition Provider(s) Departed Physician/ Provider Office Visit -[facility] [place] September 04, 2025 12:59pm September 04, 2025 1:58pm Discharged to home care or self care (routine discharge) Milady Phelps DO Non-patient / Non-visit -[facility] N ovember 2024 9:14am Meg REYES Physician/Provider Office Visit-[facility] 2024 10:00amNovember 2024 10:47amDischarged to home care or self care (routine discharge)Hua Steward-patient / Non-visit- [facility] Family Medicine [facility] 2024 9:41amSaeble RoblesDeparted Physician/Provider Office Visit-[facility] Family Medicine [facility] 2024 10:51amDecember 2024 11:35amDischarged to home care or self care (routine discharge)Milady Phelps , DO Recent Diagnosis Onset Date Admit Date Anxiety Unknown September 04, 12:59pm Depression Unknown September 04, 025 12:59pm Migraines Unknown September 04, 2 025 12:59pm Obesity Unknown September 04, 2 025 12:59pm Smoker Unknown September 04, 2 025 12:59pm Anxiety Unknown September 18, 2 025 10:00am Depression Unknown September 18, 2 025 10:00am Left-sided temporomandibular joint pain-dysfunction syndrome Unknown September 18, 2025 10:00am Obesity Unknown September 18, 2 025 10:00am Smoker Unknown September 18, 2 025 10:00am Daytime somnolence Unknown August 10:00am Anxiety Unknown October 09, 2 025 10:51am Left ankle instability Unknown October 09, 2025 10:51am Left-sided temporomandibular joint pain-dysfunction syndrome Unknown October 09, 2025 10:51am Migraines Unknown October 09, 2 025 10:51am Smoker Unknown October 09, 2 025 10:51am Submandibular gland swelling Unknown Sep 10:51am Assessments Diagnosis Onset Date Resolution Status Admit Date Anxiety acuteSeptember 04, 2025 12:59pmDepressionacuteNov2024 12:59pm MigrainesacuteNovember 2024 12:59pmObesityacuteNovember 2024 12:59pm SmokeracuteNov2024 12:59pmAnxietyacuteNovember 2024 10:00am DepressionacuteNovember 2024 10: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 10:00amObesityacuteNovember 2024 10:00amSmokeracuteNovember 2024 10:00amDaytime somnolence inactiveSeptember 18, 2025 10:00amAnxietyacuteWest [facility] Cente[facility] 2024 10:51amLeft ankle instabilityacuteWest [facility]2024 10: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 Increase Wellbutrin as directed. Return to clinic in 1 month to discuss labs and see if Wellbutrin is helping anxiety, smoking cessation and also energy/anxiety. She may continue vistaril as needed for break thru panic attacks. Call the office if any unwanted side effects occur. Author Milady Phelps [facility] 2024 10:57amcontinue the Wellbutrin at 100mg daily and BuSpar 5mg at night time. Use Vistaril as needed. continue therapy. see #1 hoping by controlling anxiety this will help her eating habits is smoking less on the wellbutrin with weight gain and family history she is concerned about sleep apnea; will refer to sleep lab left ear normal; recommended cold and hot compresses; NSAIDs and/or Tylenol for discomfort Return to clinic 1 month. Author Milady Phelps [facility] 2024 11:26amcontinue wellbutrin, vistaril and buspar continue tylenol and motrin as needed for pain reviewed ER notes. But exam showed enlarged submandibular glands. Had CT scan of the soft tissues and has appointment with ENT. Will place on Keflex due to allergies and issues also with clindamycin. Recommended she keep ENT. Future Tests Future scheduled test information is unavailable Pending Tests Test Name Ordered Date Scheduled Date Luteinizing Hormone September 04, 2025 1:54pm Future Visits Future appointment information is unavailable Future Procedures Procedure Name Ordered Date Scheduled Date CMP with reflex to A1C September 04, 2025 1:54p m Follicle Stimulating HormoneSeptember 04, 2025 1:54pmLipid PanelSeptember 04, 2025 1:54pm Future Medications Future medication information is unavailable Patient Instructions Patient instructions are unavailable
--- OUTSIDE RECORDS SUMMARY | 2025-10-10 09:00 | XMS_ITS | Encounter Summary ---
Author Organization [facility] tem Address [id number] [address] [place] [address] Care Team Providers Care Making Department Preparer Name Role Phone Nitin Rock MD Primary Care Provider [phone] Encounter Details DateTypeDepartmentCare Team (Latest Contact Info)Ztymzbbjkvz77/16/2025 9:00 AM ESTClinical Support [facility] - [facility]NT [address] [place] [address] Ear fullness, left (Primary Dx); Otalgia, left ear Social History Tobacco UseTypesPacks/DayYears UsedDateSmoking Tobacco: Every [...] InformationValueDate RecordedSex Assigned at BirthNot on fileLegal LqgHiklmb95/01/2022 9:39 PM EDT Gender IdentityNot on fileSexual OrientationNot on filedocumented as of this encounter Progress Notes * Valencia Cash, AUD - 10/10/2025 9:00 AM EST AUDIOLOGIC EVALUATION Reason for visit: CC: Kristine is here for a hearing evaluation. She reported difficulty hearing since high school, butwas told it was fine, so she hasn't had any follow up since high school. She reported constant tinnitus bilaterally for several years. In the beginning of August 2025 she started experiencing left otalgia that radiated into her jaw and down her neck, as well as swelling in those areas. Since thenthe pain and swelling has radiated to the right side. She also reported pressure in the left ear since beginning of August. She was diagnosed with a left ear infection yesterday at her PCP office and was prescribed oral antibiotics which she started taking last night. She has a history of dizziness with migraines. Denied otorrhea, family history, noise exposure. HISTORY: Concerns with hearing: Bilateral Tinnitus: Bilateral, constant Dizziness: Yes Noise Exposure: No Aural Fullness: Left ear, constant Otalgia: Left ear, constant Otorrhea: No Other significant history: None RESULTS: Otoscopic Evaluation: Right Ear: Unremarkable Left Ear: Unremarkable Immittance Measures: Right Ear: Type A Left Ear: Type A Pure Tone Audiometry: Right Ear: Hearing sensitivity is within normal limits 250-8000 Hz Left Ear: Hearing sensitivity is within normal limits 250-8000 Hz Asymmetry noted: No Reliability: good Speech Audiometry: SRT/AIR [employer]ING [employer] in good agreement WRS: Right Ear: Excellent (100%) Left Ear: Excellent (100%) RECOMMENDATIONS: Follow up with Dr. Micheal Mcclendon Retest per otologic management Clementina Almanzar Diploma Medical Assistant documented in this encounter Plan of Treatment DateTypeDepartmentCare Team (Latest Contact Info)Pgnllpxykcs98/09/2026 9:45 AM ESTAppointment [facility] [address] [place] [address] 11/07/2025 9:10 AM ESTTelemedicine [facility] - [facility] [address] [place] [phone] Micheal Mcclendon MD [address] [address] documented as of this encounter Procedures Procedure NamePriorityDate/TimeAssociated DiagnosisCommentsCOMPREHENSIVE HEARING FPMHBgbdoun95/16/2025 8:04 AM ESTdocumented in this encounter Results * Comprehensive hearing test (10/10/2025 8:04 AM EST) Narrative Authorizing ProviderResult TypeResult StatusMicheal Mcclendon MDAUDIOLOGY SERVICES ORDERABLESFinal Result documented in this encounter Visit Diagnoses Diagnosis Ear fullness, left- Primary Otalgia, left ear documented in this encounter Care Teams Team MemberRelationshipSpecialtyStart DateEnd Nitin Rock MD [address] [place] [address] PCP - GeneralFamily Ovmjmjbf61/1/24documented as of this encounter
--- OUTSIDE RECORDS SUMMARY | 2025-10-10 09:30 | XMS_ITS | Encounter Summary ---
Author Organization [employer] tem Address [id number] 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 Name Role Phone Nitin Rock MD Primary Care Provider [phone] Reason for Referral * Consultation (Routine) - Pending ReviewSpecialtyDiagnoses / ProceduresReferred By ContactReferred To ContactOtolaryngology Diagnoses Jaw pain Otalgia of left ear Micheal Mcclendon MD [address] [address] Phone: tel: fax: Brandon Manuel MD [address] [facility] [place] [address] Phone: tel: fax: Referral IDStatusReasonStart DateExpiration DateVisits RequestedVisits [id number] Review Specialty Services Required * Diagnostic Imaging (Routine) - Pending ReviewSpecialtyDiagnoses / Procedures Referred By ContactReferred To ContactRadiology Diagnoses Jaw pain Procedures MR neck soft tissue with and without contrast Micheal Mcclendon MD [address] [address] Phone: tel: fax: Referral IDStatusReasonStart DateExpiration DateVisits RequestedVisits [id number] Reason for Visit * ReasonCommentsJaw Pain * Consultation (Routine) - Pending ReviewSpecialtyDiagnoses / ProceduresReferred By ContactReferred To ContactOtolaryngology Diagnoses Jaw pain Gillian Dickens MD [address] [place] [address] Phone: tel: fax: [facility]NT [address] [place] [address] Phone: tel: fax: Referral IDStatusReasonStart DateExpiration DateVisits RequestedVisits [id number] Review Specialty Services Required Encounter Details DateTypeDepartmentCare Team (Latest Contact Info)Waubjpyfvpi99/16/2025 9:30 AM ESTOffice Visit [facility] [address] [place] [address], [address] [place] [phone] Micheal Mcclendon MD [address] [place] [address] Jaw pain (Primary Dx); Otalgia of left ear; TMJ tenderness, left Social History Tobacco UseTypesPacks/DayYears UsedDateSmoking Tobacco: Every [...] InformationValueDate RecordedSex Assigned at BirthNot on fileLegal AolWgxono90/01/2022 9:39 PM EDT Gender IdentityNot on fileSexual OrientationNot on filedocumented as of this encounter Patient Instructions * Patient Instructions* Ailin Wongdorene - 10/10/2025 9:30 AM EST Today's examination findings were discussed with the patient. Recommendations for treatment were provided including the following: - TMJ management discussed, i.e. Jaw rest (no gum, hard candy, peanuts), anti- inflammatories like aleve or ibuprofen, and discussing a bite splint with your dentist. You may also obtain rkhx-ymy-plejcma Voltaren gel. This could be applied over the jaw joint to work as an anti-inflammatory as well. - Pursue MR neck. The patient will contact my office if there are any additional questions or concerns: [phone]. Non-emergent messages received through [employer] may take up to 2 business days for a response. documented in this encounter Plan of Treatment DateTypeDepartmentCare Team (Latest Contact Info)Ncvocqymnqu36/09/2026 9:45 AM ESTAppointment [facility] [address] [place] [address] 11/07/2025 9:10 AM ESTTelemedicine [facility] [address] [place] [address] Micheal Mcclendon MD [address] [place] [address] NameTypePriorityAssociated DiagnosesOrder ScheduleMR neck soft tissue with and without contrastImagingRoutine Jaw pain Expected: 10/10/2025, Expires: 10/10/2026NameTypePriorityAssociated Diagnoses Order ScheduleAmbulatory referral to ENT (Non-[facility])Outpatient Referral Routine Jaw pain Otalgia of left ear 1 Occurrences starting 10/10/2025 until 10/10/2026documented as of this encounter Visit Diagnoses Diagnosis Jaw pain- Primary Otalgia of left ear TMJ tenderness, left documented in this encounter Care Teams Team MemberRelationshipSpecialtyStart DateEnd Date Nitin Rock MD [address] [facility] [place] [address] PCP - GeneralFamily Mztfghns05/1/24documented as of this encounter
--- NOTE | 2025-10-10 22:44 | ED_ITS ---
HPI - Eye Problem General Chief complaint: Eye Problems Stated complaint: Glue in eye Time Seen by Provider: 10/10/25 22:43 History of Present Illness HPI Narrative: thought she was instilling eye drops into her eye and by mistake she instilled nail glue. Presents complaining of pain of the eye and a sensation of a film over her eye Related Data Home Medications ?Medication ?Instructions ?Recorded ?Confirmed buspirone 5 mg tablet 5 mg PO BID 07/11/24 4 fluticasone propionate 50 1 spray intranasal DAILY PRN 07/11/24 07/21/24 mcg/actuation nasal allergy symptoms spray,suspension (24 Hour Allergy Relief) hydroxyzine pamoate 25 mg capsule 25 mg PO Q8H PRN anx iety 07/11/24 07/21/24 naproxen 500 mg tablet 500 mg PO Q12H PRN pain 06/2607/21/24 aspirin 325 mg tablet mg 07/23/24 hydrocodone 5 mg-acetaminophen 325 tab 07/23/24 mg tablet ondansetron HCl 4 mg tablet mg 07/23/24 sulfamethoxazole 800 tab 07/23/24 mg-trimethoprim 160 mg tablet Previous Rx's ?Medication ?Instructions ?Recorded orphenadrine citrate 100 mg 100 mg PO BID PRN muscle s pasm #10 07/23/24 tablet,extended release tabs Allergies Allergy/AdvReac Type Severity Reaction Status Date / Time amoxicillin Allergy Rash Verified 07/21/24 07:44 ciprofloxacin (From Cipro) Allergy tendon pain Verified 07/21/24 07:44 Review of Systems ROS Status of ROS 10 or more systems reviewed and unremark able except as noted in history and below [facility] Medical History (Updated 10/11/25 @ 00:08 by Leonard Godfrey MD) Left foot pain ?M79.672 - Pain in left foot (ICD-10) Left ankle pain ?M25.572 - Pain in left ankle and joints of left foot (ICD-10) Impingement of left ankle joint ?M25.872 - Other specified joint disorders, left ankle and foot (ICD-10) Left ankle instability ?M25.372 - Other instability, left ankle (ICD-10) Peroneal tendinitis ?M76.70 - Peroneal tendinitis, unspecified leg (ICD-10) Strain of muscle(s) and tendon(s) of peroneal muscle group at lower leg level, left leg, sequela ?S86.312S - Strain of muscle(s) and tendon(s) of peroneal muscle group at lower leg level, left leg, sequela (ICD-10) Axillary hidradenitis suppurativa ?L73.2 - Hidradenitis suppurativa (ICD-10) Insomnia ?G47.00 - Insomnia, unspecified (ICD-10) PTSD (post-traumatic stress disorder) ?F43.10 - Post-traumatic stress disorder, unspecified (ICD-10) Panic attacks ?F41.0 - Panic disorder [episodic paroxysmal anxiety] (ICD-10) Depression ?F32.A - Depression, unspecified (ICD-10) Anxiety ?F41.9 - Anxiety disorder, unspecified (ICD-10) COVID-19 ?U07.1 - COVID-19 (ICD-10) Migraine ?G43.909 - Migraine, unspecified, not intractable, without status migrainosus (ICD-10) Seasonal allergies ?J30.2 - Other seasonal allergic rhinitis (ICD-10) Heartburn ?R12 - Heartburn (ICD-10) Myocarditis of mother during ?O99.419 - Diseases of the circulatory system complicating , unspecified trimester (ICD-10) ?I51.4 - Myocarditis, unspecified (ICD-10) Leg cramping ?R25.2 - Cramp and spasm (ICD-10) Hypokalemia ?E87.6 - Hypokalemia (ICD-10) Surgical History H/O oral surgery ?Z98.890 - Other specified postprocedural states (ICD-10) History of section ?Z98.891 - History of uterine scar from previous surgery (ICD-10) History of bilateral salpingectomy ?Z90.79 - Acquired absence of other genital organ(s) (ICD-10) Family History (Updated 07/21/24 @ 07:47 by Conhcita Paredes RN) Other Cancer Family history of DVT Family history of cancer Family history of diabetes mellitus Family history of hypertension Family history of pulmonary embolism Social History (Updated 07/21/24 @ 07:46 by Conchita Paredes RN) Within the past year, how often did you have a drink containing alcohol: never Score interpretation: A score less than 3 is consistent with normal alcohol consumption. Smoking status: Former smoker Do you use any of these nicotine containing products: vaping products Non-prescribed substance use: cannabis (any form) Highest level of school completed/degree received: high school graduate Little interest or pleasure in doing things: not at all Feeling down, depressed, or hopeless: not at all Exam Constitutional Vital Signs, click to edit/add: Last Vital Signs Pulse 100 H 10/10/25 22:47 Resp 20 10/10/25 22:47 BP 182/100 H 10/10/25 22:47 Pulse Ox 100 10/10/25 22:47 Common normals: oriented x3, healthy appearing, alert and well nourished General appearance: in distress HENMT Common normals: normocephalic and head/scalp atraumatic Other: right conjunctiva injected. No chemosis or obvious FB eyelids appear normal Respiratory Common normals: normal respiratory effort, no retractions, no use of accessory muscles and clear to auscultation bilaterally Cardio Common normals: regular rate, regular rhythm, S1 normal heart sound and S2 normal heart sound Extremity Common normals: normal to inspection and full ROM Neuro Common normals: oriented x3, CN's II-XII intact bilaterally, moves all extremities and no focal motor deficits Psych Appearance: grossly normal Course Vital Signs Vital signs: Vital Signs Pulse Rate 100 H 10/10/25 22:47 Respiratory Rate 20 10/10/25 22:47 Blood Pressure 182/100 H 10/10/25 22:47 Pulse Oximetry 100 10/10/25 22:47 Pulse Rate 100 H 10/10/25 22:47 Respiratory Rate 20 10/10/25 22:47 Blood Pressure 182/100 H 10/10/25 22:47 Pulse Oximetry 100 10/10/25 22:47 MDM - Eye Problem MDM Narrative Medical decision making narrative: presents with nail glue FB right eye just [employer] GUIDE. eye injected. has glue on edges of both eyelids but able to open eye. eyelids not swollen. right conjunctive injected. Tetracaine instilled in the eye and eye irrigated with 2L NS usng M organ lens. Flourescein then instill and uptake noted below he iris. also some debris of glue appreciated and removed with Qtip. Discussed with opthalmologist at [facility] group segment consultant Dr Marie who recommended antibiotic eye drops, pain medication and follow up with eye doctor next couple of days. Tobramycin ordered along with norco Discharge Plan Discharge Chief Complaint: Eye Problems Clinical Impression: Corneal abrasion, Foreign body in eyeball, right Patient Disposition: Home, Self-Care Prescriptions / Home Meds: No Action aspirin 325 mg tablet hydrocodone-acetaminophen 5-325 mg tablet ondansetron HCl 4 mg tablet sulfamethoxazole-trimethoprim 800-160 mg tablet orphenadrine citrate 100 mg tablet extended release 100 mg PO BID PRN (Reason: muscle spasm) Qty: 10 0RF buspirone 5 mg tablet 5 mg PO BID hydroxyzine pamoate 25 mg capsule 25 mg PO Q8H PRN (Reason: anxiety) naproxen 500 mg tablet 500 mg PO Q12H PRN (Reason: pain) fluticasone propionate [24 Hour Allergy Relief] 50 mcg/actuation spray,suspension 1 spray intranasal DAILY PRN (Reason: allergy symptoms) Rx Instructions: administer into each nostril Print Language: Pashto Instructions: Corneal Abrasion (ED) Additional Instructions: follow up with your eye doctor tomorrow Referrals: Milady Phelps DO [Primary Care Provider, Hospitalist] - 1 week
[2025-10-10 22:47] VITALS: BP 182/100; PULSE 100; O2SAT 100; BMI 52.4
[2025-10-10] MEDS: TETRACAINE HCL 0.5% OP SOL 80 DROP/4 ML BOTTLE OP (23:31)
[2025-10-10] MEDS: 0.9 % SODIUM CHLORIDE 1,000 ML 1000 ML IV (23:33)
--- OUTSIDE RECORDS SUMMARY | 2025-10-10 23:36 | XMS_ITS | Clinical Summary ---
Author Organization [facility] Address [address] [facility] [place] [address] Care Team Providers Care Nurse Reviewer Name Role Phone Kailey Black DMD, MD Unavailable [phone] Source Comments The following information is NOT included in Care Everywhere downloads:Psychiatric notes, ECG results, Cardiac Rehab notes, Pulmonary Function notes, data from SmartForms (includes but not limited toPregnancy data,audiograms, eye exams, pre-surgical evaluation notes, well-child exam data).[facility] Allergies Active AllergyReactionsCriticalityNoted DateCommentsAmoxicillinHives,Itching, Rash,Other05/19/2015CiprofloxacinMyalgias,Other05/19/2015 Medications MedicationSigDispense [...] Problems ProblemNoted DateDiagnosed DateDelivery with history of C-ftvcqtp5203/10/2024 Dhtxxxmtw35/16/2024Gestational diabetes mellitus (GDM) in third trimester controlled on oral hypoglycemic drug06/08/2019Hx of Doppler echocardiogram 05/24/2019 Overview (03/10/2024): Echo (02/2019): EF: 60%, Trace-Mild PI, no pericardial effusion Gestational eqdtyoyysspw94/02/8623Aeszrtomkkxs23/16/2017Acute myopericarditis 12/10/2016 Overview (03/10/2024): 12/10/16: Hospitalized. Several [...] family hx of DVT and PE. Morbid xfiompk1811/23/2016 Resolved Problems ProblemNoted DateDiagnosed DateResolved AtzyGpjvwq34 Immunizations ImmunizationAdministration DatesNext DueInfluenza, injectable, quadrivalent, preservative free (ZPC=171)11/26/2023Tdap (XRF=024)05/18/2023 Social History Tobacco UseTypesPacks/DayYears UsedDateSmoking Tobacco: NeverSmokeless Tobacco: Never Tobacco Cessation:Counseling Given: Not Answered Alcohol UseStandard Drinks/WeekCommentsNot Currently0 (1 standard drink = 0.6 oz pure alcohol)[facility] UtilitiesAnswerDate RecordedIn the past 12 months has the [employer], [employer], oil, or water [employer] threatened to shut off services in your [...] part ner or ex-partner?No03/09/2024Social Connection and Isolation PanelAnswerDate RecordedIn a typical week, how many times do you talk on the phone with family, friends, or neighbors?More than three times a week03/09/2024How often do you get together with friends or relatives?Three times a week03/09/2024How often do you attend rastafari or rastafarian services?Never03/09/2024o you belong to any clubs or organizations such as rastafari groups, unions, fraternal or athletic groups, or school groups?No03/09/2024How often do you attend meetings of the clubs or organizations you belong to?Never03/09/2024re you , , , , never , or living with a partner?Yzlkphe9003/09/2024Overall Financial Resource Strain (CARDIA)AnswerDate RecordedHow hard is it for you to pay for the very basics like food, housing, medical care, and heating?Somewhat hard03/09/2024[employer] - Occupational Stress QuestionnaireAnswerDate RecordedDo you feel stress - tense, restless, nervous, or anxious, or unable to sleep at night because yourmind is troubled all the time - these days?Only a huitvn7603/09/2024Exercise Vital SignAnswerDate Recorded On average, how many days per week [...] 12 months, how many places have you lived?1 03/09/2024In the last 12 months, was there a time when you did not have a steady place to sleep or slept in ashelter (including now)?No03/09/2024Utilities - HistoricalAnswerDate RecordedIn the past 12 months has the electric, gas, oil, or water company threatened to shut off services in your home?No03/09/2024 EducationAnswerDate RecordedWhat is the highest level of school you have completed or the highest degree you have received?12th grade03/09/2024Substance UseTypesUse/WeekCommentsYesMarijuana/THCCommentsUnknownSex and Gender InformationValueDate RecordedSex Assigned at BirthNot on fileLegal SexFemale 04/23/2023 4:32 PM EDTGender IdentityNot on fileSexual OrientationNot on file Last Filed Vital Signs Vital SignReadingTime TakenCommentsBlood Trrpwygx052/6808 3:22 PM EDT Izjue7090 3:22 PM DGFIclsozthfuq96.7 ??C (98 ??F)06/07/2024 3:22 PM EDT Respiratory Gbjy7998 3:22 PM EDTOxygen Neybrhzpuu59%06/07/2024 3:22 PM EDTInhaled Oxygen Concentration--Rkpwhq458.5 kg (270 lb)05/20/2024 12:59 PM EDT Nohnds882.1 cm (5' 5 )05/20/2024 12:59 PM EDTBody Mass Index44.9305/20/2024 12:59 PM EDT Plan of Treatment Health MaintenanceDue DateLast DoneCommentsFoot Exam1988Mammography (shared decision-making, age 35-39)1988Eye Exam1988Lipid Profile 1988Urine Protein (microalbumin)1988Hepatitis C Smrflxfn87/20/2006 Hepatitis A (HAV) Vaccine (optional start 19+ years)2007Hepatitis B (HBV) Vaccine (1 of 3 - 19+ 3-dose series)2007Pneumococcal Vaccine(s) (1 of 2 - PCV)2007Pap Smear2009HPV Vaccine (optional start 27-45 years) 2015Hemoglobin A1C11/23//asic Metabolic Panel03/23/2025 03/23/2024, 12/06/2023, 05/17/2023, Additional history existsCOVID-19 Vaccine (1 - 2024- season)2025Influenza Vaccine (#1)502/10/2023Tetanus (Td or Tdap) Qdairyy75/Shingles (RZV) Vaccine (1 of 2)2038 Tdap LpquzzzJvjhirnrk49/24/2023HIV AdxyIelaodzas82/29/2023Mammography Discontinued Insurance * Guarantor: John Paul Hernández TypeRelation to PatientDate of BirthPhone Billing QcnourwClppdkbqmiurxDlii1990 [address] [place] [address] Care Teams Team MemberRelationshipSpecialtyStart DateEnd Date Kailey Black DMD, MD [address] [place] [address] PhysicianOral & Maxillofacial Surgery03/26/24
--- OUTSIDE RECORDS SUMMARY | 2025-10-10 23:36 | XMS_ITS | Encounter Summary ---
Author Organization [facility] Address [id number] [address] [place] [address] Care Team Providers Care Precision Dyer Name Role Phone Nitin Rock MD Primary Care Provider [phone] Encounter Details DateTypeDepartmentCare Team (Latest Contact Info)Ftqsynovhig49/16/2025Travel Social History Tobacco UseTypesPacks/DayYears UsedDateSmoking Tobacco: Every [...] InformationValueDate RecordedSex Assigned at BirthNot on fileLegal BiqNjebsd30/01/2022 9:39 PM EDT Gender IdentityNot on fileSexual OrientationNot on filedocumented as of this encounter Plan of Treatment DateTypeDepartmentCare Team (Latest Contact Info)Jppybjrpead20/09/2026 9:45 AM ESTAppointment [facility] [address] [place] [phone] 11/07/2025 9:10 AM ESTTelemedicine [facility] [address] [place] [address] Micheal Mcclendon MD [address] [address] documented as of this encounter Visit Diagnoses Not on filedocumented in this encounter Care Teams Team MemberRelationshipSpecialtyStart DateEnd Date Nitin Rock MD [address] [place] [address] PCP - GeneralFamily Zjzazros98/1/24documented as of this encounter
--- OUTSIDE RECORDS SUMMARY | 2025-10-10 23:36 | XMS_ITS | Clinical Summary ---
Author Organization [employer] tem Address [id number] [address] [place] [address] Care Team Providers Care Food Service Director Name Role Phone Nitin Rock MD Primary Care Provider [phone] Allergies Active AllergyReactionsCriticalityNoted JmjkQlnhmgsnIplmiwxbfjh54/01/2022 Ciprofloxacin Hcl02/23/2022 Medications MedicationSigDispense QuantityRefillsLast FilledStart DateEnd [...] hours as needed (cold sores). 15 g 4Active fluticasone propionate (FLONASE) 50 mcg/actuation nasal spray Administer 2 sprays into each nostril in the morning.4Active cyclobenzaprine (FLEXERIL) 10 mg tablet Take 1 tablet (10 mg total) by mouth 2 (two) times a day as needed for muscle spasms. 10 tablet 5Active CEPHalexin (KEFLEX) 500 mg capsule Take 1 capsule (500 mg total) by mouth in the morning and 1 capsule (500 mg total) at noon and 1 capsule (500 mg total) in the evening and 1 capsule (500 mg total) before bedtime.Active buPROPion SR (WELLBUTRIN SR) 100 mg 12 hr tablet 1 tablet (100 mg total) in the morning and at bedtime.5Active Encounters DateTypeDepartmentCare LywzImgnvueubpi24/16/2025 9:30 AM ESTOffice Visit [facility] [address] [place] [address], [address] [place] [address] Micheal Mcclendon MD Jaw pain (Primary Dx); Otalgia of left ear; TMJ tenderness, left10/10/2025 9:00 AM ESTClinical Support [facility] [address] [place] [address], [address] [place] [address] Ear fullness, left (Primary Dx); Otalgia, left ear10/10/20254709Nehaxd25/06/2025 11:42 PM EST - 10/01/2025 2:04 AM [facility] - Emergency [address] [place] [address] Gillian Dickens MD Jaw pain (Primary Dx) Discharge Disposition: Home09/30/20255869Krxugh04/15/2025 6:09 PM EST - 09/09/2025 7:20 PM [facility] - Emergency [address] [place] [address] José Miguel Phoenix MD Left shoulder pain, unspecified chronicity (Primary Dx) Discharge Disposition: Home09/09/2025Travelfrom Last 3 Months Social History Tobacco UseTypesPacks/DayYears [...] we didn't have money to get more.Never True09/30/2025CommentsNoSex and Gender InformationValueDate RecordedSex Assigned at BirthNot on fileLegal Sex Itkykq8702/23/2022 9:39 PM EDTGender IdentityNot on fileSexual OrientationNot on file Last Filed Vital Signs Vital SignReadingTime TakenCommentsBlood Ejiczdeo501/9210/01/2025 1:58 AM EST Zmiub902810/01/2025 1:58 AM AXUVtkfhdhlqlz91.1 ??C (98.7 ??F)09/30/2025 11:54 PM ESTRespiratory Vmsr557012/02/2024 1:58 AM ESTOxygen Llwuerwmfq220%10/01/2025 1:58 AM ESTInhaled Oxygen Concentration--Vfwaln580.2 kg (318 lb)09/30/2025 11:54 PM RURVkrqrk631.1 cm (5' 5 )09/30/2025 11:54 PM ESTBody Mass Index52.9209/30/2025 11:54 PM EST Plan of Treatment DateTypeDepartmentCare Team (Latest Contact Info)Xquergegmsk01/09/2026 9:45 AM ESTAppointment [facility] [address] [place] [address] 11/07/2025 9:10 AM ESTTelemedicine [facility] [address], [address] [place] [address] Micheal Mcclendon MD [address] [place] [address] Health MaintenanceDue DateLast DoneCommentsTobacco Qhfvvxhesj1988 Depression Pzevswmss55/20/2000Adult BMI Follow Up Plan2006Influenza Inxmvku11/01/615583/dult BMI Kbvtctjpm05Tobacco Ddoxehdwf98/16/48014112/11/2024DTaP,Tdap and Td Vaccines (2 - Td or Tdap) Medical Devices Not on file Procedures Procedure NamePriorityDate/TimeAssociated DiagnosisCommentsCOMPREHENSIVE HEARING VGVGTgajjzr93/16/2025 8:04 AM ESTCT NECK SOFT TISSUE W GVORPVDX42/07/2025 1:03 AM EST COMPREHENSIVE METABOLIC JUDXWMXCV18/07/2025 12:33 AM EST CBC WITH AUTO KUYRNNEZZAPZJMAQ34/07/2025 12:33 AM EST EXTRA TUBES BLUE ABNXzvryxl78/07/2025 12:27 AM EST EXTRA RSUVGZjrfvfg40/07/2025 12:27 AM EST EXTRA TUBES BLUE RIAKljnmrm44/15/2025 6:37 PM EST EXTRA MUUXZCgpwtbv99/15/2025 6:37 PM EST TROPONIN I, HIGH SENSITIVITY 0 CAQKVLPN88/15/2025 6:28 PM EST TROPONIN I, HIGH SENSITIVITY 0 FYKAETQQ62/15/2025 6:28 PM EST COMPREHENSIVE METABOLIC ZTTHBUAYU23/15/2025 6:28 PM EST CBC WITH AUTO MKHCBCGHHBRAPAYD68/15/2025 6:28 PM EST ECG 12-GMBNZJRU68/15/2025 6:13 PM EST from Last 3 Months Results * Comprehensive hearing test (10/10/2025 8:04 AM EST) Narrative Authorizing ProviderResult TypeResult StatusMicheal Mcclendon [facility] ORDERABLESFinal Result * CT neck soft tissue with contrast [...] 10/01/2025 1:35 AM Authorizing ProviderResult TypeResult StatusStacy Chrissie MDIMG CT ORDERABLESFinal Result * (ABNORMAL) CBC auto differential (10/01/2025 12:33 AM EST) Only the most recent of2 resultswithin the time period is included. ComponentValueRef RangeTest MethodAnalysis TimePerformed AtPathologist Signature WBC9.14 - 11 10^9/L112/02/2024 12:39 AM ESTPROCANYON RIDGE HOSPITALRBC Count4.433.8 - 5.2 10^12/L112/02/2024 12:39 AM ESTPROCANYON RIDGE HOSPITALHemoglobin13.311.7 - 15.5 g/dL10/01/2025 12:39 AM ESTPROCANYON RIDGE HOSPITALHematocrit38.835 - 47 %10/01/2025 12:39 AM ESTMEMORIAL HOSPITALV8880 - 100 fL10/01/2025 12:39 AM ESTPROCANYON RIDGE HOSPITALMCH29.927 - 34 pg10/01/2025 12:39 AM ESTPROCANYON RIDGE HOSPITALMCHC34.232 - 36 g/dL10/01/2025 12:39 AM ESTPROCANYON RIDGE HOSPITALRDW13.811.5 - 15 %10/01/2025 12:39 AM [facility]ITALPlatelet Pywhn699837 - 450 10^9/L112/02/2024 12:39 AM EST [facility]GLEND[facility]OSPITALMPV7.27 - 12 fL10/01/2025 12:39 AM EST PROMVENCOR HOSPITALNeutrophils %74.0%10/01/2025 12:39 AM EST PROMVENCOR HOSPITALLymphocytes %16.6%10/01/2025 12:39 AM EST [facility] HOSPITALMonocytes %7.1%10/01/2025 12:39 AM EST [facility] HOSPITALEosinophils %2.0%10/01/2025 12:39 AM EST [facility]OMVENC[facility] HOSPITALBasophils %0.3%10/01/2025 12:39 AM EST [facility]OSPITALNeutrophils Absolute (A)6.8(H)1.5 - 6.6 10^9/L112/02/2024 12:39 AM [facility]OSPITALLymphocytes Absolute1.51.0 - 3.5 10^9/L112/02/2024 12:39 AM ESTMERCY HEALTH CLERMONT HOSPITALMonocytes Absolute0.60.0 - 0.9 10^9/L112/02/2024 12:39 AM [facility]OS[facility]ITALEosinophils Absolute0.20.0 - 0.4 10^9/L112/02/2024 12:39 AM [facility]PITALBasophils Absolute0.00.0 - 0.2 10^9/L 10/01/2025 12:39 AM [facility]OSPITALDifferential Type AUTOMATED ROXZJTGGTHBZ23/07/2025 12:39 AM [facility] Specimen (Source)Anatomical Location / LateralityCollection Method / Volume Collection TimeReceived TimeBloodVenous blood / UnknownVenipuncture / Unknown 10/01/2025 12:33 AM EST10/01/2025 12:34 AM EST Narrative Authorizing ProviderResult TypeResult StatusStacy Chrissie MDEINA BLOOD ORDERABLES Final ResultPerforming OrganizationAddressCity/State/ZIP CodePhone Number [facility] [address] [place] [address], * (ABNORMAL) Comprehensive metabolic panel (10/01/2025 12:33 AM EST) Only the most recent of2 resultswithin the time period is included. ComponentValueRef RangeTest MethodAnalysis TimePerformed AtPathologist Signature XPYCTV126391 - 146 mmol/L112/02/2024 12:53 AM [facility]OSPITALPOTASSIUM3.4(L)3.5 - 5.0 mmol/L112/02/2024 12:53 AM [facility]OSPITALCHLORIDE10498 - 109 mmol/L112/02/2024 12:53 AM [facility] HOSPITALCARBON HNFXTUQ6579 - 32 mmol/L112/02/2024 12:53 AM EST [facility] HOSPITALANION GAP95 - 15 mmol/L112/02/2024 12:53 AM [facility]OSPITALBLOOD UREA WZJPQGPO438 - 23 mg/dL 10/01/2025 12:53 AM [facility]OSPITALCREATININE0.880.40 - 1.00 mg/dL10/01/2025 12:53 AM [facility]OSPITALComment: METHOD TRACEABLE TO IDMS OYALQMYTELLPMKF420(H)65 - 99 mg/dL10/01/2025 12:53 AM [facility] HOSPITALCALCIUM8.68.5 - 10.5 mg/dL10/01/2025 12:53 AM [facility]OSPITALTOTAL PROTEIN7.56.0 - 8.0 g/dL 10/01/2025 12:53 AM [facility]PITALALBUMIN3.93.2 - 5.3 g/dL10/01/2025 12:53 AM [facility]OSPITALALKALINE MUUDXCCOSNP9358 - 130 U/L112/02/2024 12:53 AM [facility]ITALAST20<=41 U/L112/02/2024 12:53 AM [facility] ALT26<=31 U/L112/02/2024 12:53 AM [facility] BILIRUBIN,TOTAL0.30.3 - 1.2 mg/dL10/01/2025 12:53 AM [facility] HOSPITALEGFR Non-Race Igpzdotel76>=60 ml/min/1.73sq.m112/02/2024 12:53 AM [facility]OSPITALComment: eGFR not reported due to non-numeric value for Creatinine. Reported eGFR is based on the CKD-EPI 2020 equation that does not use a race coefficient. Specimen (Source)Anatomical Location / LateralityCollection Method / Volume Collection TimeReceived TimeBloodVenous blood / UnknownVenipuncture / Unknown 10/01/2025 12:33 AM EST10/01/2025 12:34 AM EST Narrative Authorizing ProviderResult TypeResult StatusGillian Dickens MDLAB BLOOD ORDERABLES Final ResultPerforming OrganizationAddressty/State/ZIP CodePhone Number [address] [address], [place] * Light Blue Top (10/01/2025 12:27 AM EST) Only the most recent of2 resultswithin the time period is included. ComponentValueRef RangeTest MethodAnalysis TimePerformed AtPathologist Signature Extra TubeAuto Uouqnukx02/07/2025 2:02 AM [facility] Specimen (Source)Anatomical Location / LateralityCollection Method / Volume Collection TimeReceived TimeBloodVenous blood / Bwutlyy7910/01/2025 12:27 AM EST 10/01/2025 12:35 AM EST Narrative Authorizing ProviderResult TypeResult StatusStayaan Dickens MDLAB BLOOD ORDERABLES Final ResultPerforming OrganizationAddressCity/State/ZIP CodePhone Number [address] [address], [place] * Troponin I, High Sensitivity 0 Hour (09/09/2025 6:28 PM EST)ComponentValueRef RangeTest MethodAnalysis TimePerformed AtPathologist SignatureTROPONIN I, HIGH SENSITIVITY<2<16 ng/L111/09/2024 7:08 PM [facility] Specimen (Source)Anatomical Location / LateralityCollection Method / Volume Collection TimeReceived TimeBloodVenous blood / UnknownVenipuncture / Unknown 09/09/2025 6:28 PM EST09/09/2025 6:36 PM EST Narrative Authorizing ProviderResult TypeResult StatusJosé Miguel Phoenix MDLAB BLOOD ORDERABLES Final ResultPerforming OrganizationAddressty/State/ZIP CodePhone Number [address] [address], [place] * ECG 12 lead (09/09/2025 6:13 PM EST)Specimen (Source)Anatomical Location / LateralityCollection Method / VolumeCollection TimeReceived Time09/09/2025 6:13 PM EST Narrative [facility]AC[facility]ERVUE - 09/10/2025 5:29 PM EST Authorizing ProviderResult TypeResult StatusPaluis Phoenix MDECSabine ORDERABLESFinal ResultPerforming OrganizationAddressCity/State/ZIP CodePhone Number TRACEMASTERVUE from Last 3 Months Insurance Care Teams Team MemberRelationshipSpecialtyStart DateEnd Nitin Rock MD [address] [place] [address] PCP - GeneralFamily Rspivoiv11/1/24
--- OUTSIDE RECORDS SUMMARY | 2025-10-10 23:36 | XMS_ITS | Encounter Summary ---
Author Organization [facility] [employer] [facility] tem Address [id number] [address] [place] [address] Care Team Providers Care Card Seller Name Role Phone Nitin Rock MD Primary Care Provider [phone] Encounter Details DateTypeDepartmentCare Team (Latest Contact Info)Qjxgnvzmlaa34/06/2025Travel Social History Tobacco UseTypesPacks/DayYears UsedDateSmoking Tobacco: Every [...] InformationValueDate RecordedSex Assigned at BirthNot on fileLegal KaxZyqlkn48/01/2022 9:39 PM EDT Gender IdentityNot on fileSexual OrientationNot on filedocumented as of this encounter Plan of Treatment DateTypeDepartmentCare Team (Latest Contact Info)Nisbcddbbae76/09/2026 9:45 AM ESTAppointment [facility] - [facility] [address] [place] [address] 11/07/2025 9:10 AM ESTTelemedicine [facility] [address], [address] [place] [address] Micheal Mcclendon MD [address] [address] documented as of this encounter Visit Diagnoses Not on filedocumented in this encounter Care Teams Team MemberRelationshipSpecialtyStart DateEnd Date Nitin Rock MD [address] [place] [address] PCP - GeneralFamily Vanusyqh26/1/24documented as of this encounter
[2025-10-11] MEDS: 0.9 % SODIUM CHLORIDE 1,000 ML 1000 ML IV (00:09)
[2025-10-11] MEDS: FLUORESCEIN SODIUM 1 MG STRIP OP (00:17)
[2025-10-11] MEDS: HYDROCODONE/ACET 5-325 MG TABLET 4 TAB PO (00:25)
[2025-10-11] MEDS: TOBRAMYCIN 0.3% OP SOL 100 DROP/5 ML BOTTLE OP (00:25)
== END 2025-10-11 00:36 | disposition home or self-care (01) ==
PROVIDERS: Emergency Provider Internal Medicine; PCP Family Medicine
DX: T15.01XA Foreign body in cornea, right eye, initial encounter (principal)
CPT/HCPCS: 99284